=== PATIENT | male | born 1955 | race Hispanic/Latino ===

== ENCOUNTER → 2018-10-14 | Outpatient (CLI) | payer MEDICARE | END | disposition home or self-care (01) | LOC: RAH 14:38 | PROVIDERS: ATTEND Family Medicine | DX: I73.9 Peripheral vascular disease, unspecified (principal); R59.0 Localized enlarged lymph nodes; Q53.9 Undescended testicle, unspecified | CPT/HCPCS: 93970 ==

== ENCOUNTER 2019-02-01 17:46 | Inpatient (IN) | payer MEDICARE ==
[~2019-02-01] VITALS: Ht 172.7 cm; Wt 80.3 kg
[2019-02-01 18:45] LABS: BASOPHILS % (AUTO) 0.7 % (0.0-5.0); EOSINOPHILS % (AUTO) 2.2 % (0.0-8.0); HEMATOCRIT 43.1 % (42-54); LYMPHOCYTES % (AUTO) 12.4 % (21.0-51.0); MEAN CORPUSCULAR HEMOGLOBIN 28.4 pg (27.0-33.0); MEAN CORPUSCULAR HGB CONC 32.7 g/dL (32.0-36.0); MEAN CORPUSCULAR VOLUME 86.9 fL (79-99); MONOCYTES % (AUTO) 9.2 % (3.0-13.0); NEUTROPHILS % (AUTO) 75.5 % (40.0-77.0); PLATELET COUNT (AUTO) 393 K/uL (130-400); RED BLOOD CELL COUNT(AUTO) 4.96 MIL/uL (4.50-6.20); RED CELL DISTRIBUTION WIDTH 15.5 % (11.0-15.5); WHITE BLOOD COUNT (AUTO) 8.6 K/uL (4.8-10.8)
[2019-02-01 18:56] LABS: CREATININE 0.9 mg/dL (0.5-1.5); POTASSIUM 4.4 mmol/L (3.5-5.1)
[2019-02-01 19:05] LABS: B-TYPE NATRIURETIC PEPTIDE 30 pg/mL (0-100)
[2019-02-01 19:08] LABS: ALBUMIN 3.2 g/dL (3.5-5.0); BILIRUBIN,DIRECT 0.1 mg/dL (0.0-0.3); BILIRUBIN,TOTAL 0.5 mg/dL (0.2-1.0); THYROID STIMULATING HORMONE 0.6 uIU/mL (0.36-3.74); TOTAL PROTEIN, SERUM 7.4 g/dL (6.0-8.3)
[2019-02-01] MEDS ORDERED: FUROSEMIDE 10 MG/ML 4ML VIAL ONE (19:44)
[2019-02-01 20:43] LABS: APPEARANCE,URINE Clear (CLEAR); BILIRUBIN,URINE Negative (NEGATIVE); COLOR,URINE Yellow (YELLOW); GLUCOSE, URINE (UA) Negative (NEGATIVE); KETONES,URINE Negative (NEGATIVE); LEUKOCYTE ESTERASE ,URINE Negative (NEGATIVE); NITRATE,URINE Negative (NEGATIVE); OCCULT BLOOD,URINE Moderate (NEGATIVE); PROTEIN,URINE Negative (NEGATIVE); UROBILINOGEN,URINE 0.2 mg/dL (0.2-1.0)
[2019-02-01 20:58] LABS: BACTERIA,URINE None Seen /HPF (None Seen); RBC,URINE 0-1 /HPF (0-1); SQUAMOUS EPITHELIAL CELL,UR None Seen /HPF (0-2); WBC,URINE None Seen /HPF (0-1)
[2019-02-01] MEDS ORDERED: SODIUM CHLORIDE 0.9% 10 ML VIAL IVP PRN (21:00)
[2019-02-01] MEDS ORDERED: ENOXAPARIN SODIUM 30 MG/0.3 ML SQ ONE (21:01)
[2019-02-01] MEDS ORDERED: ALBUTEROL SULFATE 0.083% 2.5 MG/3 ML INH IH ONE (21:25)
--- NOTE | 2019-02-01 21:52 | NUR ---
PATIENT ADMITTED TO ROOM, ORIENTATED TO CALL DURON AND ROOM. PATIENT STATES IS NOT ON ANY HOME MEDS. PATIENT RIGHT LOWER LEG DARK RED IN COLOR WITH 3 PLUS EDEMA NOTED. SKIN DRY AND FLAKY ON BOTH LOWER LEGS. LEFT LEG WITH SLIGHT SKIN DISCOLORATION WITH APPROX 2 PLUS EDEMA AND COOLER TO TOUCH. PEDAL PULSES BY DOPPLER. PATIENT REFUSED BATH AT THIS TIME. DENIES ANY COMPLAINTS OF PAIN OR DISCOMFORT. CALL DURON WITHIN REACH.
[2019-02-01 22:13] VITALS: BP 145/72
[2019-02-01 23:44] VITALS: BP 104/56
[2019-02-02 03:24] VITALS: BP 96/58
[2019-02-02 04:32] LABS: HEMATOCRIT 39.3 % (42-54); MEAN CORPUSCULAR HEMOGLOBIN 29.3 pg (27.0-33.0); MEAN CORPUSCULAR HGB CONC 33.5 g/dL (32.0-36.0); MEAN CORPUSCULAR VOLUME 87.5 fL (79-99); PLATELET COUNT (AUTO) 346 K/uL (130-400); RED CELL DISTRIBUTION WIDTH 14.9 % (11.0-15.5); WHITE BLOOD COUNT (AUTO) 7.5 K/uL (4.8-10.8)
[2019-02-02 04:38] LABS: CREATININE 0.8 mg/dL (0.5-1.5); POTASSIUM 3.8 mmol/L (3.5-5.1)
[2019-02-02 04:41] VITALS: BP 106/65
[2019-02-02] MEDS ORDERED: IPRATROPIUM/ALBUTEROL SULFATE 3 ML SOLUTION IH SCH (06:00)
[2019-02-02] MEDS: FUROSEMIDE 10 MG/ML 4ML VIAL IVP SCH ×2 (07:50→20:56)
[2019-02-02 07:58] VITALS: BP 135/72
--- NOTE | 2019-02-02 08:30 | NUR ---
ASSESSMENT PT IS AAOX4 DENIES CP DENIES SOB DENIES SOB DENIES NV. NO COMPLAINTS SITTING UPRIGHT AT BEDSIDE. WHEEZES NOTED TO ALL LOBES BUT BREATHING PATTERN IS EVEN AND UNLABORED. DR NDIAYE ROUNDED, ORDERS RECEIVED. AM MEDS TAKEN, CALL LIGHT WITHIN REACH.
[2019-02-02] MEDS: METHYLPREDNISOLONE SOD SUCC 125MG/2ML VIAL IVP SCH ×2 (08:42→20:56)
[2019-02-02] MEDS ORDERED: ENOXAPARIN SODIUM 30 MG/0.3 ML SQ SCH (09:00)
[2019-02-02 11:30] VITALS: BP 97/55
[2019-02-02] MEDS: ACETYLCYSTEINE 20% 200MG/ML 4ML VIAL IH SCH ×3 (11:55→23:20)
[2019-02-02] MEDS: IPRATROPIUM/ALBUTEROL SULFATE 3 ML SOLUTION IH SCH ×3 (11:55→23:20)
--- NOTE | 2019-02-02 13:16 | NUR ---
DC PLAN VISITED WITH PATIENT. PATIENT LIVES ALONE. INDEPENDENT ABLE TO PERFORM ADL'S. PATIENT HAS A CANE NO OTHER DME OR SERVICES. FEELS SAFE TO RETURN HOME. DID REQUEST INFO ON PROVIDER EXPLAINED ABOUT GOING TO [facility] BUT DID LET DADS KNOW SAID THEY WILL VISIT. Addendum: 02/02/19 at 1319 by BEULAH NAVARRETE RN CM Amended: Links added.
[2019-02-02 15:34] VITALS: BP 109/65
[2019-02-02 19:41] VITALS: BP 103/56
[2019-02-02] MEDS: CEFTRIAXONE SODIUM 1 GM IVP SCH (20:55)
[2019-02-02] MEDS: ENOXAPARIN SODIUM 30 MG/0.3 ML SQ SCH (20:56)
[2019-02-03] VITALS (7 sets, daily range): BP systolic 94–113; BP diastolic 51–59
[2019-02-03 03:28] LABS: HEMATOCRIT 42.4 % (42-54); MEAN CORPUSCULAR HEMOGLOBIN 28.1 pg (27.0-33.0); MEAN CORPUSCULAR HGB CONC 32.3 g/dL (32.0-36.0); MEAN CORPUSCULAR VOLUME 87.1 fL (79-99); PLATELET COUNT (AUTO) 394 K/uL (130-400); RED BLOOD CELL COUNT(AUTO) 4.87 MIL/uL (4.50-6.20); WHITE BLOOD COUNT (AUTO) 9.5 K/uL (4.8-10.8)
--- NOTE | 2019-02-03 03:36 | NUR ---
PATIENT RESTING IN BED. DOES HAVE SOB WITH EXERTION. USING 2L OF 02 VIA NC. 02 SATS AT 98%. CRACKLES TO POSTERIOR LOBES AND WHEEZES ANTERIOR LOBES. DENIES CHEST PAIN. PATIENT HAD PITTING EDEMA TO BLE WITH DISCOLORATION AND FLAKING. PATIENT STATED OUR FOOD DOESN'T HAVE ENOUGH SALT BUT ATE IT ANYWAY. OUTSIDE FOOD WAS BROUGHT TO PATIENT BY FAMILY MEMBER. PATIENT HAD A WHATABURGER WITH FRIES. EDUCATED PATIENT ON SALT INTAKE AND WATER RETENTION IN EXTREMITIES.
[2019-02-03 03:40] LABS: POTASSIUM 4.2 mmol/L (3.5-5.1)
[2019-02-03] MEDS: IPRATROPIUM/ALBUTEROL SULFATE 3 ML SOLUTION IH SCH ×4 (07:05→23:05)
[2019-02-03] MEDS: ACETYLCYSTEINE 20% 200MG/ML 4ML VIAL IH SCH ×4 (07:05→23:05)
[2019-02-03] MEDS: FUROSEMIDE 10 MG/ML 4ML VIAL IVP SCH ×2 (07:38→20:19)
[2019-02-03] MEDS: ENOXAPARIN SODIUM 30 MG/0.3 ML SQ SCH (07:39)
[2019-02-03] MEDS: METHYLPREDNISOLONE SOD SUCC 125MG/2ML VIAL IVP SCH ×2 (07:39→20:18)
--- NOTE | 2019-02-03 08:00 | NUR ---
ASSESSMENT PT IS AAOX4 DENIES CP DENIES SOB AT THIS TIME, RESTING IN BED. DR NDIAYE ROUNDED, SAW PATIENT ORDERS RECEIVED. AM MEDS GIVEN. CALL LIGHT WITHIN REACH.
--- NOTE | 2019-02-03 12:10 | NUR ---
STATUS UP AT BEDSIDE. NO COMPLAINTS, EATING LUNCH. CALL LIGHT WITHIN REACH.
--- NOTE | 2019-02-03 17:28 | NUR ---
Status Patient awake and alert oriented 4 denies pain, ambulating in halls, back to room, tolerated dinner. Call light within reach.
--- NOTE | 2019-02-03 18:03 | NUR ---
DC PLAN MD ORDER FOR SNF. GOT PT EVAL. PATIENT AMBULATED 200 FT. WILL NOT LIKELY QUALIFY FOR SNF. LEFT ORANGE PAPER TO LET MD KNOW LET NURSE KNOW WELL.
[2019-02-03] MEDS: CEFTRIAXONE SODIUM 1 GM IVP SCH (20:18)
--- NOTE | 2019-02-04 03:15 | NUR ---
PATIENT RESTING IN BED. CURRENTLY USING 2L OF 02 VIA NC. O2 SATS >95%. DENIES CHEST PAIN OR SOB. BLE FLAKING SKIN WITH 2+ PITTING EDEMA. LUNGS WITH WHEEZING AND POSTERIOR CRACKLES. PATIENT. EDUCATED PATIENT ON WATER INTAKE AND NA+ INTAKE. TOLERATING IV ABX WELL. WILL CONTINUE TO MONITOR
[2019-02-04 04:35] LABS: HEMATOCRIT 40.8 % (42-54); MEAN CORPUSCULAR HEMOGLOBIN 29.1 pg (27.0-33.0); MEAN CORPUSCULAR HGB CONC 33.3 g/dL (32.0-36.0); MEAN CORPUSCULAR VOLUME 87.5 fL (79-99); PLATELET COUNT (AUTO) 398 K/uL (130-400); RED BLOOD CELL COUNT(AUTO) 4.66 MIL/uL (4.50-6.20); RED CELL DISTRIBUTION WIDTH 15.1 % (11.0-15.5); WHITE BLOOD COUNT (AUTO) 12.6 K/uL (4.8-10.8)
[2019-02-04 04:43] LABS: CREATININE 0.9 mg/dL (0.5-1.5); POTASSIUM 4.1 mmol/L (3.5-5.1)
[2019-02-04 05:05] VITALS: BP 112/61
[2019-02-04] MEDS: ACETYLCYSTEINE 20% 200MG/ML 4ML VIAL IH SCH ×3 (06:35→18:37)
[2019-02-04] MEDS: IPRATROPIUM/ALBUTEROL SULFATE 3 ML SOLUTION IH SCH ×3 (06:35→18:36)
[2019-02-04 07:00] VITALS: BP 94/54
[2019-02-04] MEDS: ENOXAPARIN SODIUM 30 MG/0.3 ML SQ SCH (09:00)
[2019-02-04] MEDS: FUROSEMIDE 10 MG/ML 4ML VIAL IVP SCH ×2 (10:17→21:01)
[2019-02-04] MEDS: METHYLPREDNISOLONE SOD SUCC 125MG/2ML VIAL IVP SCH ×2 (10:17→21:01)
[2019-02-04 11:00] VITALS: BP 119/91
[2019-02-04] MEDS ORDERED: REGADENOSON 0.4 MG/5 ML PF SYG IVP SCH (12:30)
[2019-02-04 16:00] VITALS: BP 105/59
[2019-02-04 19:17] VITALS: BP 100/59
[2019-02-04] MEDS: CEFTRIAXONE SODIUM 1 GM IVP SCH (21:00)
[2019-02-04 23:50] VITALS: BP 105/57
[2019-02-05] MEDS: IPRATROPIUM/ALBUTEROL SULFATE 3 ML SOLUTION IH SCH ×5 (00:58→23:43)
[2019-02-05] MEDS: ACETYLCYSTEINE 20% 200MG/ML 4ML VIAL IH SCH ×5 (00:59→23:43)
[2019-02-05 04:10] VITALS: BP 107/60
[2019-02-05 04:40] LABS: BASOPHILS % (AUTO) 0.1 % (0.0-5.0); HEMATOCRIT 46.2 % (42-54); LYMPHOCYTES % (AUTO) 7.2 % (21.0-51.0); MEAN CORPUSCULAR HEMOGLOBIN 27.8 pg (27.0-33.0); MEAN CORPUSCULAR HGB CONC 32.1 g/dL (32.0-36.0); MEAN CORPUSCULAR VOLUME 86.8 fL (79-99); MONOCYTES % (AUTO) 1.7 % (3.0-13.0); PLATELET COUNT (AUTO) 495 K/uL (130-400); RED BLOOD CELL COUNT(AUTO) 5.32 MIL/uL (4.50-6.20); RED CELL DISTRIBUTION WIDTH 15.2 % (11.0-15.5); WHITE BLOOD COUNT (AUTO) 12.3 K/uL (4.8-10.8)
[2019-02-05 04:57] LABS: CREATININE 0.9 mg/dL (0.5-1.5)
[2019-02-05 07:00] VITALS: BP 130/69
[2019-02-05] MEDS: METHYLPREDNISOLONE SOD SUCC 125MG/2ML VIAL IVP SCH ×2 (09:53→20:24)
[2019-02-05] MEDS: FUROSEMIDE 10 MG/ML 4ML VIAL IVP SCH ×2 (09:54→20:25)
[2019-02-05] MEDS: ENOXAPARIN SODIUM 30 MG/0.3 ML SQ SCH (09:54)
--- NOTE | 2019-02-05 10:51 | NUR ---
REPORTED TO DR. NDIAYE POSITIVE SPUTUM CULTURE: PSEUDOMONAS AERUGENOSA.
[2019-02-05 11:00] VITALS: BP 110/67
--- NOTE | 2019-02-05 11:26 | NUR ---
SPOKE WITH KITTY OCLLINS RN ABOUT 'S ORDER FOR REFERRAL TO [facility]. WILDLIFE FORENSIC GENETICIST SAID THAT SUPERVISOR CONTINUOUS WELD PIPE MILL WILL BE ABLE TO PROVIDE INFORMATION TO PATIENT ON THURSDAY.
--- NOTE | 2019-02-05 13:22 | NUR ---
DR. LOAIZA' OFFICE IS CLOSED DURING WEEKENDS. CONSULT WILL BE CALLED IN ON THURSDAY.
[2019-02-05] MEDS: LEVOFLOXACIN 500 MG/D5W 100 ML 100 ML IV SCH (13:57)
[2019-02-05] MEDS: ALPRAZOLAM 0.25 MG TABLET PO PRN ×2 (15:14→20:24)
[2019-02-05 16:00] VITALS: BP 117/67
[2019-02-05 19:10] VITALS: BP 133/78
[2019-02-05 23:27] VITALS: BP 135/72
[2019-02-06 03:52] VITALS: BP 138/78
[2019-02-06] MEDS: ALPRAZOLAM 0.25 MG TABLET PO PRN ×4 (04:11→20:37)
[2019-02-06 04:21] LABS: BASOPHILS % (AUTO) 0.3 % (0.0-5.0); HEMATOCRIT 50.1 % (42-54); LYMPHOCYTES % (AUTO) 8.9 % (21.0-51.0); MEAN CORPUSCULAR HEMOGLOBIN 28.9 pg (27.0-33.0); MEAN CORPUSCULAR HGB CONC 33.2 g/dL (32.0-36.0); MEAN CORPUSCULAR VOLUME 86.8 fL (79-99); MONOCYTES % (AUTO) 2.1 % (3.0-13.0); NEUTROPHILS % (AUTO) 88.7 % (40.0-77.0); PLATELET COUNT (AUTO) 481 K/uL (130-400); RED BLOOD CELL COUNT(AUTO) 5.76 MIL/uL (4.50-6.20); RED CELL DISTRIBUTION WIDTH 15.2 % (11.0-15.5); WHITE BLOOD COUNT (AUTO) 11.5 K/uL (4.8-10.8)
[2019-02-06 04:22] LABS: POTASSIUM 3.6 mmol/L (3.5-5.1)
[2019-02-06] MEDS: ACETYLCYSTEINE 20% 200MG/ML 4ML VIAL IH SCH ×4 (06:15→23:18)
[2019-02-06] MEDS: IPRATROPIUM/ALBUTEROL SULFATE 3 ML SOLUTION IH SCH ×4 (06:15→23:18)
[2019-02-06 07:00] VITALS: BP 128/73
[2019-02-06] MEDS: FUROSEMIDE 10 MG/ML 4ML VIAL IVP SCH ×2 (08:32→20:39)
[2019-02-06] MEDS: METHYLPREDNISOLONE SOD SUCC 125MG/2ML VIAL IVP SCH ×2 (08:32→20:39)
[2019-02-06] MEDS: ENOXAPARIN SODIUM 30 MG/0.3 ML SQ SCH (08:35)
[2019-02-06] MEDS: LEVOFLOXACIN 500 MG/D5W 100 ML 100 ML IV SCH (10:12)
[2019-02-06 11:00] VITALS: BP 117/74
[2019-02-06 16:00] VITALS: BP 140/71
[2019-02-06 19:28] VITALS: BP 123/69
[2019-02-06] MEDS ORDERED: [UNRECOGNIZED DRUG - CODE] TP (19:33)
--- NOTE | 2019-02-06 19:52 | NUR ---
CHE[facility] REPORT HANDED TO PATTY DARDEN. DR. LOAIZA WILL NEED TO BE CALLED TOMORROW. [place] MACHINE OPERATOR IS PENDING TO SPEAK TO PATIENT ABOUT [facility]DICTION [facility].
[2019-02-06 23:39] VITALS: BP 134/75
[2019-02-07 03:56] VITALS: BP 126/79
[2019-02-07 04:05] LABS: BASOPHILS % (AUTO) 0.4 % (0.0-5.0); EOSINOPHILS % (AUTO) 0.1 % (0.0-8.0); HEMATOCRIT 57.6 % (42-54); LYMPHOCYTES % (AUTO) 10.6 % (21.0-51.0); MEAN CORPUSCULAR HEMOGLOBIN 28.6 pg (27.0-33.0); MEAN CORPUSCULAR HGB CONC 33.1 g/dL (32.0-36.0); MEAN CORPUSCULAR VOLUME 86.3 fL (79-99); MONOCYTES % (AUTO) 1.8 % (3.0-13.0); NEUTROPHILS % (AUTO) 87.1 % (40.0-77.0); NUCLEATED RED BLOOD CELLS 0.1 % (0.0-0.19); PLATELET COUNT (AUTO) 440 K/uL (130-400); RED BLOOD CELL COUNT(AUTO) 6.67 MIL/uL (4.50-6.20); RED CELL DISTRIBUTION WIDTH 14.8 % (11.0-15.5); WHITE BLOOD COUNT (AUTO) 10.7 K/uL (4.8-10.8)
[2019-02-07 04:20] LABS: CREATININE 0.9 mg/dL (0.5-1.5); POTASSIUM 3.9 mmol/L (3.5-5.1)
[2019-02-07] MEDS: ALPRAZOLAM 0.25 MG TABLET PO PRN ×2 (04:56→10:32)
[2019-02-07] MEDS: IPRATROPIUM/ALBUTEROL SULFATE 3 ML SOLUTION IH SCH ×3 (06:41→18:16)
[2019-02-07] MEDS: ACETYLCYSTEINE 20% 200MG/ML 4ML VIAL IH SCH ×2 (06:41→12:00)
[2019-02-07 07:43] VITALS: BP 127/65
--- NOTE | 2019-02-07 07:45 | NUR ---
Pt. remained in bed,no s/s respiratory distress,pending to consult Dr. Pathak today and follow up pediatric social worker.Bedside report given to incoming NOD using SBAR all questions answered.
[2019-02-07] MEDS ORDERED: AMMONIUM LACTATE APPL TP SCH (09:00)
[2019-02-07] MEDS: ENOXAPARIN SODIUM 30 MG/0.3 ML SQ SCH (10:29)
[2019-02-07] MEDS: METHYLPREDNISOLONE SOD SUCC 125MG/2ML VIAL IVP SCH (10:29)
[2019-02-07] MEDS: FUROSEMIDE 10 MG/ML 4ML VIAL IVP SCH (10:29)
[2019-02-07 11:13] VITALS: BP 146/87
[2019-02-07] MEDS: LEVOFLOXACIN 500 MG/D5W 100 ML 100 ML IV SCH (11:32)
--- NOTE | 2019-02-07 13:09 | NUR ---
DC PLAN PATIENT HAS APPROVAL FOR 02 THROUGH [facility] BUT PATIENT WAS NOT DISCHARGED. NEW CONSULT FOR DR. JEFF FOR HEROINE. CONTRACT NEGOTIATION MANAGER NOTIFIED AND SPEAKING TO PATIENT. Addendum: 02/07/19 at 1310 by BEULAH NAVARRETE RN CM Amended: Links added.
[2019-02-07 15:35] VITALS: BP 130/82
--- NOTE | 2019-02-07 16:49 | NUR ---
[facility] Sw met with pt who states he has used heroin daily for at least 10years. Pt states he wants to quit, but does not want to go anywhere for help. Pt stated he feels he can do it on his own if he has Xanax for the anxiety. Agapito informed pt that I would seek resources in [facility]. Sw referred to [facility] in [place] [phone] [facility]. Agapito spoke to Tristian who states that pt can walk in any day from 6am to 2:30 to speak to a counselor. Pt would need to see the MD for meds. MD only there on from 6:30am-7am. Pt must be there by 6am to get in to see MD. Agapito informed CM of this and she will provide info to pt
--- NOTE | 2019-02-07 17:08 | NUR ---
DC PLAN SPOKE TO NURSE GAVE HIM INFO REGARDING [facility]. SPOKE TO PATIENT REGARDING INFO. GAVE HIM A COPY OF INFORMATION INCLUDING TIMES. HE HAS TO BE THERE TOMORROW AT 6 AM ITS THE ONLY TIME MD IS THERE IN ORDER TO BE PRESCRIBED MEDICATIONS. PATIENT AWARE. SPOKE TO FRIEND ON PHONE EXPLAINED ABOUT GOING TO CLINIC AND THAT HE WOULD NEED A RIDE. PATIENT VERBALIZED UNDERSTANDING ABOUT GETTING TO CLINIC. SAID HE WOULD ASK FOR RIDE. REMINDED HIM THAT FAMILY AND FRIENDS VERBALZIED WANT FOR HIM TO QUIT HE JUST NEEDS TO ASK FOR HELP. ASKED NURSE ABOUT OXYGEN SAYS PATIENT HAS NOT BEEN USING AND DOES NOT NEED. MD DID NOT RE ORDER OXYGEN OR LEAVE SCRIPT FOR IT. Addendum: 02/07/19 at 1711 by BEULAH NAVARRETE RN CM Amended: Links added.
[2019-02-07] MEDS ORDERED: LEVO500T2 PO (18:09)
== END 2019-02-07 18:53 | disposition home or self-care (01) | DRG 602 ==
LOC: EDH 17:46 → EDHIP 17:50 → OBSVTOIN 17:50 → 2AH 21:55
PROVIDERS: ADMIT Internal Medicine; ATTEND Internal Medicine
DX: L03.115 Cellulitis of right lower limb (principal); J96.90 Respiratory failure, unspecified, unspecified whether with hypoxia or hypercapnia; J44.1 Chronic obstructive pulmonary disease with (acute) exacerbation; L03.116 Cellulitis of left lower limb; E88.09 Other disorders of plasma-protein metabolism, not elsewhere classified; F11.10 Opioid abuse, uncomplicated; F60.7 Dependent personality disorder; I50.9 Heart failure, unspecified
CPT/HCPCS: 36415; 71046; 78452; 80048; 80053; 80076; 81001; 83880; 84443; 85025; 85027; 87071; 87077; 87186; 87205; 93005; 93017; 93306; 93970; 94640; 94664; 94760; 96374; A4218; A9500; G0378; J0696; J1650; J1940; J1956; J2785; J2930; J7608

== ENCOUNTER 2024-06-23 11:32 | Inpatient (IN) | payer MEDICARE ==
[~2024-06-23] VITALS: Ht 172.7 cm; Wt 69.9 kg
[2024-06-23] VITALS (19 sets, daily range): BP systolic 96–124; BP diastolic 48–85; PULSE 74–96; RESP 10–21; TEMP 98.9; O2SAT 94
[~2024-06-23 11:32] MED LIST: LEVO500T2 PO; [UNRECOGNIZED DRUG - CODE] TP
[2024-06-23] MEDS: 0.9%NACL 1000ML 1,000 ML IV ONE (12:00)
[2024-06-23 12:44] LABS: BASOPHILS # (AUTO) 0.07 K/uL (0.00-0.20); BASOPHILS % (AUTO) 0.2 % (0.0-5.0); EOSINOPHILS # (AUTO) 0.01 K/uL (0.00-0.70); HEMATOCRIT 43.2 % (42-54); IMMATURE GRANULOCYTE ABSOLUTE 0.15 K/uL (0-1); LYMPHOCYTES % (AUTO) 3.5 % (21.0-51.0); MEAN CORPUSCULAR HEMOGLOBIN 25.9 pg (27.0-33.0); MEAN CORPUSCULAR HGB CONC 32.9 g/dL (32.0-36.0); MEAN CORPUSCULAR VOLUME 78.8 fL (79-99); MONOCYTES # (AUTO) 1.4 K/uL (0.1-1.0); MONOCYTES % (AUTO) 4.9 % (3.0-13.0); NEUTROPHILS # (AUTO) 25.6 K/uL (1.8-7.7); NEUTROPHILS % (AUTO) 90.9 % (40.0-77.0); PLATELET COUNT (AUTO) 503 K/uL (130-400); RED BLOOD CELL COUNT(AUTO) 5.48 MIL/uL (4.50-6.20); RED CELL DISTRIBUTION WIDTH 18.7 % (11.0-15.5); WHITE BLOOD COUNT (AUTO) 28.2 K/uL (4.8-10.8)
[2024-06-23 12:57] LABS: CREATININE 1.1 mg/dL (0.5-1.3); POTASSIUM 3.4 mmol/L (3.5-5.1)
[2024-06-23 13:03] LABS: INR 1.09 (0.85-1.15); PROTHROMBIN TIME 11.7 SEC (9.6-11.6)
[2024-06-23 13:05] LABS: PARTIAL THROMBOPLASTIN TIME 26.7 SEC (26.3-35.5)
[2024-06-23] MEDS: PANTOPrazole 40 MG/VIAL IVP ONE (13:08)
[2024-06-23] MEDS: CEFTRIAXONE 2GM VIAL IVPB ONE (13:08)
[2024-06-23] MEDS: 0.9%NACL 1000ML 2,586 ML IV ONE (13:08)
[2024-06-23] MEDS: ondanSETRON 4MG INJ IVP ONE (13:08)
[2024-06-23 14:26] LABS: ABG BASE EXCESS 16.5 mmol/L (-2.0-3.0); ABG HCO3 45.1 mmol/L (21.0-28.0); ABG OXYGEN SATURATION 93.8 % (94.0-98.0); ABG PCO2 74 mmHg (35-48); CARBON MONOXIDE 4.5 % (0.5-1.5); DEVICE COMMENT RR JESSE; HHb 5.9; VENT MODE, BG 3LNC (ROOM AIR)
[2024-06-23] MEDS ORDERED: COMPOUND IV MISC 1 EACH IVSOLN MISC PRN (14:30)
[2024-06-23] MEDS ORDERED: IpraTROPium/alBUTERol SULFATE 3 ML SOLUTION IH SCH (14:30)
[2024-06-23] MEDS: PANTOPrazole 40MG INJ 80 MG in 0.9%NACL 100ML 100 ML IVP SCH (14:30)
[2024-06-23 14:43] LABS: HEMOGLOBIN A1C 5.9 % (4.0-6.0)
[2024-06-23 15:19] LABS: THYROID STIMULATING HORMONE 0.95 uIU/mL (0.36-3.74)
[2024-06-23 15:42] LABS: APPEARANCE,URINE CLEAR (CLEAR); BILIRUBIN,URINE NEGATIVE (NEGATIVE); COLOR,URINE YELLOW (YELLOW); GLUCOSE, URINE (UA) 30 mg/dL (NEGATIVE); KETONES,URINE NEGATIVE (NEGATIVE); LEUKOCYTE ESTERASE ,URINE NEGATIVE Leu/uL (NEGATIVE); NITRATE,URINE NEGATIVE (NEGATIVE); OCCULT BLOOD,URINE NEGATIVE (NEGATIVE); PH,URINE 5.5 (5.0-8.0); PROTEIN,URINE 10 mg/dL (NEGATIVE); UROBILINOGEN,URINE 0.2 mg/dL (0.2-1.0)
[2024-06-23 15:43] LABS: ADD UA MICROSCOPIC YES
[2024-06-23 15:44] LABS: MUCUS,URINE RARE LPF (None Seen); SQUAMOUS EPITHELIAL CELL,UR RARE /HPF (0-2); WBC,URINE 0-1 /HPF (0-1)
[2024-06-23 15:50] LABS: AMPHET/METH SCREEN,URINE NEGATIVE (NEGATIVE); BARBITURATE SCREEN, URINE NEGATIVE (NEGATIVE); BENZODIAZEPINES SCREEN,URINE NEGATIVE (NEGATIVE); CANNABINOID SCREEN,URINE NEGATIVE (NEGATIVE); COCAINE SCREEN,URINE POSITIVE (NEGATIVE); OPIATE SCREEN,URINE POSITIVE (NEGATIVE); PHENCYCLIDINE SCREEN,URINE NEGATIVE (NEGATIVE)
[2024-06-23] MEDS ORDERED: COMPOUND IV REFRIGERATED 1 EACH IVSOLN MISC PRN (16:00)
[2024-06-23] MEDS: octREOtide aceTATe 1,250 MCG in 0.9% NACL 250ML 250 ML IV SCH (17:09)
[2024-06-23] MEDS ORDERED: VANCOMYCIN PROTOCOL PER PHARMACY IV SCH (17:30)
[2024-06-23] MEDS: IpraTROPium/alBUTERol SULFATE 3 ML SOLUTION IH SCH (19:06)
[2024-06-23] MEDS: BUDESONIDE 0.5 MG/2 ML INH IH SCH (19:06)
[2024-06-23] MEDS: ceFEPime HCL 1 GM VIAL IVPB SCH (19:39)
[2024-06-23] MEDS: AZITHROMYCIN 500MG+NS 250ML 250 ML IVPB SCH (19:39)
[2024-06-23] MEDS: 0.9%NACL 1000ML 1,000 ML IV SCH (19:39)
[2024-06-23] MEDS: VANCOMYCIN 1G/250ML KIT 250 ML IV SCH (19:42)
[2024-06-23 20:43] LABS: HEMATOCRIT 36.3 % (42-54)
[2024-06-23] MEDS: NOREPINEPHRIN 4MG/NS 250ML 250 ML IV PRN (21:41)
[2024-06-23] MEDS: metRONIDazole 500MG/100ML BAG 100 ML IVPB SCH (23:24)
[2024-06-24] VITALS (178 sets, daily range): BP systolic 63–141; BP diastolic 27–76; PULSE 48–103; RESP 9–147; TEMP 97.8–98.9; O2SAT 89–93
[2024-06-24 02:14] LABS: BASOPHILS # (AUTO) 0.08 K/uL (0.00-0.20); BASOPHILS % (AUTO) 0.2 % (0.0-5.0); LYMPHOCYTES # (AUTO) 1.6 K/uL (1.0-4.8); LYMPHOCYTES % (AUTO) 4.9 % (21.0-51.0); MEAN CORPUSCULAR HEMOGLOBIN 25.8 pg (27.0-33.0); MEAN CORPUSCULAR HGB CONC 32.3 g/dL (32.0-36.0); MEAN CORPUSCULAR VOLUME 79.9 fL (79-99); MONOCYTES # (AUTO) 1.9 K/uL (0.1-1.0); MONOCYTES % (AUTO) 5.6 % (3.0-13.0); NEUTROPHILS # (AUTO) 29.8 K/uL (1.8-7.7); NEUTROPHILS % (AUTO) 88.7 % (40.0-77.0); PLATELET COUNT (AUTO) 463 K/uL (130-400); RED BLOOD CELL COUNT(AUTO) 4.38 MIL/uL (4.50-6.20); RED CELL DISTRIBUTION WIDTH 18.2 % (11.0-15.5)
[2024-06-24 02:20] LABS: CREATININE 0.7 mg/dL (0.5-1.3); MAGNESIUM 1.3 mg/dL (1.80-2.40)
[2024-06-24 02:21] LABS: WHITE BLOOD COUNT (AUTO) 33.6 K/uL (4.8-10.8)
[2024-06-24] MEDS: MAGNESIUM 2GM PREMIX 50ML 50 ML IV PRN (02:33)
[2024-06-24] MEDS: PoTASSium chloRIDE 20MEQ/100ML 100 ML IV PRN (02:33)
[2024-06-24 03:02] LABS: BAND NEUTROPHILS % (MANUAL) 6 % (0-2); LYMPHOCYTES % (MANUAL) 3 % (22-44); MAN.DIFF COMMENT-IMPRESSION MANUAL DIFFERENTIAL; MONOCYTES % (MANUAL) 6 % (2-9); PLATELET MORPHOLOGY COMMENT ADEQUATE; SEGMENTED NEUTROPHILS % 85 % (40-70); TOTAL CELLS COUNTED 100
[2024-06-24 06:57] LABS: SARS-CoV-2, RNA, NAAT NEGATIVE SARS CoV-2 (NEGATIVE)
[2024-06-24] MEDS: VANCOMYCIN 1G/250ML KIT 250 ML IV SCH (08:02)
[2024-06-24 08:30] LABS: MAGNESIUM 1.9 mg/dL (1.80-2.40); POTASSIUM 3.2 mmol/L (3.5-5.1)
[2024-06-24] MEDS: Solu-medROL 40MG VIAL IVP SCH (08:42)
[2024-06-24 08:49] LABS: HIV 1&2 ANTIBODY Non-Reactive (Negative); HIV-1 p24 Antigen Non-Reactive (Negative)
[2024-06-24] MEDS ORDERED: DILT-116 PO (10:11)
[2024-06-24] MEDS ORDERED: FURO80TA3 PO (10:12)
[2024-06-24] MEDS ORDERED: ASPI-1443 PO (10:12)
[2024-06-24] MEDS: LACTATED RINGERS 1000ML IV SCH (13:14)
[2024-06-24 14:30] LABS: HEPATITIS B SURFACE ANTIGEN Non-Reactive (Nonreactive); HEPATITIS C ANTIBODY Reactive (Nonreactive)
[2024-06-24] MEDS ORDERED: CEFTRIAXONE 2GM VIAL IVPB SCH (14:30)
[2024-06-24 14:31] LABS: HEPATITIS A IGM ANTIBODY Non-Reactive (Nonreactive); HEPATITIS B CORE IGM ANTIBODY Non-Reactive (Negative)
[2024-06-24] MEDS: NOREPINEPHRINE BITARTRATE 32 MG in 0.9% NACL 250ML 250 ML IV SCH (16:17)
[2024-06-24 16:28] LABS: CREATININE 0.6 mg/dL (0.5-1.3); POTASSIUM 3.8 mmol/L (3.5-5.1)
[2024-06-24 16:40] LABS: ALBUMIN 2.4 g/dL (3.5-5.0); BILIRUBIN,DIRECT 0.3 mg/dL (0.0-0.3); BILIRUBIN,TOTAL 0.6 mg/dL (0.2-1.0); TOTAL PROTEIN, SERUM 6.7 g/dL (6.0-8.3)
[2024-06-24] MEDS: BUDESONIDE 0.5 MG/2 ML INH IH SCH (18:25)
[2024-06-24] MEDS ORDERED: PHARMACY COMMUNICATION MISC SCH (23:00)
[2024-06-25] VITALS (117 sets, daily range): BP systolic 67–159; BP diastolic 34–108; PULSE 63–94; RESP 7–58; TEMP 97.5–98.8; O2SAT 92–97
[2024-06-25 04:09] LABS: BASOPHILS # (AUTO) 0.06 K/uL (0.00-0.20); BASOPHILS % (AUTO) 0.2 % (0.0-5.0); HEMATOCRIT 40.6 % (42-54); IMMATURE GRANULOCYTE ABSOLUTE 0.25 K/uL (0-1); LYMPHOCYTES # (AUTO) 0.9 K/uL (1.0-4.8); LYMPHOCYTES % (AUTO) 2.7 % (21.0-51.0); MEAN CORPUSCULAR HGB CONC 31.5 g/dL (32.0-36.0); MEAN CORPUSCULAR VOLUME 82.4 fL (79-99); MONOCYTES # (AUTO) 0.4 K/uL (0.1-1.0); MONOCYTES % (AUTO) 1.1 % (3.0-13.0); NEUTROPHILS # (AUTO) 30.2 K/uL (1.8-7.7); NEUTROPHILS % (AUTO) 95.2 % (40.0-77.0); PLATELET COUNT (AUTO) 467 K/uL (130-400); RED BLOOD CELL COUNT(AUTO) 4.93 MIL/uL (4.50-6.20); RED CELL DISTRIBUTION WIDTH 19.1 % (11.0-15.5)
[2024-06-25 04:21] LABS: INR 1.15 (0.85-1.15); PROTHROMBIN TIME 12.3 SEC (9.6-11.6)
[2024-06-25 04:23] LABS: PARTIAL THROMBOPLASTIN TIME 27.9 SEC (26.3-35.5)
[2024-06-25 04:26] LABS: WHITE BLOOD COUNT (AUTO) 31.7 K/uL (4.8-10.8)
[2024-06-25 04:30] LABS: ALANINE AMINOTRANSFERASE 14 U/L (12-78); ALBUMIN 1.9 g/dL (3.5-5.0); AMMONIA < 10 umol/L (11-32); ASPARTATE AMINOTRANSFERASE 14 U/L (10-37); BILIRUBIN,DIRECT 0.2 mg/dL (0.0-0.3); BILIRUBIN,TOTAL 0.6 mg/dL (0.2-1.0); CARBON DIOXIDE 37 mmol/L (21-32); CHLORIDE 93 mmol/L (101-111); CREATININE 0.7 mg/dL (0.5-1.3); GLOMERULAR FILTR. RATE CALC 99 mL/min (>90); GLUCOSE,RANDOM 151 mg/dL (70-105); POTASSIUM 3.9 mmol/L (3.5-5.1); SODIUM SERUM 136 mmol/L (136-145); TOTAL PROTEIN, SERUM 5.6 g/dL (6.0-8.3); UREA NITROGEN, BLOOD 11 mg/dL (7-18)
[2024-06-25 05:50] LABS: BAND NEUTROPHILS % (MANUAL) 2 % (0-2); LYMPHOCYTES % (MANUAL) 2 % (22-44); MAN.DIFF COMMENT-IMPRESSION MANUAL DIFFERENTIAL; PLATELET MORPHOLOGY COMMENT SLIGHT INCREASED; SEGMENTED NEUTROPHILS % 96 % (40-70); TOTAL CELLS COUNTED 100
[2024-06-25] MEDS: BisaCODYL 10 MG SUPP.RECT RC SCH (11:51)
[2024-06-25 14:47] LABS: CREATININE 0.4 mg/dL (0.5-1.3)
[2024-06-25 14:52] LABS: POTASSIUM 2.9 mmol/L (3.5-5.1)
[2024-06-25] MEDS: Solu-medROL 40MG VIAL IVP SCH (16:14)
[2024-06-25] MEDS: PANTOPrazole 40 MG/VIAL IVP SCH (19:34)
[2024-06-26] VITALS (31 sets, daily range): BP systolic 94–156; BP diastolic 43–83; PULSE 61–83; RESP 12–20; TEMP 97.5–98.8; O2SAT 93–97
[2024-06-26 04:47] LABS: BASOPHILS # (AUTO) 0.03 K/uL (0.00-0.20); BASOPHILS % (AUTO) 0.1 % (0.0-5.0); EOSINOPHILS # (AUTO) 0.01 K/uL (0.00-0.70); HEMATOCRIT 36.5 % (42-54); IMMATURE GRANULOCYTE ABSOLUTE 0.15 K/uL (0-1); LYMPHOCYTES % (AUTO) 4.7 % (21.0-51.0); MEAN CORPUSCULAR HGB CONC 31.5 g/dL (32.0-36.0); MEAN CORPUSCULAR VOLUME 82.6 fL (79-99); MONOCYTES # (AUTO) 0.4 K/uL (0.1-1.0); NEUTROPHILS # (AUTO) 18.9 K/uL (1.8-7.7); NEUTROPHILS % (AUTO) 92.5 % (40.0-77.0); PLATELET COUNT (AUTO) 354 K/uL (130-400); RED BLOOD CELL COUNT(AUTO) 4.42 MIL/uL (4.50-6.20); WHITE BLOOD COUNT (AUTO) 20.5 K/uL (4.8-10.8)
[2024-06-26 04:55] LABS: CREATININE 0.5 mg/dL (0.5-1.3); MAGNESIUM 1.9 mg/dL (1.80-2.40); POTASSIUM 3.5 mmol/L (3.5-5.1)
[2024-06-26] MEDS: fluCONazole 200 MG/NS 100 ML 100 ML IV SCH (08:23)
[2024-06-26] MEDS: Solu-medROL 40MG VIAL IVP SCH (19:54)
[2024-06-26] MEDS: hydrOXYzine 25 MG TABLET ONE (20:25)
[2024-06-26] MEDS: traMADol HCL 50 MG TABLET PO ONE (20:25)
[2024-06-26] MEDS: hydrOXYzine 10 MG TABLET PO ONE (20:30)
[2024-06-27] VITALS (13 sets, daily range): BP systolic 100–127; BP diastolic 44–74; PULSE 69–90; RESP 18–20; TEMP 97.7–99.2; O2SAT 93–98
[2024-06-27 07:26] LABS: BASOPHILS # (AUTO) 0.02 K/uL (0.00-0.20); BASOPHILS % (AUTO) 0.1 % (0.0-5.0); EOSINOPHILS # (AUTO) 0.01 K/uL (0.00-0.70); EOSINOPHILS % (AUTO) 0.1 % (0.0-8.0); HEMATOCRIT 35.7 % (42-54); LYMPHOCYTES # (AUTO) 1.5 K/uL (1.0-4.8); LYMPHOCYTES % (AUTO) 10.4 % (21.0-51.0); MEAN CORPUSCULAR HEMOGLOBIN 25.8 pg (27.0-33.0); MEAN CORPUSCULAR HGB CONC 32.5 g/dL (32.0-36.0); MEAN CORPUSCULAR VOLUME 79.5 fL (79-99); MONOCYTES # (AUTO) 0.7 K/uL (0.1-1.0); MONOCYTES % (AUTO) 4.6 % (3.0-13.0); NEUTROPHILS # (AUTO) 12.4 K/uL (1.8-7.7); NEUTROPHILS % (AUTO) 84.1 % (40.0-77.0); PLATELET COUNT (AUTO) 367 K/uL (130-400); RED BLOOD CELL COUNT(AUTO) 4.49 MIL/uL (4.50-6.20); RED CELL DISTRIBUTION WIDTH 18.7 % (11.0-15.5); WHITE BLOOD COUNT (AUTO) 14.7 K/uL (4.8-10.8)
[2024-06-27 07:38] LABS: CREATININE 0.5 mg/dL (0.5-1.3); POTASSIUM 3.3 mmol/L (3.5-5.1)
[2024-06-27] MEDS: hydrOXYzine 25 MG TABLET PO PRN (10:19)
[2024-06-27] MEDS: PoTASSium chloRIDE 20MEQ ER 20 MEQ ERTAB PO ONE (12:39)
[2024-06-28] VITALS (13 sets, daily range): BP systolic 97–138; BP diastolic 34–69; PULSE 75–90; RESP 18–20; TEMP 97.9–98.5; O2SAT 93–99
[2024-06-28 06:03] LABS: HEMATOCRIT 35.7 % (42-54); MEAN CORPUSCULAR HEMOGLOBIN 26.5 pg (27.0-33.0); MEAN CORPUSCULAR HGB CONC 31.7 g/dL (32.0-36.0); MEAN CORPUSCULAR VOLUME 83.8 fL (79-99); RED BLOOD CELL COUNT(AUTO) 4.26 MIL/uL (4.50-6.20); RED CELL DISTRIBUTION WIDTH 19.3 % (11.0-15.5); WHITE BLOOD COUNT (AUTO) 12.5 K/uL (4.8-10.8)
[2024-06-28 06:34] LABS: ALBUMIN 2.1 g/dL (3.5-5.0); BILIRUBIN,TOTAL 0.4 mg/dL (0.2-1.0); CREATININE 0.6 mg/dL (0.5-1.3); MAGNESIUM 2.1 mg/dL (1.80-2.40)
[2024-06-28] MEDS ORDERED: LACTULOSE 20 GM/30 ML UDCUP PO PRN (15:30)
[2024-06-29] VITALS (14 sets, daily range): BP systolic 81–119; BP diastolic 46–59; PULSE 87–110; RESP 17–20; TEMP 97.8–98.6; O2SAT 95–98
[2024-06-29] MEDS: predniSONE 20 MG TABLET PO SCH (08:08)
[2024-06-29] MEDS: PANTOPrazole 40 MG TAB DR PO SCH (08:08)
[2024-06-29] MEDS: LACTULOSE 20 GM/30 ML UDCUP PO ONE (08:09)
[2024-06-29] MEDS: VANCOMYCIN 1.25 GM/250 ML BAG 250 ML IV SCH (08:10)
[2024-06-29] MEDS: doCUSate SODIUM 100 MG CAP PO ONE (20:25)
[2024-06-30] VITALS: BP 109/49; PULSE 89; RESP 20; TEMP 98.3
[2024-06-30 05:19] LABS: HEMATOCRIT 40.2 % (42-54); MEAN CORPUSCULAR HEMOGLOBIN 26.1 pg (27.0-33.0); MEAN CORPUSCULAR HGB CONC 31.3 g/dL (32.0-36.0); MEAN CORPUSCULAR VOLUME 83.4 fL (79-99); RED BLOOD CELL COUNT(AUTO) 4.82 MIL/uL (4.50-6.20); WHITE BLOOD COUNT (AUTO) 15.5 K/uL (4.8-10.8)
[2024-06-30 05:44] LABS: BILIRUBIN,TOTAL 0.4 mg/dL (0.2-1.0); CREATININE 0.6 mg/dL (0.5-1.3); MAGNESIUM 1.7 mg/dL (1.80-2.40); POTASSIUM 3.6 mmol/L (3.5-5.1); TOTAL PROTEIN, SERUM 4.8 g/dL (6.0-8.3)
[2024-06-30 06:59] VITALS: PULSE 77; RESP 18
[2024-06-30 07:05] VITALS: PULSE 84; RESP 18; O2SAT 95
[2024-06-30 08:00] VITALS: O2SAT 92
[2024-06-30 11:27] VITALS: BP 89/52; PULSE 102; RESP 16; TEMP 98.4
[2024-06-30] MEDS ORDERED: CEPH500B PO (11:43)
[2024-06-30] MEDS ORDERED: MAGNESIUM 2GM PREMIX 50ML 50 ML IV SCH (12:00)
[2024-06-30 12:19] VITALS: BP 122/56; PULSE 115
== END 2024-06-30 14:25 | disposition home or self-care (01) | DRG 871 ==
LOC: EDH 11:32 → EDHIP 14:11 → 2CH 18:34 → 3CH 06-26 14:00
PROVIDERS: ADMIT Internal Medicine; ATTEND Internal Medicine
PROC: 02HV33Z Insertion of Infusion Device into Superior Vena Cava, Percutaneous Approach (ICD-10-PCS; principal; 2024-06-24)
PROC: B548ZZA Ultrasonography of Superior Vena Cava, Guidance (ICD-10-PCS; 2024-06-24)
DX: A41.9 Sepsis, unspecified organism (principal); J96.21 Acute and chronic respiratory failure with hypoxia; J96.22 Acute and chronic respiratory failure with hypercapnia; R65.21 Severe sepsis with septic shock; K92.0 Hematemesis; E87.1 Hypo-osmolality and hyponatremia; E87.4 Mixed disorder of acid-base balance; I13.0 Hypertensive heart and chronic kidney disease with heart failure and stage 1 through stage 4 chronic kidney disease, or unspecified chronic kidney disease; J44.1 Chronic obstructive pulmonary disease with (acute) exacerbation; Z59.01 Sheltered homelessness; K43.6 Other and unspecified ventral hernia with obstruction, without gangrene; L03.313 Cellulitis of chest wall; D62 Acute posthemorrhagic anemia; F11.20 Opioid dependence, uncomplicated; I50.32 Chronic diastolic (congestive) heart failure; Z20.822 Contact with and (suspected) exposure to COVID-19; E87.8 Other disorders of electrolyte and fluid balance, not elsewhere classified; N18.9 Chronic kidney disease, unspecified; J44.9 Chronic obstructive pulmonary disease, unspecified; K40.90 Unilateral inguinal hernia, without obstruction or gangrene, not specified as recurrent; K43.2 Incisional hernia without obstruction or gangrene; F14.10 Cocaine abuse, uncomplicated; R21 Rash and other nonspecific skin eruption; Z60.8 Other problems related to social environment; R73.9 Hyperglycemia, unspecified; F17.210 Nicotine dependence, cigarettes, uncomplicated; E87.6 Hypokalemia; D72.828 Other elevated white blood cell count; B18.2 Chronic viral hepatitis C; B96.5 Pseudomonas (aeruginosa) (mallei) (pseudomallei) as the cause of diseases classified elsewhere; E78.5 Hyperlipidemia, unspecified; T38.0X5A Adverse effect of glucocorticoids and synthetic analogues, initial encounter; Y92.89 Other specified places as the place of occurrence of the external cause; Z91.199 Patient's noncompliance with other medical treatment and regimen due to unspecified reason; Z99.81 Dependence on supplemental oxygen; Z79.82 Long term (current) use of aspirin
CPT/HCPCS: 36415; 36569; 71045; 74018; 74176; 80048; 80053; 80074; 80076; 80202; 80305; 81001; 82140; 82270; 82435; 82803; 82947; 83036; 83605; 83735; 83880; 84132; 84145; 84295; 84443; 84484; 85014; 85018; 85025; 85027; 85610; 85730; 86140; 86701; 86850; 86900; 86901; 87040; 87390; 87522; 87635; 87641; 93005; 93306; 93970; 94640; 94664; 96365; 96375; C1751; C1894; G0378; J0456; J0692; J0696; J1450; J2354; J2405; J2470; J2919; J3370; J3475; J3480; J3490; J7030; J7050; 3370

== ENCOUNTER 2024-07-28 13:19 | Inpatient (IN) | payer MEDICARE ==
[~2024-07-28] VITALS: Ht 172.7 cm; Wt 74.8 kg
[~2024-07-28 13:19] MED LIST changes: +ASPI-1443 PO; +CEPH500B PO; -LEVO500T2 PO
--- NOTE | 2024-07-28 13:28 | ERN ---
General Chief Complaint: Shortness of Breath Stated Complaint: SOB AND RIGHT FLANK PAIN Time Seen by MD: 13:24 History of Present Illness Initial Comments 69-year-old male brought in from EMS from home. According to EMS, patient was last known well earlier this morning. He was found down this afternoon. He was in the left lateral recumbent position. He had crackles at his bases, decreased respiration and was satting at 83% on room air. Placed on non-rebreather. Vital signs were 86/56, heart rate of 110. Only known medical history of CHF and COPD. Currently patient is asking questions but he is lethargic. He reports shortness of breath. Denies any fevers, chills, sore throat, vomiting or diarrhea. Allergies: Coded Allergies: No Known Allergies (Verified Allergy, Unknown, 02/01/19) Home Meds Active Scripts Cephalexin Monohydrate (Keflex) 500 Mg Cap, 1 CAP PO BID for 10 Days, #20 CAP 0 Refills Prov:HANS PRADO MD 06/30/24 Reported Medications Aspirin (Aspirin EC) 81 Mg Tablet.dr, 81 MG PO DAILY, TAB 06/24/24 Ammonium Lactate (Skin Treatment) 225 Gm Lotion, 1 APPL TP DAILY, APPL 02/06/19 Past Medical History Past Medical History: CAD Past Surgical History: Other Surgical History Other: PT HAS 3 HERNIAS ROS Dictation CONSTITUTIONAL: Weakness HEAD/FACE: No signs of trauma. EENT: No eye pain, no blurred vision, no tearing, no double vision, no ear pain, no ear discharge, no nose pain, no nasal congestion, no throat pain, no throat swelling, no mouth pain. RESPIRATORY: Dyspnea CARDIOVASCULAR: No chest pain, no edema, no palpitations, no syncope. GASTROINTESTINAL/ABDOMINAL: No abdominal pain, no constipation, no diarrhea, no nausea, no vomiting. GENITOURINARY: No abnormal discharge, no dysuria, no frequent urination, no hematuria. No complaints of pain in the genitals. MUSCULOSKELETAL: No back pain, no gout, no joint pain, no joint swelling, no muscle pain, no muscle stiffness, no neck pain. INTEGUMENTARY: No change in color, no change in hair/nails, no dryness, no lesion, no lumps, no rash. NEUROLOGICAL/PSYCH: No anxiety, not depressed, no emotional problem, no he adache, no numbness, no pre-existing deficit, no history of seizures, no tremors, no weakness. HEMATOLOGIC/LYMPHATIC: Not anemic, no history of blood clots, no apparent bleeding, no bruising, glands not swollen. All Systems Negative, Except as Noted. Physical Exam Physical Exam Dictation VITAL SIGNS: Reviewed. GENERAL APPEARANCE: Moderate distress HEAD AND FACE: Laceration to right forehead/eyebrow EYES: PERRL, pink conjunctivas, eyelid no trauma, anterior chamber clear. EARS: Pinnas intact and no signs of trauma or erythema. Ear canals clear and no discharge. TMs no erythema. NOSE: No discharge, no bleeding. OROPHARYNX: Dry NECK: Supple, non-tender, no thyromegaly, no masses, no JVD, no bruits. BREAST: Deferred. CHEST: No tenderness, no crepitus, no paradoxical movement, no retractions. LUNGS: Clear, well-ventilated, symmetric, no rales, no wheezing, no rhonchi, no stridor, good breath sounds bilaterally. HEART: Irregular rate and rhythm, mild pedal edema VASCULAR: No peripheral edema. ABDOMEN: Thin, nondistended RECTAL: Deferred. GENITAL: Deferred. NEUROLOGICAL: Slow to respond, but answering questions MUSCULOSKELETAL: Neck nontender, full range of motion, back nontender, full range of motion. EXTREMITIES: Nontender, full range of motion. SKIN: Color pink, dry, no turgor, no rash, no lacerations, no abrasions, no contusions. LYMPHATICS: Deferred. Results Laboratory and Microbiology Lab and Micro Result Laboratory Tests Test 07/28/24 13:39 07/28/24 13:40 White Blood Count 25.1 K/uL (4.8-10.8) H Red Blood Count 4.50 MIL/uL (4.50-6.20) Hemoglobin 12.4 g/dL (14.0-18.0) L Hematocrit 38.7 % (42-54) L Mean Corpuscular Volume 86.0 fL (79-99) Mean Corpuscular Hemoglobin 27.6 pg (27.0-33.0) Mean Corpuscular Hemoglobin Concent 32.0 g/dL (32.0-36.0) Red Cell Distribution Width 20.2 % (11.0-15.5) H Platelet Count 204 K/uL (130-400) Mean Platelet Volume 9.5 fL (7.5-10.5) Immature Granulocyte % (Auto) 0.5 % (0-1) Neutrophils (%) (Auto) 90.3 % (40.0-77.0) H Lymphocytes (%) (Auto) 3.2 % (21.0-51.0) L Monocytes (%) (Auto) 5.2 % (3.0-13.0) Eosinophils (%) (Auto) 0.6 % (0.0-8.0) Basophils (%) (Auto) 0.2 % (0.0-5.0) Neutrophils # (Auto) 22.7 K/uL (1.8-7.7) H Lymphocytes # (Auto) 0.8 K/uL (1.0-4.8) L Monocytes # (Auto) 1.3 K/uL (0.1-1.0) H Eosinophils # (Auto) 0.15 K/uL (0.00-0.70) Basophils # (Auto) 0.04 K/uL (0.00-0.20) Absolute Immature Granulocyte (auto 0.13 K/uL (0-1) Nucleated Red Blood Cells 0.1 % (0.0-0.19) White Cell Morphology Comment See comments Red Blood Cell Morphology ANISO 1+ Prothrombin Time 14.0 SEC (9.6-11.6) H Prothromb Time International Ratio 1.32 (0.85-1.15) H Activated Partial Thromboplast Time 31.3 SEC (26.3-35.5) Sodium Level 137 mmol/L (136-145) Potassium Level 2.3 mmol/L (3.5-5.1) *L Chloride Level 91 mmol/L (101-111) L Carbon Dioxide Level 37 mmol/L (21-32) H Blood Urea Nitrogen 39 mg/dL (7-18) H Creatinine 0.7 mg/dL (0.5-1.3) Glomerular Filtration Rate Calc 99 mL/min (>90) Random Glucose 111 mg/dL (70-105) H Lactic Acid Level 2.1 mmol/L (0.8-2.5) Total Calcium 8.2 mg/dL (8.5-10.1) L Total Creatine Kinase 1062 U/L (21-232) *H Troponin I High Sensitivity 564 ng/L (4-75) *H Blood Gas Specimen Type Arterial Arterial Blood pH 7.481 (7.350-7.450) Arterial Blood Partial Pressure CO2 48 mmHg (35-48) Arterial Blood Partial Pressure O2 56.1 mmHg (83.0-108.0) L Arterial Blood HCO3 34.8 mmol/L (21.0-28.0) H Arterial Blood Oxygen Saturation 90.9 % (94.0-98.0) L Arterial Blood Base Excess 9.8 mmol/L (-2.0-3.0) H Blood Gas Temperature 37.0 CELSIUS (35.5-37.0) Blood Gas Vent Mode RA (ROOM AIR) FiO2 21.0 % Blood Gas Specimen Comment RB DR PORTILLO [facility] CC: fall, weakness, dyspnea Historian: EMS provided mych of the history due to the patient's weakness & dyspnea Comorbidities: advanced age, deconditioning, CHF, COPD Differential: trauma, ACS, CHF, resp failure, COPD exacerbation, etc. EKG: Afib rate 141, normal axis, delayed RWP. No STEMI. Interpreted by me. On arrival, patient wheezing, on O2 NC @ 2L NC. Labs: CBC WBC 25k, L shift. No bands. Hg 12.4. Chemistry: hypokalemia 2.3. BUN 37, Cr 0.7, elevated ratio consistend with dehydration. CK 1062 consistent w/ Rhabdomyolisis. Troponin 564, likely type 2 NSTEMI. Will repeat. CXR: no cardiomegaly, R sided LL congestion, no focal infiltrates, no effusions. Independently interpreted by me. CT head w/o contrast: no bleed per my independent interpretation. CT cervical spine w/o contrast: no acute fractures per my independent interpre tation CT max/face w/o contrast: no acute fractures per my independent interpretation. Patient received. 10mg albuterol, 500mcg atrovent via neb w/ improvement. PO aspirin for elevated troponin. 2L NS, vancomycin, and zosyn. Started on hypokalemia protocol. ON sepsis focused re-evlauation after the fluids and antibiotics, patient has stable perfusion and improved vital signs. Consult: hospitalist for admission REASON: fall ORDERING PHYSICIAN: ELISHA PORTILLO DO PROCEDURE: C SPIN WO - CT CERVICAL SPINE W/O CONTRAST CT CERVICAL SPINE W/O CONTRAST HISTORY: Status post fall COMPARISON: None TECHNIQUE: Multiple sequential axial images of the cervical spine were obtained including post processing sagittal and coronal reconstruction images. Patient was not given contrast through intravenous route. FINDINGS: There are degenerative changes with cervical spine spondylosis. Disc space narrowing is seen at the C6-7 level. There is straightening of normal lordotic cervical curvature which may be related to muscle spasm or positioning. There is no loss of vertebral height. Evaluation for disc and cord pathology is limited with CT study. No evidence of fracture or dislocation is seen. IMPRESSION: 1. No fracture is seen. REASON: fall ORDERING PHYSICIAN: ELISHA PORTILLO DO PROCEDURE: MAXFACI WO - CT MAXILLOFACIAL W/O CONTRAST CT MAXILLOFACIAL W/O CONTRAST HISTORY: Status post fall COMPARISON: None TECHNIQUE: Multiple sequential high-resolution axial images of the paranasal sinuses were obtained. Postprocessing sagittal and coronal reconstruction images were also obtained. Patient was not given contrast through intravenous route. FINDINGS: Nasal septum is grossly midline. There is minimal mucoperiosteal thickening involving the bilateral maxillary sinuses. Poor dentition is noted. The infundibula are patent bilaterally. No acute displaced fracture is seen. There is no evidence of air-fluid level in the paranasal sinuses. Parapharyngeal fat planes are preserved bilaterally. IMPRESSION: 1. No acute displaced fracture is seen. Fluid in position. REASON: fall ORDERING PHYSICIAN: ELISHA PORTILLO DO PROCEDURE: HEAD WO - CT HEAD/BRAIN W/O CONTRAST CT HEAD/BRAIN W/O CONTRAST HISTORY: Status post fall COMPARISON: None TECHNIQUE: Multiple sequential axial images of the head were obtained from the base of the skull through vertex. Patient was not given contrast through intravenous route. FINDINGS: The ventricles and extraventricular CSF spaces are dilated consistent with cerebral atrophy. Nonspecific white matter changes seen. There is no midline shift, mass effect or herniation. No acute intracranial bleed is seen. Visualized portion of the paranasal sinuses are grossly within normal limits. IMPRESSION: 1. No acute intracranial bleed is seen. 2. Atrophy with white matter changes. ED Course Orders Procedure Category Date Status Time Arterial Blood Gas RT 07/28/24 Transmitted 13:24 Cbc With Differential LAB 07/28/24 In Process 13:24 B-Type Natriuretic LAB 07/28/24 In Process Peptide 13:24 Cardiac Panel LAB 11/7/24 Complete 13:24 Chest 1vw RAD 07/28/24 Taken 13:24 12 Lead Ekg Tracing- EKG 07/28/24 Complete Technical 13:24 Albuterol 0.083% PHA 07/28/24 Complete 2.5mg/3ml (Proventil 13:30 Ipratropium 0.5 PHA 07/28/24 Complete Mg/2.5 Ml Inh 13:30 Methylprednisolone PHA 07/28/24 Complete Succ 125mg (Solu-Medr 13:30 Aspirin 325mg Tab PHA 07/28/24 Complete (Aspirin 325mg Tab) 13:30 Basic Metabolic Panel LAB 07/28/24 Complete 13:24 Ct Head/Brain W/O CT 07/28/24 Resulted Contrast 13:24 Ct Maxillofacial W/O CT 07/28/24 Resulted Contrast 13:24 Ct Cervical Spine W/O CT 07/28/24 Resulted Contrast 13:24 Lactic Acid LAB 07/28/24 Complete 13:29 Blood Cult WALTER 07/28/24 In Process 13:29 Arterial Blood Gas LAB 07/28/24 Complete 13:40 12 Lead Ekg Tracing- EKG 07/28/24 Complete Technical 14:33 0.9%Nacl 1000ml (Ns PHA 07/28/24 Complete 1000ml) 15:00 Vancomycin 1g/250ml PHA 07/28/24 Complete Kit (Vancomycin 1g/2 15:00 Zosyn 3.375gm+Ns 50ml PHA 07/28/24 Complete (Zosyn 3.375gm+Ns 15:00 Chest 1vw RAD 07/28/24 Logged 14:53 Initiate Npo SHANE 07/28/24 In Process Hypokalemia Becky 15:05 Potassium Chloride PHA 07/28/24 Complete 20meq/100ml ([place] 15:30 Notify Physician If CPOE 07/28/24 Transmitted There Is 15:05 Notify Md On The Next CPOE 07/28/24 Transmitted 15:05 Notify Md On The CPOE 07/28/24 Transmitted Next(Cont.) 15:05 Place Picc Line CPOE 07/28/24 Transmitted 15:24 Place Midline Access CPOE 07/28/24 Transmitted 15:24 Pt And Ptt LAB 07/28/24 Complete 15:26 Potassium Bicarb/Cit PHA 07/28/24 In Process Ac 25meq (K-Lyte Ta 16:00 Potassium Bicarb/Cit PHA 07/28/24 Complete Ac 25meq (K-Lyte Ta 15:44 Current Medications Medications (Trade) Dose Ordered Sig/Suni Route PRN Reason Start Time Stop Time Status Last Admin Dose Admin Albuterol Sulfate (Proventil 0.083% 2.5mg/3ml) 10 mg ONCE ONCE IH 07/28/24 13:30 07/28/24 13:31 DC 07/28/24 13:43 Aspirin (Aspirin 325mg Tab) 325 mg ONCE ONCE PO 07/28/24 13:30 07/28/24 13:31 DC 07/28/24 14:54 Ipratropium [place] (AtrovENT UD) 0.5 mg ONCE ONCE IH 07/28/24 13:30 07/28/24 13:31 DC 07/28/24 13:42 Methylprednisolone Sodium Succinate (Solu-medROL 125MG) 125 mg ONCE ONCE IVP 07/28/24 13:30 07/28/24 13:31 DC 07/28/24 14:54 Piperacillin Sod/ Tazobactam Sod (Zosyn 3.375gm+NS 50ml) 3.375 gm ONCE ONCE IV 07/28/24 15:00 07/28/24 15:01 DC 07/28/24 15:16 Potassium Bicarbonate (K-Lyte Tablet Eff 25 Meq Tablet.eff) 25 meq ONCE ONCE PO 07/28/24 16:00 07/28/24 16:01 07/28/24 15:57 Potassium Bicarbonate (K-Lyte Tablet Eff 25 Meq Tablet.eff) 25 meq STK-MED ONCE .ROUTE 07/28/24 15:44 07/28/24 15:45 DC Potassium Chloride 100 ml @ 50 mls/hr AD PRN IV POTASSIUM PROTOCOL 07/28/24 15:30 07/28/24 15:44 DC Sodium Chloride 2,000 ml @ 0 mls/hr ONCE ONCE IV 07/28/24 15:00 07/28/24 15:01 DC 07/28/24 15:15 Vancomycin HCl (Vancomycin 1g/ 250ml Kit) 1 gm ONCE ONCE IV 07/28/24 15:00 07/28/24 15:01 DC Vital Signs Date Time Temp Pulse Resp B/P (MAP) Pulse Ox O2 Delivery O2 Flow Rate FiO2 07/28/24 14:36 98.8 140 28 110/60 97 Nasal Cannula* 4 36 07/28/24 13:49 121 22 07/28/24 13:23 98.8 106 21 83/49 100 Nonrebreathing Mask 10.0 DX & DISP Disposition: Inpatient Departure Impression: Primary Impression: Sepsis Additional Impressions: Hypokalemia, Dehydration, Rhabdomyolysis, Elevated troponin, COPD exacerbation Critical Time: 30 minutes (Critical Care Procedure NoteAuthorized and Performed by: meTotal critical care time: Approximately 36 minutesDue to a high probability of clinically significant, life threatening deterioration, the patient required my highest level of preparedness to intervene emergently and I personally spent this critical care time directly and personally managing the patient. This critical care time included obtaining a history; examining the patient; pulse oximetry; ordering and review of studies; arranging urgent treatment with development of a management plan; evaluation of patient's response to treatment; frequent reassessment; and, discussions with other providers.This critical care time was performed to assess and manage the high probability of imminent, life-threatening deterioration that could result in multi-organ failure. It was exclusive of separately billable procedures and treating other patients and teaching time.Please see MDM section and the rest of the note for further information on patient assessment and treatment.) Condition: Stable Referrals: SELF,REFERRAL (PCP) ELISHA PORTILLO DO Jul 28, 2024 13:28
--- NOTE | 2024-07-28 13:39 | EKG ---
[facility] Test Date: 2024-07-28 Test Time: 13:23:08 Pat Name: MARVIN NAILS Department: ED[facility] Room: ED Gender: M Compensation/Benefits Specialist: [id number] : 1955 Requested By: ELISHA PORTILLO Order Number: [id number] Reading MD: Damien Todd Measurements Intervals [place] Rate: 133 P: 81 CA: 143 QRS: -112 QRSD: 102 T: -74 QT: 262 QTc: 390 Interpretive Statements Supraventricular tachycardia Paired ventricular premature complexes Incomplete RBBB and LAFB Low voltage, extremity leads Probable right ventricular hypertrophy Nonspecific T abnormalities, lateral leads Electronically Signed On 07-28-2024 18:36:31 ELECTRONIC IMAGER by Damien Todd Please click the below link to view image of tracing.
[2024-07-28 13:42] LABS: ABG BASE EXCESS 9.8 mmol/L (-2.0-3.0); ABG HCO3 34.8 mmol/L (21.0-28.0); ABG OXYGEN SATURATION 90.9 % (94.0-98.0); ABG PCO2 48 mmHg (35-48); ABG PH 7.481 (7.350-7.450); PO2, ARTERIAL BG 56.1 mmHg (83.0-108.0); VENT MODE, BG RA (ROOM AIR)
[2024-07-28] MEDS: IpraTROPium 0.5 MG/2.5 ML INH IH ONE (13:42)
[2024-07-28] MEDS: ALBUTEROL 0.083% 2.5 MG/3 ML INH IH ONE (13:43)
[2024-07-28 13:49] VITALS: PULSE 121; RESP 22
[2024-07-28 13:59] LABS: BASOPHILS # (AUTO) 0.04 K/uL (0.00-0.20); BASOPHILS % (AUTO) 0.2 % (0.0-5.0); EOSINOPHILS # (AUTO) 0.15 K/uL (0.00-0.70); EOSINOPHILS % (AUTO) 0.6 % (0.0-8.0); HEMATOCRIT 38.7 % (42-54); IMMATURE GRANULOCYTE ABSOLUTE 0.13 K/uL (0-1); LYMPHOCYTES # (AUTO) 0.8 K/uL (1.0-4.8); LYMPHOCYTES % (AUTO) 3.2 % (21.0-51.0); MEAN CORPUSCULAR HEMOGLOBIN 27.6 pg (27.0-33.0); MONOCYTES # (AUTO) 1.3 K/uL (0.1-1.0); MONOCYTES % (AUTO) 5.2 % (3.0-13.0); NEUTROPHILS # (AUTO) 22.7 K/uL (1.8-7.7); NEUTROPHILS % (AUTO) 90.3 % (40.0-77.0); NUCLEATED RED BLOOD CELLS 0.1 % (0.0-0.19); PLATELET COUNT (AUTO) 204 K/uL (130-400); RED CELL DISTRIBUTION WIDTH 20.2 % (11.0-15.5); WHITE BLOOD COUNT (AUTO) 25.1 K/uL (4.8-10.8)
[2024-07-28 14:28] LABS: CREATININE 0.7 mg/dL (0.5-1.3)
[2024-07-28 14:33] LABS: POTASSIUM 2.3 mmol/L (3.5-5.1)
--- NOTE | 2024-07-28 14:42 | EKG ---
[facility] Test Date: 2024-07-28 Test Time: 13:44:05 Pat Name: MARVIN NAILS Department: EDH Room: ED Gender: M Senior Mechanical Development Engineer: [id number] : 1955 Requested By: ELISHA PORTILLO Order Number: [id number] Reading MD: Damien Todd Measurements Intervals [place] Rate: 131 P: 0 SC: 116 QRS: 243 QRSD: 104 T: -51 QT: 338 QTc: 500 Interpretive Statements Sinus tachycardia Multiform ventricular premature complexes LAD, consider left anterior fascicular block Low voltage, extremity leads Probable right ventricular hypertrophy Nonspecific T abnormalities, anterior leads Borderline ST elevation, lateral leads Electronically Signed On 07-28-2024 18:36:43 COLLECTION OFFICER by Damien Todd Please click the below link to view image of tracing.
--- NOTE | 2024-07-28 14:49 | HMCIMG ---
CT HEAD/BRAIN W/O CONTRAST HISTORY: Status post fall COMPARISON: None TECHNIQUE: Multiple sequential axial images of the head were obtained from the base of the skull through vertex. Patient was not given contrast through intravenous route. FINDINGS: The ventricles and extraventricular CSF spaces are dilated consistent with cerebral atrophy. Nonspecific white matter changes seen. There is no midline shift, mass effect or herniation. No acute intracranial bleed is seen. Visualized portion of the paranasal sinuses are grossly within normal limits. IMPRESSION: 1. No acute intracranial bleed is seen. 2. Atrophy with white matter changes. CT was performed with one or more following dose reduction techniques: automated exposure control, adjustment of the mA and kv according to patient's size, or use of a iterative reconstruction technique.
[2024-07-28] MEDS: ASPIRIN 325MG TAB PO ONE (14:54)
[2024-07-28] MEDS: Solu-medROL 125MG VIAL IVP ONE (14:54)
--- NOTE | 2024-07-28 14:54 | HMCIMG ---
CT CERVICAL SPINE W/O CONTRAST HISTORY: Status post fall COMPARISON: None TECHNIQUE: Multiple sequential axial images of the cervical spine were obtained including post processing sagittal and coronal reconstruction images. Patient was not given contrast through intravenous route. FINDINGS: There are degenerative changes with cervical spine spondylosis. Disc space narrowing is seen at the C6-7 level. There is straightening of normal lordotic cervical curvature which may be related to muscle spasm or positioning. There is no loss of vertebral height. Evaluation for disc and cord pathology is limited with CT study. No evidence of fracture or dislocation is seen. IMPRESSION: 1. No fracture is seen. CT was performed with one or more following dose reduction techniques: automated exposure control, adjustment of the mA and kv according to patient's size, or use of a iterative reconstruction technique.
--- NOTE | 2024-07-28 14:55 | HMCIMG ---
CT MAXILLOFACIAL W/O CONTRAST HISTORY: Status post fall COMPARISON: None TECHNIQUE: Multiple sequential high-resolution axial images of the paranasal sinuses were obtained. Postprocessing sagittal and coronal reconstruction images were also obtained. Patient was not given contrast through intravenous route. FINDINGS: Nasal septum is grossly midline. There is minimal mucoperiosteal thickening involving the bilateral maxillary sinuses. Poor dentition is noted. The infundibula are patent bilaterally. No acute displaced fracture is seen. There is no evidence of air-fluid level in the paranasal sinuses. Parapharyngeal fat planes are preserved bilaterally. IMPRESSION: 1. No acute displaced fracture is seen. Fluid in position. CT was performed with one or more following dose reduction techniques: automated exposure control, adjustment of the mA and kv according to patient's size, or use of a iterative reconstruction technique.
[2024-07-28] MEDS: 0.9%NACL 1000ML 2,000 ML IV ONE (15:15)
[2024-07-28] MEDS: ZOSYN 3.375GM +NS 50ML IV ONE (15:16)
[2024-07-28] MEDS ORDERED: PoTASSium chloRIDE 20MEQ/100ML 100 ML IV PRN ×2 (15:30→17:00)
[2024-07-28 15:38] LABS: INR 1.32 (0.85-1.15)
[2024-07-28 15:39] LABS: PARTIAL THROMBOPLASTIN TIME 31.3 SEC (26.3-35.5)
[2024-07-28] MEDS: PoTASSium BIcarbonate/CIT AC 25 MEQ TABLET.EFF ONE (15:57)
[2024-07-28] MEDS: PoTASSium BIcarbonate/CIT AC 25 MEQ TABLET.EFF PO ONE ×2 (15:57→16:55)
[2024-07-28 16:14] LABS: B-TYPE NATRIURETIC PEPTIDE 740 pg/mL (0-100)
--- NOTE | 2024-07-28 16:32 | HMCIMG ---
CHEST 1VW HISTORY: Dyspnea, shortness of breath COMPARISON: 06/24/2024 FINDINGS: A frontal projection of the chest was obtained. Mild bilateral pulmonary infiltrates are seen may be related to mild pulmonary vascular congestion with possible superimposed pneumonitis. The heart is borderline enlarged. Degenerative changes are seen. Aortic calcifications are seen. IMPRESSION: 1. Mild bilateral pulmonary infiltrates are seen may be related to mild pulmonary vascular congestion with possible superimposed pneumonitis.
[2024-07-28] MEDS: VANCOMYCIN KIT 1 GM/250 ML IV.KIT IV ONE (16:43)
[2024-07-28] MEDS ORDERED: acetaMINOPHEN 500 MG TABLET PO PRN (17:00)
[2024-07-28] MEDS ORDERED: VANCOMYCIN PROTOCOL PER PHARMACY IV SCH (17:00)
--- NOTE | 2024-07-28 17:02 | HP ---
[facility] HISTORY [facility] PHYSICAL Date of Service: Jul 28, 2024 Time of Service: 17:02 HISTORY OF PRESENT ILLNESS: DATE OF SERVICE: 07/28/2024 1-year-old male with past medical history of COPD who presented to the hospital secondary to shortness of breath, fall. Patient appears ill kempt and does not want to participate in history. History is fairly limited. Patient was brought by EMS from home after he was found on the floor around afternoon. He states he lives alone and does not have any families. He was noted to be very short of breath with associated wheezing. He was placed on non-rebreather. Patient does not want to participate in history taking at this time. He denies any chest pain, abdominal pain, nausea, vomiting. He does complain of shortness of breath with associated cough. He is unable to recall the medications he takes at home. He lives alone at home. Presentation to the ED patient's temperature was noted to be 98.8, heart rate was 106, blood pressure was 83/49, respiratory rate was 21, patient was noted to be on non-rebreather. Labs were notable for white count of 25.1, hemoglobin was 12.4, platelet count was 204 K, sodium was 137, potassium was 2.4, bicarb was 37, BUN was 39, total CK was 106 to, troponin was 564, lactic acid was 2.1, BNP was 740 REVIEW OF SYSTEMS CONSTITUTIONAL: Denies fevers, chills, or night sweats. No unintentional weight loss reported. NEUROLOGICAL: Denies headache, amaurosis fugax, motor weakness, sensory deficit, vertigo/spinning sensation, gait abnormalities, or tremors. ENT: No hearing loss, otalgia, otorrhea, rhinitis, rhinorrhea, hoarseness, or sore throat. CARDIOVASCULAR: Denies any exertional angina, dyspnea on exertion, orthopnea, paroxysmal nocturnal dyspnea, palpitations, life-threatening arrhythmias, claudication. PULMONARY: Positive for cough, shortness of breath, sputum production SLEEP: Denies morning headaches, daytime somnolence or napping. Denies difficulty falling asleep, staying asleep, waking from sleep. Denies knowledge of snoring. GASTROINTESTINAL: Denies any type of dysphagia to either liquids or solids. Denies nausea, vomiting, pyrosis, early satiety, abdominal pain, diarrhea, constipation, or changes in stool consistency or caliber. Denies coffee-ground emesis, hematemesis, hematochezia, or melanotic stools. GENITOURINARY: Denies frequency, urgency, nocturia, hematuria or incontinence (Storage/Irritative symptoms.) Low urinary stream, straining to void, urinary intermittency or hesitancy, splitting of the voiding stream, terminal dribbling. ENDOCRINOLOGIC: Denies polyuria, polydipsia, polyphagia or heat/cold intolerances. HEMATOLOGIC: Denies thrombophilia/previous clots, or coagulopathy/bleeding disorders. ONCOLOGIC: Denies personal history of malignancy. DERMATOLOGIC: Denies rashes or pruritus. PSYCHIATRIC: Denies any suicidal or homicidal ideation. Denies hallucinations. PAST MEDICAL HISTORY: History of COPD PAST SURGICAL HISTORY: Unable to obtain PAST SOCIAL HISTORY: Unable to obtain FAMILY HISTORY: Unable to obtain Coded Allergies: No Known Allergies (Verified Allergy, Unknown, 02/01/19) PHYSICAL EXAM GENERAL APPEARANCE: The patient is awake, alert, and oriented, in no acute cardiopulmonary distress. NEUROLOGICAL: Cranial nerves II-XII grossly intact. Motor is 5/5 in bilateral upper and lower extremities proximal to distal. No sensory deficits. HEENT: Face is symmetric. Pupils are equal and reactive. Extraocular movements are intact. NECK: Supple. No JVD. No thyromegaly. No submental, submandibular, pre- /postauricular, occipital or supraclavicular lymphadenopathy. CHEST: Normal chest expansion. No Telemetry. LUNGS: Patient has bilateral wheezing present CARDIOVASCULAR: Regular. S1 and S2 normal. No appreciable rubs, murmurs or gallops. ABDOMEN: Soft, he has a ventral hernia present, mild tenderness around the hernia site and nondistended. There is no rebound, voluntary guarding, or rigidity. : Deferred. No Mota. EXTREMITIES: Non-edematous and not cyanotic. No clubbing. Good capillary refill. SKIN: No skin breakdown. Vital Sign (Last 24 Hours) 07/28/24 14:36 Temp 98.8 Pulse 140 Resp 28 B/P (MAP) 110/60 Pulse Ox 97 O2 Delivery Nasal Cannula* O2 Flow Rate 4 FiO2 36 LABS: Laboratory: Test 07/28/24 13:40 07/28/24 13:39 Range/Units Blood Gas Specimen Type Arterial Arterial Blood pH 7.481 H 7.350-7.450 Arterial Blood Partial Pressure CO2 48 35-48 mmHg Arterial Blood Partial Pressure O2 56.1 L 83.0-108.0 mmHg Arterial Blood HCO3 34.8 H 21.0-28.0 mmol/L Arterial Blood Oxygen Saturation 90.9 L 94.0-98.0 % Arterial Blood Base Excess 9.8 H -2.0-3.0 mmol/L Blood Gas Temperature 37.0 35.5-37.0 CELSIUS Blood Gas Vent Mode RA ROOM AIR FiO2 21.0 % Blood Gas Specimen Comment RB DR PORTILLO White Blood Count 25.1 H 4.8-10.8 K/uL Red Blood Count 4.50 4.50-6.20 MIL/uL Hemoglobin 12.4 L 14.0-18.0 g/dL Hematocrit 38.7 L 42-54 % Mean Corpuscular Volume 86.0 79-99 fL Mean Corpuscular Hemoglobin 27.6 27.0-33.0 pg Mean Corpuscular Hemoglobin Concent 32.0 32.0-36.0 g/dL Red Cell Distribution Width 20.2 H 11.0-15.5 % Platelet Count 204 130-400 K/uL Mean Platelet Volume 9.5 7.5-10.5 fL Immature Granulocyte % (Auto) 0.5 0-1 % Neutrophils (%) (Auto) 90.3 H 40.0-77.0 % Lymphocytes (%) (Auto) 3.2 L 21.0-51.0 % Monocytes (%) (Auto) 5.2 3.0-13.0 % Eosinophils (%) (Auto) 0.6 0.0-8.0 % Basophils (%) (Auto) 0.2 0.0-5.0 % Neutrophils # (Auto) 22.7 H 1.8-7.7 K/uL Lymphocytes # (Auto) 0.8 L 1.0-4.8 K/uL Monocytes # (Auto) 1.3 H 0.1-1.0 K/uL Eosinophils # (Auto) 0.15 0.00-0.70 K/uL Basophils # (Auto) 0.04 0.00-0.20 K/uL Absolute Immature Granulocyte (auto 0.13 0-1 K/uL Nucleated Red Blood Cells 0.1 0.0-0.19 % White Cell Morphology Comment See comments Red Blood Cell Morphology ANISO 1+ Prothrombin Time 14.0 H 9.6-11.6 SEC Prothromb Time International Ratio 1.32 H 0.85-1.15 Activated Partial Thromboplast Time 31.3 26.3-35.5 SEC Sodium Level 137 136-145 mmol/L Potassium Level 2.3 *L 3.5-5.1 mmol/L Chloride Level 91 L 101-111 mmol/L Carbon Dioxide Level 37 H 21-32 mmol/L Blood Urea Nitrogen 39 H 7-18 mg/dL Creatinine 0.7 0.5-1.3 mg/dL Glomerular Filtration Rate Calc 99 >90 mL/min Random Glucose 111 H 70-105 mg/dL Lactic Acid Level 2.1 0.8-2.5 mmol/L Total Calcium 8.2 L 8.5-10.1 mg/dL Total Creatine Kinase 1062 *H 21-232 U/L Troponin I High Sensitivity 564 *H 4-75 ng/L B-Type Natriuretic Peptide 740 H 0-100 pg/mL Current Medications Medications (Trade) Dose Ordered Sig/Suni Route PRN Reason Start Time Stop Time Status Last Admin Dose Admin Acetaminophen (TYLenol 500MG TAB) 500 mg Q6H PRN PO MILD PAIN (1-3) 07/28/24 17:00 08/27/24 16:59 UNV Albuterol (DUOneb) 1 UDVIAL [id number] IH 07/28/24 18:00 08/27/24 17:59 UNV Cefepime HCl (MAXipime 1 GM vial) 1 gm Q8H IVPB 07/28/24 21:00 08/07/24 20:59 UNV Magnesium Sulfate 50 ml @ 0 mls/hr PROTOCOL PRN IV HYPOMAGNESEMIA 07/28/24 17:00 08/27/24 16:59 UNV Potassium Chloride 100 ml @ 50 mls/hr AD PRN IV POTASSIUM PROTOCOL 07/28/24 15:30 07/28/24 15:44 DC Potassium Chloride 100 ml @ 100 mls/hr AD PRN IV POTASSIUM PROTOCOL 07/28/24 17:00 08/27/24 16:59 UNV Potassium Chloride (K-Dur/Klor-Con 20meq) 20 meq AD PRN PO POTASSIUM PROTOCOL 07/28/24 17:00 08/27/24 16:59 UNV Potassium Chloride (KCl 10% Elixir 20meq/15ml) 20 meq AD PRN PO POTASSIUM PROTOCOL 07/28/24 17:00 08/27/24 16:59 UNV Sodium Chloride 1,000 ml @ 125 mls/hr Q8H IV 07/28/24 17:00 08/27/24 16:59 UNV Vancomycin HCl (Vancomycin Protocol) 1 each AD IV 07/28/24 17:00 08/11/24 16:59 UNV DIAGNOSTICS / RADIOLOGY: [ ] ASSESSMENT: Sepsis POA Acute on chronic COPD exacerbation Acute hypoxic respiratory failure secondary to COPD exacerbation and CAP Community acquired Pneumonia POA Fall Severe hypokalemia Rhabdomyolysis History of drug use History of noncompliance Poor venous access Anterior chest wall rash PLAN: - patient to be admitted to medical-surgical unit with telemetry - in reference to sepsis. Patient will be started on vancomycin and cefepime. The patient to be started on NS for gentle hydration. Follow up on blood cultures. Obtain a UA. -in reference to COPD exacerbation. Patient will be started on DuoNebs q.6 hours. We will also be given Solu-Medrol 40 mg q.8 hours. We will request consultation with pulmonology. Obtain an ABG -in reference to rhabdomyolysis. Patient to be started on gentle hydration. -obtain PT evaluation -check TSH, A1c, procalcitonin, CRP -further orders per hospitalization course: Advanced Care Planning Which of the following were discussed: Hospice care: Yes __ No _x_ Therapeutic options: Yes __ No __ Advance directives: Yes __ No __ Other discussions: Pt is full code Discussed with who?: patient (Patient, family or surrogates) Voluntary nature of this service was explained to the patient? Yes _x_ No __ Amount of time spent: 25 minutes BENJAMÍN Wu MD, MD Jul 28, 2024 17:02
[2024-07-28 17:33] LABS: ABG BASE EXCESS 8.8 mmol/L (-2.0-3.0); ABG HCO3 33.7 mmol/L (21.0-28.0); ABG OXYGEN SATURATION 93.8 % (94.0-98.0); ABG PCO2 48 mmHg (35-48); ABG PH 7.469 (7.350-7.450); CARBON MONOXIDE 1.4 % (0.5-1.5); HHb 6.1; PO2, ARTERIAL BG 72.9 mmHg (83.0-108.0); VENT MODE, BG 4L NC (ROOM AIR)
[2024-07-28 17:36] LABS: HEMOGLOBIN A1C 5.7 % (4.0-6.0)
[2024-07-28] MEDS: 0.9%NACL 1000ML 1,000 ML IV SCH (17:54)
[2024-07-28 17:57] LABS: THYROID STIMULATING HORMONE 0.65 uIU/mL (0.36-3.74)
[2024-07-28] MEDS: IpraTROPium/alBUTERol SULFATE 3 ML SOLUTION IH SCH (18:00)
[2024-07-28] MEDS: Solu-medROL 40MG VIAL IVP SCH (20:13)
[2024-07-28] MEDS: ceFEPime HCL 1 GM VIAL IVPB SCH (20:13)
--- NOTE | 2024-07-28 20:32 | CONS ---
[facility] CONSULTATION NOTE Date Patient Seen: Jul 28, 2024 Time of Visit: 20:29 Supervising Physician: Dr Sonny Jorgensen Reason for Consultation: COPD in acute exacerbation Consulting Physician: Dr Espitia Outpatient Specialists: [ ] Inpatient Consults: [ ] PROBLEM LIST: Acute Hypoxic respiratory failure, POA Community-acquired pneumonia, chest x-ray showed bilateral infiltrates POA COPD in acute exacerbation, POA Severe sepsis, POA NSTEMI, POA Rhabdomyolysis, POA Hypokalemia, POA Hypomagnesemia, POA PLAN: Admit per primary Continue O2 therapy Antibiotic management per primary Obtain COVID and flu swab Obtain sputum for culture Aspiration precaution DuoNeb q.6 hours Mucomyst b.i.d. Continue IV fluids Recommend 2D echo and CT of the chest Pulmonary toilet Encourage early mobilization PT/OT eval and treat Rest of plan care of primary HPI: 69-year-old with past medical history of COPD who presented to ED with complaint of shortness breaths via EMS and found to severe sepsis, community-acquired pneumonia, acute respiratory failure, possible COPD in acute exacerbation. Per report patient was brought by EMS from home after he was found on the floor this afternoon afternoon. Apparently patient lives alone and does not have any families. On initial evaluation by EMS patient was found to have shortness of breath and audible wheezing. Patient was then placed on non-rebreather and brought to ED for further medical evaluation. Patient underwent multiple imaging with no acute fracture found. However his CT of the abdomen showed right lower lobe infiltrates and his chest x-ray revealed bilateral pulmonary infiltrates concerning for possible pneumonia. His initial lab is significant for white count of 25.1, hemoglobin was 12.4, platelet count was 204 sodium was 137, potassium was 2.4, bicarb was 37, BUN was 39, total CK was 106 to, troponin was 564, lactic acid was 2.1, and BNP of 740. [facility] pulmonology was consulted for evaluation of possible COPD in acute exacerbation. Patient was seen and examined in ED with no relatives present at bedside. Unable to complete ROS due to current mental state. All information were obtained from prior medical record and ER staff report. PAST MEDICAL HX: see above PAST SURGICAL HX: noncontributory SOCIAL HISTORY: No tobacco, ETOH, or illicit drug use Coded Allergies: No Known Allergies (Verified Allergy, Unknown, 02/01/19) REVIEW OF SYSTEMS: Unable to obtain PHYSICAL EXAM: GENERAL: Sleepy, not in acute respiratory distress HEENT: EOMI, Sclera non icteric, moist mucosa NECK: Supple, no JVD, trachea midline LUNGS: Coarse Bilateral lung sounds HEART: Regular rate and rhythm. Normal S1 and S2, without murmurs ABD: Abdomen soft, nontender. Bowel sounds present EXT: No clubbing cyanosis; bilateral lower extremity edema NEURO: Limited response, uncooperative, no focal weakness noted Vital Signs (last 8hr) Date Time Temp Pulse Resp B/P (MAP) Pulse Ox O2 Delivery O2 Flow Rate FiO2 07/28/24 20:00 87 18 97 Nasal Cannula* 4 36 07/28/24 19:15 92 20 98/55 98 Nasal Cannula* 4 36 07/28/24 18:36 121 18 99/50 96 Nasal Cannula* 4 36 07/28/24 17:08 134 24 101/49 95 Nasal Cannula* 4 36 07/28/24 14:36 98.8 140 28 110/60 97 Nasal Cannula* 4 36 07/28/24 13:49 121 22 07/28/24 13:23 98.8 106 21 83/49 100 Nonrebreathing Mask 10.0 LABS: Hematology Labs: Test 07/28/24 13:39 Range/Units White Blood Count 25.1 H 4.8-10.8 K/uL Red Blood Count 4.50 4.50-6.20 MIL/uL Hemoglobin 12.4 L 14.0-18.0 g/dL Hematocrit 38.7 L 42-54 % Mean Corpuscular Volume 86.0 79-99 fL Mean Corpuscular Hemoglobin 27.6 27.0-33.0 pg Mean Corpuscular Hemoglobin Concent 32.0 32.0-36.0 g/dL Red Cell Distribution Width 20.2 H 11.0-15.5 % Platelet Count 204 130-400 K/uL Mean Platelet Volume 9.5 7.5-10.5 fL Immature Granulocyte % (Auto) 0.5 0-1 % Neutrophils (%) (Auto) 90.3 H 40.0-77.0 % Lymphocytes (%) (Auto) 3.2 L 21.0-51.0 % Monocytes (%) (Auto) 5.2 3.0-13.0 % Eosinophils (%) (Auto) 0.6 0.0-8.0 % Basophils (%) (Auto) 0.2 0.0-5.0 % Neutrophils # (Auto) 22.7 H 1.8-7.7 K/uL Lymphocytes # (Auto) 0.8 L 1.0-4.8 K/uL Monocytes # (Auto) 1.3 H 0.1-1.0 K/uL Eosinophils # (Auto) 0.15 0.00-0.70 K/uL Basophils # (Auto) 0.04 0.00-0.20 K/uL Absolute Immature Granulocyte (auto 0.13 0-1 K/uL Nucleated Red Blood Cells 0.1 0.0-0.19 % White Cell Morphology Comment See comments Red Blood Cell Morphology ANISO 1+ Chemistry Labs: Test 07/28/24 17:14 07/28/24 13:39 Range/Units Hemoglobin A1c 5.7 4.0-6.0 % Estimated Average Glucose (eAG) 117 70-126 mg/dL Lactic Acid Level 1.7 0.8-2.5 mmol/L Troponin I High Sensitivity 465 *H 4-75 ng/L C-Reactive Protein, Quantitative 160.90 H 0.5-3.0 mg/L Procalcitonin 0.16 0.05-0.5 ng/mL Thyroid Stimulating Hormone (TSH) 0.65 # 0.36-3.74 uIU/mL Sodium Level 137 136-145 mmol/L Potassium Level 2.3 *L 3.5-5.1 mmol/L Chloride Level 91 L 101-111 mmol/L Carbon Dioxide Level 37 H 21-32 mmol/L Blood Urea Nitrogen 39 H 7-18 mg/dL Creatinine 0.7 0.5-1.3 mg/dL Glomerular Filtration Rate Calc 99 >90 mL/min Random Glucose 111 H 70-105 mg/dL Total Calcium 8.2 L 8.5-10.1 mg/dL Total Creatine Kinase 1062 *H 21-232 U/L B-Type Natriuretic Peptide 740 H 0-100 pg/mL Coagulation Labs: Test 07/28/24 13:39 Range/Units Prothrombin Time 14.0 H 9.6-11.6 SEC Prothromb Time International Ratio 1.32 H 0.85-1.15 Activated Partial Thromboplast Time 31.3 26.3-35.5 SEC DIAGNOSTICS / RADIOLOGY RESULTS: CT HEAD/BRAIN W/O CONTRAST HISTORY: Status post fall COMPARISON: None TECHNIQUE: Multiple sequential axial images of the head were obtained from the base of the skull through vertex. Patient was not given contrast through intravenous route. FINDINGS: The ventricles and extraventricular CSF spaces are dilated consistent with cerebral atrophy. Nonspecific white matter changes seen. There is no midline shift, mass effect or herniation. No acute intracranial bleed is seen. Visualized portion of the paranasal sinuses are grossly within normal limits. IMPRESSION: 1. No acute intracranial bleed is seen. 2. Atrophy with white matter changes. CT MAXILLOFACIAL W/O CONTRAST HISTORY: Status post fall COMPARISON: None TECHNIQUE: Multiple sequential high-resolution axial images of the paranasal sinuses were obtained. Postprocessing sagittal and coronal reconstruction images were also obtained. Patient was not given contrast through intravenous route. FINDINGS: Nasal septum is grossly midline. There is minimal mucoperiosteal thickening involving the bilateral maxillary sinuses. Poor dentition is noted. The infundibula are patent bilaterally. No acute displaced fracture is seen. There is no evidence of air-fluid level in the paranasal sinuses. Parapharyngeal fat planes are preserved bilaterally. IMPRESSION: 1. No acute displaced fracture is seen. Fluid in position. CHEST 1VW HISTORY: Dyspnea, shortness of breath COMPARISON: 06/24/2024 FINDINGS: A frontal projection of the chest was obtained. Mild bilateral pulmonary infiltrates are seen may be related to mild pulmonary vascular congestion with possible superimposed pneumonitis. The heart is borderline enlarged. Degenerative changes are seen. Aortic calcifications are seen. IMPRESSION: 1. Mild bilateral pulmonary infiltrates are seen may be related to mild pulmonary vascular congestion with possible superimposed pneumonitis. CT CERVICAL SPINE W/O CONTRAST HISTORY: Status post fall COMPARISON: None TECHNIQUE: Multiple sequential axial images of the cervical spine were obtained including post processing sagittal and coronal reconstruction images. Patient was not given contrast through intravenous route. FINDINGS: There are degenerative changes with cervical spine spondylosis. Disc space narrowing is seen at the C6-7 level. There is straightening of normal lordotic cervical curvature which may be related to muscle spasm or positioning. There is no loss of vertebral height. Evaluation for disc and cord pathology is limited with CT study. No evidence of fracture or dislocation is seen. IMPRESSION: 1. No fracture is seen. CT ABDOMEN/PELVIS W/O CONTRAST HISTORY: Abdominal pain COMPARISON: 06/28/2024 TECHNIQUE: Multiple sequential axial images of the abdomen and pelvis were obtained from the dome of the diaphragm through symphysis pubis. Patient was not given contrast through intravenous route. Oral contrast was not given. FINDINGS: Tiny right pleural effusion is seen. Right lower lobe pulmonary infiltrates are seen There are bilateral interstitial fibrosis with bronchiectasis. Degenerative changes of the thoracolumbar spine are present. The heart is not enlarged. Gallbladder distention is seen. There are ventral hernias with bowel content near midline bilaterally. The liver, spleen, adrenal glands and pancreas are unremarkable. There is no evidence of hydronephrosis bilaterally. No evidence of renal stone is seen. Fecal material is seen in the colon. There are normal size retroperitoneal and mesenteric lymph nodes. No ascites is seen. Atherosclerotic changes are present. There is left inguinal hernia with bowel content. There is anasarca. Pelvic sidewalls are symmetric bilaterally. Bladder is well distended without wall thickening. IMPRESSION: 1. Left inguinal hernia with bowel content. Anasarca. Right lower lobe pulmonary infiltrates. Ventral hernias with bowel content near midline bilaterally. PLAN NEURO: Minimize central acting medications as possible. Maintain fall precautions, adequate lighting during the day PULMONARY: Supplemental 02 as needed. Maintain aspiration precautions at all times CARDIOVASCULAR: Follow hemodynamics. Vital signs per facility protocol GI & NUTRITION: Continue with nutritional support. Continue stool softeners and laxatives as needed. KIDNEYS & ELECTROLYTES: Strict monitoring of intake, output and overall fluid balance. Avoid nephrotoxic medications to the extent possible. Medications to be dosed according to renal function. Monitor electrolytes and replace as needed ENDOCRINE: Maintain blood glucose between 100-180 at all times. Hypoglycemia protocol in place INFECTIOUS DISEASE: Trend temperature, WBC and procalcitonin level Follow cultures, deescalate antibiotics as soon as possible. Panculture if new onset fever ONCOLOGY/HEMATOLOGY/COAGULATION: Monitor for s/s of bleeding Monitor hemoglobin, coagulation studies as needed SKIN: Pressure ulcer prevention per facility protocol Specialty mattress ORTHO/REHAB: Continue PT/OT Prophylaxis: Continue GI and DVT prophylaxis Code Status: Full Resuscitation Disposition: TBD Other: Total patient care time exceeds 35 minutes excluding all procedures. Supervising physician: JAN Deutsch AGACNP Jul 28, 2024 20:32
[2024-07-28] MEDS: VANCOMYCIN 750MG VIAL IVPB ONE (22:24)
[2024-07-28] MEDS: PANTOPrazole 40 MG/VIAL IVP SCH (22:29)
--- NOTE | 2024-07-28 22:32 | HMCIMG ---
CT ABDOMEN/PELVIS W/O CONTRAST HISTORY: Abdominal pain COMPARISON: 06/28/2024 TECHNIQUE: Multiple sequential axial images of the abdomen and pelvis were obtained from the dome of the diaphragm through symphysis pubis. Patient was not given contrast through intravenous route. Oral contrast was not given. FINDINGS: Tiny right pleural effusion is seen. Right lower lobe pulmonary infiltrates are seen There are bilateral interstitial fibrosis with bronchiectasis. Degenerative changes of the thoracolumbar spine are present. The heart is not enlarged. Gallbladder distention is seen. There are ventral hernias with bowel content near midline bilaterally. The liver, spleen, adrenal glands and pancreas are unremarkable. There is no evidence of hydronephrosis bilaterally. No evidence of renal stone is seen. Fecal material is seen in the colon. There are normal size retroperitoneal and mesenteric lymph nodes. No ascites is seen. Atherosclerotic changes are present. There is left inguinal hernia with bowel content. There is anasarca. Pelvic sidewalls are symmetric bilaterally. Bladder is well distended without wall thickening. IMPRESSION: 1. Left inguinal hernia with bowel content. Anasarca. Right lower lobe pulmonary infiltrates. Ventral hernias with bowel content near midline bilaterally. CT was performed with one or more following dose reduction techniques: automated exposure control, adjustment of the mA and kv according to patient's size, or use of a iterative reconstruction technique.
[2024-07-28] MEDS: BUDESONIDE 0.25 MG/2 ML INH IH SCH (22:59)
[2024-07-28 23:01] VITALS: PULSE 95; RESP 19
[2024-07-28 23:03] VITALS: PULSE 95; RESP 19; O2SAT 98
[2024-07-28 23:16] LABS: SARS-CoV-2, RNA, NAAT NEGATIVE SARS CoV-2 (NEGATIVE)
[2024-07-28 23:21] LABS: INFLUENZA TYPE A Negative For Type A (NEGATIVE); INFLUENZA TYPE B Negative For Type B (NEGATIVE)
--- NOTE | 2024-07-28 23:49 | CONS ---
CONSULT NOTE: CARDIOLOGY Reason for consult: Elevated troponin HPI/story at presentation: This is a pleasant 69-year-old male with past medical history as per present with complaints of altered mental status, fall, was found to have elevated troponins in the setting of possible rhabdomyolysis sepsis electrolyte abnormalities. Cardiology was consulted for further evaluation and management. Subjective: 07/28/2024 altered mental status Past medical history: See below Allergies, Meds See chart Review of systems Not obtained, altered mental status Vitals see chart PHYSICAL EXAMINATION GENERAL: The patient is alert and oriented*3 HEENT: Nonicteric sclerae, non traumatic HEART: Regular rate and rhythm with no murmurs LUNGS: Clear to auscultation bilaterally ABDOMEN: No acute issues, non tender GENITAL, RECTAL: deferred SKIN: No rash NEUROLOGIC: NFND EXTREMITIES: No edema ASSESSMENT ELEVATED TROPONIN Likely type II in setting of rhabdomyolysis, sepsis Setting of fall In the setting of substance use Trending down RHABDOMYOLYSIS RESPIRATORY FAILURE In the setting of community-acquired pneumonia, COPD MANDEEP ABNORMALITIES Hypokalemia hypomagnesemia at presentation OTHER MEDICAL PROBLEMS Previous history of left inguinal hernia PLAN 07/28/2024 troponin relation at this time is thought to be type II in setting of sepsis rhabdomyolysis etc. For now, will manage conservatively. Will get an echocardiogram to assess EF and if this is normal, no further cardiac evaluation is immediately warranted ATTESTATION I was involved substantially in the care of this patient Number and complexity of problems addressed: 1 acute illness with systemic features. Amount and or complexity of data Review of prior external note(s) from each unique source: 2+ Ordering of each unique test : 0 Review of the result(s) of each unique test: 2+ Assessment requiring an independent historian(s): No Independent interpretation of test performed by another MD/QHCP/appropriate source (not separately reported) : No Discussion of management or test interpretation with external MD/QHCP/appropriate source (not separately reported) : No Risk status (cardiac, billing related): HILARIA Donnelly MD Jul 28, 2024 23:49
[2024-07-29] VITALS (65 sets, daily range): BP systolic 97–125; BP diastolic 49–78; PULSE 71–110; RESP 16–29; TEMP 97.5–98.5; O2SAT 94–100
[2024-07-29] MEDS: miDODRine HCL 5 MG TABLET PO SCH (00:23)
[2024-07-29] MEDS: atorVAStatin 40 MG TABLET PO SCH (00:23)
[2024-07-29] MEDS: ALBUMIN HUMAN 25% 100 ML IV SCH (00:36)
[2024-07-29] MEDS ORDERED: VANCOMYCIN 750MG VIAL IVPB SCH ×2 (01:00→06:30)
[2024-07-29] MEDS: NOREPINEPHRIN 4MG/NS 250ML 250 ML IV PRN (02:39)
[2024-07-29 04:35] LABS: AMPHET/METH SCREEN,URINE NEGATIVE (NEGATIVE); BARBITURATE SCREEN, URINE NEGATIVE (NEGATIVE); BENZODIAZEPINES SCREEN,URINE NEGATIVE (NEGATIVE); CANNABINOID SCREEN,URINE NEGATIVE (NEGATIVE); COCAINE SCREEN,URINE POSITIVE (NEGATIVE); OPIATE SCREEN,URINE POSITIVE (NEGATIVE); PHENCYCLIDINE SCREEN,URINE NEGATIVE (NEGATIVE)
[2024-07-29 05:18] LABS: ABG BASE EXCESS 12.6 mmol/L (-2.0-3.0); ABG HCO3 37.8 mmol/L (21.0-28.0); ABG OXYGEN SATURATION 90.6 % (94.0-98.0); ABG PCO2 51 mmHg (35-48); ABG PH 7.488 (7.350-7.450); CARBON MONOXIDE 1.2 % (0.5-1.5); DEVICE COMMENT N.C 4; HHb 9.3; PO2, ARTERIAL BG 57.6 mmHg (83.0-108.0); VENT MODE, BG RN NORA (ROOM AIR)
[2024-07-29] MEDS: ALBUTEROL 0.083% 2.5 MG/3 ML INH IH SCH (06:48)
[2024-07-29] MEDS: BUDESONIDE 0.5 MG/2 ML INH IH SCH (06:49)
[2024-07-29] MEDS: PoTASSium chl 10% ELIXIR 20MEQ 20 MEQ/15 ML UDCUP PO PRN (06:56)
[2024-07-29 07:01] LABS: BASOPHILS # (AUTO) 0.04 K/uL (0.00-0.20); BASOPHILS % (AUTO) 0.2 % (0.0-5.0); HEMATOCRIT 36.1 % (42-54); IMMATURE GRANULOCYTE ABSOLUTE 0.22 K/uL (0-1); LYMPHOCYTES # (AUTO) 0.7 K/uL (1.0-4.8); LYMPHOCYTES % (AUTO) 2.7 % (21.0-51.0); MEAN CORPUSCULAR HEMOGLOBIN 26.9 pg (27.0-33.0); MEAN CORPUSCULAR HGB CONC 31.9 g/dL (32.0-36.0); MEAN CORPUSCULAR VOLUME 84.5 fL (79-99); MONOCYTES # (AUTO) 0.9 K/uL (0.1-1.0); MONOCYTES % (AUTO) 3.4 % (3.0-13.0); NEUTROPHILS # (AUTO) 23.7 K/uL (1.8-7.7); NEUTROPHILS % (AUTO) 92.8 % (40.0-77.0); NUCLEATED RED BLOOD CELLS 0.2 % (0.0-0.19); PLATELET COUNT (AUTO) 161 K/uL (130-400); RED BLOOD CELL COUNT(AUTO) 4.27 MIL/uL (4.50-6.20); RED CELL DISTRIBUTION WIDTH 20.5 % (11.0-15.5); WHITE BLOOD COUNT (AUTO) 25.6 K/uL (4.8-10.8)
[2024-07-29] MEDS ORDERED: FURO40TA5 PO (07:21)
[2024-07-29] MEDS ORDERED: PRED20TA3 PO (07:22)
[2024-07-29 07:26] LABS: ALBUMIN 1.8 g/dL (3.5-5.0); BILIRUBIN,TOTAL 1.3 mg/dL (0.2-1.0); CREATININE 0.5 mg/dL (0.5-1.3); POTASSIUM 3.1 mmol/L (3.5-5.1); TOTAL PROTEIN, SERUM 4.8 g/dL (6.0-8.3)
[2024-07-29 07:52] LABS: ABG BASE EXCESS 9.5 mmol/L (-2.0-3.0); ABG HCO3 33.9 mmol/L (21.0-28.0); ABG OXYGEN SATURATION 93.9 % (94.0-98.0); ABG PCO2 44 mmHg (35-48); ABG PH 7.502 (7.350-7.450); DEVICE COMMENT LR CARLA RN; PO2, ARTERIAL BG 63.4 mmHg (83.0-108.0); VENT MODE, BG BIPAP 14 6 (ROOM AIR)
[2024-07-29] MEDS: VANCOMYCIN 750MG VIAL IVPB SCH (08:08)
--- NOTE | 2024-07-29 10:15 | HMCIMG ---
CHEST 1VW HISTORY: Labored breathing COMPARISON: 07/28/2024 FINDINGS: A frontal projection of the chest was obtained. Mild right lung pulmonary infiltrates are seen slightly increased from previous study. The heart is borderline enlarged. Degenerative changes are seen. No evidence of aortic calcification is seen. IMPRESSION: 1. Mild right lung pulmonary infiltrates slightly increased from previous study.
--- NOTE | 2024-07-29 11:01 | PN ---
[facility] PROGRESS NOTE Date Patient Seen: Jul 29, 2024 Time of Visit: 11:01 Supervising Physician: Sonny Jorgensen MD Consulting Physician: Dr Espitia Outpatient Specialists: [ ] Inpatient Consults: Cardiology PROBLEM LIST: Acute Hypoxic respiratory failure, POA Suspected aspiration pneumonia right lower lobe POA COPD in acute exacerbation, POA Severe sepsis, POA NSTEMI, POA Rhabdomyolysis, POA improving Hypokalemia, POA Hypomagnesemia, POA Anasarca, POA left inguinal hernia Ventral hernia with bowel contents via midline bilaterally. LVEF 50-55% on 2D echo 07/29/24 Pericholecystic fluid seen on ultrasound 07/29/24 INTERVAL HISTORY: 07/29-patient is lethargic but easily arousable and oriented x3. He has been hemodynamically stable with a blood pressure 111/62 heart rate in the 80s respiratory rate of 19 saturating 98% with 60% FiO2 on BiPAP. He has been afebrile since admission. On laboratory WBCs are 25.6 H&H is 11.5/36.1 platelet count is 098627 with neutrophils 92.8. Sodium 140 potassium 3.1 chloride 95 carbon dioxide 39 BUN 23 creatinine of 0.5 with a GFR of 109 glucose of 120 mg/dL lactic acid 1.7 total calcium was 8.3 total bili 1.3 AST 796. Sensitive troponin 564, 465, 396. Trending down. CK is now 342 improved from previous which is 1062. On chest x-ray right lower lobe pneumonia suspicious for aspiration. Patient is pending speech eval and MBSS. REVIEW OF SYSTEMS: Unable to obtain PHYSICAL EXAM: GENERAL: Sleepy, not in acute respiratory distress HEENT: EOMI, Sclera non icteric, moist mucosa NECK: Supple, no JVD, trachea midline LUNGS: Coarse Bilateral lung sounds HEART: Regular rate and rhythm. Normal S1 and S2, without murmurs ABD: Abdomen soft, nontender. Bowel sounds present EXT: No clubbing cyanosis; bilateral lower extremity edema NEURO: Limited response, uncooperative, no focal weakness noted Vital Signs (last 8hr) Date Time Temp Pulse Resp B/P (MAP) Pulse Ox O2 Delivery O2 Flow Rate FiO2 07/29/24 10:30 86 18 60 07/29/24 10:27 88 18 07/29/24 07:15 82 19 109/55 93 BIPAP 60 07/29/24 07:00 98 20 113/67 94 BIPAP 60 07/29/24 06:56 79 20 60 07/29/24 06:52 97 25 07/29/24 06:45 79 19 111/61 93 BIPAP 60 07/29/24 06:30 83 18 113/56 94 BIPAP 60 07/29/24 06:15 82 19 105/55 90 Nasal Cannula 4.0 07/29/24 06:00 94 Bi-PAP+ 60 07/29/24 06:00 86 20 117/57 90 Nasal Cannula 4.0 07/29/24 05:47 84 20 125/65 90 Nasal Cannula 4.0 07/29/24 05:45 101 24 117/66 90 Nasal Cannula 4.0 07/29/24 05:33 97.5 90 25 118/63 90 Nasal Cannula 4.0 07/29/24 05:02 98.8 80 16 113/54 95 Nasal Cannula* 4 36 07/29/24 04:29 81 16 106/52 95 Nasal Cannula* 4 36 07/29/24 04:10 87 16 116/56 94 Nasal Cannula* 4 36 07/29/24 04:05 98 16 107/49 95 Nasal Cannula* 4 36 07/29/24 03:55 80 16 94/48 Nasal Cannula* 4 36 07/29/24 03:46 77 16 96/45 97 Nasal Cannula* 4 36 07/29/24 03:42 74 16 92/44 96 Nasal Cannula* 4 36 07/29/24 03:30 71 16 83/44 96 Nasal Cannula* 4 36 07/29/24 03:15 79 18 89/51 94 Nasal Cannula* 4 36 LABS: Hematology Labs: Test 07/29/24 06:46 07/28/24 13:39 Range/Units White Blood Count 25.6 H 4.8-10.8 K/uL Red Blood Count 4.27 L 4.50-6.20 MIL/uL Hemoglobin 11.5 L 14.0-18.0 g/dL Hematocrit 36.1 L 42-54 % Mean Corpuscular Volume 84.5 79-99 fL Mean Corpuscular Hemoglobin 26.9 L 27.0-33.0 pg Mean Corpuscular Hemoglobin Concent 31.9 L 32.0-36.0 g/dL Red Cell Distribution Width 20.5 H 11.0-15.5 % Platelet Count 161 130-400 K/uL Mean Platelet Volume 9.7 7.5-10.5 fL Immature Granulocyte % (Auto) 0.9 0-1 % Neutrophils (%) (Auto) 92.8 H 40.0-77.0 % Lymphocytes (%) (Auto) 2.7 L 21.0-51.0 % Monocytes (%) (Auto) 3.4 3.0-13.0 % Eosinophils (%) (Auto) 0.0 0.0-8.0 % Basophils (%) (Auto) 0.2 0.0-5.0 % Neutrophils # (Auto) 23.7 H 1.8-7.7 K/uL Lymphocytes # (Auto) 0.7 L 1.0-4.8 K/uL Monocytes # (Auto) 0.9 0.1-1.0 K/uL Eosinophils # (Auto) 0.00 0.00-0.70 K/uL Basophils # (Auto) 0.04 0.00-0.20 K/uL Absolute Immature Granulocyte (auto 0.22 0-1 K/uL Nucleated Red Blood Cells 0.2 H 0.0-0.19 % White Cell Morphology Comment See comments Red Blood Cell Morphology ANISO 1+ Chemistry Labs: Test 07/29/24 06:46 07/28/24 23:00 07/28/24 17:14 07/28/24 13:39 Range/Units Sodium Level 140 136-145 mmol/L Potassium Level 3.1 L 3.5-5.1 mmol/L Chloride Level 95 L 101-111 mmol/L Carbon Dioxide Level 39 H 21-32 mmol/L Blood Urea Nitrogen 23 H 7-18 mg/dL Creatinine 0.5 0.5-1.3 mg/dL Glomerular Filtration Rate Calc 109 >90 mL/min Random Glucose 120 H 70-105 mg/dL Total Calcium 8.3 L 8.5-10.1 mg/dL Total Bilirubin 1.3 H 0.2-1.0 mg/dL Aspartate Amino Transf (AST/SGOT) 457 H 10-37 U/L Alanine Aminotransferase (ALT/SGPT) 796 *H 12-78 U/L Alkaline Phosphatase 133 50-136 U/L Total Protein 4.8 L 6.0-8.3 g/dL Albumin 1.8 L 3.5-5.0 g/dL Procalcitonin 0.08 0.05-0.5 ng/mL Troponin I High Sensitivity 396 *H 4-75 ng/L Hemoglobin A1c 5.7 4.0-6.0 % Estimated Average Glucose (eAG) 117 70-126 mg/dL Lactic Acid Level 1.7 0.8-2.5 mmol/L C-Reactive Protein, Quantitative 160.90 H 0.5-3.0 mg/L Thyroid Stimulating Hormone (TSH) 0.65 # 0.36-3.74 uIU/mL Total Creatine Kinase 1062 *H 21-232 U/L B-Type Natriuretic Peptide 740 H 0-100 pg/mL Coagulation Labs: Test 07/28/24 13:39 Range/Units Prothrombin Time 14.0 H 9.6-11.6 SEC Prothromb Time International Ratio 1.32 H 0.85-1.15 Activated Partial Thromboplast Time 31.3 26.3-35.5 SEC DIAGNOSTICS / RADIOLOGY RESULTS: IMAGING REPORT Signed PATIENT: MARVIN NAILS MR#: [id number] : 1955 SEX: M AGE: 69 LOCATION: 2CV ORDER 1051 STATUS: ADM IN REPORT#: [id number] SERVICE 1051 REASON: Transaminitis ORDERING PHYSICIAN: OWEN GALICIA PROCEDURE: ABDRUQLTD - US ABDOMINAL RUQ\LTD US ABDOMINAL RUQ\E\LTD HISTORY: Elevated liver enzymes COMPARISON: None TECHNIQUE: Right upper quadrant abdominal ultrasound study was performed. FINDINGS: Liver measures 16 cm. Small amount of pericholecystic fluid is. Pancreas not well seen due to overlying bowel gas. Small amount of free fluid is seen. Liver is echogenic consistent with liver parenchymal disease. No gallstone is seen. Common duct measures 4 mm. No evidence of gallbladder wall thickening is seen. Right kidney measures 9.3 x 5.4 x 6.9 cm. No hydronephrosis is seen of the right kidney. IMPRESSION: 1. No gallstones or ductal dilatation is seen. Small amount of pericholecystic fluid is seen. 2. No hydronephrosis is seen. DICTATED BY: DARRIUS TORRES MD DATE: 07/29/24 134 ELECTRONICALLY SIGNED BY: DARRIUS TORRES MD DATE: 07/29/24 1345 IMAGING REPORT Signed PATIENT: MARVIN NAILS MR#: [id number] : 1955 SEX: M AGE: 69 LOCATION: 2CV ORDER 235 STATUS: ADM IN REPORT#: [id number] SERVICE [id number] REASON: troponin elevation ORDERING PHYSICIAN: HILARIA THOMAS MD PROCEDURE: ECHO CMP - ECHO 2-D COMPLETE APPROVED REPORT EXAM: Two-dimensional and M-mode echocardiogram with Doppler and color Doppler. INDICATION ICD: Elevated troponin 2D Dimensions RVDd 4.7 cm LVEF(%) 50.8 (>50%) LVED Vol(simp.) 66.5 mL IVSd 0.5 (0.7-1.1cm) FS(%) 26 % LVES Vol(simp.) 32.3 mL LVDd 5.0 (3.8-5.6cm) LA (2D) 3.4 (1.6-4.0cm) LVEF(%, simp.) 51 % PWd 0.8 (0.7-1.1cm) Ao Root(2D) 3.7 (2.0-3.7cm) LA ESV INDEX (4CH) 15.90 mL/m2 IVSs 0.6 cm LVDs 3.7 (2.5-4.0cm) PWs 1.0 cm M-Mode Dimensions EPSS 0.6 cm LA (MM) 4.3 (1.6-4.0cm) Ao Root(MM) 4.4 (2.0-3.7cm) Aortic Valve AoV VTI 0.3 m Ao Mean GR 3.0 mmHg LVOT VTI 0.17 m Mitral Valve MV E Vmax 50.9 cm/s DECEL Time 239 ms MV A Vmax 56.8 cm/s P 1/2 T 60 ms E/A ratio 0.9 MVA (PHT) 3.6 cm2 MR Max PG 55 mmHg TDI E/E' Medial 8.0 E/E' Lateral 4.8 Medial E' Peak V 6.40 cm/s Lateral E' Peak V 10.70 cm/s Pulmonary Valve PV Vmax 0.9 m/s PV Peak GR 3.1 mmHg Tricuspid Valve RAP (EST) 15 mmHg RVSP 15.0 mmHg Left Ventricle Left ventricular cavity size is normal. Septal wall motion abnormality Global thinning of the left ventricular camacho. LVEF is 50-55%. Right Ventricle The right ventricle is moderately to severely dilated. The right ventricular systolic function is normal. Atria The left atrium size is normal. The right atrium is moderately dilated. Aortic Valve Aortic valve is bicuspid and opens well. No aortic regurgitation is present. There is no aortic valvular stenosis. Mitral Valve Mitral valve leaflets appear normal. There is trace of mitral valve re gurgitation noted. There is no mitral valve stenosis. Tricuspid Valve The tricuspid valve is normal in structure and function. There is no tricuspid valve regurgitation noted. Pulmonic Valve Pulmonic valve is not well visualized. There is no pulmonic valvular regurgitation. Great Vessels The aortic root is normal in size. IVC is dilated and collapses <50% with inspiration. Pericardium No pericardial effusion. Other Information Quality : Technically difficult due to body habitus Conclusion LVEF is 50-55%. Global thinning of the left ventricular camacho. Left ventricular cavity size is normal. Septal wall motion abnormality The right ventricle is moderately to severely dilated. The right atrium is moderately dilated. IVC is dilated and collapses <50% with inspiration. DICTATED BY: HILARIA THOMAS MD DATE: 07/29/24719 ELECTRONICALLY SIGNED BY: HILARIA THOMAS MD DATE: 07/29/24 1252 PATIENT: MARVIN NAILS MR#: [id number] : 1955 SEX: M AGE: 69 LOCATION: 2CV ORDER 5 STATUS: ADM IN REPORT#: [id number] SERVICE 0705 REASON: labored breathing ORDERING PHYSICIAN: JAN JIMENES PROCEDURE: CXR1VW - CHEST 1VW CHEST 1VW HISTORY: Labored breathing COMPARISON: 07/28/2024 FINDINGS: A frontal projection of the chest was obtained. Mild right lung pulmonary infiltrates are seen slightly increased from previous study. The heart is borderline enlarged. Degenerative changes are seen. No evidence of aortic calcification is seen. IMPRESSION: 1. Mild right lung pulmonary infiltrates slightly increased from previous study. DICTATED BY: DARRIUS TORRES MD DATE: 07/29/24 1012 ELECTRONICALLY SIGNED BY: DARRIUS TORRES MD DATE: 07/29/24 1015 PLAN MBSS today Maintain O2 sats above 92% BiPAP p.r.n. IV meropenem Obtain COVID and flu swab-negative Follow sputum culture Aspiration precaution DuoNeb q.6 hours Pending 2D echo Pulmonary toilet Encourage early mobilization PT/OT eval and treat Rest of plan care of primary Tylenol level Hepatitis panel Solu-Medrol 40 mg q.8 hours IV push wean as tolerated Right upper quadrant ultrasound for transaminitis NEURO: Minimize central acting medications as possible. Fall Precautions. Well lighted room through the day and minimize interruptions through the night to prevent acute delirium. PULMONARY: Supplemental 02 as needed Titrate Fio2 to keep Spo2 > or = 90% DuoNebs and CPT as needed IS hourly while awake for pulmonary hygiene Out of bed to chair as tolerated VAP Bundle Vent/BIPAP Settings: 14/6 FiO2 60% respiratory rate of 18 CARDIOVASCULAR: Follow hemodynamics. Titrate vasopressor to keep MAP >65 or systolic blood pressure >95mmHg Telemetry monitoring Drips: None LINES: PIV GI & NUTRITION: Continue nutritional support Aspirations precautions Prokinetic agents and laxatives as needed KIDNEYS & ELECTROLYTES: Strict monitoring of intake and output Daily weights Avoid nephrotoxic agents Monitor electrolytes and replace as needed Goal urine output of 30mL/hr or 0.5mL/kg/hr Urine output: [ ] Fluid Balance: [ ] ENDOCRINE: Maintain blood glucose between 100-180 at all times. Insulin sliding scale for blood glucose management INFECTIOUS DISEASE: Trend temperature. Covarrubias-culture if febrile. Micro: [ ] Respiratory culture Blood culture Influenza and COVID negative Antibiotics: Meropenem HEMATOLOGY & COAGULATION: Monitor H&H. Keep Hgb > 7 Transfuse 1 unit of PRBC for Hgb < 7 Transfuse 1 pack of platelets of platelets < 20, 000 Watch for any signs and symptoms of bleeding SKIN: Pressure ulcer prevention per facility protocol Rehab: PT/OT Prophylaxis: GI: Protonix DVT: SCDs Code Status: Full Resuscitation Disposition: ICU Other: Total patient care time exceeds 45 minutes excluding all procedures. Case was discussed and seen with my supervising physician. The above plan was formulated and agreed upon. OWEN GALICIA Jul 29, 2024 11:01
[2024-07-29] MEDS: MEROPENEM 1 GM in 0.9%NACL 100ML 100 ML IVPB SCH (11:22)
[2024-07-29] MEDS ORDERED: COMPOUND IV MISC 1 EACH IVSOLN MISC PRN (11:30)
[2024-07-29] MEDS ORDERED: PHARMACY COMMUNICATION 1 EACH EACH MISC SCH (12:00)
--- NOTE | 2024-07-29 12:52 | HMCSR ---
APPROVED REPORT EXAM: Two-dimensional and M-mode echocardiogram with Doppler and color Doppler. INDICATION ICD: Elevated troponin 2D Dimensions RVDd4.7 cmLVEF(%)50.8 (>50%)LVED Vol(simp.)66.5 mL IVSd0.5 (0.7-1.1cm)FS(%)26 %LVES Vol(simp.)32.3 mL LVDd5.0 (3.8-5.6cm)LA (2D)3.4 (1.6-4.0cm)LVEF(%, simp.)51 % PWd0.8 (0.7-1.1cm)Ao Root(2D)3.7 (2.0-3.7cm)LA ESV INDEX (4CH)15.90 mL/m2 IVSs0.6 cm LVDs3.7 (2.5-4.0cm) PWs1.0 cm M-Mode Dimensions EPSS0.6 cm LA (MM)4.3 (1.6-4.0cm) Ao Root(MM)4.4 (2.0-3.7cm) Aortic Valve AoV VTI0.3 mAo Mean GR3.0 mmHgLVOT VTI0.17 m Mitral Valve MV E Vmax50.9 cm/sDECEL Hpzr067 ms MV A Vmax56.8 cm/sP 1/2 T60 ms E/A ratio0.9MVA (PHT)3.6 cm2 MR Max PG55 mmHg TDI E/E' Medial8.0E/E' Lateral4.8 Medial E' Peak V6.40 cm/sLateral E' Peak V10.70 cm/s Pulmonary Valve PV Vmax0.9 m/s PV Peak GR3.1 mmHg Tricuspid Valve RAP (EST) 15 [id number] mmHg Left Ventricle Left ventricular cavity size is normal. Septal wall motion abnormality Global thinning of the left ve ntricular camacho. LVEF is 50-55%. Right Ventricle The right ventricle is moderately to severely dilated. The right ventricular systolic function is nor mal. Atria The left atrium size is normal. The right atrium is moderately dilated. Aortic Valve Aortic valve is bicuspid and opens well. No aortic regurgitation is present. There is no aortic valvu lar stenosis. Mitral Valve Mitral valve leaflets appear normal. There is trace of mitral valve regurgitation noted. There is no mitral valve stenosis. Tricuspid Valve The tricuspid valve is normal in structure and function. There is no tricuspid valve regurgitation no jaime. Pulmonic Valve Pulmonic valve is not well visualized. There is no pulmonic valvular regurgitation. Great Vessels The aortic root is normal in size. IVC is dilated and collapses <50% with inspiration. Pericardium No pericardial effusion. Other Information Quality : Technically difficult due to body habitus Conclusion LVEF is 50-55%. Global thinning of the left ventricular camacho. Left ventricular cavity size is normal. Septal wall motion abnormality The right ventricle is moderately to severely dilated. The right atrium is moderately dilated. IVC is dilated and collapses <50% with inspiration.
--- NOTE | 2024-07-29 13:36 | PN ---
[facility] PROGRESS NOTE Date of Service: Jul 29, 2024 Time of Service: 13:28 SUBJECTIVE: The patient has been seen and examined during my rounding, on BiPAP, 04/03, FiO2 60%, saturating 96-98%. Getting IV antibiotics, off Levophed. No chest pain, no shortness a breath, no nausea, no vomiting, no abdominal pain, family members at bedside during my visit, updated, all questions answered. Chest x-ray today showing mild right lung pulmonary infiltrates slightly increased from previous study. REVIEW OF SYSTEMS CONSTITUTIONAL: Denies fevers, chills, or night sweats. No unintentional weight loss reported. NEUROLOGICAL: Denies headache, amaurosis fugax, motor weakness, sensory deficit, vertigo/spinning sensation, gait abnormalities, or tremors. ENT: No hearing loss, otalgia, otorrhea, rhinitis, rhinorrhea, hoarseness, or sore throat. CARDIOVASCULAR: Denies any exertional angina, dyspnea on exertion, orthopnea, paroxysmal nocturnal dyspnea, palpitations, life-threatening arrhythmias, claudication. PULMONARY: Positive for cough, shortness of breath, sputum production SLEEP: Denies morning headaches, daytime somnolence or napping. Denies difficulty falling asleep, staying asleep, waking from sleep. Denies knowledge of snoring. GASTROINTESTINAL: Denies any type of dysphagia to either liquids or solids. Denies nausea, vomiting, pyrosis, early satiety, abdominal pain, diarrhea, constipation, or changes in stool consistency or caliber. Denies coffee-ground emesis, hematemesis, hematochezia, or melanotic stools. GENITOURINARY: Denies frequency, urgency, nocturia, hematuria or incontinence (Storage/Irritative symptoms.) Low urinary stream, straining to void, urinary intermittency or hesitancy, splitting of the voiding stream, terminal dribbling. ENDOCRINOLOGIC: Denies polyuria, polydipsia, polyphagia or heat/cold intolerances. HEMATOLOGIC: Denies thrombophilia/previous clots, or coagulopathy/bleeding disorders. ONCOLOGIC: Denies personal history of malignancy. DERMATOLOGIC: Denies rashes or pruritus. PSYCHIATRIC: Denies any suicidal or homicidal ideation. Denies hallucinations. PHYSICAL EXAM GENERAL APPEARANCE: Patient looks chronically ill, debilitated, on BiPAP. NEUROLOGICAL: Cranial nerves II-XII grossly intact. Motor is 5/5 in bilateral upper and lower extremities proximal to distal. No sensory deficits. HEENT: Face is symmetric. Pupils are equal and reactive. Extraocular movements are intact. NECK: Supple. No JVD. No thyromegaly. No submental, submandibular, pre- /postauricular, occipital or supraclavicular lymphadenopathy. CHEST: Normal chest expansion. No Telemetry. LUNGS: Patient has bilateral wheezing present CARDIOVASCULAR: Regular. S1 and S2 normal. No appreciable rubs, murmurs or gallops. ABDOMEN: Soft, he has a ventral hernia present, mild tenderness around the hernia site and nondistended. There is no rebound, voluntary guarding, or rigidity. : Deferred. No Mota. EXTREMITIES: Non-edematous and not cyanotic. No clubbing. Good capillary refill. SKIN: No skin breakdown. Vital Signs (last 8hr) Date Time Temp Pulse Resp B/P (MAP) Pulse Ox O2 Delivery O2 Flow Rate FiO2 07/29/24 11:18 86 20 107/61 98 BIPAP 60 07/29/24 10:48 90 18 107/61 96 BIPAP 60 07/29/24 10:30 86 18 60 07/29/24 10:30 88 20 99 07/29/24 10:27 88 18 07/29/24 10:19 82 19 100/57 99 BIPAP 60 07/29/24 10:00 80 18 99 07/29/24 09:48 77 24 115/74 98 07/29/24 09:30 75 20 97 07/29/24 09:18 81 19 111/62 98 BIPAP 60 07/29/24 09:00 71 16 97 07/29/24 08:48 76 18 112/63 94 BIPAP 60 07/29/24 08:30 82 19 97 07/29/24 08:20 79 19 107/66 99 07/29/24 08:03 83 16 99/54 99 BIPAP 60 07/29/24 08:00 94 Bi-PAP+ 60 07/29/24 08:00 98.4 79 18 100 07/29/24 07:49 86 18 100/53 100 BIPAP 60 07/29/24 07:44 88 19 103/56 99 BIPAP 60 07/29/24 07:33 93 20 98/50 07/29/24 07:30 83 19 07/29/24 07:19 82 19 109/55 99 BIPAP 60 07/29/24 07:15 82 19 109/55 93 BIPAP 60 07/29/24 07:00 103 22 07/29/24 07:00 98 20 113/67 94 BIPAP 60 07/29/24 06:56 79 20 60 07/29/24 06:52 97 25 07/29/24 06:45 79 19 111/61 93 BIPAP 60 07/29/24 06:30 83 18 113/56 94 BIPAP 60 07/29/24 06:15 82 19 105/55 90 Nasal Cannula 4.0 07/29/24 06:00 94 Bi-PAP+ 60 07/29/24 06:00 86 20 117/57 90 Nasal Cannula 4.0 07/29/24 05:47 84 20 125/65 90 Nasal Cannula 4.0 07/29/24 05:45 101 24 117/66 90 Nasal Cannula 4.0 07/29/24 05:33 97.5 90 25 118/63 90 Nasal Cannula 4.0 LABS: Laboratory: Test 07/29/24 07:50 07/29/24 06:46 07/29/24 05:15 07/29/24 04:20 Range/Units Blood Gas Specimen Type Arterial Arterial Blood pH 7.502 H 7.350-7.450 Arterial Blood Partial Pressure CO2 44 35-48 mmHg Arterial Blood Partial Pressure O2 63.4 L 83.0-108.0 mmHg Arterial Blood HCO3 33.9 H 21.0-28.0 mmol/L Arterial Blood Oxygen Saturation 93.9 L 94.0-98.0 % Arterial Blood Base Excess 9.5 H -2.0-3.0 mmol/L Blood Gas Temperature 37.0 35.5-37.0 CELSIUS Blood Gas Respiration Rate 18.0 min. Blood Gas Vent Mode BIPAP 14 6 ROOM AIR FiO2 60.0 % Blood Gas PEEP 6 cm H2O Blood Gas Specimen Comment LR ALEXA RN White Blood Count 25.6 H 4.8-10.8 K/uL Red Blood Count 4.27 L 4.50-6.20 MIL/uL Hemoglobin 11.5 L 14.0-18.0 g/dL Hematocrit 36.1 L 42-54 % Mean Corpuscular Volume 84.5 79-99 fL Mean Corpuscular Hemoglobin 26.9 L 27.0-33.0 pg Mean Corpuscular Hemoglobin Concent 31.9 L 32.0-36.0 g/dL Red Cell Distribution Width 20.5 H 11.0-15.5 % Platelet Count 161 130-400 K/uL Mean Platelet Volume 9.7 7.5-10.5 fL Immature Granulocyte % (Auto) 0.9 0-1 % Neutrophils (%) (Auto) 92.8 H 40.0-77.0 % Lymphocytes (%) (Auto) 2.7 L 21.0-51.0 % Monocytes (%) (Auto) 3.4 3.0-13.0 % Eosinophils (%) (Auto) 0.0 0.0-8.0 % Basophils (%) (Auto) 0.2 0.0-5.0 % Neutrophils # (Auto) 23.7 H 1.8-7.7 K/uL Lymphocytes # (Auto) 0.7 L 1.0-4.8 K/uL Monocytes # (Auto) 0.9 0.1-1.0 K/uL Eosinophils # (Auto) 0.00 0.00-0.70 K/uL Basophils # (Auto) 0.04 0.00-0.20 K/uL Absolute Immature Granulocyte (auto 0.22 0-1 K/uL Nucleated Red Blood Cells 0.2 H 0.0-0.19 % Sodium Level 140 136-145 mmol/L Potassium Level 3.1 L 3.5-5.1 mmol/L Chloride Level 95 L 101-111 mmol/L Carbon Dioxide Level 39 H 21-32 mmol/L Blood Urea Nitrogen 23 H 7-18 mg/dL Creatinine 0.5 0.5-1.3 mg/dL Glomerular Filtration Rate Calc 109 >90 mL/min Random Glucose 120 H 70-105 mg/dL Total Calcium 8.3 L 8.5-10.1 mg/dL Total Bilirubin 1.3 H 0.2-1.0 mg/dL Aspartate Amino Transf (AST/SGOT) 457 H 10-37 U/L Alanine Aminotransferase (ALT/SGPT) 796 *H 12-78 U/L Alkaline Phosphatase 133 50-136 U/L Total Creatine Kinase 342 #H 21-232 U/L Total Protein 4.8 L 6.0-8.3 g/dL Albumin 1.8 L 3.5-5.0 g/dL Procalcitonin 0.08 0.05-0.5 ng/mL Hemoglobin (Blood Gas) 12.9 L 13.5-17.5 g/dL Sodium (Blood Gas) 135 L 136-145 MMOL/L Bedside Potassium (Blood Gas) 3.1 L 3.4-4.5 MMOL/L Bedside Chloride (Blood Gas) 91 L 98-107 MMOL/L Bedside Glucose (Blood Gas) 108 H 65-95 MG/DL Bedside Ionized Calcium (Blood Gas) 1.12 L 1.15-1.33 MMOL/L Bedside Lactic Acid (Blood Gas) 1.07 H 0.36-0.75 MMOL/L Blood Gas Flow-by 4.00 0.00-15.00 L/min Urine Opiates Screen POSITIVE H NEGATIVE Urine Barbiturates Screen NEGATIVE NEGATIVE Urine Phencyclidine Screen NEGATIVE NEGATIVE Urine Amphetamines Screen NEGATIVE NEGATIVE Urine Benzodiazepines Screen NEGATIVE NEGATIVE Urine Cocaine Screen POSITIVE H NEGATIVE Urine Marijuana (THC) Screen NEGATIVE NEGATIVE Test 07/28/24 23:00 07/28/24 22:23 07/28/24 17:14 07/28/24 13:39 Range/Units Troponin I High Sensitivity 396 *H 4-75 ng/L Influenza Type A Antigen Negative For Type A NEGATIVE Influenza Type B Antigen Negative For Type B NEGATIVE SARS-CoV-2, RNA, NAAT NEGATIVE SARS CoV-2 NEGATIVE Hemoglobin A1c 5.7 4.0-6.0 % Estimated Average Glucose (eAG) 117 70-126 mg/dL Lactic Acid Level 1.7 0.8-2.5 mmol/L C-Reactive Protein, Quantitative 160.90 H 0.5-3.0 mg/L Thyroid Stimulating Hormone (TSH) 0.65 # 0.36-3.74 uIU/mL White Cell Morphology Comment See comments Red Blood Cell Morphology ANISO 1+ Prothrombin Time 14.0 H 9.6-11.6 SEC Prothromb Time International Ratio 1.32 H 0.85-1.15 Activated Partial Thromboplast Time 31.3 26.3-35.5 SEC B-Type Natriuretic Peptide 740 H 0-100 pg/mL Current Medications Medications (Trade) Dose Ordered Sig/Suni Route PRN Reason Start Time Stop Time Status Last Admin Dose Admin Acetaminophen (TYLenol 500MG TAB) 500 mg Q6H PRN PO MILD PAIN (1-3) 07/28/24 17:00 08/27/24 16:59 Albumin Human 100 ml @ 0 mls/hr AD IV 07/29/24 00:00 08/28/24 00:00 07/29/24 00:36 100 MLS/HR Albuterol (DUOneb) 1 UDVIAL [id number] IH 07/28/24 18:00 07/29/24 06:56 DC 07/28/24 22:59 1 UDVIAL Albuterol Sulfate (Proventil 0.083% 2.5mg/3ml) 2.5MG [id number] IH 07/29/24 06:00 08/28/24 05:59 07/29/24 10:27 2.5 MG Atorvastatin Calcium (LIPItor 40MG) 40 mg HS PO 07/28/24 23:55 07/29/24 11:02 DC 07/29/24 00:23 40 MG Budesonide (Pulmicort 0.25mg/2ml) 0.25 mg BIDRESP IH 07/28/24 18:00 07/29/24 05:56 DC 07/28/24 22:59 0.25 MG Budesonide (Pulmicort 0.5 Mg/2ml) 0.5 mg BIDRESP IH 07/29/24 06:00 08/28/24 05:59 07/29/24 06:49 0.5 MG Cefepime HCl (MAXipime 1 GM vial) 1 gm Q8H IVPB 07/28/24 21:00 07/29/24 10:47 DC 07/29/24 06:45 1 GM Magnesium Sulfate 50 ml @ 0 mls/hr PROTOCOL PRN IV HYPOMAGNESEMIA 07/28/24 17:00 08/27/24 16:59 Meropenem 1 gm/ Sodium Chloride 100 ml @ 33.333 mls/ hr Q8H IVPB 07/29/24 11:00 08/08/24 10:59 07/29/24 11:22 33.333 MLS/HR Methylprednisolone Sodium Succinate (Solu-medROL 40MG) 40 mg Q8H IVP 07/28/24 21:00 08/27/24 20:59 07/29/24 13:20 40 MG Midodrine (PROAMatine 5 MG TABLET) 10 mg TID PO 07/28/24 23:50 127/24 23:49 07/29/24 13:20 10 MG Norepinephrine 250 ml @ 0 mls/hr AD PRN IV DIRECTED 07/29/24 02:30 08/28/24 02:29 07/29/24 02:39 24.67 MLS/HR Pantoprazole Sodium (PROTonix 40MG INJ) 40 mg BID IVP 07/28/24 21:00 08/27/24 20:59 07/29/24 08:08 40 MG Pharmacy Profile Note (Lace Assessment) 1 each AD MISC 07/29/24 12:00 08/05/24 11:59 Potassium Chloride 100 ml @ 50 mls/hr AD PRN IV POTASSIUM PROTOCOL 07/28/24 15:30 07/28/24 15:44 DC Potassium Chloride 100 ml @ 100 mls/hr AD PRN IV POTASSIUM PROTOCOL 07/28/24 17:00 08/27/24 16:59 Potassium Chloride (K-Dur/Klor-Con 20meq) 20 meq AD PRN PO POTASSIUM PROTOCOL 07/28/24 17:00 08/27/24 16:59 Potassium Chloride (KCl 10% Elixir 20meq/15ml) 20 meq AD PRN PO POTASSIUM PROTOCOL 07/28/24 17:00 08/27/24 16:59 07/29/24 06:56 20 MEQ Sodium Chloride 1,000 ml @ 50 mls/hr Q20H IV 07/28/24 17:00 08/27/24 16:59 07/29/24 08:08 125 MLS/HR Vancomycin HCl (Vancomycin 750mg) 750 mg Q8H IVPB 07/29/24 01:00 07/29/24 02:45 DC Vancomycin HCl (Vancomycin 750mg) 750 mg Q8H IVPB 07/29/24 06:30 07/29/24 06:44 DC Vancomycin HCl (Vancomycin 750mg) 750 mg Q8H IVPB 07/29/24 08:30 08/08/24 08:29 07/29/24 08:08 750 MG Vancomycin HCl (Vancomycin Protocol) 1 each AD IV 07/28/24 17:00 08/11/24 16:59 DIAGNOSTICS / RADIOLOGY: [ ] CHEST 1VW HISTORY: Labored breathing COMPARISON: 07/28/2024 FINDINGS: A frontal projection of the chest was obtained. Mild right lung pulmonary infiltrates are seen slightly increased from previous study. The heart is borderline enlarged. Degenerative changes are seen. No evidence of aortic calcification is seen. IMPRESSION: 1. Mild right lung pulmonary infiltrates slightly increased from previous study. ASSESSMENT: Sepsis POA Acute on chronic COPD exacerbation Acute hypoxic respiratory failure secondary to COPD exacerbation and CAP Community acquired Pneumonia POA Fall Severe hypokalemia Rhabdomyolysis History of drug use History of noncompliance Poor venous access Anterior chest wall rash PLAN: - patient to be admitted to medical-surgical unit with telemetry -continue the patient on broad-spectrum IV antibiotics, continue to follow results of septic workup, adjust antibiotics based on identification and sensitivity. -in reference to COPD exacerbation. Continue the patient on BiPAP, Pulmonary input noted and appreciated, continue DuoNeb, continue to follow chest x-ray as well as ABG. -in reference to rhabdomyolysis. Continue the patient on IV fluids, continue to follow CPK in a.m. -obtain PT evaluation -replace electrolytes IV per protocol -a.m. labs -GI and DVT prophylaxis Plan of action discussed, all questions answered, agreed and understood the information provided. Total ICU time spent greater than 30 minutes. HANS PRADO MD Jul 29, 2024 13:36
--- NOTE | 2024-07-29 13:45 | HMCIMG ---
US ABDOMINAL RUQ\E\LTD HISTORY: Elevated liver enzymes COMPARISON: None TECHNIQUE: Right upper quadrant abdominal ultrasound study was performed. FINDINGS: Liver measures 16 cm. Small amount of pericholecystic fluid is. Pancreas not well seen due to overlying bowel gas. Small amount of free fluid is seen. Liver is echogenic consistent with liver parenchymal disease. No gallstone is seen. Common duct measures 4 mm. No evidence of gallbladder wall thickening is seen. Right kidney measures 9.3 x 5.4 x 6.9 cm. No hydronephrosis is seen of the right kidney. IMPRESSION: 1. No gallstones or ductal dilatation is seen. Small amount of pericholecystic fluid is seen. 2. No hydronephrosis is seen.
[2024-07-29 15:58] LABS: VANCOMYCIN TROUGH 13.2 UG/ML (10.0-20.0)
--- NOTE | 2024-07-29 16:20 | HMCIMG ---
MODIFIED BARIUM SWALLOW W CINE REASON: Aspiration. COMPARISON: None TECHNIQUE: Modified barium swallow study was performed with referring speech therapist. FINDINGS: Fluoroscopy time is 3.0 minutes. Please see procedure report by referring physician. IMPRESSION: Modified barium swallow study.
--- NOTE | 2024-07-29 22:14 | PN ---
CARDIOLOGY Reason for consult: Elevated troponin HPI/story at presentation: This is a pleasant 69-year-old male with past medical history as per present with complaints of altered mental status, fall, was found to have elevated troponins in the setting of possible rhabdomyolysis sepsis electrolyte abnormalities. Cardiology was consulted for further evaluation and management. Subjective: 07/28/2024 altered mental status 07/29/2024 AMS Past medical history: See below Allergies, Meds See chart Review of systems Not obtained, altered mental status Vitals see chart PHYSICAL EXAMINATION GENERAL: The patient is alert and oriented*3 HEENT: Nonicteric sclerae, non traumatic HEART: Regular rate and rhythm with no murmurs LUNGS: Clear to auscultation bilaterally ABDOMEN: No acute issues, non tender GENITAL, RECTAL: deferred SKIN: No rash NEUROLOGIC: NFND EXTREMITIES: No edema ASSESSMENT ELEVATED TROPONIN Likely type II in setting of rhabdomyolysis, sepsis Setting of fall In the setting of substance use Trending down RHABDOMYOLYSIS RESPIRATORY FAILURE In the setting of community-acquired pneumonia, COPD ELECTROLYTE ABNORMALITIES Hypokalemia hypomagnesemia at presentation OTHER MEDICAL PROBLEMS Previous history of left inguinal hernia PLAN 07/28/2024 troponin relation at this time is thought to be type II in setting of sepsis rhabdomyolysis etc. For now, will manage conservatively. Will get an echocardiogram to assess EF and if this is normal, no further cardiac evaluation is immediately warranted 07/29/2024 Remains confused, remains in the ICU. Unable to get a history. Respiratory failure and aspiration pneumonia being addressed by ICU team. Troponins trended down yesterday as above. No plans for anticoagulation as above. On midodrine for blood pressure support along with steroids. Pressures are borderline in spite of midodrine. ATTESTATION I was involved substantially in the care of this patient Number and complexity of problems addressed: 1 acute illness with systemic features. Amount and or complexity of data Review of prior external note(s) from each unique source: 2+ Ordering of each unique test : 0 Review of the result(s) of each unique test: 2+ Assessment requiring an independent historian(s): No Independent interpretation of test performed by another MD/QHCP/appropriate source (not separately reported) : No Discussion of management or test interpretation with external MD/QHCP/appropriate source (not separately reported) : No Risk status (cardiac, billing related): Moderate Vitals/Labs Vital Signs Date Time Temp Pulse Resp B/P (MAP) Pulse Ox O2 Delivery O2 Flow Rate FiO2 07/29/24 20:00 98.2 89 20 104/55 100 BIPAP 60 07/29/24 17:48 3.0 Laboratory Tests 07/29/24 06:46 Medications Current Medications Albuterol Sulfate 10 mg ONCE ONCE IH Last administered on 07/28/24at 13:43; Start 07/28/24 at 13:30; Stop 07/28/24 at 13:31; Status DC Ipratropium [place] 0.5 mg ONCE ONCE IH Last administered on 07/28/24at 13:42; Start 07/28/24 at 13:30; Stop 07/28/24 at 13:31; Status DC Methylprednisolone Sodium Succinate 125 mg ONCE ONCE IVP Last administered on 07/28/24at 14:54; Start 07/28/24 at 13:30; Stop 07/28/24 at 13:31; Status DC Aspirin 325 mg ONCE ONCE PO Last administered on 07/28/24at 14:54; Start 07/28/24 at 13:30; Stop 07/28/24 at 13:31; Status DC Sodium Chloride 2,000 ml @ 0 mls/hr ONCE ONCE IV Last administered on 07/28/24at 15:15; Start 07/28/24 at 15:00; Stop 07/28/24 at 15:01; Status DC Vancomycin HCl 1 gm ONCE ONCE IV Last administered on 07/28/24at 16:43; Start 07/28/24 at 15:00; Stop 07/28/24 at 15:01; Status DC Piperacillin Sod/ Tazobactam Sod 3.375 gm ONCE ONCE IV Last administered on 07/28/24at 15:16; Start 07/28/24 at 15:00; Stop 07/28/24 at 15:01; Status DC Potassium Chloride 100 ml @ 50 mls/hr AD PRN IV; Start 07/28/24 at 15:30; Stop 07/28/24 at 15:44; Status DC Potassium Bicarbonate 25 meq ONCE ONCE PO Last administered on 07/28/24at 15:57; Start 07/28/24 at 16:00; Stop 07/28/24 at 16:01; Status DC Potassium Bicarbonate 25 meq STK-MED ONCE .ROUTE; Start 07/28/24 at 15:44; Stop 07/28/24 at 15:45; Status DC Potassium Bicarbonate 25 meq ONCE ONCE PO Last administered on 07/28/24at 16:55; Start 07/28/24 at 17:00; Stop 07/28/24 at 17:01; Status DC Potassium Chloride 100 ml @ 100 mls/hr AD PRN IV; Start 07/28/24 at 17:00; Stop 08/27/24 at 16:59 Potassium Chloride 20 meq AD PRN PO Last administered on 07/29/24at 15:03; Start 07/28/24 at 17:00; Stop 08/27/24 at 16:59 Potassium Chloride 20 meq AD PRN PO; Start 07/28/24 at 17:00; Stop 08/27/24 at 16:59 Magnesium Sulfate 50 ml @ 0 mls/hr PROTOCOL PRN IV; Start 07/28/24 at 17:00; Stop 08/27/24 at 16:59 Sodium Chloride 1,000 ml @ 50 mls/hr Q20H IV Last administered on 07/29/24at 08:08; Start 07/28/24 at 17:00; Stop 08/27/24 at 16:59 Albuterol 1 UDVIAL [id number] IH Last administered on 07/28/24at 22:59; Start 07/28/24 at 18:00; Stop 07/29/24 at 06:56; Status DC Acetaminophen 500 mg Q6H PRN PO; Start 07/28/24 at 17:00; Stop 08/27/24 at 16:59 Vancomycin HCl 1 each AD IV; Start 07/28/24 at 17:00; Stop 08/11/24 at 16:59 Cefepime HCl 1 gm Q8H IVPB Last administered on 07/29/24at 06:45; Start 07/28/24 at 21:00; Stop 07/29/24 at 10:47; Status DC Vancomycin HCl 750 mg ONCE ONCE IVPB Last administered on 07/28/24at 22:24; Start 07/28/24 at 17:30; Stop 07/28/24 at 17:31; Status DC Vancomycin HCl 750 mg Q8H IVPB; Start 07/29/24 at 01:00; Stop 07/29/24 at 02:45; Status DC Methylprednisolone Sodium Succinate 40 mg Q8H IVP Last administered on 07/29/24at 21:20; Start 07/28/24 at 21:00; Stop 08/27/24 at 20:59 Budesonide 0.25 mg BIDRESP IH Last administered on 07/28/24at 22:59; Start 07/28/24 at 18:00; Stop 07/29/24 at 05:56; Status DC Pantoprazole Sodium 40 mg BID IVP Last administered on 07/29/24at 21:19; Start 07/28/24 at 21:00; Stop 08/27/24 at 20:59 Midodrine 10 mg TID PO Last administered on 07/29/24at 21:20; Start 07/28/24 at 23:50; Stop 08/27/24 at 23:49 Atorvastatin Calcium 40 mg HS PO Last administered on 07/29/24at 00:23; Start 07/28/24 at 23:55; Stop 07/29/24 at 11:02; Status DC Albumin Human 100 ml @ 0 mls/hr AD IV Last administered on 07/29/24at 00:36; Start 07/29/24 at 00:00; Stop 08/28/24 at 00:00 Norepinephrine 250 ml @ 0 mls/hr AD PRN IV Last administered on 07/29/24at 02:39; Start 07/29/24 at 02:30; Stop 08/28/24 at 02:29 Vancomycin HCl 750 mg Q8H IVPB; Start 07/29/24 at 06:30; Stop 07/29/24 at 06:44; Status DC Albuterol Sulfate 2.5MG [id number] IH Last administered on 07/29/24at 19:51; Start 07/29/24 at 06:00; Stop 08/28/24 at 05:59 Budesonide 0.5 mg BIDRESP IH Last administered on 07/29/24at 19:51; Start 07/29/24 at 06:00; Stop 08/28/24 at 05:59 Vancomycin HCl 750 mg Q8H IVPB Last administered on 07/29/24at 16:06; Start 07/29/24 at 08:30; Stop 08/08/24 at 08:29 Meropenem 1 gm/ Sodium Chloride 100 ml @ 33.333 mls/ hr Q8H IVPB Last administered on 07/29/24at 19:15; Start 07/29/24 at 11:00; Stop 08/08/24 at 10:59 Pharmacy Profile Note 1 each AD MISC; Start 07/29/24 at 12:00; Stop 08/05/24 at 11:59 HILARIA THOMAS MD Jul 29, 2024 22:14
[2024-07-30] VITALS (35 sets, daily range): BP systolic 92–112; BP diastolic 48–62; PULSE 79–99; RESP 14–24; TEMP 97.1–98.7; O2SAT 92–99
--- NOTE | 2024-07-30 00:02 | CONS ---
INFECTIOUS DISEASE CONSULTATION DATE OF SERVICE: 07/29/2024 REQUESTING PHYSICIAN: Dr. Guilherme Espitia. REASON FOR CONSULTATION: Sepsis and antibiotic management. HISTORY OF PRESENT ILLNESS: A 69-year-old male with history of COPD, chronic tobacco use, cocaine abuse and skin popping who presented to the hospital with shortness of breath. The patient actually was found on the floor by a neighbor. In the ER, the patient was found positive septic shock and admitted to the ICU. WBC was 25,000. The patient also found with IV infiltration on the right upper extremity. The patient known to me from previous admission about a month ago. The patient denies chest pain. No palpitation or orthopnea. The patient has been started on vancomycin and meropenem. The patient has history of cocaine abuse with skin popping due to the lack of the vein to inject drug. The patient is also smoking and drinking. Troponin found to be elevated at 396. PAST MEDICAL HISTORY: * COPD. * Anemia. * Chronic tobacco use. * Cocaine abuse. * Heroin abuse. * Alcohol use. PAST SURGICAL HISTORY: Inguinal hernia repair. CURRENT MEDICATIONS: Reviewed. SOCIAL HISTORY: Lives alone. Smokes and drinks. Uses multiple drugs including cocaine and heroin. FAMILY HISTORY: Noncontributory. REVIEW OF SYSTEMS: CONSTITUTIONAL: Denies fever and chills. No weight loss or night sweats. EYES: No eye pain. No photophobia or diplopia. HENT: Denies sore throat, rhinorrhea or earache. NECK: No neck pain or neck swelling. RESPIRATORY: Positive for cough. No hemoptysis or pleuritic pain. CARDIOVASCULAR: No chest pain, no palpitation or orthopnea. GASTROINTESTINAL: Denied nausea, vomiting, or abdominal pain. GENITOURINARY: No dysuria or urinary frequency. CENTRAL NERVOUS SYSTEM: No headache, dyspnea, or slurred speech. PSYCHIATRY: No depression. No suicidal ideation. MUSCULOSKELETAL: No joint pain or joint swelling. SKIN: Positive for multiple skin nodules involving the chest wall. PHYSICAL EXAMINATION: GENERAL: An elderly male, awake. VITAL SIGNS: Temperature 98.5, pulse 83, respirations 17, blood pressure 99/49. EYES: No icterus. Pupils equal and reactive. HENT: No oral thrush seen. Moist oral mucosa. NECK: Supple, no JVD or thyromegaly. LUNGS: Few crackles. No rhonchi. CARDIOVASCULAR: S1, S2 regular. No murmur heard. ABDOMEN: Full, soft. Bowel sounds present. CENTRAL NERVOUS SYSTEM: Awake, alert, oriented x 3. No focal deficits. SKIN: The patient has nodules and pustules involving the anterior chest wall from skin popping from heroin injection. LYMPHATIC: No peripheral lymphadenopathy. BACK: No deformity, no pressure ulcer. MUSCULOSKELETAL: No joint swelling, erythema or tenderness. LABORATORY DATA: Alkaline phosphatase 133, AST 457, ALT 796. Troponin 396. Sodium 140, potassium 3.1, BUN 23, creatinine 0.5. WBC 25.7, hemoglobin 11.5, platelet 161. Influenza antigen negative. Urine toxicology positive for cocaine and opiates. RADIOLOGY: CT of the abdomen shows right lower lobe infiltrate. CT of the maxillofacial area negative. ASSESSMENT: A 69-year-old female brought to the Emergency Room with shortness of breath after being found on the floor. CURRENT PROBLEMS: Include: * Sepsis. * Pneumonia. * Hypoxic respiratory failure. * Chronic obstructive pulmonary disease exacerbation. * Elevated liver enzymes. * Leukocytosis. * Cocaine abuse. * Skin popping from heroin injection. PLAN: * Continue critical support. * Follow up cultures. * Continue meropenem. * Continue vancomycin. * Continue bronchodilator. * Monitor electrolytes. * Continue DVT prophylaxis. * The patient will be followed up closely. TID: [id number] RECEIPT: [id number]
[2024-07-30 07:27] LABS: MAGNESIUM 1.8 mg/dL (1.80-2.40); POTASSIUM 3.9 mmol/L (3.5-5.1)
[2024-07-30] MEDS: MAGNESIUM 2GM PREMIX 50ML 50 ML IV PRN (07:56)
[2024-07-30 08:48] LABS: MEAN CORPUSCULAR HEMOGLOBIN 27.8 pg (27.0-33.0); MEAN CORPUSCULAR HGB CONC 31.6 g/dL (32.0-36.0); MEAN CORPUSCULAR VOLUME 87.9 fL (79-99); NUCLEATED RED BLOOD CELLS 0.1 % (0.0-0.19); RED BLOOD CELL COUNT(AUTO) 4.21 MIL/uL (4.50-6.20); RED CELL DISTRIBUTION WIDTH 20.4 % (11.0-15.5); WHITE BLOOD COUNT (AUTO) 29.2 K/uL (4.8-10.8)
[2024-07-30 10:14] LABS: CREATININE 0.6 mg/dL (0.5-1.3); POTASSIUM 3.3 mmol/L (3.5-5.1)
[2024-07-30 10:24] LABS: ALBUMIN 1.8 g/dL (3.5-5.0); BILIRUBIN,TOTAL 1.1 mg/dL (0.2-1.0); MAGNESIUM 2.3 mg/dL (1.80-2.40); TOTAL PROTEIN, SERUM 4.6 g/dL (6.0-8.3)
--- NOTE | 2024-07-30 10:44 | PN ---
CARDIOLOGY Reason for consult: Elevated troponin HPI/story at presentation: This is a pleasant 69-year-old male with past medical history as per present with complaints of altered mental status, fall, was found to have elevated troponins in the setting of possible rhabdomyolysis sepsis electrolyte abnormalities. Cardiology was consulted for further evaluation and management. Subjective: 07/28/2024 altered mental status 07/29/2024 AMS 07/30/2024 AMS Past medical history: See below Allergies, Meds See chart Review of systems Not obtained, altered mental status Vitals see chart PHYSICAL EXAMINATION GENERAL: The patient is alert and oriented*3 HEENT: Nonicteric sclerae, non traumatic HEART: Regular rate and rhythm with no murmurs LUNGS: Clear to auscultation bilaterally ABDOMEN: No acute issues, non tender GENITAL, RECTAL: deferred SKIN: No rash NEUROLOGIC: NFND EXTREMITIES: No edema ASSESSMENT ELEVATED TROPONIN Likely type II in setting of rhabdomyolysis, sepsis Setting of fall In the setting of substance use Trending down RHABDOMYOLYSIS RESPIRATORY FAILURE In the setting of community-acquired pneumonia, COPD ELECTROLYTE ABNORMALITIES Hypokalemia hypomagnesemia at presentation OTHER MEDICAL PROBLEMS Previous history of left inguinal hernia PLAN 07/28/2024 troponin relation at this time is thought to be type II in setting of sepsis rhabdomyolysis etc. For now, will manage conservatively. Will get an echocardiogram to assess EF and if this is normal, no further cardiac evaluation is immediately warranted 07/29/2024 Remains confused, remains in the ICU. Unable to get a history. Respiratory failure and aspiration pneumonia being addressed by ICU team. Troponins trended down yesterday as above. No plans for anticoagulation as above. On midodrine for blood pressure support along with steroids. Pressures are borderline in spite of midodrine. 07/30/24 remains confused on bipap, lytes being replaced, echo with RV dilation and dysfunction, likely related to underlying pulmonary issues, will evaluate with CT, bilateral chronic skin induration of the lower extremities. liver function improving, renal function stable ATTESTATION I was involved substantially in the care of this patient Number and complexity of problems addressed: 1 acute illness with systemic features. Amount and or complexity of data Review of prior external note(s) from each unique source: 2+ Ordering of each unique test : 0 Review of the result(s) of each unique test: 2+ Assessment requiring an independent historian(s): No Independent interpretation of test performed by another MD/QHCP/appropriate source (not separately reported) : No Discussion of management or test interpretation with external MD/QHCP/appropriate source (not separately reported) : No Risk status (cardiac, billing related): Moderate Vitals/Labs Vital Signs Date Time Temp Pulse Resp B/P (MAP) Pulse Ox O2 Delivery O2 Flow Rate FiO2 07/30/24 10:13 89 18 N/Cannula Low lpm 3.0 32 07/30/24 08:30 96 07/30/24 08:00 97.2 07/30/24 07:48 92/62 Laboratory Tests 07/30/24 06:32 07/30/24 09:50 Medications Current Medications Albuterol Sulfate 10 mg ONCE ONCE IH Last administered on 07/28/24at 13:43; Start 07/28/24 at 13:30; Stop 07/28/24 at 13:31; Status DC Ipratropium [place] 0.5 mg ONCE ONCE IH Last administered on 07/28/24at 13:42; Start 07/28/24 at 13:30; Stop 07/28/24 at 13:31; Status DC Methylprednisolone Sodium Succinate 125 mg ONCE ONCE IVP Last administered on 07/28/24at 14:54; Start 07/28/24 at 13:30; Stop 07/28/24 at 13:31; Status DC Aspirin 325 mg ONCE ONCE PO Last administered on 07/28/24at 14:54; Start 07/28/24 at 13:30; Stop 07/28/24 at 13:31; Status DC Sodium Chloride 2,000 ml @ 0 mls/hr ONCE ONCE IV Last administered on 07/28/24at 15:15; Start 07/28/24 at 15:00; Stop 07/28/24 at 15:01; Status DC Vancomycin HCl 1 gm ONCE ONCE IV Last administered on 07/28/24at 16:43; Start 07/28/24 at 15:00; Stop 07/28/24 at 15:01; Status DC Piperacillin Sod/ Tazobactam Sod 3.375 gm ONCE ONCE IV Last administered on 07/28/24at 15:16; Start 07/28/24 at 15:00; Stop 07/28/24 at 15:01; Status DC Potassium Chloride 100 ml @ 50 mls/hr AD PRN IV; Start 07/28/24 at 15:30; Stop 07/28/24 at 15:44; Status DC Potassium Bicarbonate 25 meq ONCE ONCE PO Last administered on 07/28/24at 15:57; Start 07/28/24 at 16:00; Stop 07/28/24 at 16:01; Status DC Potassium Bicarbonate 25 meq STK-MED ONCE .ROUTE; Start 07/28/24 at 15:44; Stop 07/28/24 at 15:45; Status DC Potassium Bicarbonate 25 meq ONCE ONCE PO Last administered on 07/28/24at 16:55; Start 07/28/24 at 17:00; Stop 07/28/24 at 17:01; Status DC Potassium Chloride 100 ml @ 100 mls/hr AD PRN IV; Start 07/28/24 at 17:00; Stop 08/27/24 at 16:59 Potassium Chloride 20 meq AD PRN PO Last administered on 07/30/24at 07:42; Start 07/28/24 at 17:00; Stop 08/27/24 at 16:59 Potassium Chloride 20 meq AD PRN PO; Start 07/28/24 at 17:00; Stop 08/27/24 at 16:59 Magnesium Sulfate 50 ml @ 0 mls/hr PROTOCOL PRN IV Last administered on 07/30/24at 07:56; Start 07/28/24 at 17:00; Stop 08/27/24 at 16:59 Sodium Chloride 1,000 ml @ 50 mls/hr Q20H IV Last administered on 07/29/24at 08:08; Start 07/28/24 at 17:00; Stop 07/30/24 at 00:01; Status DC Albuterol 1 UDVIAL [id number] IH Last administered on 07/28/24at 22:59; Start 07/28/24 at 18:00; Stop 07/29/24 at 06:56; Status DC Acetaminophen 500 mg Q6H PRN PO; Start 07/28/24 at 17:00; Stop 08/27/24 at 16:59 Vancomycin HCl 1 each AD IV; Start 07/28/24 at 17:00; Stop 08/11/24 at 16:59 Cefepime HCl 1 gm Q8H IVPB Last administered on 07/29/24at 06:45; Start 07/28/24 at 21:00; Stop 07/29/24 at 10:47; Status DC Vancomycin HCl 750 mg ONCE ONCE IVPB Last administered on 07/28/24at 22:24; Start 07/28/24 at 17:30; Stop 07/28/24 at 17:31; Status DC Vancomycin HCl 750 mg Q8H IVPB; Start 07/29/24 at 01:00; Stop 07/29/24 at 02:45; Status DC Methylprednisolone Sodium Succinate 40 mg Q8H IVP Last administered on 07/30/24at 05:53; Start 07/28/24 at 21:00; Stop 08/27/24 at 20:59 Budesonide 0.25 mg BIDRESP IH Last administered on 07/28/24at 22:59; Start 07/28/24 at 18:00; Stop 07/29/24 at 05:56; Status DC Pantoprazole Sodium 40 mg BID IVP Last administered on 07/30/24at 07:43; Start 07/28/24 at 21:00; Stop 08/27/24 at 20:59 Midodrine 10 mg TID PO Last administered on 07/30/24at 07:43; Start 07/28/24 at 23:50; Stop 08/27/24 at 23:49 Atorvastatin Calcium 40 mg HS PO Last administered on 07/29/24at 00:23; Start 07/28/24 at 23:55; Stop 07/29/24 at 11:02; Status DC Albumin Human 100 ml @ 0 mls/hr AD IV Last administered on 07/29/24at 00:36; Start 07/29/24 at 00:00; Stop 08/28/24 at 00:00 Norepinephrine 250 ml @ 0 mls/hr AD PRN IV Last administered on 07/29/24at 02:39; Start 07/29/24 at 02:30; Stop 08/28/24 at 02:29 Vancomycin HCl 750 mg Q8H IVPB; Start 07/29/24 at 06:30; Stop 07/29/24 at 06:44; Status DC Albuterol Sulfate 2.5MG [id number] IH Last administered on 07/30/24at 10:08; Start 07/29/24 at 06:00; Stop 08/28/24 at 05:59 Budesonide 0.5 mg BIDRESP IH Last administered on 07/30/24at 06:45; Start 07/29/24 at 06:00; Stop 08/28/24 at 05:59 Vancomycin HCl 750 mg Q8H IVPB Last administered on 07/30/24at 07:45; Start 07/29/24 at 08:30; Stop 08/08/24 at 08:29 Meropenem 1 gm/ Sodium Chloride 100 ml @ 33.333 mls/ hr Q8H IVPB Last administered on 07/30/24at 03:59; Start 07/29/24 at 11:00; Stop 08/08/24 at 10:59 Pharmacy Profile Note 1 each AD MISC; Start 07/29/24 at 12:00; Stop 08/05/24 at 11:59 HILARIA THOMAS MD Jul 30, 2024 10:44
--- NOTE | 2024-07-30 11:34 | PN ---
[facility] PROGRESS NOTE Date of Service: Jul 30, 2024 Time of Service: 11:28 SUBJECTIVE: The patient has been seen and examined during my rounding, on BiPAP, 14/6, FiO2 60%, saturating 96-98%. Getting IV antibiotics, off Levophed. No chest pain, no shortness a breath, no nausea, no vomiting, no abdominal pain, family members at bedside during my visit, updated, all questions answered. Chest x-ray today showing mild right lung pulmonary infiltrates slightly increased from previous study. 07/30 the patient has been seen and examined during my rounding, comfortable, no acute events overnight, he is on BiPAP, 14/6 FiO2 60%, saturating 94-96%. He remains hemodynamically stable, following simple commands, still mildly confused, feels weak, denied chest pain, feels less short of breath, no nausea, no vomiting. He is off any drips, currently getting IV antibiotics during my visit. No family members at bedside. REVIEW OF SYSTEMS CONSTITUTIONAL: Denies fevers, chills, or night sweats. No unintentional weight loss reported. NEUROLOGICAL: Denies headache, amaurosis fugax, motor weakness, sensory deficit, vertigo/spinning sensation, gait abnormalities, or tremors. ENT: No hearing loss, otalgia, otorrhea, rhinitis, rhinorrhea, hoarseness, or sore throat. CARDIOVASCULAR: Denies any exertional angina, dyspnea on exertion, orthopnea, paroxysmal nocturnal dyspnea, palpitations, life-threatening arrhythmias, c laudication. PULMONARY: Positive for cough, shortness of breath, sputum production SLEEP: Denies morning headaches, daytime somnolence or napping. Denies difficulty falling asleep, staying asleep, waking from sleep. Denies knowledge of snoring. GASTROINTESTINAL: Denies any type of dysphagia to either liquids or solids. Denies nausea, vomiting, pyrosis, early satiety, abdominal pain, diarrhea, constipation, or changes in stool consistency or caliber. Denies coffee-ground emesis, hematemesis, hematochezia, or melanotic stools. GENITOURINARY: Denies frequency, urgency, nocturia, hematuria or incontinence (Storage/Irritative symptoms.) Low urinary stream, straining to void, urinary intermittency or hesitancy, splitting of the voiding stream, terminal dribbling. ENDOCRINOLOGIC: Denies polyuria, polydipsia, polyphagia or heat/cold intolerances. HEMATOLOGIC: Denies thrombophilia/previous clots, or coagulopathy/bleeding disorders. ONCOLOGIC: Denies personal history of malignancy. DERMATOLOGIC: Denies rashes or pruritus. PSYCHIATRIC: Denies any suicidal or homicidal ideation. Denies hallucinations. PHYSICAL EXAM GENERAL APPEARANCE: Patient looks chronically ill, debilitated, on BiPAP. Mildly confused. NEUROLOGICAL: Cranial nerves II-XII grossly intact. Motor is 5/5 in bilateral upper and lower extremities proximal to distal. No sensory deficits. HEENT: Face is symmetric. Pupils are equal and reactive. Extraocular movements are intact. NECK: Supple. No JVD. No thyromegaly. No submental, submandibular, pre-/posta uricular, occipital or supraclavicular lymphadenopathy. CHEST: Normal chest expansion. No Telemetry. LUNGS: Patient has bilateral wheezing present CARDIOVASCULAR: Regular. S1 and S2 normal. No appreciable rubs, murmurs or gallops. ABDOMEN: Soft, he has a ventral hernia present, mild tenderness around the hernia site and nondistended. There is no rebound, voluntary guarding, or rigidity. : Deferred. No Mota. EXTREMITIES: Non-edematous and not cyanotic. No clubbing. Good capillary refill. SKIN: No skin breakdown. Vital Signs (last 8hr) Date Time Temp Pulse Resp B/P (MAP) Pulse Ox O2 Delivery O2 Flow Rate FiO2 07/30/24 10:23 89 21 60 07/30/24 10:13 89 18 N/Cannula Low lpm 3.0 32 07/30/24 10:08 89 21 07/30/24 08:30 87 21 96 07/30/24 08:15 94 Nasal Cannula* 3 32 07/30/24 08:00 97.2 89 21 96 07/30/24 07:48 89 21 92/62 94 Nasal Cannula 3.0 07/30/24 07:30 85 22 94 07/30/24 07:00 84 21 96 Nasal Cannula 3.0 07/30/24 06:45 96 22 07/30/24 06:00 81 19 98/57 95 BIPAP 60 07/30/24 05:00 79 20 102/59 100 BIPAP 60 07/30/24 04:10 99 Bi-PAP+ 60 07/30/24 04:00 85 20 105/54 99 BIPAP 60 LABS: Laboratory: Test 07/30/24 09:50 07/30/24 06:32 07/29/24 15:15 07/29/24 07:50 Range/Units Sodium Level 132 L 136-145 mmol/L Potassium Level 3.3 L 3.5-5.1 mmol/L Chloride Level 92 L 101-111 mmol/L Carbon Dioxide Level 37 H 21-32 mmol/L Blood Urea Nitrogen 16 7-18 mg/dL Creatinine 0.6 0.5-1.3 mg/dL Glomerular Filtration Rate Calc 103 >90 mL/min Random Glucose 193 H 70-105 mg/dL Total Calcium 7.9 L 8.5-10.1 mg/dL Magnesium Level 2.30 1.80-2.40 mg/dL Total Bilirubin 1.1 H 0.2-1.0 mg/dL Aspartate Amino Transf (AST/SGOT) 284 H 10-37 U/L Alanine Aminotransferase (ALT/SGPT) 656 *H 12-78 U/L Alkaline Phosphatase 119 50-136 U/L Total Protein 4.6 L 6.0-8.3 g/dL Albumin 1.8 L 3.5-5.0 g/dL White Blood Count 29.2 H 4.8-10.8 K/uL Red Blood Count 4.21 L 4.50-6.20 MIL/uL Hemoglobin 11.7 L 14.0-18.0 g/dL Hematocrit 37.0 L 42-54 % Mean Corpuscular Volume 87.9 79-99 fL Mean Corpuscular Hemoglobin 27.8 27.0-33.0 pg Mean Corpuscular Hemoglobin Concent 31.6 L 32.0-36.0 g/dL Red Cell Distribution Width 20.4 H 11.0-15.5 % Platelet Count 121 L 130-400 K/uL Mean Platelet Volume 10.1 7.5-10.5 fL Nucleated Red Blood Cells 0.1 0.0-0.19 % Vancomycin Level Trough 13.2 10.0-20.0 UG/ML Acetaminophen Level 4 L 10-29 mcg/mL Blood Gas Specimen Type Arterial Arterial Blood pH 7.502 H 7.350-7.450 Arterial Blood Partial Pressure CO2 44 35-48 mmHg Arterial Blood Partial Pressure O2 63.4 L 83.0-108.0 mmHg Arterial Blood HCO3 33.9 H 21.0-28.0 mmol/L Arterial Blood Oxygen Saturation 93.9 L 94.0-98.0 % Arterial Blood Base Excess 9.5 H -2.0-3.0 mmol/L Blood Gas Temperature 37.0 35.5-37.0 CELSIUS Blood Gas Respiration Rate 18.0 min. Blood Gas Vent Mode BIPAP 14 6 ROOM AIR FiO2 60.0 % Blood Gas PEEP 6 cm H2O Blood Gas Specimen Comment LR ALEXA RN Test 07/29/24 06:46 07/29/24 05:15 07/29/24 04:20 07/28/24 23:00 Range/Units Immature Granulocyte % (Auto) 0.9 0-1 % Neutrophils (%) (Auto) 92.8 H 40.0-77.0 % Lymphocytes (%) (Auto) 2.7 L 21.0-51.0 % Monocytes (%) (Auto) 3.4 3.0-13.0 % Eosinophils (%) (Auto) 0.0 0.0-8.0 % Basophils (%) (Auto) 0.2 0.0-5.0 % Neutrophils # (Auto) 23.7 H 1.8-7.7 K/uL Lymphocytes # (Auto) 0.7 L 1.0-4.8 K/uL Monocytes # (Auto) 0.9 0.1-1.0 K/uL Eosinophils # (Auto) 0.00 0.00-0.70 K/uL Basophils # (Auto) 0.04 0.00-0.20 K/uL Absolute Immature Granulocyte (auto 0.22 0-1 K/uL Total Creatine Kinase 342 #H 21-232 U/L Procalcitonin 0.08 0.05-0.5 ng/mL Hemoglobin (Blood Gas) 12.9 L 13.5-17.5 g/dL Sodium (Blood Gas) 135 L 136-145 MMOL/L Bedside Potassium (Blood Gas) 3.1 L 3.4-4.5 MMOL/L Bedside Chloride (Blood Gas) 91 L 98-107 MMOL/L Bedside Glucose (Blood Gas) 108 H 65-95 MG/DL Bedside Ionized Calcium (Blood Gas) 1.12 L 1.15-1.33 MMOL/L Bedside Lactic Acid (Blood Gas) 1.07 H 0.36-0.75 MMOL/L Blood Gas Flow-by 4.00 0.00-15.00 L/min Urine Opiates Screen POSITIVE H NEGATIVE Urine Barbiturates Screen NEGATIVE NEGATIVE Urine Phencyclidine Screen NEGATIVE NEGATIVE Urine Amphetamines Screen NEGATIVE NEGATIVE Urine Benzodiazepines Screen NEGATIVE NEGATIVE Urine Cocaine Screen POSITIVE H NEGATIVE Urine Marijuana (THC) Screen NEGATIVE NEGATIVE Troponin I High Sensitivity 396 *H 4-75 ng/L Test 07/28/24 22:23 07/28/24 17:14 07/28/24 13:39 Range/Units Influenza Type A Antigen Negative For Type A NEGATIVE Influenza Type B Antigen Negative For Type B NEGATIVE SARS-CoV-2, RNA, NAAT NEGATIVE SARS CoV-2 NEGATIVE Hemoglobin A1c 5.7 4.0-6.0 % Estimated Average Glucose (eAG) 117 70-126 mg/dL Lactic Acid Level 1.7 0.8-2.5 mmol/L C-Reactive Protein, Quantitative 160.90 H 0.5-3.0 mg/L Thyroid Stimulating Hormone (TSH) 0.65 # 0.36-3.74 uIU/mL White Cell Morphology Comment See comments Red Blood Cell Morphology ANISO 1+ Prothrombin Time 14.0 H 9.6-11.6 SEC Prothromb Time International Ratio 1.32 H 0.85-1.15 Activated Partial Thromboplast Time 31.3 26.3-35.5 SEC B-Type Natriuretic Peptide 740 H 0-100 pg/mL Current Medications Medications (Trade) Dose Ordered Sig/Suni Route PRN Reason Start Time Stop Time Status Last Admin Dose Admin Acetaminophen (TYLenol 500MG TAB) 500 mg Q6H PRN PO MILD PAIN (1-3) 07/28/24 17:00 08/27/24 16:59 Albumin Human 100 ml @ 0 mls/hr AD IV 07/29/24 00:00 08/28/24 00:00 07/29/24 00:36 100 MLS/HR Albuterol (DUOneb) 1 UDVIAL [id number] 07/28/24 18:00 07/29/24 06:56 DC 07/28/24 22:59 1 UDVIAL Albuterol Sulfate (Proventil 0.083% 2.5mg/3ml) 2.5MG [id number] 07/29/24 06:00 08/28/24 05:59 07/30/24 10:08 2.5 MG Atorvastatin Calcium (LIPItor 40MG) 40 mg HS PO 07/28/24 23:55 07/29/24 11:02 DC 07/29/24 00:23 40 MG Budesonide (Pulmicort 0.25mg/2ml) 0.25 mg BIDRESP IH 07/28/24 18:00 07/29/24 05:56 DC 07/28/24 22:59 0.25 MG Budesonide (Pulmicort 0.5 Mg/2ml) 0.5 mg BIDRESP IH 07/29/24 06:00 08/28/24 05:59 07/30/24 06:45 0.5 MG Cefepime HCl (MAXipime 1 GM vial) 1 gm Q8H IVPB 07/28/24 21:00 07/29/24 10:47 DC 07/29/24 06:45 1 GM Magnesium Sulfate 50 ml @ 0 mls/hr PROTOCOL PRN IV HYPOMAGNESEMIA 07/28/24 17:00 08/27/24 16:59 07/30/24 07:56 25 MLS/HR Meropenem 1 gm/ Sodium Chloride 100 ml @ 33.333 mls/ hr Q8H IVPB 07/29/24 11:00 08/08/24 10:59 07/30/24 03:59 33.333 MLS/HR Methylprednisolone Sodium Succinate (Solu-medROL 40MG) 40 mg Q8H IVP 07/28/24 21:00 08/27/24 20:59 07/30/24 05:53 40 MG Midodrine (PROAMatine 5 MG TABLET) 10 mg TID PO 07/28/24 23:50 08/27/24 23:49 07/30/24 07:43 10 MG Norepinephrine 250 ml @ 0 mls/hr AD PRN IV DIRECTED 07/29/24 02:30 08/28/24 02:29 07/29/24 02:39 24.67 MLS/HR Pantoprazole Sodium (PROTonix 40MG INJ) 40 mg BID IVP 07/28/24 21:00 08/27/24 20:59 07/30/24 07:43 40 MG Pharmacy Profile Note (Lace Assessment) 1 each AD MISC 07/29/24 12:00 08/05/24 11:59 Potassium Chloride 100 ml @ 50 mls/hr AD PRN IV POTASSIUM PROTOCOL 07/28/24 15:30 07/28/24 15:44 DC Potassium Chloride 100 ml @ 100 mls/hr AD PRN IV POTASSIUM PROTOCOL 07/28/24 17:00 08/27/24 16:59 Potassium Chloride (K-Dur/Klor-Con 20meq) 20 meq AD PRN PO POTASSIUM PROTOCOL 07/28/24 17:00 08/27/24 16:59 Potassium Chloride (KCl 10% Elixir 20meq/15ml) 20 meq AD PRN PO POTASSIUM PROTOCOL 07/28/24 17:00 08/27/24 16:59 07/30/24 07:42 20 MEQ Sodium Chloride 1,000 ml @ 50 mls/hr Q20H IV 07/28/24 17:00 07/30/24 00:01 DC 07/29/24 08:08 125 MLS/HR Vancomycin HCl (Vancomycin 750mg) 750 mg Q8H IVPB 07/29/24 01:00 07/29/24 02:45 DC Vancomycin HCl (Vancomycin 750mg) 750 mg Q8H IVPB 07/29/24 06:30 07/29/24 06:44 DC Vancomycin HCl (Vancomycin 750mg) 750 mg Q8H IVPB 07/29/24 08:30 08/08/24 08:29 07/30/24 07:45 750 MG Vancomycin HCl (Vancomycin Protocol) 1 each AD IV 07/28/24 17:00 08/11/24 16:59 DIAGNOSTICS / RADIOLOGY: [ ] ASSESSMENT: Sepsis POA Acute on chronic COPD exacerbation Acute hypoxic respiratory failure secondary to COPD exacerbation and CAP Community acquired Pneumonia POA Fall Severe hypokalemia Rhabdomyolysis History of drug use History of noncompliance Poor venous access Anterior chest wall rash PLAN: - patient to be admitted downgraded to the progressive care unit -continue BiPAP alternating with supplemental oxygen via nasal cannula -echocardiogram reviewed, LVEF 50-55%, global thinning of the left ventricular camacho. -cardiology input noted and appreciated, elevated troponin likely type 2 in setting of rhabdomyolysis and sepsis. -follow CT chest PE protocol and Doppler of the lower extremities. -continue to monitor liver enzymes in a.m. -ultrasound of the abdomen no gallstones or ductal dilatation, small amount of pericholecystic fluid, liver is echogenic consistent with liver parenchymal disease -continue the patient on broad-spectrum IV antibiotics, blood culture so far negative -in reference to COPD exacerbation. Continue the patient on BiPAP, Pulmonary input noted and appreciated, continue DuoNeb, continue to follow chest x-ray as well as ABG. -in reference to rhabdomyolysis. Continue the patient on IV fluids, continue to follow CPK in a.m. -obtain PT evaluation -replace electrolytes IV per protocol -a.m. labs -GI and DVT prophylaxis Disposition: The patient to be downgraded to the PCU, continue BiPAP alternating with supplemental oxygen via nasal cannula. Pending CT PE protocol and Doppler of the lower extremities rule out DVT. Cardiology input and Pulmonary input noted and appreciated, continue to monitor liver enzymes in a.m.. Elevated liver enzymes in the setting of rhabdomyolysis, slowly improving. We will follow ammonia level. Plan of action discussed, all questions answered, agreed and understood the information provided. Total ICU time spent greater than 30 minutes. HANS PRADO MD Jul 30, 2024 11:34
--- NOTE | 2024-07-30 12:19 | PN ---
[facility] PROGRESS NOTE Date Patient Seen: Jul 30, 2024 Time of Visit: 12:18 Supervising Physician: Francis Bueno MD Consulting Physician: Dr Espitia Outpatient Specialists: [ ] Inpatient Consults: Cardiology PROBLEM LIST: Acute Hypoxic respiratory failure, POA Suspected aspiration pneumonia right lower lobe POA Bilateral small pleural effusions, POA no thoracentesis indicated at this time Elevated D-dimer, PE ruled out, venous Doppler pending COPD in acute exacerbation, POA Severe sepsis, POA NSTEMI, POA Rhabdomyolysis, POA improving Hypokalemia, POA Hypomagnesemia, POA Anasarca, POA left inguinal hernia Ventral hernia with bowel contents via midline bilaterally. LVEF 50-55% on 2D echo 07/29/24 Pericholecystic fluid seen on ultrasound 07/29/24 Liver parenchyma disease, POA INTERVAL HISTORY: 07/29-patient is lethargic but easily arousable and oriented x3. He has been hemodynamically stable with a blood pressure 111/62 heart rate in the 80s respiratory rate of 19 saturating 98% with 60% FiO2 on BiPAP. He has been afebrile since admission. On laboratory WBCs are 25.6 H&H is 11.5/36.1 platelet count is 632320 with neutrophils 92.8. Sodium 140 potassium 3.1 chloride 95 carbon dioxide 39 BUN 23 creatinine of 0.5 with a GFR of 109 glucose of 120 mg/dL lactic acid 1.7 total calcium was 8.3 total bili 1.3 AST 796. Sensitive troponin 564, 465, 396. Trending down. CK is now 342 improved from previous which is 1062. On chest x-ray right lower lobe pneumonia suspicious for aspiration. Patient is pending speech eval and MBSS. 07/30-patient was weaned off BiPAP saturating 95% with 3.5 L via nasal cannula hemodynamically stable off pressors afebrile. No major overnight events. Pt passed MBSS w/ recommendations: Recommend mechanical soft/ground solids, thin liquids and pills crushed with pureed. WBCs 29.2 likely increased from steroid H&H 11.7/37 platelet count a [id number]. Sodium 132 potassium three chloride 92 carbon dioxide 37 BUN 16 creatinine 0.6 with a GFR 103 glucose 183 mg/dL total calcium 7.9 80s 284 ALT 656 liver enzymes trending down total CK 342 total protein 4.6 albumin 1.8. Ultrasound Doppler ordered. CT evidence of pulmonary embolism seen. Small bilateral pleural effusions and mild bilateral pulmonary COPD with interstitial fibrosis. Pleural effusion with no indication for thoracentesis at this time. REVIEW OF SYSTEMS: General: No malaise or fever. Neurological: No fainting episodes or seizures. HEENT: No nasal congestion or nasal secretion. Respiratory: Yes for cough, shortness of breath. Cardiac: No chest pain or palpitations. Gastrointestinal: No vomiting or diarrhea. Genitourinary: No dysuria hematuria. Skin: No rashes or lesions. Hematological: No bruises or bleeding. Musculoskeletal: No joint pains or arthralgias. Psychiatric: No depression or panic attacks. PHYSICAL EXAM: GENERAL: Awake alert and oriented x3. HEENT: EOMI, Sclera non icteric, moist mucosa NECK: Supple, no JVD, trachea midline LUNGS: Coarse Bilateral lung sounds HEART: Regular rate and rhythm. Normal S1 and S2, without murmurs ABD: Abdomen soft, nontender. Bowel sounds present EXT: No clubbing cyanosis; bilateral lower extremity edema NEURO: Awake alert and oriented x3 no focal weakness. Vital Signs (last 8hr) Date Time Temp Pulse Resp B/P (MAP) Pulse Ox O2 Delivery O2 Flow Rate FiO2 07/30/24 10:23 89 21 60 07/30/24 10:13 89 18 N/Cannula Low lpm 3.0 32 07/30/24 10:08 89 21 07/30/24 08:30 87 21 96 07/30/24 08:15 94 Nasal Cannula* 3 32 07/30/24 08:00 97.2 89 21 96 07/30/24 07:48 89 21 92/62 94 Nasal Cannula 3.0 07/30/24 07:30 85 22 94 07/30/24 07:00 84 21 96 Nasal Cannula 3.0 07/30/24 06:45 96 22 07/30/24 06:00 81 19 98/57 95 BIPAP 60 07/30/24 05:00 79 20 102/59 100 BIPAP 60 LABS: Hematology Labs: Test 07/30/24 06:32 07/29/24 06:46 07/28/24 13:39 Range/Units White Blood Count 29.2 H 4.8-10.8 K/uL Red Blood Count 4.21 L 4.50-6.20 MIL/uL Hemoglobin 11.7 L 14.0-18.0 g/dL Hematocrit 37.0 L 42-54 % Mean Corpuscular Volume 87.9 79-99 fL Mean Corpuscular Hemoglobin 27.8 27.0-33.0 pg Mean Corpuscular Hemoglobin Concent 31.6 L 32.0-36.0 g/dL Red Cell Distribution Width 20.4 H 11.0-15.5 % Platelet Count 121 L 130-400 K/uL Mean Platelet Volume 10.1 7.5-10.5 fL Nucleated Red Blood Cells 0.1 0.0-0.19 % Immature Granulocyte % (Auto) 0.9 0-1 % Neutrophils (%) (Auto) 92.8 H 40.0-77.0 % Lymphocytes (%) (Auto) 2.7 L 21.0-51.0 % Monocytes (%) (Auto) 3.4 3.0-13.0 % Eosinophils (%) (Auto) 0.0 0.0-8.0 % Basophils (%) (Auto) 0.2 0.0-5.0 % Neutrophils # (Auto) 23.7 H 1.8-7.7 K/uL Lymphocytes # (Auto) 0.7 L 1.0-4.8 K/uL Monocytes # (Auto) 0.9 0.1-1.0 K/uL Eosinophils # (Auto) 0.00 0.00-0.70 K/uL Basophils # (Auto) 0.04 0.00-0.20 K/uL Absolute Immature Granulocyte (auto 0.22 0-1 K/uL White Cell Morphology Comment See comments Red Blood Cell Morphology ANISO 1+ Chemistry Labs: Test 07/30/24 09:50 07/29/24 06:46 07/28/24 23:00 07/28/24 17:14 Range/Units Sodium Level 132 L 136-145 mmol/L Potassium Level 3.3 L 3.5-5.1 mmol/L Chloride Level 92 L 101-111 mmol/L Carbon Dioxide Level 37 H 21-32 mmol/L Blood Urea Nitrogen 16 7-18 mg/dL Creatinine 0.6 0.5-1.3 mg/dL Glomerular Filtration Rate Calc 103 >90 mL/min Random Glucose 193 H 70-105 mg/dL Total Calcium 7.9 L 8.5-10.1 mg/dL Magnesium Level 2.30 1.80-2.40 mg/dL Total Bilirubin 1.1 H 0.2-1.0 mg/dL Aspartate Amino Transf (AST/SGOT) 284 H 10-37 U/L Alanine Aminotransferase (ALT/SGPT) 656 *H 12-78 U/L Alkaline Phosphatase 119 50-136 U/L Total Protein 4.6 L 6.0-8.3 g/dL Albumin 1.8 L 3.5-5.0 g/dL Total Creatine Kinase 342 #H 21-232 U/L Procalcitonin 0.08 0.05-0.5 ng/mL Troponin I High Sensitivity 396 *H 4-75 ng/L Hemoglobin A1c 5.7 4.0-6.0 % Estimated Average Glucose (eAG) 117 70-126 mg/dL Lactic Acid Level 1.7 0.8-2.5 mmol/L C-Reactive Protein, Quantitative 160.90 H 0.5-3.0 mg/L Thyroid Stimulating Hormone (TSH) 0.65 # 0.36-3.74 uIU/mL Test 07/28/24 13:39 Range/Units B-Type Natriuretic Peptide 740 H 0-100 pg/mL Coagulation Labs: Test 07/30/24 09:50 07/28/24 13:39 Range/Units D-Dimer Quantitative (PE/DVT) 4987 *H 0-500 ng/mL Prothrombin Time 14.0 H 9.6-11.6 SEC Prothromb Time International Ratio 1.32 H 0.85-1.15 Activated Partial Thromboplast Time 31.3 26.3-35.5 SEC DIAGNOSTICS / RADIOLOGY RESULTS: [ ]Signed PATIENT: MARVIN NAILS MR#: [id number] : 1955 SEX: M AGE: 69 LOCATION: COUNT INCLUDES THE [facility] ORDER 1046 STATUS: ADM IN REPORT#: [id number] SERVICE 1044 REASON: SOB, abnormal echo, resp failure ORDERING PHYSICIAN: HILARIA THOMAS MD PROCEDURE: CHES PE - CT CHEST PE PROTOCOL WWO CONT CT CHEST PE PROTOCOL WWO CONT HISTORY: Shortness of breath COMPARISON: None TECHNIQUE: CT angiography of the chest was performed. The study was performed using angiographic technique with maximum intensity projection reconstruction images. Patient was given 100 cc of Omnipaque through intravenous route. FINDINGS: No CT evidence of filling defect is seen to suggest pulmonary embolus. No CT evidence of aortic dissection is seen. There are bilateral pleural effusions with compressive atelectasis. Mild bilateral pulmonary infiltrates are seen. Small ascites is seen. There are contrast in the GI tract causing artifacts in the upper abdomen. The heart is enlarged. No evidence of adrenal mass is seen. Degenerative changes of the spine are noted. IMPRESSION: 1. No CT evidence of acute pulmonary embolus is seen. Small bilateral pleural effusion and mild bilateral pulmonary COPD with interstitial fibrosis. CT was performed with one or more following dose reduction techniques: automated exposure control, adjustment of the mA and kv according to patient's size, or use of a iterative reconstruction technique. DICTATED BY: DARRIUS TORRES MD DATE: 07/30/241244 ELECTRONICALLY SIGNED BY: DARRIUS TORRES MD DATE: 07/30/241247 PLAN MBSS today Maintain O2 sats above 92% BiPAP p.r.n. IV meropenem Obtain COVID and flu swab-negative Follow sputum culture Aspiration precaution DuoNeb q.6 hours Pending 2D echo -LVEF 50-50% Pulmonary toilet Encourage early mobilization PT/OT eval and treat Rest of plan care of primary Tylenol level Hepatitis panel Solu-Medrol 40 mg q12 hours IV push wean as tolerated Right upper quadrant ultrasound for transaminitis NEURO: Minimize central acting medications as possible. Fall Precautions. Well lighted room through the day and minimize interruptions through the night to prevent acute delirium. PULMONARY: Supplemental 02 as needed Titrate Fio2 to keep Spo2 > or = 90% DuoNebs and CPT as needed IS hourly while awake for pulmonary hygiene Out of bed to chair as tolerated VAP Bundle Vent/BIPAP Settings: 14/6 FiO2 60% respiratory rate of 18 CARDIOVASCULAR: Follow hemodynamics. Titrate vasopressor to keep MAP >65 or systolic blood pressure >95mmHg Telemetry monitoring Drips: None LINES: PIV GI & NUTRITION: Continue nutritional support Aspirations precautions Prokinetic agents and laxatives as needed KIDNEYS & ELECTROLYTES: Strict monitoring of intake and output Daily weights Avoid nephrotoxic agents Monitor electrolytes and replace as needed Goal urine output of 30mL/hr or 0.5mL/kg/hr Urine output: [ ] Fluid Balance: [ ] ENDOCRINE: Maintain blood glucose between 100-180 at all times. Insulin sliding scale for blood glucose management INFECTIOUS DISEASE: Trend temperature. Covarrubias-culture if febrile. Micro: [ ] Respiratory culture Blood culture Influenza and COVID negative Antibiotics: Meropenem HEMATOLOGY & COAGULATION: Monitor H&H. Keep Hgb > 7 Transfuse 1 unit of PRBC for Hgb < 7 Transfuse 1 pack of platelets of platelets < 20, 000 Watch for any signs and symptoms of bleeding SKIN: Pressure ulcer prevention per facility protocol Rehab: PT/OT Prophylaxis: GI: Protonix DVT: SCDs Code Status: Full Resuscitation Disposition: ICU Other: Total patient care time exceeds 45 minutes excluding all procedures. Case was discussed and seen with my supervising physician. The above plan was formulated and agreed upon. OWEN GALICIAP Jul 30, 2024 12:19
[2024-07-30] MEDS ORDERED: IOHEXOL 350 MG/ML 100ML INFUS..BTL IV ONE (12:21)
--- NOTE | 2024-07-30 12:48 | HMCIMG ---
CT CHEST PE PROTOCOL WWO CONT HISTORY: Shortness of breath COMPARISON: None TECHNIQUE: CT angiography of the chest was performed. The study was performed using angiographic technique with maximum intensity projection reconstruction images. Patient was given 100 cc of Omnipaque through intravenous route. FINDINGS: No CT evidence of filling defect is seen to suggest pulmonary embolus. No CT evidence of aortic dissection is seen. There are bilateral pleural effusions with compressive atelectasis. Mild bilateral pulmonary infiltrates are seen. Small ascites is seen. There are contrast in the GI tract causing artifacts in the upper abdomen. The heart is enlarged. No evidence of adrenal mass is seen. Degenerative changes of the spine are noted. IMPRESSION: 1. No CT evidence of acute pulmonary embolus is seen. Small bilateral pleural effusion and mild bilateral pulmonary COPD with interstitial fibrosis. CT was performed with one or more following dose reduction techniques: automated exposure control, adjustment of the mA and kv according to patient's size, or use of a iterative reconstruction technique.
--- NOTE | 2024-07-30 13:55 | PN ---
INFECTIOUS DISEASE PROGRESS NOTE Date of Service: Jul 30, 2024 SUBJECTIVE: This 69 year old male patient is being seen today at bedside. He remains in the ICU. He denies chest pain or shortness of breath. He's in no respiratory distress. He is calm laying in bed. No fever or chills. No episodes of emesis. He's currently eating breakfast. Continues on O2 vial nasal canula. WBC 25.6, patient is on steroids. CK trending down. Tolerating merrem and vancomycin well. No overnight events reported by nurse. PHYSICAL EXAM EYES: Anicteric. Pupils equal and reactive. HENT: No oral thrush seen, moist Oral mucosa NECK: Supple, no JVD or thyromegaly. LUNGS: Coarse, no wheezing on nasal canula o2 CARDIOVASCULAR: S1, S2 regular. No murmur heard. ABDOMEN: Soft, non tender, bowel sounds present, no organomegaly CENTRAL NERVOUS SYSTEM: awake, alert oriented x1. SKIN: No rashes, no swelling. LYMPHATICS: No peripheral lymphadenopathy MUSCULOSKELETAL: No joint swelling, erythema or tenderness. EXTREMITIES: No cyanosis or clubbing BACK: No deformity, no pressure ulcer. GENITOURINARY: No dysuria or hematuria Vital Sign (Last 12 Hours) 07/30/24 07/30/24 07/30/24 07/30/24 02:00 03:00 03:21 03:25 Temp 98.8 Pulse 94 83 84 Resp 19 21 14 19 B/P (MAP) 94/48 112/59 Pulse Ox 99 95 O2 Delivery BIPAP BIPAP FiO2 60 60 60 07/30/24 07/30/24 07/30/24 07/30/24 04:00 04:10 05:00 06:00 Pulse 85 79 81 Resp 20 20 19 B/P (MAP) 105/54 102/59 98/57 Pulse Ox 99 99 100 95 O2 Delivery BIPAP Bi-PAP+ BIPAP BIPAP FiO2 60 60 60 60 07/30/24 07/30/24 07/30/24 07/30/24 06:45 07:00 07:30 07:48 Pulse 96 84 85 89 Resp 22 21 22 21 B/P (MAP) 92/62 Pulse Ox 96 94 94 O2 Delivery Nasal Cannula Nasal Cannula O2 Flow Rate 3.0 3.0 07/30/24 07/30/24 07/30/24 07/30/24 08:00 08:15 08:30 10:08 Temp 97.2 Pulse 89 87 89 Resp 21 Pulse Ox 96 94 96 O2 Delivery Nasal Cannula* O2 Flow Rate 3 FiO2 32 07/30/24 07/30/24 07/30/24 07/30/24 10:13 10:23 11:00 11:15 Pulse 89 89 90 96 Resp 18 21 20 21 Pulse Ox 96 96 O2 Delivery N/Cannula Low lpm O2 Flow Rate 3.0 FiO2 32 60 07/30/24 07/30/24 07/30/24 07/30/24 11:30 11:45 11:48 12:11 Pulse 86 96 97 Resp 23 23 B/P (MAP) 96/60 Pulse Ox 96 98 95 94 O2 Delivery Nasal Cannula Nasal Cannula* O2 Flow Rate 3.0 3 FiO2 32 Intake & Output (last 24hrs) 07/29/24 07/29/24 07/30/24 15:00 23:00 07:00 Intake Total 949.9 ml 349.0 ml Output Total 500 ml 450 ml Balance 449.9 ml -101.0 ml LABS: Laboratory: Test 07/30/24 12:07 07/30/24 09:50 07/30/24 06:32 07/29/24 15:15 Range/Units Ammonia < 10 L 11-32 umol/L D-Dimer Quantitative (PE/DVT) 4987 *H 0-500 ng/mL Sodium Level 132 L 136-145 mmol/L Potassium Level 3.3 L 3.5-5.1 mmol/L Chloride Level 92 L 101-111 mmol/L Carbon Dioxide Level 37 H 21-32 mmol/L Blood Urea Nitrogen 16 7-18 mg/dL Creatinine 0.6 0.5-1.3 mg/dL Glomerular Filtration Rate Calc 103 >90 mL/min Random Glucose 193 H 70-105 mg/dL Total Calcium 7.9 L 8.5-10.1 mg/dL Magnesium Level 2.30 1.80-2.40 mg/dL Total Bilirubin 1.1 H 0.2-1.0 mg/dL Aspartate Amino Transf (AST/SGOT) 284 H 10-37 U/L Alanine Aminotransferase (ALT/SGPT) 656 *H 12-78 U/L Alkaline Phosphatase 119 50-136 U/L Total Protein 4.6 L 6.0-8.3 g/dL Albumin 1.8 L 3.5-5.0 g/dL White Blood Count 29.2 H 4.8-10.8 K/uL Red Blood Count 4.21 L 4.50-6.20 MIL/uL Hemoglobin 11.7 L 14.0-18.0 g/dL Hematocrit 37.0 L 42-54 % Mean Corpuscular Volume 87.9 79-99 fL Mean Corpuscular Hemoglobin 27.8 27.0-33.0 pg Mean Corpuscular Hemoglobin Concent 31.6 L 32.0-36.0 g/dL Red Cell Distribution Width 20.4 H 11.0-15.5 % Platelet Count 121 L 130-400 K/uL Mean Platelet Volume 10.1 7.5-10.5 fL Nucleated Red Blood Cells 0.1 0.0-0.19 % Vancomycin Level Trough 13.2 10.0-20.0 UG/ML Acetaminophen Level 4 L 10-29 mcg/mL Test 07/29/24 07:50 07/29/24 06:46 07/29/24 05:15 07/29/24 04:20 Range/Units Blood Gas Specimen Type Arterial Arterial Blood pH 7.502 H 7.350-7.450 Arterial Blood Partial Pressure CO2 44 35-48 mmHg Arterial Blood Partial Pressure O2 63.4 L 83.0-108.0 mmHg Arterial Blood HCO3 33.9 H 21.0-28.0 mmol/L Arterial Blood Oxygen Saturation 93.9 L 94.0-98.0 % Arterial Blood Base Excess 9.5 H -2.0-3.0 mmol/L Blood Gas Temperature 37.0 35.5-37.0 CELSIUS Blood Gas Respiration Rate 18.0 min. Blood Gas Vent Mode BIPAP 14 6 ROOM AIR FiO2 60.0 % Blood Gas PEEP 6 cm H2O Blood Gas Specimen Comment LR ALEXA RN Immature Granulocyte % (Auto) 0.9 0-1 % Neutrophils (%) (Auto) 92.8 H 40.0-77.0 % Lymphocytes (%) (Auto) 2.7 L 21.0-51.0 % Monocytes (%) (Auto) 3.4 3.0-13.0 % Eosinophils (%) (Auto) 0.0 0.0-8.0 % Basophils (%) (Auto) 0.2 0.0-5.0 % Neutrophils # (Auto) 23.7 H 1.8-7.7 K/uL Lymphocytes # (Auto) 0.7 L 1.0-4.8 K/uL Monocytes # (Auto) 0.9 0.1-1.0 K/uL Eosinophils # (Auto) 0.00 0.00-0.70 K/uL Basophils # (Auto) 0.04 0.00-0.20 K/uL Absolute Immature Granulocyte (auto 0.22 0-1 K/uL Total Creatine Kinase 342 #H 21-232 U/L Procalcitonin 0.08 0.05-0.5 ng/mL Hemoglobin (Blood Gas) 12.9 L 13.5-17.5 g/dL Sodium (Blood Gas) 135 L 136-145 MMOL/L Bedside Potassium (Blood Gas) 3.1 L 3.4-4.5 MMOL/L Bedside Chloride (Blood Gas) 91 L 98-107 MMOL/L Bedside Glucose (Blood Gas) 108 H 65-95 MG/DL Bedside Ionized Calcium (Blood Gas) 1.12 L 1.15-1.33 MMOL/L Bedside Lactic Acid (Blood Gas) 1.07 H 0.36-0.75 MMOL/L Blood Gas Flow-by 4.00 0.00-15.00 L/min Urine Opiates Screen POSITIVE H NEGATIVE Urine Barbiturates Screen NEGATIVE NEGATIVE Urine Phencyclidine Screen NEGATIVE NEGATIVE Urine Amphetamines Screen NEGATIVE NEGATIVE Urine Benzodiazepines Screen NEGATIVE NEGATIVE Urine Cocaine Screen POSITIVE H NEGATIVE Urine Marijuana (THC) Screen NEGATIVE NEGATIVE Test 07/28/24 23:00 07/28/24 22:23 07/28/24 17:14 Range/Units Troponin I High Sensitivity 396 *H 4-75 ng/L Influenza Type A Antigen Negative For Type A NEGATIVE Influenza Type B Antigen Negative For Type B NEGATIVE SARS-CoV-2, RNA, NAAT NEGATIVE SARS CoV-2 NEGATIVE Hemoglobin A1c 5.7 4.0-6.0 % Estimated Average Glucose (eAG) 117 70-126 mg/dL Lactic Acid Level 1.7 0.8-2.5 mmol/L C-Reactive Protein, Quantitative 160.90 H 0.5-3.0 mg/L Thyroid Stimulating Hormone (TSH) 0.65 # 0.36-3.74 uIU/mL DIAGNOSTICS / RADIOLOGY: CT CHEST PE PROTOCOL [facility] CONT HISTORY: Shortness of breath COMPARISON: None TECHNIQUE: CT angiography of the chest was performed. The study was performed using angiographic technique with maximum intensity projection reconstruction images. Patient was given 100 cc of Omnipaque through intravenous route. FINDINGS: No CT evidence of filling defect is seen to suggest pulmonary embolus. No CT evidence of aortic dissection is seen. There are bilateral pleural effusions with compressive atelectasis. Mild bilateral pulmonary infiltrates are seen. Small ascites is seen. There are contrast in the GI tract causing artifacts in the upper abdomen. The heart is enlarged. No evidence of adrenal mass is seen. Degenerative changes of the spine are noted. IMPRESSION: 1. No CT evidence of acute pulmonary embolus is seen. Small bilateral pleural effusion and mild bilateral pulmonary COPD with interstitial fibrosis. CT was performed with one or more following dose reduction techniques: automated exposure control, adjustment of the mA and kv according to patient's size, or use of a iterative reconstruction technique. ASSESSMENT: This is a 69 year old male patient with current problems which include: * Sepsis. * Pneumonia. * Hypoxic respiratory failure. * Chronic obstructive pulmonary disease exacerbation. * Elevated liver enzymes. * Leukocytosis, on steriods. * Cocaine abuse. PLAN: * Continue critical support. * Follow up cultures. * Continue meropenem. * Continue vancomycin. * Continue bronchodilator. * Monitor electrolytes. * Continue DVT prophylaxis. * continue oxygen * The patient will be followed up closely. This case has been discussed with my supervising physician Dr. Richard. the case has been discussed and agreed upon. PRISCA GARCIA [facility] Jul 30, 2024 13:55
[2024-07-30] MEDS: PoTASSium chloRIDE 20MEQ/100ML 100 ML IV ONE (14:28)
[2024-07-30] MEDS: Solu-medROL 40MG VIAL IVP SCH (17:49)
--- NOTE | 2024-07-30 19:21 | HMCIMG ---
US VENOUS DOPPLER BILATERAL INDICATION: Swelling. Swelling both legs TECHNIQUE: Real-time venous Doppler ultrasound was performed using B mode, color flow and spectral analysis. FINDINGS: Partially occlusive DVT seen in the proximal left superficial femoral veins. The remaining visualized veins of both lower extremities are normal. IMPRESSION: Partially occlusive DVT seen in the proximal left superficial femoral veins.
[2024-07-30] MEDS ORDERED: ENOXAPARIN SODIUM 80 MG/0.8 ML SQ SCH (22:00)
[2024-07-30] MEDS: MELATONIN 5 MG TABLET PO ONE (22:21)
[2024-07-31] VITALS (19 sets, daily range): BP systolic 95–119; BP diastolic 58–62; PULSE 80–102; RESP 16–27; TEMP 97.2–98.2; O2SAT 97–100
[2024-07-31 04:33] LABS: BASOPHILS # (AUTO) 0.06 K/uL (0.00-0.20); BASOPHILS % (AUTO) 0.2 % (0.0-5.0); EOSINOPHILS # (AUTO) 0.02 K/uL (0.00-0.70); EOSINOPHILS % (AUTO) 0.1 % (0.0-8.0); HEMATOCRIT 33.4 % (42-54); IMMATURE GRANULOCYTE ABSOLUTE 0.34 K/uL (0-1); LYMPHOCYTES # (AUTO) 0.6 K/uL (1.0-4.8); MEAN CORPUSCULAR HEMOGLOBIN 27.2 pg (27.0-33.0); MEAN CORPUSCULAR HGB CONC 32.6 g/dL (32.0-36.0); MEAN CORPUSCULAR VOLUME 83.3 fL (79-99); MONOCYTES # (AUTO) 1.2 K/uL (0.1-1.0); MONOCYTES % (AUTO) 4.2 % (3.0-13.0); NEUTROPHILS # (AUTO) 26.8 K/uL (1.8-7.7); NEUTROPHILS % (AUTO) 92.3 % (40.0-77.0); NUCLEATED RED BLOOD CELLS 0.1 % (0.0-0.19); PLATELET COUNT (AUTO) 115 K/uL (130-400); RED BLOOD CELL COUNT(AUTO) 4.01 MIL/uL (4.50-6.20); RED CELL DISTRIBUTION WIDTH 19.9 % (11.0-15.5)
[2024-07-31 04:53] LABS: B-TYPE NATRIURETIC PEPTIDE 265 pg/mL (0-100)
[2024-07-31 05:01] LABS: ALBUMIN 1.7 g/dL (3.5-5.0); BILIRUBIN,TOTAL 0.7 mg/dL (0.2-1.0); CREATININE 0.4 mg/dL (0.5-1.3); MAGNESIUM 1.9 mg/dL (1.80-2.40); TOTAL PROTEIN, SERUM 4.3 g/dL (6.0-8.3)
--- NOTE | 2024-07-31 07:56 | PN ---
CARDIOLOGY Reason for consult: Elevated troponin HPI/story at presentation: This is a pleasant 69-year-old male with past medical history as per present with complaints of altered mental status, fall, was found to have elevated troponins in the setting of possible rhabdomyolysis sepsis electrolyte abnormalities. Cardiology was consulted for further evaluation and management. Subjective: 07/28/2024 altered mental status 07/29/2024 AMS 07/30/2024 AMS 07/31/2024 on bipap Past medical history: See below Allergies, Meds See chart Review of systems Not obtained, altered mental status Vitals see chart PHYSICAL EXAMINATION GENERAL: The patient is alert and oriented*3 HEENT: Nonicteric sclerae, non traumatic HEART: Regular rate and rhythm with no murmurs LUNGS: Clear to auscultation bilaterally ABDOMEN: No acute issues, non tender GENITAL, RECTAL: deferred SKIN: No rash NEUROLOGIC: NFND EXTREMITIES: No edema ASSESSMENT ELEVATED TROPONIN Likely type II in setting of rhabdomyolysis, sepsis Setting of fall In the setting of substance use Trending down RHABDOMYOLYSIS RESPIRATORY FAILURE In the setting of community-acquired pneumonia, COPD ELECTROLYTE ABNORMALITIES Hypokalemia hypomagnesemia at presentation OTHER MEDICAL PROBLEMS Previous history of left inguinal hernia PLAN 07/28/2024 troponin relation at this time is thought to be type II in setting of sepsis rhabdomyolysis etc. For now, will manage conservatively. Will get an echocardiogram to assess EF and if this is normal, no further cardiac evaluation is immediately warranted 07/29/2024 Remains confused, remains in the ICU. Unable to get a history. Respiratory failure and aspiration pneumonia being addressed by ICU team. Troponins trended down yesterday as above. No plans for anticoagulation as above. On midodrine for blood pressure support along with steroids. Pressures are borderline in spite of midodrine. 07/30/24 remains confused on bipap, lytes being replaced, echo with RV dilation and dysfunction, likely related to underlying pulmonary issues, will evaluate with CT, bilateral chronic skin induration of the lower extremities. liver function improving, renal function stable 07/31/2024 Mental status is better compared to yesterday. CT scan from yesterday with evidence of interstitial scarring which likely is the source of RV dysfunction. Remains on BiPAP. Appreciate Infectious Disease managing antibiotics. Patient did have a partially occlusive DVT noted on lower extremity venous Doppler and is currently on Lovenox, however, this is currently daily and will likely need to be switched to b.i.d in the setting of normal renal function.. Was on steroids to help with pulmonary situation and midodrine for blood pressure support. Blood pressures remain borderline in spite of midodrine. 07/31/2024 ATTESTATION I was involved substantially in the care of this patient Number and complexity of problems addressed: 1 acute illness with systemic features. Amount and or complexity of data Review of prior external note(s) from each unique source: 2+ Ordering of each unique test : 0 Review of the result(s) of each unique test: 2+ Assessment requiring an independent historian(s): No Independent interpretation of test performed by another MD/QHCP/appropriate source (not separately reported) : No Discussion of management or test interpretation with external MD/QHCP/appropriate source (not separately reported) : No Risk status (cardiac, billing related): Moderate Vitals/Labs Vital Signs Date Time Temp Pulse Resp B/P (MAP) Pulse Ox O2 Delivery O2 Flow Rate FiO2 07/31/24 06:50 80 18 N/Cannula Low lpm 3.0 32 07/31/24 04:00 98.2 97/60 96 Laboratory Tests 07/30/24 09:50 07/31/24 04:05 Medications Current Medications Albuterol Sulfate 10 mg ONCE ONCE IH Last administered on 07/28/24at 13:43; Start 07/28/24 at 13:30; Stop 07/28/24 at 13:31; Status DC Ipratropium [place] 0.5 mg ONCE ONCE IH Last administered on 07/28/24at 13:42; Start 07/28/24 at 13:30; Stop 07/28/24 at 13:31; Status DC Methylprednisolone Sodium Succinate 125 mg ONCE ONCE IVP Last administered on 07/28/24at 14:54; Start 07/28/24 at 13:30; Stop 07/28/24 at 13:31; Status DC Aspirin 325 mg ONCE ONCE PO Last administered on 07/28/24at 14:54; Start 07/28/24 at 13:30; Stop 07/28/24 at 13:31; Status DC Sodium Chloride 2,000 ml @ 0 mls/hr ONCE ONCE IV Last administered on 07/28/24at 15:15; Start 07/28/24 at 15:00; Stop 07/28/24 at 15:01; Status DC Vancomycin HCl 1 gm ONCE ONCE IV Last administered on 07/28/24at 16:43; Start 07/28/24 at 15:00; Stop 07/28/24 at 15:01; Status DC Piperacillin Sod/ Tazobactam Sod 3.375 gm ONCE ONCE IV Last administered on 07/28/24at 15:16; Start 07/28/24 at 15:00; Stop 07/28/24 at 15:01; Status DC Potassium Chloride 100 ml @ 50 mls/hr AD PRN IV; Start 07/28/24 at 15:30; Stop 07/28/24 at 15:44; Status DC Potassium Bicarbonate 25 meq ONCE ONCE PO Last administered on 07/28/24at 15:57; Start 07/28/24 at 16:00; Stop 07/28/24 at 16:01; Status DC Potassium Bicarbonate 25 meq STK-MED ONCE .ROUTE; Start 07/28/24 at 15:44; Stop 07/28/24 at 15:45; Status DC Potassium Bicarbonate 25 meq ONCE ONCE PO Last administered on 07/28/24at 16:55; Start 07/28/24 at 17:00; Stop 07/28/24 at 17:01; Status DC Potassium Chloride 100 ml @ 100 mls/hr AD PRN IV; Start 07/28/24 at 17:00; Stop 08/27/24 at 16:59 Potassium Chloride 20 meq AD PRN PO Last administered on 07/30/24at 11:53; Start 07/28/24 at 17:00; Stop 08/27/24 at 16:59 Potassium Chloride 20 meq AD PRN PO; Start 07/28/24 at 17:00; Stop 08/27/24 at 16:59 Magnesium Sulfate 50 ml @ 0 mls/hr PROTOCOL PRN IV Last administered on 07/30/24at 07:56; Start 07/28/24 at 17:00; Stop 08/27/24 at 16:59 Sodium Chloride 1,000 ml @ 50 mls/hr Q20H IV Last administered on 07/29/24at 08:08; Start 07/28/24 at 17:00; Stop 07/30/24 at 00:01; Status DC Albuterol 1 UDVIAL [id number] IH Last administered on 07/28/24at 22:59; Start 07/28/24 at 18:00; Stop 07/29/24 at 06:56; Status DC Acetaminophen 500 mg Q6H PRN PO; Start 07/28/24 at 17:00; Stop 08/27/24 at 16:59 Vancomycin HCl 1 each AD IV; Start 07/28/24 at 17:00; Stop 08/11/24 at 16:59 Cefepime HCl 1 gm Q8H IVPB Last administered on 07/29/24at 06:45; Start 07/28/24 at 21:00; Stop 07/29/24 at 10:47; Status DC Vancomycin HCl 750 mg ONCE ONCE IVPB Last administered on 07/28/24at 22:24; Start 07/28/24 at 17:30; Stop 07/28/24 at 17:31; Status DC Vancomycin HCl 750 mg Q8H IVPB; Start 07/29/24 at 01:00; Stop 07/29/24 at 02:45; Status DC Methylprednisolone Sodium Succinate 40 mg Q8H IVP Last administered on 07/30/24at 05:53; Start 07/28/24 at 21:00; Stop 07/30/24 at 12:21; Status DC Budesonide 0.25 mg BIDRESP IH Last administered on 07/28/24at 22:59; Start 07/28/24 at 18:00; Stop 07/29/24 at 05:56; Status DC Pantoprazole Sodium 40 mg BID IVP Last administered on 07/30/24at 20:18; Start 07/28/24 at 21:00; Stop 08/27/24 at 20:59 Midodrine 10 mg TID PO Last administered on 07/30/24at 20:19; Start 07/28/24 at 23:50; Stop 08/27/24 at 23:49 Atorvastatin Calcium 40 mg HS PO Last administered on 07/29/24at 00:23; Start 07/28/24 at 23:55; Stop 07/29/24 at 11:02; Status DC Albumin Human 100 ml @ 0 mls/hr AD IV Last administered on 07/29/24at 00:36; Start 07/29/24 at 00:00; Stop 08/28/24 at 00:00 Norepinephrine 250 ml @ 0 mls/hr AD PRN IV Last administered on 07/29/24at 02:39; Start 07/29/24 at 02:30; Stop 07/30/24 at 12:21; Status DC Vancomycin HCl 750 mg Q8H IVPB; Start 07/29/24 at 06:30; Stop 07/29/24 at 06:44; Status DC Albuterol Sulfate 2.5MG [id number] IH Last administered on 07/31/24at 06:48; Start 07/29/24 at 06:00; Stop 08/28/24 at 05:59 Budesonide 0.5 mg BIDRESP IH Last administered on 07/31/24at 06:48; Start 07/29/24 at 06:00; Stop 08/28/24 at 05:59 Vancomycin HCl 750 mg Q8H IVPB Last administered on 07/30/24at 20:18; Start 07/29/24 at 08:30; Stop 08/08/24 at 08:29 Meropenem 1 gm/ Sodium Chloride 100 ml @ 33.333 mls/ hr Q8H IVPB Last administered on 07/30/24at 22:23; Start 07/29/24 at 11:00; Stop 08/08/24 at 10:59 Pharmacy Profile Note 1 each AD MISC; Start 07/29/24 at 12:00; Stop 08/05/24 at 11:59 Potassium Chloride 100 ml @ 50 mls/hr ONCE ONCE IV Last administered on 07/30/24at 14:28; Start 07/30/24 at 11:30; Stop 07/30/24 at 13:29; Status DC Aspirin 81 mg DAILY PO; Start 07/31/24 at 09:00; Stop 08/30/24 at 08:59 Furosemide 20 mg DAILY PO; Start 07/31/24 at 09:00; Stop 08/30/24 at 08:59 Methylprednisolone Sodium Succinate 40 mg Q12H IVP Last administered on 07/31/24at 06:20; Start 07/30/24 at 17:00; Stop 08/27/24 at 20:59 Iohexol 35,000 mg STK-MED ONCE IV; Start 07/30/24 at 12:21; Stop 07/30/24 at 12:21; Status DC Enoxaparin Sodium 1 unit DAILY SQ; Start 07/31/24 at 09:00; Stop 07/30/24 at 21:31; Status DC Enoxaparin Sodium 70 mg Q24H SQ; Start 07/30/24 at 22:00; Stop 07/30/24 at 21:34; Status DC Enoxaparin Sodium 70 mg Q24H SQ; Start 07/31/24 at 09:00; Stop 08/30/24 at 08:59 Melatonin 5 mg ONCE ONCE PO Last administered on 07/30/24at 22:21; Start 07/30/24 at 22:30; Stop 07/30/24 at 22:31; Status DC HILARIA THOMAS MD Jul 31, 2024 07:56
--- NOTE | 2024-07-31 07:57 | HMCIMG ---
CHEST 1VW HISTORY: Hypoxia COMPARISON: 07/30/2024 FINDINGS: A frontal projection of the chest was obtained. Bilateral pulmonary infiltrates are seen with right more than left with congestive changes with pneumonitis not excluded. The heart is borderline enlarged. Degenerative changes are seen. Aortic calcifications are seen. IMPRESSION: 1. Bilateral pulmonary infiltrates are seen with right more than left with congestive changes with pneumonitis not excluded.
[2024-07-31] MEDS: furoSEMIDE 20 MG TABLET PO SCH (08:41)
[2024-07-31] MEDS: ENOXAPARIN SODIUM 80 MG/0.8 ML SQ SCH (08:41)
[2024-07-31] MEDS: ASPIRIN 81 MG EC TAB PO SCH (08:41)
[2024-07-31] MEDS ORDERED: ENOXAPARIN SODIUM 80 MG/0.8 ML SQ SCH (09:00)
--- NOTE | 2024-07-31 09:15 | PN ---
[facility] PROGRESS NOTE Date of Service: Jul 31, 2024 Time of Service: 09:09 SUBJECTIVE: The patient has been seen and examined during my rounding, on BiPAP, 14/6, FiO2 60%, saturating 96-98%. Getting IV antibiotics, off Levophed. No chest pain, no shortness a breath, no nausea, no vomiting, no abdominal pain, family members at bedside during my visit, updated, all questions answered. Chest x-ray today showing mild right lung pulmonary infiltrates slightly increased from previous study. 07/30 the patient has been seen and examined during my rounding, comfortable, no acute events overnight, he is on BiPAP, 14/6 FiO2 60%, saturating 94-96%. He remains hemodynamically stable, following simple commands, still mildly confused, feels weak, denied chest pain, feels less short of breath, no nausea, no vomiting. He is off any drips, currently getting IV antibiotics during my visit. No family members at bedside. 07/31 the patient has been seen and examined during my rounding, comfortably in bed, tolerating BiPAP throughout the night, during my visit on supplemental oxygen via nasal cannula at 4 L, saturating no 100%. BP 112/62, afebrile, heart rate controlled and 91, he is alert, following commands, lives by himself, denied chest pain, no shortness on breath, minimal cough, no nausea, no vomiting, no abdominal pain, no family at bedside. REVIEW OF SYSTEMS CONSTITUTIONAL: Denies fevers, chills, or night sweats. No unintentional weight loss reported. NEUROLOGICAL: Denies headache, amaurosis fugax, motor weakness, sensory deficit, vertigo/spinning sensation, gait abnormalities, or tremors. ENT: No hearing loss, otalgia, otorrhea, rhinitis, rhinorrhea, hoarseness, or sore throat. CARDIOVASCULAR: Denies any exertional angina, dyspnea on exertion, orthopnea, paroxysmal nocturnal dyspnea, palpitations, life-threatening arrhythmias, claudication. PULMONARY: Positive for cough, shortness of breath, sputum production SLEEP: Denies morning headaches, daytime somnolence or napping. Denies difficulty falling asleep, staying asleep, waking from sleep. Denies knowledge of snoring. GASTROINTESTINAL: Denies any type of dysphagia to either liquids or solids. Denies nausea, vomiting, pyrosis, early satiety, abdominal pain, diarrhea, constipation, or changes in stool consistency or caliber. Denies coffee-ground emesis, hematemesis, hematochezia, or melanotic stools. GENITOURINARY: Denies frequency, urgency, nocturia, hematuria or incontinence (Storage/Irritative symptoms.) Low urinary stream, straining to void, urinary intermittency or hesitancy, splitting of the voiding stream, terminal dribbling. ENDOCRINOLOGIC: Denies polyuria, polydipsia, polyphagia or heat/cold intolerances. HEMATOLOGIC: Denies thrombophilia/previous clots, or coagulopathy/bleeding disorders. ONCOLOGIC: Denies personal history of malignancy. DERMATOLOGIC: Denies rashes or pruritus. PSYCHIATRIC: Denies any suicidal or homicidal ideation. Denies hallucinations. PHYSICAL EXAM GENERAL APPEARANCE: Patient looks chronically ill, debilitated, on BiPAP. Mildly confused. NEUROLOGICAL: Cranial nerves II-XII grossly intact. Motor is 5/5 in bilateral upper and lower extremities proximal to distal. No sensory deficits. HEENT: Face is symmetric. Pupils are equal and reactive. Extraocular movements are intact. NECK: Supple. No JVD. No thyromegaly. No submental, submandibular, pre- /postauricular, occipital or supraclavicular lymphadenopathy. CHEST: Normal chest expansion. No Telemetry. LUNGS: Patient has bilateral wheezing present CARDIOVASCULAR: Regular. S1 and S2 normal. No appreciable rubs, murmurs or gallops. ABDOMEN: Soft, he has a ventral hernia present, mild tenderness around the he rnia site and nondistended. There is no rebound, voluntary guarding, or rigidity. : Deferred. No [place]. EXTREMITIES: Non-edematous and not cyanotic. No clubbing. Good capillary refill. SKIN: No skin breakdown. Vital Signs (last 8hr) Date Time Temp Pulse Resp B/P (MAP) Pulse Ox O2 Delivery O2 Flow Rate FiO2 07/31/24 08:50 97.9 91 16 112/62 100 Nasal Cannula 4.0 07/31/24 08:00 100 Nasal Cannula* 4 36 07/31/24 06:50 80 18 N/Cannula Low lpm 3.0 32 07/31/24 06:48 80 20 07/31/24 04:00 98.2 92 20 97/60 96 Nasal Cannula 5.0 07/31/24 03:35 89 20 LABS: Laboratory: Test 07/31/24 04:05 07/30/24 17:06 07/30/24 16:13 07/30/24 12:07 Range/Units White Blood Count 29.0 H 4.8-10.8 K/uL Red Blood Count 4.01 L 4.50-6.20 MIL/uL Hemoglobin 10.9 L 14.0-18.0 g/dL Hematocrit 33.4 L 42-54 % Mean Corpuscular Volume 83.3 79-99 fL Mean Corpuscular Hemoglobin 27.2 27.0-33.0 pg Mean Corpuscular Hemoglobin Concent 32.6 32.0-36.0 g/dL Red Cell Distribution Width 19.9 H 11.0-15.5 % Platelet Count 115 L 130-400 K/uL Mean Platelet Volume 9.9 7.5-10.5 fL Immature Granulocyte % (Auto) 1.2 H 0-1 % Neutrophils (%) (Auto) 92.3 H 40.0-77.0 % Lymphocytes (%) (Auto) 2.0 L 21.0-51.0 % Monocytes (%) (Auto) 4.2 3.0-13.0 % Eosinophils (%) (Auto) 0.1 0.0-8.0 % Basophils (%) (Auto) 0.2 0.0-5.0 % Neutrophils # (Auto) 26.8 H 1.8-7.7 K/uL Lymphocytes # (Auto) 0.6 L 1.0-4.8 K/uL Monocytes # (Auto) 1.2 H 0.1-1.0 K/uL Eosinophils # (Auto) 0.02 0.00-0.70 K/uL Basophils # (Auto) 0.06 0.00-0.20 K/uL Absolute Immature Granulocyte (auto 0.34 0-1 K/uL Nucleated Red Blood Cells 0.1 0.0-0.19 % Sodium Level 130 L 136-145 mmol/L Potassium Level 4.0 3.5-5.1 mmol/L Chloride Level 93 L 101-111 mmol/L Carbon Dioxide Level 37 H 21-32 mmol/L Blood Urea Nitrogen 12 7-18 mg/dL Creatinine 0.4 L 0.5-1.3 mg/dL Glomerular Filtration Rate Calc 117 >90 mL/min Random Glucose 156 H 70-105 mg/dL Total Calcium 8.0 L 8.5-10.1 mg/dL Magnesium Level 1.90 1.80-2.40 mg/dL Total Bilirubin 0.7 # 0.2-1.0 mg/dL Aspartate Amino Transf (AST/SGOT) 176 H 10-37 U/L Alanine Aminotransferase (ALT/SGPT) 513 #H 12-78 U/L Alkaline Phosphatase 109 50-136 U/L Total Creatine Kinase 154 # 21-232 U/L B-Type Natriuretic Peptide 265 H 0-100 pg/mL Total Protein 4.3 L 6.0-8.3 g/dL Albumin 1.7 L 3.5-5.0 g/dL Whole Blood Glucose 201 H 70-110 MG/DL Vancomycin Level Trough 14.9 10.0-20.0 UG/ML Ammonia < 10 L 11-32 umol/L Test 07/30/24 09:50 07/29/24 15:15 Range/Units D-Dimer Quantitative (PE/DVT) 4987 *H 0-500 ng/mL Acetaminophen Level 4 L 10-29 mcg/mL Current Medications Medications (Trade) Dose Ordered Sig/Suni Route PRN Reason Start Time Stop Time Status Last Admin Dose Admin Acetaminophen (TYLenol 500MG TAB) 500 mg Q6H PRN PO MILD PAIN (1-3) 07/28/24 17:00 08/27/24 16:59 Albumin Human 100 ml @ 0 mls/hr AD IV 07/29/24 00:00 08/28/24 00:00 07/29/24 00:36 100 MLS/HR Albuterol (DUOneb) 1 UDVIAL [id number] 07/28/24 18:00 07/29/24 06:56 DC 07/28/24 22:59 1 UDVIAL Albuterol Sulfate (Proventil 0.083% 2.5mg/3ml) 2.5MG [id number] 07/29/24 06:00 08/28/24 05:59 07/31/24 06:48 2.5 MG Aspirin (Aspirin 81mg Ec Tab) 81 mg DAILY PO 07/31/24 09:00 08/30/24 08:59 07/31/24 08:41 81 MG Atorvastatin Calcium (LIPItor 40MG) 40 mg HS PO 07/28/24 23:55 07/29/24 11:02 DC 07/29/24 00:23 40 MG Budesonide (Pulmicort 0.25mg/2ml) 0.25 mg BIDRESP IH 07/28/24 18:00 07/29/24 05:56 DC 07/28/24 22:59 0.25 MG Budesonide (Pulmicort 0.5 Mg/2ml) 0.5 mg BIDRESP IH 07/29/24 06:00 08/28/24 05:59 07/31/24 06:48 0.5 MG Cefepime HCl (MAXipime 1 GM vial) 1 gm Q8H IVPB 07/28/24 21:00 07/29/24 10:47 DC 07/29/24 06:45 1 GM Enoxaparin Sodium (Lovenox (Pharmacy To Dose)) 1 unit DAILY SQ 07/31/24 09:00 07/30/24 21:31 DC Enoxaparin Sodium (Lovenox 80mg) 70 mg BID SQ 07/31/24 09:00 08/30/24 08:59 07/31/24 08:41 70 MG Enoxaparin Sodium (Lovenox 80mg) 70 mg Q24H SQ 07/31/24 09:00 07/31/24 07:57 DC Enoxaparin Sodium (Lovenox 80mg) 70 mg Q24H SQ 07/30/24 22:00 07/30/24 21:34 DC Furosemide (LASix 20MG TAB) 20 mg DAILY PO 07/31/24 09:00 08/30/24 08:59 07/31/24 08:41 20 MG Magnesium Sulfate 50 ml @ 0 mls/hr PROTOCOL PRN IV HYPOMAGNESEMIA 07/28/24 17:00 08/27/24 16:59 07/30/24 07:56 25 MLS/HR Meropenem 1 gm/ Sodium Chloride 100 ml @ 33.333 mls/ hr Q8H IVPB 07/29/24 11:00 08/08/24 10:59 07/30/24 22:23 33.333 MLS/HR Methylprednisolone Sodium Succinate (Solu-medROL 40MG) 40 mg Q12H IVP 07/30/24 17:00 08/27/24 20:59 07/31/24 06:20 40 MG Methylprednisolone Sodium Succinate (Solu-medROL 40MG) 40 mg Q8H IVP 07/28/24 21:00 07/30/24 12:21 DC 07/30/24 05:53 40 MG Midodrine (PROAMatine 5 MG TABLET) 10 mg TID PO 07/28/24 23:50 08/27/24 23:49 07/31/24 08:41 10 MG Norepinephrine 250 ml @ 0 mls/hr AD PRN IV DIRECTED 07/29/24 02:30 07/30/24 12:21 DC 07/29/24 02:39 24.67 MLS/HR Pantoprazole Sodium (PROTonix 40MG INJ) 40 mg BID IVP 07/28/24 21:00 08/27/24 20:59 07/31/24 08:40 40 MG Pharmacy Profile Note (Lace Assessment) 1 each AD MISC 07/29/24 12:00 08/05/24 11:59 Potassium Chloride 100 ml @ 50 mls/hr AD PRN IV POTASSIUM PROTOCOL 07/28/24 15:30 07/28/24 15:44 DC Potassium Chloride 100 ml @ 100 mls/hr AD PRN IV POTASSIUM PROTOCOL 07/28/24 17:00 08/27/24 16:59 Potassium Chloride (K-Dur/Klor-Con 20meq) 20 meq AD PRN PO POTASSIUM PROTOCOL 07/28/24 17:00 08/27/24 16:59 Potassium Chloride (KCl 10% Elixir 20meq/15ml) 20 meq AD PRN PO POTASSIUM PROTOCOL 07/28/24 17:00 08/27/24 16:59 07/30/24 11:53 20 MEQ Sodium Chloride 1,000 ml @ 50 mls/hr Q20H IV 07/28/24 17:00 07/30/24 00:01 DC 07/29/24 08:08 125 MLS/HR Vancomycin HCl (Vancomycin 750mg) 750 mg Q8H IVPB 07/29/24 01:00 07/29/24 02:45 DC Vancomycin HCl (Vancomycin 750mg) 750 mg Q8H IVPB 07/29/24 06:30 07/29/24 06:44 DC Vancomycin HCl (Vancomycin 750mg) 750 mg Q8H IVPB 07/29/24 08:30 08/08/24 08:29 07/31/24 08:35 750 MG Vancomycin HCl (Vancomycin Protocol) 1 each AD IV 07/28/24 17:00 08/11/24 16:59 DIAGNOSTICS / RADIOLOGY: [ ] CHEST 1VW HISTORY: Hypoxia COMPARISON: 07/30/2024 FINDINGS: A frontal projection of the chest was obtained. Bilateral pulmonary infiltrates are seen with right more than left with congestive changes with pneumonitis not excluded. The heart is borderline enlarged. Degenerative changes are seen. Aortic calcifications are seen. IMPRESSION: 1. Bilateral pulmonary infiltrates are seen with right more than left with congestive changes with pneumonitis not excluded. ASSESSMENT: Sepsis POA Acute on chronic COPD exacerbation Acute hypoxic respiratory failure secondary to COPD exacerbation and CAP Community acquired Pneumonia POA Fall Severe hypokalemia Rhabdomyolysis History of drug use History of noncompliance Poor venous access Anterior chest wall rash Partially occlusive DVT proximal left superficial femoral vein PLAN: - patient remains admitted to the PCU -continue BiPAP alternating with supplemental oxygen via nasal cannula -echocardiogram reviewed, LVEF 50-55%, global thinning of the left ventricular camacho. -cardiology input noted and appreciated, elevated troponin likely type 2 in setting of rhabdomyolysis and sepsis. -CT chest with and without contrast no evidence of filling defect to suggest pulmonary emboli. Small bilateral effusion mild bilateral pulmonary COPD with a interstitial fibrosis. -Doppler of the lower extremity shows partially occlusive DVT proximal left superficial femoral vein -continue to monitor liver enzymes in a.m. -ultrasound of the abdomen no gallstones or ductal dilatation, small amount of pericholecystic fluid, liver is echogenic consistent with liver parenchymal disease -continue the patient on broad-spectrum IV antibiotics, blood culture so far negative -in reference to COPD exacerbation. Continue the patient on BiPAP, Pulmonary input noted and appreciated, continue DuoNeb, continue to follow chest x-ray as well as ABG. -in reference to rhabdomyolysis. Continue the patient on IV fluids, continue to follow CPK in a.m. -obtain PT evaluation -replace electrolytes IV per protocol -a.m. labs -GI and DVT prophylaxis Disposition: The patient to be downgraded to medical floor, continue BiPAP alternating with supplemental oxygen via nasal cannula. CT chest no evidence of PE, Doppler of the lower extremities showing partially occlusive DVT proximal left superficial femoral vein. Continue the patient on Lovenox 70 mg subQ b.i.d., long discussion with the patient was done yesterday regarding risks versus benefits of anticoagulation, patient agreed and understood all the information provided. He agreed to proceed with full anticoagulation. Today hemoglobin at 10.9, we will continue to monitor CBC in the next 24 hours, if stable we will transition to oral anticoagulation. Continue to follow Cardiology and Pulmonary input and recommendation, monitor WBC in a.m., elevated count likely secondary to IV steroids. Continue to monitor liver enzymes and total CK in a.m.. Elevated liver enzymes likely secondary to rhabdomyolysis. Ultrasound of the abdomen no gallstones or ductal dilatation, small amount of pericholecystic fluid, liver is echogenic consistent with liver parenchymal disease Plan of action discussed, all questions answered, agreed and understood the information provided. Total ICU time spent greater than 30 minutes. HANS PRADO MD Jul 31, 2024 09:15
--- NOTE | 2024-07-31 12:32 | PN ---
[facility] PROGRESS NOTE Date Patient Seen: Jul 31, 2024 Time of Visit: 12:32 Supervising Physician: Francis Bueno MD Feeling myocardial Consulting Physician: Dr Espitia Outpatient Specialists: [ ] Inpatient Consults: Cardiology PROBLEM LIST: Acute Hypoxic respiratory failure, POA Suspected aspiration pneumonia right lower lobe POA Bilateral small pleural effusions, POA no thoracentesis indicated at this time Elevated D-dimer, PE ruled out, + DVT left femoral vein COPD in acute exacerbation, POA Severe sepsis, POA NSTEMI, POA Rhabdomyolysis, POA resolved Hypokalemia, POA Hypomagnesemia, POA Anasarca, POA left inguinal hernia Ventral hernia with bowel contents via midline bilaterally. LVEF 50-55% on 2D echo 07/29/24 Pericholecystic fluid seen on ultrasound 07/29/24 Liver parenchyma disease, POA INTERVAL HISTORY: 07/29-patient is lethargic but easily arousable and oriented x3. He has been h emodynamically stable with a blood pressure 111/62 heart rate in the 80s respiratory rate of 19 saturating 98% with 60% FiO2 on BiPAP. He has been afebrile since admission. On laboratory WBCs are 25.6 H&H is 11.5/36.1 platelet count is [id number] with neutrophils 92.8. Sodium 140 potassium 3.1 chloride 95 carbon dioxide 39 BUN 23 creatinine of 0.5 with a GFR of 109 glucose of 120 mg /dL lactic acid 1.7 total calcium was 8.3 total bili 1.3 AST 796. Sensitive troponin 564, 465, 396. Trending down. CK is now 342 improved from previous which is 1062. On chest x-ray right lower lobe pneumonia suspicious for aspiration. Patient is pending speech eval and MBSS. 07/30-patient was weaned off BiPAP saturating 95% with 3.5 L via nasal cannula hemodynamically stable off pressors afebrile. No major overnight events. Pt passed MBSS w/ recommendations: Recommend mechanical soft/ground solids, thin liquids and pills crushed with pureed. WBCs 29.2 likely increased from steroid H&H 11.7/37 platelet count a [id number]. Sodium 132 potassium three chloride 92 carbon dioxide 37 BUN 16 creatinine 0.6 with a GFR 103 glucose 183 mg/dL total calcium 7.9 80s 284 ALT 656 liver enzymes trending down total CK 342 total protein 4.6 albumin 1.8. Ultrasound Doppler ordered. NO CT evidence of pulmonary embolism seen. Small bilateral pleural effusions and mild bilateral pulmonary COPD with interstitial fibrosis. Pleural effusion with no indication for thoracentesis at this time. 08/10-patient is awake alert and oriented x3 in no apparent distress. However does report generalized body weakness and fatigue. O2 sat 97% with 4 L via nasal cannula hemodynamically stable heart rate in the 80s sinus rhythm. Afebrile in the last 24 hours. WBCs 29 . H&H is 10.9/33.4 with a platelet count of [id number]. Sodium is 130 chloride 93 carbon dioxide 37 with a BUN 12 creatinine 0.4 GFR over 117 glucose 156 mg/dL liver enzymes trending down total bili 0.7 AST 176 ALT 413 total protein 4.3 albumin 1.7. Blood cultures with no growth x3 days. Respiratory culture pending. REVIEW OF SYSTEMS: General: No malaise or fever. Neurological: No fainting episodes or seizures. HEENT: No nasal congestion or nasal secretion. Respiratory: Yes for cough, shortness of breath. Cardiac: No chest pain or palpitations. Gastrointestinal: No vomiting or diarrhea. Genitourinary: No dysuria hematuria. Skin: No rashes or lesions. Hematological: No bruises or bleeding. Musculoskeletal: No joint pains or arthralgias. Psychiatric: No depression or panic attacks. PHYSICAL EXAM: GENERAL: Awake alert and oriented x3. HEENT: EOMI, Sclera non icteric, moist mucosa NECK: Supple, no JVD, trachea midline LUNGS: Coarse rhonchi Bilateral lung sounds HEART: Regular rate and rhythm. Normal S1 and S2, without murmurs ABD: Abdomen soft, nontender. Bowel sounds present EXT: No clubbing cyanosis; bilateral lower extremity edema NEURO: Awake alert and oriented x3 no focal weakness. Vital Signs (last 8hr) Date Time Temp Pulse Resp B/P (MAP) Pulse Ox O2 Delivery O2 Flow Rate FiO2 07/31/24 10:51 101 27 50 07/31/24 10:49 102 22 07/31/24 08:50 97.9 91 16 112/62 100 Nasal Cannula 4.0 07/31/24 08:00 100 Nasal Cannula* 4 36 07/31/24 06:50 80 18 N/Cannula Low lpm 3.0 32 07/31/24 06:48 80 20 LABS: Hematology Labs: Test 07/31/24 04:05 Range/Units White Blood Count 29.0 H 4.8-10.8 K/uL Red Blood Count 4.01 L 4.50-6.20 MIL/uL Hemoglobin 10.9 L 14.0-18.0 g/dL Hematocrit 33.4 L 42-54 % Mean Corpuscular Volume 83.3 79-99 fL Mean Corpuscular Hemoglobin 27.2 27.0-33.0 pg Mean Corpuscular Hemoglobin Concent 32.6 32.0-36.0 g/dL Red Cell Distribution Width 19.9 H 11.0-15.5 % Platelet Count 115 L 130-400 K/uL Mean Platelet Volume 9.9 7.5-10.5 fL Immature Granulocyte % (Auto) 1.2 H 0-1 % Neutrophils (%) (Auto) 92.3 H 40.0-77.0 % Lymphocytes (%) (Auto) 2.0 L 21.0-51.0 % Monocytes (%) (Auto) 4.2 3.0-13.0 % Eosinophils (%) (Auto) 0.1 0.0-8.0 % Basophils (%) (Auto) 0.2 0.0-5.0 % Neutrophils # (Auto) 26.8 H 1.8-7.7 K/uL Lymphocytes # (Auto) 0.6 L 1.0-4.8 K/uL Monocytes # (Auto) 1.2 H 0.1-1.0 K/uL Eosinophils # (Auto) 0.02 0.00-0.70 K/uL Basophils # (Auto) 0.06 0.00-0.20 K/uL Absolute Immature Granulocyte (auto 0.34 0-1 K/uL Nucleated Red Blood Cells 0.1 0.0-0.19 % Chemistry Labs: Test 07/31/24 04:05 07/30/24 17:06 07/30/24 12:07 Range/Units Sodium Level 130 L 136-145 mmol/L Potassium Level 4.0 3.5-5.1 mmol/L Chloride Level 93 L 101-111 mmol/L Carbon Dioxide Level 37 H 21-32 mmol/L Blood Urea Nitrogen 12 7-18 mg/dL Creatinine 0.4 L 0.5-1.3 mg/dL Glomerular Filtration Rate Calc 117 >90 mL/min Random Glucose 156 H 70-105 mg/dL Total Calcium 8.0 L 8.5-10.1 mg/dL Magnesium Level 1.90 1.80-2.40 mg/dL Total Bilirubin 0.7 # 0.2-1.0 mg/dL Aspartate Amino Transf (AST/SGOT) 176 H 10-37 U/L Alanine Aminotransferase (ALT/SGPT) 513 #H 12-78 U/L Alkaline Phosphatase 109 50-136 U/L Total Creatine Kinase 154 # 21-232 U/L B-Type Natriuretic Peptide 265 H 0-100 pg/mL Total Protein 4.3 L 6.0-8.3 g/dL Albumin 1.7 L 3.5-5.0 g/dL Whole Blood Glucose 201 H 70-110 MG/DL Ammonia < 10 L 11-32 umol/L Coagulation Labs: Test 07/30/24 09:50 Range/Units D-Dimer Quantitative (PE/DVT) 4987 *H 0-500 ng/mL DIAGNOSTICS / RADIOLOGY RESULTS: Signed PATIENT: MARVIN NAILS MR#: [id number] : 1955 SEX: M AGE: 69 LOCATION: [facility] ORDER 2300 STATUS: ADM IN REPORT#: [id number] SERVICE 0600 REASON: hjpoxia ORDERING PHYSICIAN: OWEN GALICIA PROCEDURE: CXR1VW - CHEST 1VW CHEST 1VW HISTORY: Hypoxia COMPARISON: 07/30/2024 FINDINGS: A frontal projection of the chest was obtained. Bilateral pulmonary infiltrates are seen with right more than left with congestive changes with pneumonitis not excluded. The heart is borderline enlarged. Degenerative changes are seen. Aortic calcifications are seen. IMPRESSION: 1. Bilateral pulmonary infiltrates are seen with right more than left with congestive changes with pneumonitis not excluded. DICTATED BY: DARRIUS TORRES MD DATE: 07/31/24754 ELECTRONICALLY SIGNED BY: DARRIUS TORRES MD DATE: 07/31/24756 PLAN For DVT full-dose Lovenox 1 milligram/kilogram b.i.d. Monitor for bleeding If no bleeding change Lovenox to Eliquis Follow respiratory culture Wean steroids Deescalate antibiotics per culture Monitor liver enzymes Continue with nebulizer [place] Singulair 10 mg daily Wean O2 off as tolerated Extensively counseled of importance to stop using drugs. Patient verbalized understanding. NEURO: Minimize central acting medications as possible. Maintain fall precautions, adequate lighting during the day PULMONARY: Supplemental 02 as needed. Maintain aspiration precautions at all times CARDIOVASCULAR: Follow hemodynamics. Vital signs per facility protocol GI & NUTRITION: Continue with nutritional support. Continue stool softeners and laxatives as needed. KIDNEYS & ELECTROLYTES: Strict monitoring of intake, output and overall fluid balance. Avoid nephrotoxic medications to the extent possible. Medications to be dosed according to renal function. Monitor electrolytes and replace as needed ENDOCRINE: Maintain blood glucose between 100-180 at all times. Hypoglycemia protocol in place INFECTIOUS DISEASE: Trend temperature, WBC and procalcitonin level Follow cultures, deescalate antibiotics as soon as possible. Panculture if new onset fever ONCOLOGY/HEMATOLOGY/COAGULATION: Monitor for s/s of bleeding Monitor hemoglobin, coagulation studies as needed SKIN: Pressure ulcer prevention per facility protocol Specialty mattress ORTHO/REHAB: Continue PT/OT Prophylaxis: Continue GI and DVT prophylaxis Code Status: Full Resuscitation Disposition: TBD Other: Total patient care time exceeds 35 minutes excluding all procedures. WOEN GALICIA [facility] Jul 31, 2024 12:32
[2024-07-31] MEDS ORDERED: PHARMACY COMMUNICATION MISC PRN (17:00)
[2024-07-31] MEDS: chlordiazePOXIDE HCL 25 MG CAP PO PRN (17:26)
[2024-07-31 17:42] LABS: HEMATOCRIT 37.5 % (42-54)
[2024-08-01] VITALS (18 sets, daily range): BP systolic 102–136; BP diastolic 58–68; PULSE 61–102; RESP 16–22; TEMP 97.4–98; O2SAT 95–99
[2024-08-01 03:39] LABS: BASOPHILS # (AUTO) 0.05 K/uL (0.00-0.20); BASOPHILS % (AUTO) 0.2 % (0.0-5.0); EOSINOPHILS # (AUTO) 0.01 K/uL (0.00-0.70); HEMATOCRIT 34.8 % (42-54); IMMATURE GRANULOCYTE ABSOLUTE 0.26 K/uL (0-1); LYMPHOCYTES # (AUTO) 0.8 K/uL (1.0-4.8); LYMPHOCYTES % (AUTO) 3.1 % (21.0-51.0); MEAN CORPUSCULAR HEMOGLOBIN 27.5 pg (27.0-33.0); MEAN CORPUSCULAR HGB CONC 32.2 g/dL (32.0-36.0); MEAN CORPUSCULAR VOLUME 85.3 fL (79-99); MONOCYTES # (AUTO) 0.8 K/uL (0.1-1.0); MONOCYTES % (AUTO) 3.4 % (3.0-13.0); NEUTROPHILS % (AUTO) 92.3 % (40.0-77.0); PLATELET COUNT (AUTO) 136 K/uL (130-400); RED BLOOD CELL COUNT(AUTO) 4.08 MIL/uL (4.50-6.20); RED CELL DISTRIBUTION WIDTH 20.2 % (11.0-15.5)
[2024-08-01 04:05] LABS: ALBUMIN 1.8 g/dL (3.5-5.0); BILIRUBIN,TOTAL 0.6 mg/dL (0.2-1.0); CREATININE 0.4 mg/dL (0.5-1.3); TOTAL PROTEIN, SERUM 4.4 g/dL (6.0-8.3)
[2024-08-01 04:13] LABS: HEPATITIS A IGM ANTIBODY Non-Reactive (Nonreactive); HEPATITIS B CORE IGM ANTIBODY Non-Reactive (Negative); HEPATITIS B SURFACE ANTIGEN Non-Reactive (Nonreactive); HEPATITIS C ANTIBODY Reactive (Nonreactive)
[2024-08-01 05:02] LABS: B-TYPE NATRIURETIC PEPTIDE 194 pg/mL (0-100)
[2024-08-01] MEDS: Solu-medROL 40MG VIAL IVP SCH (05:40)
--- NOTE | 2024-08-01 09:39 | HMCIMG ---
CHEST 1VW REASON: hjpoxia COMPARISON: 07/31/2024 FINDINGS: Heart size is normal. There are extensive bilateral infiltrates, these have increased since prior exam, these could be vascular congestion or pneumonia. There is a small right pleural effusion, also new. Upper lungs appear clear. The Steinmann and bony thorax appear unremarkable. IMPRESSION: 1. Increasing bilateral infiltrates as well as interval development of a right pleural effusion, last congestion favored over pneumonia.
[2024-08-01] MEDS: monteLUKAST sodIUM 10 MG TAB PO SCH (10:13)
--- NOTE | 2024-08-01 11:08 | PN ---
CARDIOLOGY Reason for consult: Elevated troponin HPI/story at presentation: This is a pleasant 69-year-old male with past medical history as per present with complaints of altered mental status, fall, was found to have elevated troponins in the setting of possible rhabdomyolysis sepsis electrolyte abnormalities. Cardiology was consulted for further evaluation and management. Subjective: 07/28/2024 altered mental status 07/29/2024 AMS 07/30/2024 AMS 07/31/2024 on bipap 08/01/2024 AMS improved Past medical history: See below Allergies, Meds See chart Review of systems Not obtained, altered mental status Vitals see chart PHYSICAL EXAMINATION GENERAL: The patient is alert and oriented*3 HEENT: Nonicteric sclerae, non traumatic HEART: Regular rate and rhythm with no murmurs LUNGS: Clear to auscultation bilaterally ABDOMEN: No acute issues, non tender GENITAL, RECTAL: deferred SKIN: No rash NEUROLOGIC: NFND EXTREMITIES: No edema ASSESSMENT ELEVATED TROPONIN Likely type II in setting of rhabdomyolysis, sepsis Setting of fall In the setting of substance use Trending down CHF with pleural effusions and congestion 08/01/2024 RHABDOMYOLYSIS RESPIRATORY FAILURE In the setting of community-acquired pneumonia, COPD ELECTROLYTE ABNORMALITIES Hypokalemia hypomagnesemia at presentation OTHER MEDICAL PROBLEMS Previous history of left inguinal hernia PLAN 07/28/2024 troponin relation at this time is thought to be type II in setting of sepsis rhabdomyolysis etc. For now, will manage conservatively. Will get an echocardiogram to assess EF and if this is normal, no further cardiac evaluation is immediately warranted 07/29/2024 Remains confused, remains in the ICU. Unable to get a history. Respiratory failure and aspiration pneumonia being addressed by ICU team. Troponins trended down yesterday as above. No plans for anticoagulation as above. On midodrine for blood pressure support along with steroids. Pressures are borderline in spite of midodrine. 07/30/24 remains confused on bipap, lytes being replaced, echo with RV dilation and dysfunction, likely related to underlying pulmonary issues, will evaluate with CT, bilateral chronic skin induration of the lower extremities. liver function improving, renal function stable 07/31/2024 Mental status is better compared to yesterday. CT scan from yesterday with evidence of interstitial scarring which likely is the source of RV dysfunction. Remains on BiPAP. Appreciate Infectious Disease managing antibiotics. Patient did have a partially occlusive DVT noted on lower extremity venous Doppler and is currently on Lovenox, however, this is currently daily and will likely need to be switched to b.i.d in the setting of normal renal function.. Was on steroids to help with pulmonary situation and midodrine for blood pressure support. Blood pressures remain borderline in spite of midodrine. 08/01/2024 Resting comfortably, remains on facemask. Mental status is better. However, x-ray with worsening congestion, currently on full dose Lovenox, Lasix 20 daily, midodrine steroids. Ongoing hypochloremic alkalosis as well. will watch for need for acetazolamide. Will give a dose of IV Lasix today and increase oral to 40. ATTESTATION I was involved substantially in the care of this patient Number and complexity of problems addressed: 1 acute illness with systemic features. Amount and or complexity of data Review of prior external note(s) from each unique source: 2+ Ordering of each unique test : 0 Review of the result(s) of each unique test: 2+ Assessment requiring an independent historian(s): No Independent interpretation of test performed by another MD/QHCP/appropriate source (not separately reported) : No Discussion of management or test interpretation with external MD/QHCP/appropriate source (not separately reported) : No Risk status (cardiac, billing related): Moderate Vitals/Labs Vital Signs Date Time Temp Pulse Resp B/P (MAP) Pulse Ox O2 Delivery O2 Flow Rate FiO2 08/01/24 09:55 84 21 08/01/24 08:11 97.9 111/60 95 Nasal Cannula 4.0 07/31/24 21:00 36 Laboratory Tests 07/31/24 17:36 08/01/24 03:28 Medications Current Medications Albuterol Sulfate 10 mg ONCE ONCE IH Last administered on 07/28/24at 13:43; Start 07/28/24 at 13:30; Stop 07/28/24 at 13:31; Status DC Ipratropium [place] 0.5 mg ONCE ONCE IH Last administered on 07/28/24at 13:42; Start 07/28/24 at 13:30; Stop 07/28/24 at 13:31; Status DC Methylprednisolone Sodium Succinate 125 mg ONCE ONCE IVP Last administered on 07/28/24at 14:54; Start 07/28/24 at 13:30; Stop 07/28/24 at 13:31; Status DC Aspirin 325 mg ONCE ONCE PO Last administered on 07/28/24at 14:54; Start 07/28/24 at 13:30; Stop 07/28/24 at 13:31; Status DC Sodium Chloride 2,000 ml @ 0 mls/hr ONCE ONCE IV Last administered on 07/28/24at 15:15; Start 07/28/24 at 15:00; Stop 07/28/24 at 15:01; Status DC Vancomycin HCl 1 gm ONCE ONCE IV Last administered on 07/28/24at 16:43; Start 07/28/24 at 15:00; Stop 07/28/24 at 15:01; Status DC Piperacillin Sod/ Tazobactam Sod 3.375 gm ONCE ONCE IV Last administered on 07/28/24at 15:16; Start 07/28/24 at 15:00; Stop 07/28/24 at 15:01; Status DC Potassium Chloride 100 ml @ 50 mls/hr AD PRN IV; Start 07/28/24 at 15:30; Stop 07/28/24 at 15:44; Status DC Potassium Bicarbonate 25 meq ONCE ONCE PO Last administered on 07/28/24at 15:57; Start 07/28/24 at 16:00; Stop 07/28/24 at 16:01; Status DC Potassium Bicarbonate 25 meq STK-MED ONCE .ROUTE; Start 07/28/24 at 15:44; Stop 07/28/24 at 15:45; Status DC Potassium Bicarbonate 25 meq ONCE ONCE PO Last administered on 07/28/24at 16:55; Start 07/28/24 at 17:00; Stop 07/28/24 at 17:01; Status DC Potassium Chloride 100 ml @ 100 mls/hr AD PRN IV; Start 07/28/24 at 17:00; Stop 08/27/24 at 16:59 Potassium Chloride 20 meq AD PRN PO Last administered on 07/30/24at 11:53; Start 07/28/24 at 17:00; Stop 08/27/24 at 16:59 Potassium Chloride 20 meq AD PRN PO; Start 07/28/24 at 17:00; Stop 08/27/24 at 16:59 Magnesium Sulfate 50 ml @ 0 mls/hr PROTOCOL PRN IV Last administered on 07/30/24at 07:56; Start 07/28/24 at 17:00; Stop 08/27/24 at 16:59 Sodium Chloride 1,000 ml @ 50 mls/hr Q20H IV Last administered on 07/29/24at 08:08; Start 07/28/24 at 17:00; Stop 07/30/24 at 00:01; Status DC Albuterol 1 UDVIAL [id number] IH Last administered on 07/28/24at 22:59; Start 07/28/24 at 18:00; Stop 07/29/24 at 06:56; Status DC Acetaminophen 500 mg Q6H PRN PO; Start 07/28/24 at 17:00; Stop 08/27/24 at 16:59 Vancomycin HCl 1 each AD IV; Start 07/28/24 at 17:00; Stop 08/11/24 at 16:59 Cefepime HCl 1 gm Q8H IVPB Last administered on 07/29/24at 06:45; Start 07/28/24 at 21:00; Stop 07/29/24 at 10:47; Status DC Vancomycin HCl 750 mg ONCE ONCE IVPB Last administered on 07/28/24at 22:24; Start 07/28/24 at 17:30; Stop 07/28/24 at 17:31; Status DC Vancomycin HCl 750 mg Q8H IVPB; Start 07/29/24 at 01:00; Stop 07/29/24 at 02:45; Status DC Methylprednisolone Sodium Succinate 40 mg Q8H IVP Last administered on 07/30/24at 05:53; Start 07/28/24 at 21:00; Stop 07/30/24 at 12:21; Status DC Budesonide 0.25 mg BIDRESP IH Last administered on 07/28/24at 22:59; Start 07/28/24 at 18:00; Stop 07/29/24 at 05:56; Status DC Pantoprazole Sodium 40 mg BID IVP Last administered on 08/01/24at 10:14; Start 07/28/24 at 21:00; Stop 08/27/24 at 20:59 Midodrine 10 mg TID PO Last administered on 08/01/24at 10:20; Start 07/28/24 at 23:50; Stop 08/27/24 at 23:49 Atorvastatin Calcium 40 mg HS PO Last administered on 07/29/24at 00:23; Start 07/28/24 at 23:55; Stop 07/29/24 at 11:02; Status DC Albumin Human 100 ml @ 0 mls/hr AD IV Last administered on 07/29/24at 00:36; Start 07/29/24 at 00:00; Stop 08/01/24 at 08:05; Status DC Norepinephrine 250 ml @ 0 mls/hr AD PRN IV Last administered on 07/29/24at 02:39; Start 07/29/24 at 02:30; Stop 07/30/24 at 12:21; Status DC Vancomycin HCl 750 mg Q8H IVPB; Start 07/29/24 at 06:30; Stop 07/29/24 at 06:44; Status DC Albuterol Sulfate 2.5MG [id number] IH Last administered on 08/01/24at 09:54; Start 07/29/24 at 06:00; Stop 08/28/24 at 05:59 Budesonide 0.5 mg BIDRESP IH Last administered on 08/01/24at 06:19; Start 07/29/24 at 06:00; Stop 08/28/24 at 05:59 Vancomycin HCl 750 mg Q8H IVPB Last administered on 08/01/24at 10:13; Start 07/29/24 at 08:30; Stop 08/08/24 at 08:29 Meropenem 1 gm/ Sodium Chloride 100 ml @ 33.333 mls/ hr Q8H IVPB Last administered on 08/01/24at 03:05; Start 07/29/24 at 11:00; Stop 08/08/24 at 10:59 Pharmacy Profile Note 1 each AD MISC; Start 07/29/24 at 12:00; Stop 08/01/24 at 06:21; Status DC Potassium Chloride 100 ml @ 50 mls/hr ONCE ONCE IV Last administered on 07/30/24at 14:28; Start 07/30/24 at 11:30; Stop 07/30/24 at 13:29; Status DC Aspirin 81 mg DAILY PO Last administered on 08/01/24at 10:13; Start 07/31/24 at 09:00; Stop 08/30/24 at 08:59 Furosemide 20 mg DAILY PO Last administered on 08/01/24at 10:14; Start 07/31/24 at 09:00; Stop 08/30/24 at 08:59 Methylprednisolone Sodium Succinate 40 mg Q12H IVP Last administered on 07/31/24at 16:58; Start 07/30/24 at 17:00; Stop 07/31/24 at 23:45; Status DC Iohexol 35,000 mg STK-MED ONCE IV; Start 07/30/24 at 12:21; Stop 07/30/24 at 12:21; Status DC Enoxaparin Sodium 1 unit DAILY SQ; Start 07/31/24 at 09:00; Stop 07/30/24 at 21:31; Status DC Enoxaparin Sodium 70 mg Q24H SQ; Start 07/30/24 at 22:00; Stop 07/30/24 at 21:34; Status DC Enoxaparin Sodium 70 mg Q24H SQ; Start 07/31/24 at 09:00; Stop 07/31/24 at 07:57; Status DC Melatonin 5 mg ONCE ONCE PO Last administered on 07/30/24at 22:21; Start 07/30/24 at 22:30; Stop 07/30/24 at 22:31; Status DC Enoxaparin Sodium 70 mg BID SQ Last administered on 08/01/24at 10:15; Start 07/31/24 at 09:00; Stop 08/30/24 at 08:59 Chlordiazepoxide HCl 25 mg Q2H PRN PO Last administered on 07/31/24at 21:54; Start 07/31/24 at 17:00; Stop 08/07/24 at 16:59 Chlordiazepoxide HCl 50 mg Q1H PRN PO; Start 07/31/24 at 17:00; Stop 08/07/24 at 16:59 Pharmacy Profile Note 1 each PROTOCOL PRN MISC; Start 07/31/24 at 17:00; Stop 08/07/24 at 16:59 Methylprednisolone Sodium Succinate 20 mg Q12H IVP Last administered on 08/01/24at 05:40; Start 08/01/24 at 05:00; Stop 08/31/24 at 04:59 Montelukast Sodium 10 mg DAILY PO Last administered on 08/01/24at 10:13; Start 08/01/24 at 09:00; Stop 08/31/24 at 08:59 HILARIA THOMAS MD Aug 01, 2024 11:08
--- NOTE | 2024-08-01 12:08 | PN ---
INFECTIOUS DISEASE PROGRESS NOTE Date of Service: Aug 01, 2024 SUBJECTIVE: Patient was seen and examined at bedside in room 225. Patient is awake, alert and able to answer basic questions. Sitting up to the bedside chair and tolerating well. Currently is on oxygen via nasal cannula at 4 liters/minute. Continues with elevated WBC of 25.0 this morning. No reports of fever, temperature is 97.9. No growth reported on the blood cultures. Continues on Solu-Medrol IV q.12. Patient Continues on meropenem and vancomycin per pharmacy protocol. Liver enzymes continue to improve, AST 85, ALT 395 and alk phos of 103. No other issues reported by nursing. PHYSICAL EXAM EYES: Anicteric. Pupils equal and reactive. HENT: No oral thrush seen, moist Oral mucosa NECK: Supple, no JVD or thyromegaly. CHEST: Skin popping scars. LUNGS: Oxygen via nasal cannula at 4 liters/minute. CARDIOVASCULAR: S1, S2 regular. No murmur heard. ABDOMEN: Soft, non tender, bowel sounds present, no organomegaly. CENTRAL NERVOUS SYSTEM: awake, alert oriented x2. SKIN: No rashes, no swelling. LYMPHATICS: No peripheral lymphadenopathy. MUSCULOSKELETAL: No joint swelling, erythema or tenderness. EXTREMITIES: No cyanosis or clubbing. Skin popping scars on lower extremities. BACK: No deformity, no pressure ulcer. GENITOURINARY: No dysuria or hematuria. Vital Sign (Last 12 Hours) 08/01/24 08/01/24 08/01/24 08/01/24 00:30 03:30 06:19 06:22 Temp 97.9 97.3 Pulse 80 77 81 81 Resp 21 B/P (MAP) 133/68 124/60 Pulse Ox 99 96 O2 Delivery Nasal Cannula Nasal Cannula N/Cannula Low lpm O2 Flow Rate 4.0 4.0 5.0 08/01/24 08/01/24 08/01/24 08/01/24 06:23 08:11 09:55 11:53 Temp 97.9 97.9 Pulse 81 83 84 81 Resp 18 21 16 B/P (MAP) 111/60 102/59 Pulse Ox 95 98 O2 Delivery Nasal Cannula Nasal Cannula O2 Flow Rate 4.0 4.0 Intake & Output (last 24hrs) 07/31/24 07/31/24 08/01/24 15:00 23:00 07:00 Intake Total 480 ml 200.0 ml 350.0 ml Output Total 200 ml 750 ml 500 ml Balance 280 ml -550.0 ml -150.0 ml LABS: Laboratory: Test 08/01/24 07:57 08/01/24 03:28 07/31/24 04:05 07/30/24 17:06 Range/Units Vancomycin Level Trough 15.0 10.0-20.0 UG/ML White Blood Count 25.0 H 4.8-10.8 K/uL Red Blood Count 4.08 L 4.50-6.20 MIL/uL Hemoglobin 11.2 L 14.0-18.0 g/dL Hematocrit 34.8 L 42-54 % Mean Corpuscular Volume 85.3 79-99 fL Mean Corpuscular Hemoglobin 27.5 27.0-33.0 pg Mean Corpuscular Hemoglobin Concent 32.2 32.0-36.0 g/dL Red Cell Distribution Width 20.2 H 11.0-15.5 % Platelet Count 136 130-400 K/uL Mean Platelet Volume 10.1 7.5-10.5 fL Immature Granulocyte % (Auto) 1.0 0-1 % Neutrophils (%) (Auto) 92.3 H 40.0-77.0 % Lymphocytes (%) (Auto) 3.1 L 21.0-51.0 % Monocytes (%) (Auto) 3.4 3.0-13.0 % Eosinophils (%) (Auto) 0.0 0.0-8.0 % Basophils (%) (Auto) 0.2 0.0-5.0 % Neutrophils # (Auto) 23.0 H 1.8-7.7 K/uL Lymphocytes # (Auto) 0.8 L 1.0-4.8 K/uL Monocytes # (Auto) 0.8 0.1-1.0 K/uL Eosinophils # (Auto) 0.01 0.00-0.70 K/uL Basophils # (Auto) 0.05 0.00-0.20 K/uL Absolute Immature Granulocyte (auto 0.26 0-1 K/uL Nucleated Red Blood Cells 0.0 0.0-0.19 % Sodium Level 132 L 136-145 mmol/L Potassium Level 4.0 3.5-5.1 mmol/L Chloride Level 95 L 101-111 mmol/L Carbon Dioxide Level 39 H 21-32 mmol/L Blood Urea Nitrogen 8 7-18 mg/dL Creatinine 0.4 L 0.5-1.3 mg/dL Glomerular Filtration Rate Calc 117 >90 mL/min Random Glucose 136 H 70-105 mg/dL Total Calcium 7.8 L 8.5-10.1 mg/dL Total Bilirubin 0.6 0.2-1.0 mg/dL Aspartate Amino Transf (AST/SGOT) 85 H 10-37 U/L Alanine Aminotransferase (ALT/SGPT) 395 #H 12-78 U/L Alkaline Phosphatase 103 50-136 U/L B-Type Natriuretic Peptide 194 H 0-100 pg/mL Total Protein 4.4 L 6.0-8.3 g/dL Albumin 1.8 L 3.5-5.0 g/dL Magnesium Level 1.90 1.80-2.40 mg/dL Total Creatine Kinase 154 # 21-232 U/L Hepatitis A IgM Antibody Non-Reactive Nonreactive Hepatitis B Surface Antigen. Non-Reactive Nonreactive Hepatitis B Core IgM Antibody Non-Reactive Negative Hepatitis C Antibody Reactive H Nonreactive Whole Blood Glucose 201 H 70-110 MG/DL Test 07/30/24 12:07 Range/Units Ammonia < 10 L 11-32 umol/L ASSESSMENT: Hypoxic respiratory failure, requiring oxygen. Pneumonia. Sepsis. Chronic obstructive pulmonary disease exacerbation. Elevated liver enzymes. Rhabdomyolysis. Leukocytosis, on Steroids. Cocaine abuse. PLAN: Continue vancomycin per pharmacy protocol. Continue on meropenem. Continue GI prophylaxis. Will Follow up cultures. Continue bronchodilator. Continue oxygen support. Continue physical therapy. Will Monitor electrolytes. Case management to evaluate for SNF placement. Obtain Psychiatrist evaluation. This case was reviewed and discussed with my supervising physician and the above assessment and plan was formulated and agreed upon. ATTESTATION BY PHYSICIAN I have seen and examined the patient. I reviewed the documentation, medical deci ruiz making, and treatment plan as noted by the mid-level provider above. I agree with the findings and plan of care. ARMAND LOPEZ MD, [facility] Aug 01, 2024 12:08
--- NOTE | 2024-08-01 12:16 | PN ---
[facility] PROGRESS NOTE Date Patient Seen: Aug 01, 2024 Time of Visit: 12:16 Supervising Physician: Jonathan Powell MD Feeling myocardial Consulting Physician: Dr Espitia Outpatient Specialists: [ ] Inpatient Consults: Cardiology PROBLEM LIST: Acute Hypoxic respiratory failure, POA Suspected aspiration pneumonia right lower lobe POA Bilateral small pleural effusions, POA no thoracentesis indicated at this time Elevated D-dimer, PE ruled out, + DVT left femoral vein COPD in acute exacerbation, POA Severe sepsis, POA NSTEMI, POA Rhabdomyolysis, POA resolved Hypokalemia, POA Hypomagnesemia, POA Anasarca, POA left inguinal hernia Ventral hernia with bowel contents via midline bilaterally. LVEF 50-55% on 2D echo 07/29/24 Pericholecystic fluid seen on ultrasound 07/29/24 Liver parenchyma disease, POA INTERVAL HISTORY: 07/29-patient is lethargic but easily arousable and oriented x3. He has been hemodynamically stable with a blood pressure 111/62 heart rate in the 80s respiratory rate of 19 saturating 98% with 60% FiO2 on BiPAP. He has been afebrile since admission. On laboratory WBCs are 25.6 H&H is 11.5/36.1 platelet count is 590897 with neutrophils 92.8. Sodium 140 potassium 3.1 chloride 95 carbon dioxide 39 BUN 23 creatinine of 0.5 with a GFR of 109 glucose of 120 m g/dL lactic acid 1.7 total calcium was 8.3 total bili 1.3 AST 796. Sensitive troponin 564, 465, 396. Trending down. CK is now 342 improved from previous which is 1062. On chest x-ray right lower lobe pneumonia suspicious for aspiration. Patient is pending speech eval and MBSS. 07/30-patient was weaned off BiPAP saturating 95% with 3.5 L via nasal cannula hemodynamically stable off pressors afebrile. No major overnight events. Pt passed MBSS w/ recommendations: Recommend mechanical soft/ground solids, thin liquids and pills crushed with pureed. WBCs 29.2 likely increased from steroid H&H 11.7/37 platelet count a 959725. Sodium 132 potassium three chloride 92 carbon dioxide 37 BUN 16 creatinine 0.6 with a GFR 103 glucose 183 mg/dL total c alcium 7.9 80s 284 ALT 656 liver enzymes trending down total CK 342 total protein 4.6 albumin 1.8. Ultrasound Doppler ordered. NO CT evidence of pulmonary embolism seen. Small bilateral pleural effusions and mild bilateral pulmonary COPD with interstitial fibrosis. Pleural effusion with no indication for thoracentesis at this time. 07/31-patient is awake alert and oriented x3 in no apparent distress. However does report generalized body weakness and fatigue. O2 sat 97% with 4 L via nasal cannula hemodynamically stable heart rate in the 80s sinus rhythm. Afebrile in the last 24 hours. WBCs 29 . H&H is 10.9/33.4 with a platelet count of 075997. Sodium is 130 chloride 93 carbon dioxide 37 with a BUN 12 creatinine 0.4 GFR over 117 glucose 156 mg/dL liver enzymes trending down total bili 0.7 AST 176 ALT 413 total protein 4.3 albumin 1.7. Blood cultures with no growth x3 days. Respiratory culture pending. 08/01-patient is awake alert and oriented x3 saturating 94% on 3 L via nasal cannula weaning down hemodynamically stable afebrile. Patient for degree urine output. WBCs 25 trending down H&H 11.2 with 34.8 with a platelet count of 091480. Sodium 132 chloride 95 carbon dioxide 39 BUN eight creatinine 0.8 with a GFR of 117 glucose 136 mg/dL total calcium 7.8 liver enzymes continue trending down. BNP 194 improving. Albumin 1.8 blood cultures growing Gram-negative rods. Patient continues on meropenem and vanco. On chest x-ray patient with increased pulmonary vascular congestion. Furosemide 20 mg daily increased to 40 mg p.o. daily. REVIEW OF SYSTEMS: General: No malaise or fever. Neurological: No fainting episodes or seizures. HEENT: No nasal congestion or nasal secretion. Respiratory: Yes for cough, shortness of breath. Cardiac: No chest pain or palpitations. Gastrointestinal: No vomiting or diarrhea. Genitourinary: No dysuria hematuria. Skin: No rashes or lesions. Hematological: No bruises or bleeding. Musculoskeletal: No joint pains or arthralgias. Psychiatric: No depression or panic attacks. PHYSICAL EXAM: GENERAL: Awake alert and oriented x3. HEENT: EOMI, Sclera non icteric, moist mucosa NECK: Supple, no JVD, trachea midline LUNGS: Coarse rhonchi Bilateral lung sounds HEART: Regular rate and rhythm. Normal S1 and S2, without murmurs ABD: Abdomen soft, nontender. Bowel sounds present EXT: No clubbing cyanosis; bilateral lower extremity edema NEURO: Awake alert and oriented x3 no focal weakness. Vital Signs (last 8hr) Date Time Temp Pulse Resp B/P (MAP) Pulse Ox O2 Delivery O2 Flow Rate FiO2 08/01/24 11:53 97.9 81 16 102/59 98 Nasal Cannula 4.0 08/01/24 09:55 84 21 08/01/24 08:11 97.9 83 18 111/60 95 Nasal Cannula 4.0 08/01/24 06:23 81 21 08/01/24 06:22 81 21 N/Cannula Low lpm 5.0 08/01/24 06:19 81 21 LABS: Hematology Labs: Test 08/01/24 03:28 Range/Units White Blood Count 25.0 H 4.8-10.8 K/uL Red Blood Count 4.08 L 4.50-6.20 MIL/uL Hemoglobin 11.2 L 14.0-18.0 g/dL Hematocrit 34.8 L 42-54 % Mean Corpuscular Volume 85.3 79-99 fL Mean Corpuscular Hemoglobin 27.5 27.0-33.0 pg Mean Corpuscular Hemoglobin Concent 32.2 32.0-36.0 g/dL Red Cell Distribution Width 20.2 H 11.0-15.5 % Platelet Count 136 130-400 K/uL Mean Platelet Volume 10.1 7.5-10.5 fL Immature Granulocyte % (Auto) 1.0 0-1 % Neutrophils (%) (Auto) 92.3 H 40.0-77.0 % Lymphocytes (%) (Auto) 3.1 L 21.0-51.0 % Monocytes (%) (Auto) 3.4 3.0-13.0 % Eosinophils (%) (Auto) 0.0 0.0-8.0 % Basophils (%) (Auto) 0.2 0.0-5.0 % Neutrophils # (Auto) 23.0 H 1.8-7.7 K/uL Lymphocytes # (Auto) 0.8 L 1.0-4.8 K/uL Monocytes # (Auto) 0.8 0.1-1.0 K/uL Eosinophils # (Auto) 0.01 0.00-0.70 K/uL Basophils # (Auto) 0.05 0.00-0.20 K/uL Absolute Immature Granulocyte (auto 0.26 0-1 K/uL Nucleated Red Blood Cells 0.0 0.0-0.19 % Chemistry Labs: Test 08/01/24 03:28 07/31/24 04:05 07/30/24 17:06 Range/Units Sodium Level 132 L 136-145 mmol/L Potassium Level 4.0 3.5-5.1 mmol/L Chloride Level 95 L 101-111 mmol/L Carbon Dioxide Level 39 H 21-32 mmol/L Blood Urea Nitrogen 8 7-18 mg/dL Creatinine 0.4 L 0.5-1.3 mg/dL Glomerular Filtration Rate Calc 117 >90 mL/min Random Glucose 136 H 70-105 mg/dL Total Calcium 7.8 L 8.5-10.1 mg/dL Total Bilirubin 0.6 0.2-1.0 mg/dL Aspartate Amino Transf (AST/SGOT) 85 H 10-37 U/L Alanine Aminotransferase (ALT/SGPT) 395 #H 12-78 U/L Alkaline Phosphatase 103 50-136 U/L B-Type Natriuretic Peptide 194 H 0-100 pg/mL Total Protein 4.4 L 6.0-8.3 g/dL Albumin 1.8 L 3.5-5.0 g/dL Magnesium Level 1.90 1.80-2.40 mg/dL Total Creatine Kinase 154 # 21-232 U/L Whole Blood Glucose 201 H 70-110 MG/DL DIAGNOSTICS / RADIOLOGY RESULTS: IMAGING REPORT Signed PATIENT: MARVIN NAILS MR#: [id number] : 1955 SEX: M AGE: 69 LOCATION: 2DH ORDER 2300 STATUS: ADM IN REPORT#: [id number] SERVICE 0600 REASON: hjpoxia ORDERING PHYSICIAN: OWEN GALICIA PROCEDURE: CXR1VW - CHEST 1VW CHEST 1VW REASON: hjpoxia COMPARISON: 07/31/2024 FINDINGS: Heart size is normal. There are extensive bilateral infiltrates, these have increased since prior exam, these could be vascular congestion or pneumonia. There is a small right pleural effusion, also new. Upper lungs appear clear. The Steinmann and bony thorax appear unremarkable. IMPRESSION: 1. Increasing bilateral infiltrates as well as interval development of a right pleural effusion, last congestion favored over pneumonia. DICTATED BY: GERMÁN COTE MD DATE: 08/01/24935 ELECTRONICALLY SIGNED BY: GERMÁN COTE MD DATE: 08/01/24938 PLAN For DVT full-dose Lovenox 1 milligram/kilogram b.i.d. Monitor for bleeding If no bleeding change Lovenox to Eliquis Follow respiratory culture Wean steroids Deescalate antibiotics per culture Monitor liver enzymes Continue with nebulizer [place] Singulair 10 mg daily Wean O2 off as tolerated Continue with bullous made 40 mg p.o. daily as increased per Cardiology. Extensively counseled of importance to stop using drugs. Patient verbalized understanding. NEURO: Minimize central acting medications as possible. Maintain fall precautions, adequate lighting during the day PULMONARY: Supplemental 02 as needed. Maintain aspiration precautions at all times CARDIOVASCULAR: Follow hemodynamics. Vital signs per facility protocol GI & NUTRITION: Continue with nutritional support. Continue stool softeners and laxatives as needed. KIDNEYS & ELECTROLYTES: Strict monitoring of intake, output and overall fluid balance. Avoid nephrotoxic medications to the extent possible. Medications to be dosed according to renal function. Monitor electrolytes and replace as needed ENDOCRINE: Maintain blood glucose between 100-180 at all times. Hypoglycemia protocol in place INFECTIOUS DISEASE: Trend temperature, WBC and procalcitonin level Follow cultures, deescalate antibiotics as soon as possible. Panculture if new onset fever ONCOLOGY/HEMATOLOGY/COAGULATION: Monitor for s/s of bleeding Monitor hemoglobin, coagulation studies as needed SKIN: Pressure ulcer prevention per facility protocol Specialty mattress ORTHO/REHAB: Continue PT/OT Prophylaxis: Continue GI and DVT prophylaxis Code Status: Full Resuscitation Disposition: TBD Other: Total patient care time exceeds 35 minutes excluding all procedures. OWEN GALICIA DIRECTOR [employer] Aug 01, 2024 12:16
[2024-08-01] MEDS: furoSEMIDE 40MG VIAL IV ONE (13:24)
--- NOTE | 2024-08-01 15:14 | PN ---
[facility] PROGRESS NOTE Date of Service: Aug 01, 2024 Time of Service: 15:07 SUBJECTIVE: The patient has been seen and examined during my rounding, on BiPAP, 14/6, FiO2 60%, saturating 96-98%. Getting IV antibiotics, off Levophed. No chest pain, no shortness a breath, no nausea, no vomiting, no abdominal pain, family members at bedside during my visit, updated, all questions answered. Chest x-ray today showing mild right lung pulmonary infiltrates slightly increased from previous study. 07/30 the patient has been seen and examined during my rounding, comfortable, no acute events overnight, he is on BiPAP, 14/6 FiO2 60%, saturating 94-96%. He remains hemodynamically stable, following simple commands, still mildly confused, feels weak, denied chest pain, feels less short of breath, no nausea, no vomiting. He is off any drips, currently getting IV antibiotics during my visit. No family members at bedside. 07/31 the patient has been seen and examined during my rounding, comfortably in bed, tolerating BiPAP throughout the night, during my visit on supplemental oxygen via nasal cannula at 4 L, saturating no 100%. BP 112/62, afebrile, heart rate controlled and 91, he is alert, following commands, lives by himself, denied chest pain, no shortness on breath, minimal cough, no nausea, no vomiting, no abdominal pain, no family at bedside. 08/01 Pt seen at bedside, no acute events overnight. ID recommending SNF placement for fpc antibiotics. Pt with reported heroin use, no evidence of opiate withdrawal at this time, will continue to monitor. He is hemodynamically stable. WBC improved from 29 down to 25, platelets improved from 115 up to 136, sodium improved from 130 up to 132, LFT trending back to normal, remainder of his labs are relatively unremarkable. Cultures are no growth to date REVIEW OF SYSTEMS 12 point ROS negative unless noted in HPI PHYSICAL EXAM GENERAL APPEARANCE: Patient looks chronically ill, debilitated, on BiPAP. Mildly confused. NEUROLOGICAL: Cranial nerves II-XII grossly intact. Motor is 5/5 in bilateral upper and lower extremities proximal to distal. No sensory deficits. HEENT: Face is symmetric. Pupils are equal and reactive. Extraocular movements are intact. NECK: Supple. No JVD. No thyromegaly. No submental, submandibular, pre- /postauricular, occipital or supraclavicular lymphadenopathy. CHEST: Normal chest expansion. No Telemetry. LUNGS: Patient has bilateral wheezing present CARDIOVASCULAR: Regular. S1 and S2 normal. No appreciable rubs, murmurs or gallops. ABDOMEN: Soft, he has a ventral hernia present, mild tenderness around the hernia site and nondistended. There is no rebound, voluntary guarding, or rigidity. : Deferred. No Mota. EXTREMITIES: Non-edematous and not cyanotic. No clubbing. Good capillary refill. SKIN: No skin breakdown. Vital Signs (last 8hr) Date Time Temp Pulse Resp B/P (MAP) Pulse Ox O2 Delivery O2 Flow Rate FiO2 08/01/24 14:12 102 21 08/01/24 11:53 97.9 81 16 102/59 98 Nasal Cannula 4.0 08/01/24 09:55 84 21 08/01/24 08:11 97.9 83 18 111/60 95 Nasal Cannula 4.0 LABS: Laboratory: Test 08/01/24 07:57 08/01/24 03:28 07/31/24 04:05 07/30/24 17:06 Range/Units Vancomycin Level Trough 15.0 10.0-20.0 UG/ML White Blood Count 25.0 H 4.8-10.8 K/uL Red Blood Count 4.08 L 4.50-6.20 MIL/uL Hemoglobin 11.2 L 14.0-18.0 g/dL Hematocrit 34.8 L 42-54 % Mean Corpuscular Volume 85.3 79-99 fL Mean Corpuscular Hemoglobin 27.5 27.0-33.0 pg Mean Corpuscular Hemoglobin Concent 32.2 32.0-36.0 g/dL Red Cell Distribution Width 20.2 H 11.0-15.5 % Platelet Count 136 130-400 K/uL Mean Platelet Volume 10.1 7.5-10.5 fL Immature Granulocyte % (Auto) 1.0 0-1 % Neutrophils (%) (Auto) 92.3 H 40.0-77.0 % Lymphocytes (%) (Auto) 3.1 L 21.0-51.0 % Monocytes (%) (Auto) 3.4 3.0-13.0 % Eosinophils (%) (Auto) 0.0 0.0-8.0 % Basophils (%) (Auto) 0.2 0.0-5.0 % Neutrophils # (Auto) 23.0 H 1.8-7.7 K/uL Lymphocytes # (Auto) 0.8 L 1.0-4.8 K/uL Monocytes # (Auto) 0.8 0.1-1.0 K/uL Eosinophils # (Auto) 0.01 0.00-0.70 K/uL Basophils # (Auto) 0.05 0.00-0.20 K/uL Absolute Immature Granulocyte (auto 0.26 0-1 K/uL Nucleated Red Blood Cells 0.0 0.0-0.19 % Sodium Level 132 L 136-145 mmol/L Potassium Level 4.0 3.5-5.1 mmol/L Chloride Level 95 L 101-111 mmol/L Carbon Dioxide Level 39 H 21-32 mmol/L Blood Urea Nitrogen 8 7-18 mg/dL Creatinine 0.4 L 0.5-1.3 mg/dL Glomerular Filtration Rate Calc 117 >90 mL/min Random Glucose 136 H 70-105 mg/dL Total Calcium 7.8 L 8.5-10.1 mg/dL Total Bilirubin 0.6 0.2-1.0 mg/dL Aspartate Amino Transf (AST/SGOT) 85 H 10-37 U/L Alanine Aminotransferase (ALT/SGPT) 395 #H 12-78 U/L Alkaline Phosphatase 103 50-136 U/L B-Type Natriuretic Peptide 194 H 0-100 pg/mL Total Protein 4.4 L 6.0-8.3 g/dL Albumin 1.8 L 3.5-5.0 g/dL Magnesium Level 1.90 1.80-2.40 mg/dL Total Creatine Kinase 154 # 21-232 U/L Hepatitis A IgM Antibody Non-Reactive Nonreactive Hepatitis B Surface Antigen. Non-Reactive Nonreactive Hepatitis B Core IgM Antibody Non-Reactive Negative Hepatitis C Antibody Reactive H Nonreactive Whole Blood Glucose 201 H 70-110 MG/DL Current Medications Medications (Trade) Dose Ordered Sig/Suni Route PRN Reason Start Time Stop Time Status Last Admin Dose Admin Acetaminophen (TYLenol 500MG TAB) 500 mg Q6H PRN PO MILD PAIN (1-3) 07/28/24 17:00 08/27/24 16:59 Albumin Human 100 ml @ 0 mls/hr AD IV 07/29/24 00:00 08/01/24 08:05 DC 07/29/24 00:36 100 MLS/HR Albuterol (DUOneb) 1 UDVIAL [id number] 07/28/24 18:00 07/29/24 06:56 DC 07/28/24 22:59 1 UDVIAL Albuterol Sulfate (Proventil 0.083% 2.5mg/3ml) 2.5MG [id number] IH 07/29/24 06:00 08/28/24 05:59 08/01/24 14:11 2.5 MG Aspirin (Aspirin 81mg Ec Tab) 81 mg DAILY PO 07/31/24 09:00 08/30/24 08:59 08/01/24 10:13 81 MG Atorvastatin Calcium (LIPItor 40MG) 40 mg HS PO 07/28/24 23:55 07/29/24 11:02 DC 07/29/24 00:23 40 MG Budesonide (Pulmicort 0.25mg/2ml) 0.25 mg BIDRESP IH 07/28/24 18:00 07/29/24 05:56 DC 07/28/24 22:59 0.25 MG Budesonide (Pulmicort 0.5 Mg/2ml) 0.5 mg BIDRESP IH 07/29/24 06:00 08/28/24 05:59 08/01/24 06:19 0.5 MG Cefepime HCl (MAXipime 1 GM vial) 1 gm Q8H IVPB 07/28/24 21:00 07/29/24 10:47 DC 07/29/24 06:45 1 GM Chlordiazepoxide HCl (LIBrium 25 MG CAP) 25 mg Q2H PRN PO ALCOHOL WITHDRAWAL PROTOCOL 07/31/24 17:00 08/07/24 16:59 08/01/24 14:57 25 MG Chlordiazepoxide HCl (LIBrium 25 MG CAP) 50 mg Q1H PRN PO ALCOHOL WITHDRAWAL PROTOCOL 07/31/24 17:00 08/07/24 16:59 Enoxaparin Sodium (Lovenox (Pharmacy To Dose)) 1 unit DAILY SQ 07/31/24 09:00 07/30/24 21:31 DC Enoxaparin Sodium (Lovenox 80mg) 70 mg BID SQ 07/31/24 09:00 08/30/24 08:59 08/01/24 10:15 70 MG Enoxaparin Sodium (Lovenox 80mg) 70 mg Q24H SQ 07/31/24 09:00 07/31/24 07:57 DC Enoxaparin Sodium (Lovenox 80mg) 70 mg Q24H SQ 07/30/24 22:00 07/30/24 21:34 DC Furosemide (LASix 20MG TAB) 20 mg DAILY PO 07/31/24 09:00 08/01/24 11:06 DC 08/01/24 10:14 20 MG Furosemide (LASix 40MG TAB) 40 mg DAILY PO 08/02/24 09:00 09/01/24 08:59 Magnesium Sulfate 50 ml @ 0 mls/hr PROTOCOL PRN IV HYPOMAGNESEMIA 07/28/24 17:00 08/27/24 16:59 07/30/24 07:56 25 MLS/HR Meropenem 1 gm/ Sodium Chloride 100 ml @ 33.333 mls/ hr Q8H IVPB 07/29/24 11:00 08/08/24 10:59 08/01/24 13:24 33.333 MLS/HR Methylprednisolone Sodium Succinate (Solu-medROL 40MG) 20 mg Q12H IVP 08/01/24 05:00 08/01/24 12:24 DC 08/01/24 05:40 20 MG Methylprednisolone Sodium Succinate (Solu-medROL 40MG) 40 mg Q12H IVP 07/30/24 17:00 07/31/24 23:45 DC 07/31/24 16:58 40 MG Methylprednisolone Sodium Succinate (Solu-medROL 40MG) 40 mg Q8H IVP 07/28/24 21:00 07/30/24 12:21 DC 07/30/24 05:53 40 MG Midodrine (PROAMatine 5 MG TABLET) 10 mg TID PO 07/28/24 23:50 08/27/24 23:49 08/01/24 13:24 10 MG Montelukast Sodium (SinguLAIR) 10 mg DAILY PO 08/01/24 09:00 08/31/24 08:59 08/01/24 10:13 10 MG Norepinephrine 250 ml @ 0 mls/hr AD PRN IV DIRECTED 07/29/24 02:30 07/30/24 12:21 DC 07/29/24 02:39 24.67 MLS/HR Pantoprazole Sodium (PROTonix 40MG INJ) 40 mg BID IVP 07/28/24 21:00 08/27/24 20:59 08/01/24 10:14 40 MG Pharmacy Profile Note (Lace Assessment) 1 each AD MISC 07/29/24 12:00 08/01/24 06:21 DC Pharmacy Profile Note (Pharmacy Communication) 1 each PROTOCOL PRN MISC ETOH Withdrawal Score changes 07/31/24 17:00 08/07/24 16:59 Potassium Chloride 100 ml @ 50 mls/hr AD PRN IV POTASSIUM PROTOCOL 07/28/24 15:30 07/28/24 15:44 DC Potassium Chloride 100 ml @ 100 mls/hr AD PRN IV POTASSIUM PROTOCOL 07/28/24 17:00 08/27/24 16:59 Potassium Chloride (K-Dur/Klor-Con 20meq) 20 meq AD PRN PO POTASSIUM PROTOCOL 07/28/24 17:00 08/27/24 16:59 Potassium Chloride (KCl 10% Elixir 20meq/15ml) 20 meq AD PRN PO POTASSIUM PROTOCOL 07/28/24 17:00 08/27/24 16:59 07/30/24 11:53 20 MEQ Prednisone (deltaSONE/ oraSONE 20MG TAB) 20 mg BID PO 08/01/24 21:00 08/06/24 20:59 Sodium Chloride 1,000 ml @ 50 mls/hr Q20H IV 07/28/24 17:00 07/30/24 00:01 DC 07/29/24 08:08 125 MLS/HR Vancomycin HCl (Vancomycin 750mg) 750 mg Q8H IVPB 07/29/24 01:00 07/29/24 02:45 DC Vancomycin HCl (Vancomycin 750mg) 750 mg Q8H IVPB 07/29/24 06:30 07/29/24 06:44 DC Vancomycin HCl (Vancomycin 750mg) 750 mg Q8H IVPB 07/29/24 08:30 08/08/24 08:29 08/01/24 10:13 750 MG Vancomycin HCl (Vancomycin Protocol) 1 each AD IV 07/28/24 17:00 08/11/24 16:59 DIAGNOSTICS / RADIOLOGY: [ ] ASSESSMENT: Sepsis POA Acute on chronic COPD exacerbation Acute hypoxic respiratory failure secondary to COPD exacerbation and CAP Community acquired Pneumonia POA Fall Severe hypokalemia Rhabdomyolysis History of drug use History of noncompliance Poor venous access Anterior chest wall rash Partially occlusive DVT proximal left superficial femoral vein PLAN: -Continue PCCU -Continue BiPAP alternating with supplemental oxygen via nasal cannula as needed -cardiology input noted and appreciated, elevated troponin likely type 2 in setting of rhabdomyolysis and sepsis. -CT chest with and without contrast no evidence of filling defect to suggest pulmonary emboli. Small bilateral effusion mild bilateral pulmonary COPD with a interstitial fibrosis. -Doppler of the lower extremity shows partially occlusive DVT proximal left superficial femoral vein -continue the patient on broad-spectrum IV antibiotics, blood culture so far negative -in reference to COPD exacerbation. Continue the patient on BiPAP, Pulmonary input noted and appreciated, continue DuoNeb, continue to follow chest x-ray as well as ABG. -obtain PT evaluation -ID recommending placement for fpc antibiotics -replace electrolytes IV per protocol -a.m. labs -GI and DVT prophylaxis Disposition: Pending SNF placement, ID recommendations DENI AU MD Aug 01, 2024 15:14
[2024-08-01] MEDS: predniSONE 20 MG TABLET PO SCH (21:03)
[2024-08-02] VITALS (14 sets, daily range): BP systolic 102–137; BP diastolic 54–75; PULSE 70–120; RESP 16–21; TEMP 97.3–98.7; O2SAT 94–98
--- NOTE | 2024-08-02 03:31 | PN ---
DATE OF SERVICE: 07/31/2024 INFECTIOUS DISEASE FOLLOWUP NOTE SUBJECTIVE: The patient is seen and examined at bedside today. The patient has no fever, no chills. No nausea, vomiting. No sore throat or rhinorrhea. No bleeding tendencies. The patient has been transferred out of ICU. No depression. No suicidal ideation. No heat or cold intolerance. No dysuria or hematuria. PHYSICAL EXAMINATION: VITAL SIGNS: Temperature 97.7. EYES: No icterus. Pupils are equal and reactive. HENT: No oral thrush seen. Moist oral mucosa. NECK: Supple. No JVD or thyromegaly. LUNGS: Good air entry. No rales. No rhonchi. CARDIOVASCULAR: S1, S2 regular. No murmur heard. ABDOMEN: Full. Soft. Nontender. Bowel sounds are present. CENTRAL NERVOUS SYSTEM: Awake, alert, oriented x 3. No focal deficits. SKIN: No rashes. The patient has redness involving the chest wall. LYMPHATIC: No peripheral lymphadenopathy. BACK: No deformity. No pressure ulcer. HEMATOLOGIC: No bleeding or petechial lesions seen. ASSESSMENT: A 69-year-old male with multiple problems which include: * Septic shock. * Polysubstance abuse. * Pneumonia. * Renal failure. * Hypoxic respiratory failure. * Heroin abuse. PLAN: * Continue meropenem. * Continue vancomycin. * Follow up cultures. * Continue pain management. * Continue antidiabetic. * Monitor electrolytes. TID: [id number] RECEIPT: [id number]
[2024-08-02 05:52] LABS: BASOPHILS # (AUTO) 0.02 K/uL (0.00-0.20); BASOPHILS % (AUTO) 0.1 % (0.0-5.0); HEMATOCRIT 36.4 % (42-54); IMMATURE GRANULOCYTE ABSOLUTE 0.18 K/uL (0-1); LYMPHOCYTES # (AUTO) 0.8 K/uL (1.0-4.8); LYMPHOCYTES % (AUTO) 4.1 % (21.0-51.0); MEAN CORPUSCULAR HEMOGLOBIN 27.2 pg (27.0-33.0); MEAN CORPUSCULAR HGB CONC 31.9 g/dL (32.0-36.0); MEAN CORPUSCULAR VOLUME 85.4 fL (79-99); MONOCYTES # (AUTO) 0.5 K/uL (0.1-1.0); MONOCYTES % (AUTO) 2.7 % (3.0-13.0); NEUTROPHILS # (AUTO) 18.2 K/uL (1.8-7.7); NEUTROPHILS % (AUTO) 92.2 % (40.0-77.0); PLATELET COUNT (AUTO) 163 K/uL (130-400); RED BLOOD CELL COUNT(AUTO) 4.26 MIL/uL (4.50-6.20); RED CELL DISTRIBUTION WIDTH 20.1 % (11.0-15.5); WHITE BLOOD COUNT (AUTO) 19.7 K/uL (4.8-10.8)
[2024-08-02 06:14] LABS: ALBUMIN 1.8 g/dL (3.5-5.0); BILIRUBIN,TOTAL 0.5 mg/dL (0.2-1.0); CREATININE 0.4 mg/dL (0.5-1.3); POTASSIUM 3.6 mmol/L (3.5-5.1); TOTAL PROTEIN, SERUM 4.4 g/dL (6.0-8.3)
[2024-08-02 06:18] LABS: B-TYPE NATRIURETIC PEPTIDE 105 pg/mL (0-100)
[2024-08-02] MEDS: PoTASSium chloRIDE 20MEQ ER 20 MEQ ERTAB PO PRN (06:37)
[2024-08-02] MEDS: furoSEMIDE 40 MG TABLET PO SCH (08:46)
--- NOTE | 2024-08-02 09:53 | HMCIMG ---
CHEST 1VW REASON: hjpoxia COMPARISON: 08/01/2024 FINDINGS: There are bibasilar infiltrates which are unchanged to somewhat improved. Heart size is normal. Upper lungs are clear. Mediastinum and bony thorax appear unremarkable. IMPRESSION: 1. Bilateral lower lobe infiltrates stable to somewhat improved.
--- NOTE | 2024-08-02 10:46 | PN ---
[facility] PROGRESS NOTE Date Patient Seen: Aug 02, 2024 Time of Visit: 10:40 Supervising Physician: [Dr. Powell] Feeling myocardial Consulting Physician: Dr Espitia Outpatient Specialists: [ ] Inpatient Consults: Cardiology PROBLEM LIST: Acute Hypoxic respiratory failure, POA Suspected aspiration pneumonia right lower lobe POA Bilateral small pleural effusions, POA no thoracentesis indicated at this time Elevated D-dimer, PE ruled out, + DVT left femoral vein COPD in acute exacerbation, POA Severe sepsis, POA NSTEMI, POA Rhabdomyolysis, POA resolved Hypokalemia, POA Hypomagnesemia, POA Anasarca, POA left inguinal hernia Ventral hernia with bowel contents via midline bilaterally. LVEF 50-55% on 2D echo 07/29/24 Pericholecystic fluid seen on ultrasound 07/29/24 Liver parenchyma disease, POA INTERVAL HISTORY: 07/29-patient is lethargic but easily arousable and oriented x3. He has been hem odynamically stable with a blood pressure 111/62 heart rate in the 80s respiratory rate of 19 saturating 98% with 60% FiO2 on BiPAP. He has been afebrile since admission. On laboratory WBCs are 25.6 H&H is 11.5/36.1 platelet count is [id number] with neutrophils 92.8. Sodium 140 potassium 3.1 chloride 95 carbon dioxide 39 BUN 23 creatinine of 0.5 with a GFR of 109 glucose of 120 mg/d L lactic acid 1.7 total calcium was 8.3 total bili 1.3 AST 796. Sensitive troponin 564, 465, 396. Trending down. CK is now 342 improved from previous which is 1062. On chest x-ray right lower lobe pneumonia suspicious for aspiration. Patient is pending speech eval and MBSS. 07/30-patient was weaned off BiPAP saturating 95% with 3.5 L via nasal cannula hemodynamically stable off pressors afebrile. No major overnight events. Pt passed MBSS w/ recommendations: Recommend mechanical soft/ground solids, thin liquids and pills crushed with pureed. WBCs 29.2 likely increased from steroid H&H 11.7/37 platelet count a [id number]. Sodium 132 potassium three chloride 92 carbon dioxide 37 BUN 16 creatinine 0.6 with a GFR 103 glucose 183 mg/dL total calcium 7.9 80s 284 ALT 656 liver enzymes trending down total CK 342 total protein 4.6 albumin 1.8. Ultrasound Doppler ordered. NO CT evidence of pulmonary embolism seen. Small bilateral pleural effusions and mild bilateral pulmonary COPD with interstitial fibrosis. Pleural effusion with no indication for thoracentesis at this time. 07/31-patient is awake alert and oriented x3 in no apparent distress. However does report generalized body weakness and fatigue. O2 sat 97% with 4 L via nasal cannula hemodynamically stable heart rate in the 80s sinus rhythm. Afebrile in the last 24 hours. WBCs 29 . H&H is 10.9/33.4 with a platelet count of 846937. Sodium is 130 chloride 93 carbon dioxide 37 with a BUN 12 creatinine 0.4 GFR over 117 glucose 156 mg/dL liver enzymes trending down total bili 0.7 AST 176 ALT 413 total protein 4.3 albumin 1.7. Blood cultures with no growth x3 days. Respiratory culture pending. 08/01 blood pressure is 120/75 with a heart rate of 104, afebrile. Patient is hypoxic on 4 L supplemental oxygen. He continues on DuoNebs, Singulair, prednisone, Pulmicort and antibiotics. He has about 1550 mL of urine output overnight, continues diuretics per Cardiology. Lasix was increased to 40 mg p.o. daily. 08/02-patient is awake alert and oriented x3 saturating 94% on 3 L via nasal cannula weaning down hemodynamically stable afebrile. Patient for degree urine output. WBCs 25 trending down H&H 11.2 with 34.8 with a platelet count of [id number]. Sodium 132 chloride 95 carbon dioxide 39 BUN eight creatinine 0.8 with a GFR of 117 glucose 136 mg/dL total calcium 7.8 liver enzymes continue trending down. BNP 194 improving. Albumin 1.8 blood cultures growing Gram-negative rods. Patient continues on meropenem and vanco. On chest x-ray patient with in creased pulmonary vascular congestion. Furosemide 20 mg daily increased to 40 mg p.o. daily. His repeat CXR today shows interval improvement. He passed MBSS and is on recommended diet. Blood cultures are positive for Gram-negative rods 1/2. Pending urine and sputum cultures. Continues on vancomycin and meropenem per ID. Patient has positive hepatitis-C antibody, pending RNA quantitative value. His LFTs remain elevated but currently downtrending. Continues with productive cough. He is feeling weak and deconditioned. REVIEW OF SYSTEMS: General: No malaise or fever. Neurological: No fainting episodes or seizures. HEENT: No nasal congestion or nasal secretion. Respiratory: Yes for cough, shortness of breath. Cardiac: No chest pain or palpitations. Gastrointestinal: No vomiting or diarrhea. Genitourinary: No dysuria hematuria. Skin: No rashes or lesions. Hematological: No bruises or bleeding. Musculoskeletal: No joint pains or arthralgias. Psychiatric: No depression or panic attacks. PHYSICAL EXAM: GENERAL: Awake alert and oriented x3. HEENT: EOMI, Sclera non icteric, moist mucosa NECK: Supple, no JVD, trachea midline LUNGS: Coarse rhonchi Bilateral lung sounds HEART: Regular rate and rhythm. Normal S1 and S2, without murmurs ABD: Abdomen soft, nontender. Bowel sounds present EXT: No clubbing cyanosis; bilateral lower extremity edema NEURO: Awake alert and oriented x3 no focal weakness. Vital Signs (last 8hr) Date Time Temp Pulse Resp B/P (MAP) Pulse Ox O2 Delivery O2 Flow Rate FiO2 08/02/24 10:20 97 19 08/02/24 10:19 97 21 N/Cannula Low lpm 4.0 36 08/02/24 08:00 98.1 104 20 120/75 94 Room Air 21 08/02/24 07:17 90 21 N/Cannula Low lpm 4.0 36 08/02/24 07:17 90 19 08/02/24 04:00 98.6 80 16 109/54 96 Nasal Cannula 3.0 LABS: Hematology Labs: Test 08/02/24 05:37 Range/Units White Blood Count 19.7 H 4.8-10.8 K/uL Red Blood Count 4.26 L 4.50-6.20 MIL/uL Hemoglobin 11.6 L 14.0-18.0 g/dL Hematocrit 36.4 L 42-54 % Mean Corpuscular Volume 85.4 79-99 fL Mean Corpuscular Hemoglobin 27.2 27.0-33.0 pg Mean Corpuscular Hemoglobin Concent 31.9 L 32.0-36.0 g/dL Red Cell Distribution Width 20.1 H 11.0-15.5 % Platelet Count 163 130-400 K/uL Mean Platelet Volume 10.1 7.5-10.5 fL Immature Granulocyte % (Auto) 0.9 0-1 % Neutrophils (%) (Auto) 92.2 H 40.0-77.0 % Lymphocytes (%) (Auto) 4.1 L 21.0-51.0 % Monocytes (%) (Auto) 2.7 L 3.0-13.0 % Eosinophils (%) (Auto) 0.0 0.0-8.0 % Basophils (%) (Auto) 0.1 0.0-5.0 % Neutrophils # (Auto) 18.2 H 1.8-7.7 K/uL Lymphocytes # (Auto) 0.8 L 1.0-4.8 K/uL Monocytes # (Auto) 0.5 0.1-1.0 K/uL Eosinophils # (Auto) 0.00 0.00-0.70 K/uL Basophils # (Auto) 0.02 0.00-0.20 K/uL Absolute Immature Granulocyte (auto 0.18 0-1 K/uL Nucleated Red Blood Cells 0.0 0.0-0.19 % Chemistry Labs: Test 08/02/24 05:37 Range/Units Sodium Level 141 136-145 mmol/L Potassium Level 3.6 3.5-5.1 mmol/L Chloride Level 101 101-111 mmol/L Carbon Dioxide Level 37 H 21-32 mmol/L Blood Urea Nitrogen 6 L 7-18 mg/dL Creatinine 0.4 L 0.5-1.3 mg/dL Glomerular Filtration Rate Calc 117 >90 mL/min Random Glucose 127 H 70-105 mg/dL Total Calcium 7.8 L 8.5-10.1 mg/dL Total Bilirubin 0.5 0.2-1.0 mg/dL Aspartate Amino Transf (AST/SGOT) 51 H 10-37 U/L Alanine Aminotransferase (ALT/SGPT) 283 H 12-78 U/L Alkaline Phosphatase 101 50-136 U/L B-Type Natriuretic Peptide 105 H 0-100 pg/mL Total Protein 4.4 L 6.0-8.3 g/dL Albumin 1.8 L 3.5-5.0 g/dL DIAGNOSTICS / RADIOLOGY RESULTS: CHEST 1VW REASON: hjpoxia COMPARISON: 08/01/2024 FINDINGS: There are bibasilar infiltrates which are unchanged to somewhat improved. Heart size is normal. Upper lungs are clear. Mediastinum and bony thorax appear unremarkable. IMPRESSION: 1. Bilateral lower lobe infiltrates stable to somewhat improved. PLAN For DVT full-dose Lovenox 1 milligram/kilogram b.i.d. Monitor for bleeding If no bleeding change Lovenox to Eliquis Follow urine and respiratory culture Pending Hep-C RNA quantitative Wean steroids Deescalate antibiotics per culture Monitor liver enzymes Continue with nebulizer [place] Singulair 10 mg daily Wean O2 off as tolerated Continue with bullous made 40 mg p.o. daily as increased per Cardiology. Extensively counseled of importance to stop using drugs. Patient verbalized understanding. NEURO: Minimize central acting medications as possible. Maintain fall precautions, adequate lighting during the day PULMONARY: Supplemental 02 as needed. Maintain aspiration precautions at all times CARDIOVASCULAR: Follow hemodynamics. Vital signs per facility protocol GI & NUTRITION: Continue with nutritional support. Continue stool softeners and laxatives as needed. KIDNEYS & ELECTROLYTES: Strict monitoring of intake, output and overall fluid balance. Avoid nephrotoxic medications to the extent possible. Medications to be dosed according to renal function. Monitor electrolytes and replace as needed ENDOCRINE: Maintain blood glucose between 100-180 at all times. Hypoglycemia protocol in place INFECTIOUS DISEASE: Trend temperature, WBC and procalcitonin level Follow cultures, deescalate antibiotics as soon as possible. Panculture if new onset fever ONCOLOGY/HEMATOLOGY/COAGULATION: Monitor for s/s of bleeding Monitor hemoglobin, coagulation studies as needed SKIN: Pressure ulcer prevention per facility protocol Specialty mattress ORTHO/REHAB: Continue PT/OT Prophylaxis: Continue GI and DVT prophylaxis Code Status: Full Resuscitation Disposition: TBD Other: Total patient care time exceeds 35 minutes excluding all procedures. FAITH HERNÁNDEZ Aug 02, 2024 10:46
[2024-08-02 14:00] LABS: ADD UA MICROSCOPIC NO; APPEARANCE,URINE CLEAR (CLEAR); BILIRUBIN,URINE NEGATIVE (NEGATIVE); COLOR,URINE COLORLESS (YELLOW); GLUCOSE, URINE (UA) NEGATIVE (NEGATIVE); KETONES,URINE NEGATIVE (NEGATIVE); LEUKOCYTE ESTERASE ,URINE NEGATIVE Leu/uL (NEGATIVE); NITRATE,URINE NEGATIVE (NEGATIVE); OCCULT BLOOD,URINE NEGATIVE (NEGATIVE); PH,URINE 7.5 (5.0-8.0); PROTEIN,URINE NEGATIVE (NEGATIVE); UROBILINOGEN,URINE 0.2 mg/dL (0.2-1.0)
--- NOTE | 2024-08-02 15:22 | PN ---
INFECTIOUS DISEASE PROGRESS NOTE Date of Service: Aug 02, 2024 SUBJECTIVE: Patient was seen and examined at bedside in room 318. Patient is awake, alert and able to answer questions adequately. Patient is sitting up to the bedside chair. Continues on oxygen support via nasal cannula now at 3 liters/minute. No fever, temperature is 98.8 and a slight trending down of the WBC to 19.7. Continues on Solu-Medrol IV q.12. Will continues on meropenem and vancomycin IV. We will continue to monitor patient. PHYSICAL EXAM EYES: Anicteric. Pupils equal and reactive. HENT: No oral thrush seen, moist Oral mucosa NECK: Supple, no JVD or thyromegaly. CHEST: Skin popping scars. LUNGS: Oxygen via nasal cannula at 4 liters/minute. CARDIOVASCULAR: S1, S2 regular. No murmur heard. ABDOMEN: Soft, non tender, bowel sounds present, no organomegaly. CENTRAL NERVOUS SYSTEM: awake, alert oriented x2. SKIN: No rashes, no swelling. LYMPHATICS: No peripheral lymphadenopathy. MUSCULOSKELETAL: No joint swelling, erythema or tenderness. EXTREMITIES: No cyanosis or clubbing. Skin popping scars on lower extremities. BACK: No deformity, no pressure ulcer. GENITOURINARY: No dysuria or hematuria. Vital Sign (Last 12 Hours) 08/02/24 08/02/24 08/02/24 08/02/24 04:00 07:17 07:17 08:00 Temp 98.6 98.1 Pulse 80 90 90 104 Resp 16 19 21 20 B/P (MAP) 109/54 120/75 Pulse Ox 96 94 O2 Delivery Nasal Cannula N/Cannula Low lpm Room Air O2 Flow Rate 3.0 4.0 FiO2 36 21 08/02/24 08/02/24 08/02/24 08/02/24 10:19 10:20 12:00 14:14 Temp 98.8 Pulse 97 97 110 81 Resp 21 19 18 21 B/P (MAP) 102/69 Pulse Ox 96 O2 Delivery N/Cannula Low lpm Room Air N/Cannula Low lpm O2 Flow Rate 4.0 3.0 FiO2 36 21 32 08/02/24 14:15 Pulse 81 Resp 19 Intake & Output (last 24hrs) 08/01/24 08/01/24 08/02/24 15:00 23:00 07:00 Intake Total 700.0 ml 600.0 ml 350.0 ml Output Total 525 ml 625 ml 400 ml Balance 175.0 ml -25.0 ml -50.0 ml LABS: Laboratory: Test 08/02/24 12:48 08/02/24 05:37 08/01/24 07:57 Range/Units Urine Color COLORLESS YELLOW Urine Appearance CLEAR CLEAR Urine pH 7.5 5.0-8.0 Urine Specific [place] 1.004 1.001-1.031 Urine Protein NEGATIVE NEGATIVE mg/dL Urine Glucose (UA) NEGATIVE NEGATIVE mg/dL Urine Ketones NEGATIVE NEGATIVE mg/dL Urine Occult Blood NEGATIVE NEGATIVE Urine Nitrate NEGATIVE NEGATIVE Urine Bilirubin NEGATIVE NEGATIVE mg/dL Urine Urobilinogen 0.2 0.2-1.0 mg/dL Urine Leukocyte Esterase NEGATIVE NEGATIVE Tamir/uL White Blood Count 19.7 H 4.8-10.8 K/uL Red Blood Count 4.26 L 4.50-6.20 MIL/uL Hemoglobin 11.6 L 14.0-18.0 g/dL Hematocrit 36.4 L 42-54 % Mean Corpuscular Volume 85.4 79-99 fL Mean Corpuscular Hemoglobin 27.2 27.0-33.0 pg Mean Corpuscular Hemoglobin Concent 31.9 L 32.0-36.0 g/dL Red Cell Distribution Width 20.1 H 11.0-15.5 % Platelet Count 163 130-400 K/uL Mean Platelet Volume 10.1 7.5-10.5 fL Immature Granulocyte % (Auto) 0.9 0-1 % Neutrophils (%) (Auto) 92.2 H 40.0-77.0 % Lymphocytes (%) (Auto) 4.1 L 21.0-51.0 % Monocytes (%) (Auto) 2.7 L 3.0-13.0 % Eosinophils (%) (Auto) 0.0 0.0-8.0 % Basophils (%) (Auto) 0.1 0.0-5.0 % Neutrophils # (Auto) 18.2 H 1.8-7.7 K/uL Lymphocytes # (Auto) 0.8 L 1.0-4.8 K/uL Monocytes # (Auto) 0.5 0.1-1.0 K/uL Eosinophils # (Auto) 0.00 0.00-0.70 K/uL Basophils # (Auto) 0.02 0.00-0.20 K/uL Absolute Immature Granulocyte (auto 0.18 0-1 K/uL Nucleated Red Blood Cells 0.0 0.0-0.19 % Sodium Level 141 136-145 mmol/L Potassium Level 3.6 3.5-5.1 mmol/L Chloride Level 101 101-111 mmol/L Carbon Dioxide Level 37 H 21-32 mmol/L Blood Urea Nitrogen 6 L 7-18 mg/dL Creatinine 0.4 L 0.5-1.3 mg/dL Glomerular Filtration Rate Calc 117 >90 mL/min Random Glucose 127 H 70-105 mg/dL Total Calcium 7.8 L 8.5-10.1 mg/dL Total Bilirubin 0.5 0.2-1.0 mg/dL Aspartate Amino Transf (AST/SGOT) 51 H 10-37 U/L Alanine Aminotransferase (ALT/SGPT) 283 H 12-78 U/L Alkaline Phosphatase 101 50-136 U/L B-Type Natriuretic Peptide 105 H 0-100 pg/mL Total Protein 4.4 L 6.0-8.3 g/dL Albumin 1.8 L 3.5-5.0 g/dL Vancomycin Level Trough 15.0 10.0-20.0 UG/ML ASSESSMENT: Hypoxic respiratory failure, requiring oxygen. Pneumonia. Sepsis. Chronic obstructive pulmonary disease exacerbation. Elevated liver enzymes. Rhabdomyolysis. Leukocytosis, on Steroids. Cocaine abuse. PLAN: Continue vancomycin per pharmacy protocol. Continue on meropenem. Continue GI prophylaxis. Will Follow up cultures. Continue bronchodilator. Continue oxygen support. Continue physical therapy. Will Monitor electrolytes. Patient has been referred to [facility]. Pending Psychiatrist evaluation. This case was reviewed and discussed with my supervising physician and the above assessment and plan was formulated and agreed upon. ATTESTATION BY PHYSICIAN I have seen and examined the patient. I reviewed the documentation, medical decision making, and treatment plan as noted by the mid-level provider above. I agree with the findings and plan of care. ARMAND LOPEZ MD, [facility] Aug 02, 2024 15:22
--- NOTE | 2024-08-02 16:18 | PN ---
Reason for consult: Elevated troponin HPI/story at presentation: This is a pleasant 69-year-old male with past medical history as per present with complaints of altered mental status, fall, was found to have elevated troponins in the setting of possible rhabdomyolysis sepsis electrolyte abnormalities. Cardiology was consulted for further evaluation and management. Subjective: 07/28/2024 altered mental status 07/29/2024 AMS 07/30/2024 AMS 07/31/2024 on bipap 08/01/2024 AMS improved 08/02/2024 no compaints Past medical history: See below Allergies, Meds See chart Review of systems Not obtained, altered mental status Vitals see chart PHYSICAL EXAMINATION GENERAL: The patient is alert and oriented*3 HEENT: Nonicteric sclerae, non traumatic HEART: Regular rate and rhythm with no murmurs LUNGS: Clear to auscultation bilaterally ABDOMEN: No acute issues, non tender GENITAL, RECTAL: deferred SKIN: No rash NEUROLOGIC: NFND EXTREMITIES: No edema ASSESSMENT ELEVATED TROPONIN Likely type II in setting of rhabdomyolysis, sepsis Setting of fall In the setting of substance use Trending down BACTEREMIA gram negative, 07/2024 CHF with pleural effusions and congestion 08/01/2024 RHABDOMYOLYSIS RESPIRATORY FAILURE In the setting of community-acquired pneumonia, COPD ELECTROLYTE ABNORMALITIES Hypokalemia hypomagnesemia at presentation OTHER MEDICAL PROBLEMS Previous history of left inguinal hernia PLAN 07/28/2024 troponin relation at this time is thought to be type II in setting of sepsis rhabdomyolysis etc. For now, will manage conservatively. Will get an echocardiogram to assess EF and if this is normal, no further cardiac evaluation is immediately warranted 07/29/2024 Remains confused, remains in the ICU. Unable to get a history. Respiratory failure and aspiration pneumonia being addressed by ICU team. Troponins trended down yesterday as above. No plans for anticoagulation as above. On midodrine for blood pressure support along with steroids. Pressures are borderline in spite of midodrine. 07/30/24 remains confused on bipap, lytes being replaced, echo with RV dilation and dysfunction, likely related to underlying pulmonary issues, will evaluate with CT, bilateral chronic skin induration of the lower extremities. liver function improving, renal function stable 07/31/2024 Mental status is better compared to yesterday. CT scan from yesterday with evidence of interstitial scarring which likely is the source of RV dysfunction. Remains on BiPAP. Appreciate Infectious Disease managing antibiotics. Patient did have a partially occlusive DVT noted on lower extremity venous Doppler and is currently on Lovenox, however, this is currently daily and will likely need to be switched to b.i.d in the setting of normal renal function.. Was on steroids to help with pulmonary situation and midodrine for blood pressure support. Blood pressures remain borderline in spite of midodrine. 08/01/2024 Resting comfortably, remains on facemask. Mental status is better. However, x-ray with worsening congestion, currently on full dose Lovenox, Lasix 20 daily, midodrine steroids. Ongoing hypochloremic alkalosis as well. will watch for need for acetazolamide. Will give a dose of IV Lasix today and increase oral to 40. 08/02/2024 Doing well, no active cardiac complaints at this time. Volume status is better after diuresis yesterday. Breathing better. Appears to be more comfortable. Got higher dose of Lasix this morning that was ordered yesterday. Blood cultures are positive now for gram-negative rods. Further evaluation is ongoing. Count is elevated, likely in the setting of bacteremia. Currently on Lasix 40 full dose Lovenox aspirin midodrine 10 3 times daily ATTESTATION I was involved substantially in the care of this patient Number and complexity of problems addressed: 1 acute illness with systemic features. Amount and or complexity of data Review of prior external note(s) from each unique source: 2+ Ordering of each unique test : 0 Review of the result(s) of each unique test: 2+ Assessment requiring an independent historian(s): No Independent interpretation of test performed by another MD/QHCP/appropriate source (not separately reported) : No Discussion of management or test interpretation with external MD/QHCP/appropriate source (not separately reported) : No Risk status (cardiac, billing related): Moderate Vitals/Labs Vital Signs Date Time Temp Pulse Resp B/P (MAP) Pulse Ox O2 Delivery O2 Flow Rate FiO2 08/02/24 14:15 81 19 08/02/24 14:14 N/Cannula Low lpm 3.0 32 08/02/24 12:00 98.8 102/69 96 Laboratory Tests 08/02/24 05:37 Medications Current Medications Albuterol Sulfate 10 mg ONCE ONCE IH Last administered on 07/28/24at 13:43; Start 07/28/24 at 13:30; Stop 07/28/24 at 13:31; Status DC Ipratropium [place] 0.5 mg ONCE ONCE IH Last administered on 07/28/24at 13:42; Start 07/28/24 at 13:30; Stop 07/28/24 at 13:31; Status DC Methylprednisolone Sodium Succinate 125 mg ONCE ONCE IVP Last administered on 07/28/24at 14:54; Start 07/28/24 at 13:30; Stop 07/28/24 at 13:31; Status DC Aspirin 325 mg ONCE ONCE PO Last administered on 07/28/24at 14:54; Start 07/28/24 at 13:30; Stop 07/28/24 at 13:31; Status DC Sodium Chloride 2,000 ml @ 0 mls/hr ONCE ONCE IV Last administered on 07/28/24at 15:15; Start 07/28/24 at 15:00; Stop 07/28/24 at 15:01; Status DC Vancomycin HCl 1 gm ONCE ONCE IV Last administered on 07/28/24at 16:43; Start 07/28/24 at 15:00; Stop 07/28/24 at 15:01; Status DC Piperacillin Sod/ Tazobactam Sod 3.375 gm ONCE ONCE IV Last administered on 07/28/24at 15:16; Start 07/28/24 at 15:00; Stop 07/28/24 at 15:01; Status DC Potassium Chloride 100 ml @ 50 mls/hr AD PRN IV; Start 07/28/24 at 15:30; Stop 07/28/24 at 15:44; Status DC Potassium Bicarbonate 25 meq ONCE ONCE PO Last administered on 07/28/24at 15:57; Start 07/28/24 at 16:00; Stop 07/28/24 at 16:01; Status DC Potassium Bicarbonate 25 meq STK-MED ONCE .ROUTE; Start 07/28/24 at 15:44; Stop 07/28/24 at 15:45; Status DC Potassium Bicarbonate 25 meq ONCE ONCE PO Last administered on 07/28/24at 16:55; Start 07/28/24 at 17:00; Stop 07/28/24 at 17:01; Status DC Potassium Chloride 100 ml @ 100 mls/hr AD PRN IV; Start 07/28/24 at 17:00; Stop 08/27/24 at 16:59 Potassium Chloride 20 meq AD PRN PO Last administered on 07/30/24at 11:53; Start 07/28/24 at 17:00; Stop 08/27/24 at 16:59 Potassium Chloride 20 meq AD PRN PO Last administered on 08/02/24at 06:37; Start 07/28/24 at 17:00; Stop 08/27/24 at 16:59 Magnesium Sulfate 50 ml @ 0 mls/hr PROTOCOL PRN IV Last administered on 07/30/24at 07:56; Start 07/28/24 at 17:00; Stop 08/27/24 at 16:59 Sodium Chloride 1,000 ml @ 50 mls/hr Q20H IV Last administered on 07/29/24at 08:08; Start 07/28/24 at 17:00; Stop 07/30/24 at 00:01; Status DC Albuterol 1 UDVIAL [id number] IH Last administered on 07/28/24at 22:59; Start 07/28/24 at 18:00; Stop 07/29/24 at 06:56; Status DC Acetaminophen 500 mg Q6H PRN PO; Start 07/28/24 at 17:00; Stop 08/27/24 at 16:59 Vancomycin HCl 1 each AD IV; Start 07/28/24 at 17:00; Stop 08/11/24 at 16:59 Cefepime HCl 1 gm Q8H IVPB Last administered on 07/29/24at 06:45; Start 07/28/24 at 21:00; Stop 07/29/24 at 10:47; Status DC Vancomycin HCl 750 mg ONCE ONCE IVPB Last administered on 07/28/24at 22:24; Start 07/28/24 at 17:30; Stop 07/28/24 at 17:31; Status DC Vancomycin HCl 750 mg Q8H IVPB; Start 07/29/24 at 01:00; Stop 07/29/24 at 02:45; Status DC Methylprednisolone Sodium Succinate 40 mg Q8H IVP Last administered on 07/30/24at 05:53; Start 07/28/24 at 21:00; Stop 07/30/24 at 12:21; Status DC Budesonide 0.25 mg BIDRESP IH Last administered on 07/28/24at 22:59; Start 07/28/24 at 18:00; Stop 07/29/24 at 05:56; Status DC Pantoprazole Sodium 40 mg BID IVP Last administered on 08/02/24at 08:44; Start 07/28/24 at 21:00; Stop 08/27/24 at 20:59 Midodrine 10 mg TID PO Last administered on 08/02/24at 15:05; Start 07/28/24 at 23:50; Stop 08/27/24 at 23:49 Atorvastatin Calcium 40 mg HS PO Last administered on 07/29/24at 00:23; Start 07/28/24 at 23:55; Stop 07/29/24 at 11:02; Status DC Albumin Human 100 ml @ 0 mls/hr AD IV Last administered on 07/29/24at 00:36; Start 07/29/24 at 00:00; Stop 08/01/24 at 08:05; Status DC Norepinephrine 250 ml @ 0 mls/hr AD PRN IV Last administered on 07/29/24at 02:39; Start 07/29/24 at 02:30; Stop 07/30/24 at 12:21; Status DC Vancomycin HCl 750 mg Q8H IVPB; Start 07/29/24 at 06:30; Stop 07/29/24 at 06:44; Status DC Albuterol Sulfate 2.5MG [id number] IH Last administered on 08/02/24at 14:12; Start 07/29/24 at 06:00; Stop 08/28/24 at 05:59 Budesonide 0.5 mg BIDRESP IH Last administered on 08/02/24at 07:15; Start 07/29/24 at 06:00; Stop 08/28/24 at 05:59 Vancomycin HCl 750 mg Q8H IVPB Last administered on 08/02/24at 08:45; Start 07/29/24 at 08:30; Stop 08/08/24 at 08:29 Meropenem 1 gm/ Sodium Chloride 100 ml @ 33.333 mls/ hr Q8H IVPB Last administered on 08/02/24at 11:37; Start 07/29/24 at 11:00; Stop 08/08/24 at 10:59 Pharmacy Profile Note 1 each AD MISC; Start 07/29/24 at 12:00; Stop 08/01/24 at 06:21; Status DC Potassium Chloride 100 ml @ 50 mls/hr ONCE ONCE IV Last administered on 07/30/24at 14:28; Start 07/30/24 at 11:30; Stop 07/30/24 at 13:29; Status DC Aspirin 81 mg DAILY PO Last administered on 08/02/24at 08:45; Start 07/31/24 at 09:00; Stop 08/30/24 at 08:59 Furosemide 20 mg DAILY PO Last administered on 08/01/24at 10:14; Start 07/31/24 at 09:00; Stop 08/01/24 at 11:06; Status DC Methylprednisolone Sodium Succinate 40 mg Q12H IVP Last administered on 07/31/24at 16:58; Start 07/30/24 at 17:00; Stop 07/31/24 at 23:45; Status DC Iohexol 35,000 mg STK-MED ONCE IV; Start 07/30/24 at 12:21; Stop 07/30/24 at 12:21; Status DC Enoxaparin Sodium 1 unit DAILY SQ; Start 07/31/24 at 09:00; Stop 07/30/24 at 21:31; Status DC Enoxaparin Sodium 70 mg Q24H SQ; Start 07/30/24 at 22:00; Stop 07/30/24 at 21:34; Status DC Enoxaparin Sodium 70 mg Q24H SQ; Start 07/31/24 at 09:00; Stop 07/31/24 at 07:57; Status DC Melatonin 5 mg ONCE ONCE PO Last administered on 07/30/24at 22:21; Start 07/30/24 at 22:30; Stop 07/30/24 at 22:31; Status DC Enoxaparin Sodium 70 mg BID SQ Last administered on 08/02/24at 08:49; Start 07/31/24 at 09:00; Stop 08/30/24 at 08:59 Chlordiazepoxide HCl 25 mg Q2H PRN PO Last administered on 08/02/24at 11:37; Start 07/31/24 at 17:00; Stop 08/07/24 at 16:59 Chlordiazepoxide HCl 50 mg Q1H PRN PO; Start 07/31/24 at 17:00; Stop 08/07/24 at 16:59 Pharmacy Profile Note 1 each PROTOCOL PRN MISC; Start 07/31/24 at 17:00; Stop 08/07/24 at 16:59 Methylprednisolone Sodium Succinate 20 mg Q12H IVP Last administered on 08/01/24at 05:40; Start 08/01/24 at 05:00; Stop 08/01/24 at 12:24; Status DC Montelukast Sodium 10 mg DAILY PO Last administered on 08/02/24at 08:47; Start 08/01/24 at 09:00; Stop 08/31/24 at 08:59 Furosemide 40 mg DAILY PO Last administered on 08/02/24at 08:46; Start 08/02/24 at 09:00; Stop 09/01/24 at 08:59 Furosemide 40 mg ONCE ONCE IV Last administered on 08/01/24at 13:24; Start 08/01/24 at 11:30; Stop 08/01/24 at 11:31; Status DC Prednisone 20 mg BID PO Last administered on 08/02/24at 08:46; Start 08/01/24 at 21:00; Stop 08/06/24 at 20:59 HILARIA THOMAS MD Aug 02, 2024 16:18
--- NOTE | 2024-08-02 16:44 | PN ---
[facility] PROGRESS NOTE Date of Service: Aug 02, 2024 Time of Service: 16:32 SUBJECTIVE: The patient has been seen and examined during my rounding, on BiPAP, 14/6, FiO2 60%, saturating 96-98%. Getting IV antibiotics, off Levophed. No chest pain, no shortness a breath, no nausea, no vomiting, no abdominal pain, family members at bedside during my visit, updated, all questions answered. Chest x-ray today showing mild right lung pulmonary infiltrates slightly increased from previous study. 07/30 the patient has been seen and examined during my rounding, comfortable, no acute events overnight, he is on BiPAP, 14/6 FiO2 60%, saturating 94-96%. He remains hemodynamically stable, following simple commands, still mildly confused, feels weak, denied chest pain, feels less short of breath, no nausea, no vomiting. He is off any drips, currently getting IV antibiotics during my visit. No family members at bedside. 07/31 the patient has been seen and examined during my rounding, comfortably in bed, tolerating BiPAP throughout the night, during my visit on supplemental oxygen via nasal cannula at 4 L, saturating no 100%. BP 112/62, afebrile, heart rate controlled and 91, he is alert, following commands, lives by himself, denied chest pain, no shortness on breath, minimal cough, no nausea, no vomiting, no abdominal pain, no family at bedside. 08/01 Pt seen at bedside, no acute events overnight. ID recommending SNF placement for long-term antibiotics. Pt with reported heroin use, no evidence of opiate withdrawal at this time, will continue to monitor. He is hemodynamically stable. WBC improved from 29 down to 25, platelets improved from 115 up to 136, sodium improved from 130 up to 132, LFT trending back to normal, remainder of his labs are relatively unremarkable. Cultures are no growth to date 08/02 Pt seen at bedside, no acute events overnight. Pt consintues on CIWA protocol requiring regular doses of librium. Blood cultures positive 1/2 gram negative rods. Continue with Vancomycin and meropenem. Vitals and labs relatively unremarkable. REVIEW OF SYSTEMS 12 point ROS negative unless noted in HPI PHYSICAL EXAM GENERAL APPEARANCE: Patient looks chronically ill, debilitated, on BiPAP. Mildly confused. NEUROLOGICAL: Cranial nerves II-XII grossly intact. Motor is 5/5 in bilateral upper and lower extremities proximal to distal. No sensory deficits. HEENT: Face is symmetric. Pupils are equal and reactive. Extraocular movements are intact. NECK: Supple. No JVD. No thyromegaly. No submental, submandibular, pre- /postauricular, occipital or supraclavicular lymphadenopathy. CHEST: Normal chest expansion. No Telemetry. LUNGS: Patient has bilateral wheezing present CARDIOVASCULAR: Regular. S1 and S2 normal. No appreciable rubs, murmurs or gallops. ABDOMEN: Soft, he has a ventral hernia present, mild tenderness around the hernia site and nondistended. There is no rebound, voluntary guarding, or rigidity. : Deferred. No Mota. EXTREMITIES: Non-edematous and not cyanotic. No clubbing. Good capillary refill. SKIN: No skin breakdown. Vital Signs (last 8hr) Date Time Temp Pulse Resp B/P (MAP) Pulse Ox O2 Delivery O2 Flow Rate FiO2 08/02/24 14:15 81 19 08/02/24 14:14 81 21 N/Cannula Low lpm 3.0 32 08/02/24 12:00 98.8 110 18 102/69 96 Room Air 21 08/02/24 10:20 97 19 08/02/24 10:19 97 21 N/Cannula Low lpm 4.0 36 LABS: Laboratory: Test 08/02/24 12:48 08/02/24 05:37 08/01/24 07:57 Range/Units Urine Color COLORLESS YELLOW Urine Appearance CLEAR CLEAR Urine pH 7.5 5.0-8.0 Urine Specific [place] 1.004 1.001-1.031 Urine Protein NEGATIVE NEGATIVE mg/dL Urine Glucose (UA) NEGATIVE NEGATIVE mg/dL Urine Ketones NEGATIVE NEGATIVE mg/dL Urine Occult Blood NEGATIVE NEGATIVE Urine Nitrate NEGATIVE NEGATIVE Urine Bilirubin NEGATIVE NEGATIVE mg/dL Urine Urobilinogen 0.2 0.2-1.0 mg/dL Urine Leukocyte Esterase NEGATIVE NEGATIVE Tamir/uL White Blood Count 19.7 H 4.8-10.8 K/uL Red Blood Count 4.26 L 4.50-6.20 MIL/uL Hemoglobin 11.6 L 14.0-18.0 g/dL Hematocrit 36.4 L 42-54 % Mean Corpuscular Volume 85.4 79-99 fL Mean Corpuscular Hemoglobin 27.2 27.0-33.0 pg Mean Corpuscular Hemoglobin Concent 31.9 L 32.0-36.0 g/dL Red Cell Distribution Width 20.1 H 11.0-15.5 % Platelet Count 163 130-400 K/uL Mean Platelet Volume 10.1 7.5-10.5 fL Immature Granulocyte % (Auto) 0.9 0-1 % Neutrophils (%) (Auto) 92.2 H 40.0-77.0 % Lymphocytes (%) (Auto) 4.1 L 21.0-51.0 % Monocytes (%) (Auto) 2.7 L 3.0-13.0 % Eosinophils (%) (Auto) 0.0 0.0-8.0 % Basophils (%) (Auto) 0.1 0.0-5.0 % Neutrophils # (Auto) 18.2 H 1.8-7.7 K/uL Lymphocytes # (Auto) 0.8 L 1.0-4.8 K/uL Monocytes # (Auto) 0.5 0.1-1.0 K/uL Eosinophils # (Auto) 0.00 0.00-0.70 K/uL Basophils # (Auto) 0.02 0.00-0.20 K/uL Absolute Immature Granulocyte (auto 0.18 0-1 K/uL Nucleated Red Blood Cells 0.0 0.0-0.19 % Sodium Level 141 136-145 mmol/L Potassium Level 3.6 3.5-5.1 mmol/L Chloride Level 101 101-111 mmol/L Carbon Dioxide Level 37 H 21-32 mmol/L Blood Urea Nitrogen 6 L 7-18 mg/dL Creatinine 0.4 L 0.5-1.3 mg/dL Glomerular Filtration Rate Calc 117 >90 mL/min Random Glucose 127 H 70-105 mg/dL Total Calcium 7.8 L 8.5-10.1 mg/dL Total Bilirubin 0.5 0.2-1.0 mg/dL Aspartate Amino Transf (AST/SGOT) 51 H 10-37 U/L Alanine Aminotransferase (ALT/SGPT) 283 H 12-78 U/L Alkaline Phosphatase 101 50-136 U/L B-Type Natriuretic Peptide 105 H 0-100 pg/mL Total Protein 4.4 L 6.0-8.3 g/dL Albumin 1.8 L 3.5-5.0 g/dL Vancomycin Level Trough 15.0 10.0-20.0 UG/ML Current Medications Medications (Trade) Dose Ordered Sig/Suni Route PRN Reason Start Time Stop Time Status Last Admin Dose Admin Acetaminophen (TYLenol 500MG TAB) 500 mg Q6H PRN PO MILD PAIN (1-3) 07/28/24 17:00 08/27/24 16:59 Albumin Human 100 ml @ 0 mls/hr AD IV 07/29/24 00:00 08/01/24 08:05 DC 07/29/24 00:36 100 MLS/HR Albuterol (DUOneb) 1 UDVIAL [id number] IH 07/28/24 18:00 07/29/24 06:56 DC 07/28/24 22:59 1 UDVIAL Albuterol Sulfate (Proventil 0.083% 2.5mg/3ml) 2.5MG [id number] IH 07/29/24 06:00 08/28/24 05:59 08/02/24 14:12 2.5 MG Aspirin (Aspirin 81mg Ec Tab) 81 mg DAILY PO 07/31/24 09:00 08/30/24 08:59 08/02/24 08:45 81 MG Atorvastatin Calcium (LIPItor 40MG) 40 mg HS PO 07/28/24 23:55 07/29/24 11:02 DC 07/29/24 00:23 40 MG Budesonide (Pulmicort 0.25mg/2ml) 0.25 mg BIDRESP IH 07/28/24 18:00 07/29/24 05:56 DC 07/28/24 22:59 0.25 MG Budesonide (Pulmicort 0.5 Mg/2ml) 0.5 mg BIDRESP IH 07/29/24 06:00 08/28/24 05:59 08/02/24 07:15 0.5 MG Cefepime HCl (MAXipime 1 GM vial) 1 gm Q8H IVPB 07/28/24 21:00 07/29/24 10:47 DC 07/29/24 06:45 1 GM Chlordiazepoxide HCl (LIBrium 25 MG CAP) 25 mg Q2H PRN PO ALCOHOL WITHDRAWAL PROTOCOL 07/31/24 17:00 08/07/24 16:59 08/02/24 11:37 25 MG Chlordiazepoxide HCl (LIBrium 25 MG CAP) 50 mg Q1H PRN PO ALCOHOL WITHDRAWAL PROTOCOL 07/31/24 17:00 08/07/24 16:59 Enoxaparin Sodium (Lovenox (Pharmacy To Dose)) 1 unit DAILY SQ 07/31/24 09:00 07/30/24 21:31 DC Enoxaparin Sodium (Lovenox 80mg) 70 mg BID SQ 07/31/24 09:00 08/30/24 08:59 08/02/24 08:49 70 MG Enoxaparin Sodium (Lovenox 80mg) 70 mg Q24H SQ 07/31/24 09:00 07/31/24 07:57 DC Enoxaparin Sodium (Lovenox 80mg) 70 mg Q24H SQ 07/30/24 22:00 07/30/24 21:34 DC Furosemide (LASix 20MG TAB) 20 mg DAILY PO 07/31/24 09:00 08/01/24 11:06 DC 08/01/24 10:14 20 MG Furosemide (LASix 40MG TAB) 40 mg DAILY PO 08/02/24 09:00 09/01/24 08:59 08/02/24 08:46 40 MG Magnesium Sulfate 50 ml @ 0 mls/hr PROTOCOL PRN IV HYPOMAGNESEMIA 07/28/24 17:00 08/27/24 16:59 07/30/24 07:56 25 MLS/HR Meropenem 1 gm/ Sodium Chloride 100 ml @ 33.333 mls/ hr Q8H IVPB 07/29/24 11:00 08/08/24 10:59 08/02/24 11:37 33.333 MLS/HR Methylprednisolone Sodium Succinate (Solu-medROL 40MG) 20 mg Q12H IVP 08/01/24 05:00 08/01/24 12:24 DC 08/01/24 05:40 20 MG Methylprednisolone Sodium Succinate (Solu-medROL 40MG) 40 mg Q12H IVP 07/30/24 17:00 07/31/24 23:45 DC 07/31/24 16:58 40 MG Methylprednisolone Sodium Succinate (Solu-medROL 40MG) 40 mg Q8H IVP 07/28/24 21:00 07/30/24 12:21 DC 07/30/24 05:53 40 MG Midodrine (PROAMatine 5 MG TABLET) 10 mg TID PO 07/28/24 23:50 08/27/24 23:49 08/02/24 15:05 10 MG Montelukast Sodium (SinguLAIR) 10 mg DAILY PO 08/01/24 09:00 08/31/24 08:59 08/02/24 08:47 10 MG Norepinephrine 250 ml @ 0 mls/hr AD PRN IV DIRECTED 07/29/24 02:30 07/30/24 12:21 DC 07/29/24 02:39 24.67 MLS/HR Pantoprazole Sodium (PROTonix 40MG INJ) 40 mg BID IVP 07/28/24 21:00 08/27/24 20:59 08/02/24 08:44 40 MG Pharmacy Profile Note (Lace Assessment) 1 each AD MISC 07/29/24 12:00 08/01/24 06:21 DC Pharmacy Profile Note (Pharmacy Communication) 1 each PROTOCOL PRN MISC ETOH Withdrawal Score changes 07/31/24 17:00 08/07/24 16:59 Potassium Chloride 100 ml @ 50 mls/hr AD PRN IV POTASSIUM PROTOCOL 07/28/24 15:30 07/28/24 15:44 DC Potassium Chloride 100 ml @ 100 mls/hr AD PRN IV POTASSIUM PROTOCOL 07/28/24 17:00 08/27/24 16:59 Potassium Chloride (K-Dur/Klor-Con 20meq) 20 meq AD PRN PO POTASSIUM PROTOCOL 07/28/24 17:00 08/27/24 16:59 08/02/24 06:37 20 MEQ Potassium Chloride (KCl 10% Elixir 20meq/15ml) 20 meq AD PRN PO POTASSIUM PROTOCOL 07/28/24 17:00 08/27/24 16:59 07/30/24 11:53 20 MEQ Prednisone (deltaSONE/ oraSONE 20MG TAB) 20 mg BID PO 08/01/24 21:00 08/06/24 20:59 08/02/24 08:46 20 MG Sodium Chloride 1,000 ml @ 50 mls/hr Q20H IV 07/28/24 17:00 07/30/24 00:01 DC 07/29/24 08:08 125 MLS/HR Vancomycin HCl (Vancomycin 750mg) 750 mg Q8H IVPB 07/29/24 01:00 07/29/24 02:45 DC Vancomycin HCl (Vancomycin 750mg) 750 mg Q8H IVPB 07/29/24 06:30 07/29/24 06:44 DC Vancomycin HCl (Vancomycin 750mg) 750 mg Q8H IVPB 07/29/24 08:30 08/08/24 08:29 08/02/24 08:45 750 MG Vancomycin HCl (Vancomycin Protocol) 1 each AD IV 07/28/24 17:00 08/11/24 16:59 DIAGNOSTICS / RADIOLOGY: [ ] ASSESSMENT: Sepsis POA Acute on chronic COPD exacerbation Acute hypoxic respiratory failure secondary to COPD exacerbation and CAP Community acquired Pneumonia POA Fall Severe hypokalemia Rhabdomyolysis Cocaine and heroin abuse History of noncompliance Poor venous access Anterior chest wall rash Partially occlusive DVT proximal left superficial femoral vein PLAN: -Continue PCCU -Continue BiPAP alternating with supplemental oxygen via nasal cannula as needed -cardiology input noted and appreciated, elevated troponin likely type 2 in setting of rhabdomyolysis and sepsis. -CT chest with and without contrast no evidence of filling defect to suggest pulmonary emboli. Small bilateral effusion mild bilateral pulmonary COPD with a interstitial fibrosis. -Doppler of the lower extremity shows partially occlusive DVT proximal left superficial femoral vein -continue the patient on broad-spectrum IV antibiotics, blood culture so far negative -in reference to COPD exacerbation. Continue the patient on BiPAP, Pulmonary input noted and appreciated, continue DuoNeb, continue to follow chest x-ray as well as ABG. 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 labs -GI and DVT prophylaxis Disposition: Pending SNF placement, ID recommendations DENI AU MD Aug 02, 2024 16:44
[2024-08-02] MEDS: chlordiazePOXIDE HCL 25 MG CAP PO PRN (23:37)
[2024-08-03] VITALS (13 sets, daily range): BP systolic 109–135; BP diastolic 51–71; PULSE 100–116; RESP 18–42; TEMP 97.6–98.1; O2SAT 93–99
[2024-08-03 01:28] LABS: ABG BASE EXCESS 10.3 mmol/L (-2.0-3.0); ABG HCO3 37.3 mmol/L (21.0-28.0); ABG OXYGEN SATURATION 80.7 % (94.0-98.0); ABG PCO2 59 mmHg (35-48); ABG PH 7.417 (7.350-7.450); DEVICE COMMENT LVN; PO2, ARTERIAL BG 45.2 mmHg (83.0-108.0); VENT MODE, BG LR 6L NC (ROOM AIR)
--- NOTE | 2024-08-03 10:01 | PN ---
[facility] PROGRESS NOTE Date of Service: Aug 03, 2024 Time of Service: 09:57 SUBJECTIVE: The patient has been seen and examined during my rounding, on BiPAP, 14/6, FiO2 60%, saturating 96-98%. Getting IV antibiotics, off Levophed. No chest pain, no shortness a breath, no nausea, no vomiting, no abdominal pain, family members at bedside during my visit, updated, all questions answered. Chest x-ray today showing mild right lung pulmonary infiltrates slightly increased from previous study. 07/30 the patient has been seen and examined during my rounding, comfortable, no acute events overnight, he is on BiPAP, 14/6 FiO2 60%, saturating 94-96%. He remains hemodynamically stable, following simple commands, still mildly confused, feels weak, denied chest pain, feels less short of breath, no nausea, no vomiting. He is off any drips, currently getting IV antibiotics during my visit. No family members at bedside. 07/31 the patient has been seen and examined during my rounding, comfortably in bed, tolerating BiPAP throughout the night, during my visit on supplemental oxygen via nasal cannula at 4 L, saturating no 100%. BP 112/62, afebrile, heart rate controlled and 91, he is alert, following commands, lives by himself, denied chest pain, no shortness on breath, minimal cough, no nausea, no vomiting, no abdominal pain, no family at bedside. 08/01 Pt seen at bedside, no acute events overnight. ID recommending SNF placement for correction antibiotics. Pt with reported heroin use, no evidence of opiate withdrawal at this time, will continue to monitor. He is hemodynamically stable. WBC improved from 29 down to 25, platelets improved from 115 up to 136, sodium improved from 130 up to 132, LFT trending back to normal, remainder of his labs are relatively unremarkable. Cultures are no growth to date 08/02 Pt seen at bedside, no acute events overnight. Pt consintues on CIWA protocol requiring regular doses of librium. Blood cultures positive 1/2 gram negative rods. Continue with Vancomycin and meropenem. Vitals and labs relatively unremarkable. 08/03 07/31 the patient has been seen and examined during my rounding, comfortably in bed, tolerating BiPAP throughout the night, during my visit on supplemental oxygen via nasal cannula at 2 L, saturating 100%. HD stable, afebri le, heart rate controlled, he is alert, following commands, lives by himself, denied chest pain, no shortness on breath, minimal cough, no nausea, no vomiting, no abdominal pain, no family at bedside. REVIEW OF SYSTEMS 12 point ROS negative unless noted in HPI PHYSICAL EXAM GENERAL APPEARANCE: Patient looks chronically ill, debilitated, on BiPAP. Mildly confused. NEUROLOGICAL: Cranial nerves II-XII grossly intact. Motor is 5/5 in bilateral upper and lower extremities proximal to distal. No sensory deficits. HEENT: Face is symmetric. Pupils are equal and reactive. Extraocular movements are intact. NECK: Supple. No JVD. No thyromegaly. No submental, submandibular, pre- /postauricular, occipital or supraclavicular lymphadenopathy. CHEST: Normal chest expansion. No Telemetry. LUNGS: Patient has bilateral wheezing present CARDIOVASCULAR: Regular. S1 and S2 normal. No appreciable rubs, murmurs or gallops. ABDOMEN: Soft, he has a ventral hernia present, mild tenderness around the hernia site and nondistended. There is no rebound, voluntary guarding, or rigidity. : Deferred. No Mota. EXTREMITIES: Non-edematous and not cyanotic. No clubbing. Good capillary refill. SKIN: No skin breakdown. Vital Signs (last 8hr) Date Time Temp Pulse Resp B/P (MAP) Pulse Ox O2 Delivery O2 Flow Rate FiO2 08/03/24 07:26 103 20 08/03/24 07:25 104 20 N/Cannula Low lpm 3.0 32 08/03/24 07:00 97.5 107 18 109/54 93 Nasal Cannula 4.0 32 08/03/24 04:00 98.1 105 20 135/51 97 BIPAP LABS: Laboratory: Test 08/03/24 01:26 08/02/24 12:48 08/02/24 05:37 Range/Units Blood Gas Specimen Type Arterial Arterial Blood pH 7.417 7.350-7.450 Arterial Blood Partial Pressure CO2 59 H 35-48 mmHg Arterial Blood Partial Pressure O2 45.2 *L 83.0-108.0 mmHg Arterial Blood HCO3 37.3 H 21.0-28.0 mmol/L Arterial Blood Oxygen Saturation 80.7 L 94.0-98.0 % Arterial Blood Base Excess 10.3 H -2.0-3.0 mmol/L Blood Gas Temperature 37.0 35.5-37.0 CELSIUS Blood Gas Flow-by 6.00 0.00-15.00 L/min Blood Gas Vent Mode LR 6L NC ROOM AIR FiO2 44.0 % Blood Gas Specimen Comment [employer] Urine Color COLORLESS YELLOW Urine Appearance CLEAR CLEAR Urine pH 7.5 5.0-8.0 Urine Specific [place] 1.004 1.001-1.031 Urine Protein NEGATIVE NEGATIVE mg/dL Urine Glucose (UA) NEGATIVE NEGATIVE mg/dL Urine Ketones NEGATIVE NEGATIVE mg/dL Urine Occult Blood NEGATIVE NEGATIVE Urine Nitrate NEGATIVE NEGATIVE Urine Bilirubin NEGATIVE NEGATIVE mg/dL Urine Urobilinogen 0.2 0.2-1.0 mg/dL Urine Leukocyte Esterase NEGATIVE NEGATIVE Tamir/uL White Blood Count 19.7 H 4.8-10.8 K/uL Red Blood Count 4.26 L 4.50-6.20 MIL/uL Hemoglobin 11.6 L 14.0-18.0 g/dL Hematocrit 36.4 L 42-54 % Mean Corpuscular Volume 85.4 79-99 fL Mean Corpuscular Hemoglobin 27.2 27.0-33.0 pg Mean Corpuscular Hemoglobin Concent 31.9 L 32.0-36.0 g/dL Red Cell Distribution Width 20.1 H 11.0-15.5 % Platelet Count 163 130-400 K/uL Mean Platelet Volume 10.1 7.5-10.5 fL Immature Granulocyte % (Auto) 0.9 0-1 % Neutrophils (%) (Auto) 92.2 H 40.0-77.0 % Lymphocytes (%) (Auto) 4.1 L 21.0-51.0 % Monocytes (%) (Auto) 2.7 L 3.0-13.0 % Eosinophils (%) (Auto) 0.0 0.0-8.0 % Basophils (%) (Auto) 0.1 0.0-5.0 % Neutrophils # (Auto) 18.2 H 1.8-7.7 K/uL Lymphocytes # (Auto) 0.8 L 1.0-4.8 K/uL Monocytes # (Auto) 0.5 0.1-1.0 K/uL Eosinophils # (Auto) 0.00 0.00-0.70 K/uL Basophils # (Auto) 0.02 0.00-0.20 K/uL Absolute Immature Granulocyte (auto 0.18 0-1 K/uL Nucleated Red Blood Cells 0.0 0.0-0.19 % Sodium Level 141 136-145 mmol/L Potassium Level 3.6 3.5-5.1 mmol/L Chloride Level 101 101-111 mmol/L Carbon Dioxide Level 37 H 21-32 mmol/L Blood Urea Nitrogen 6 L 7-18 mg/dL Creatinine 0.4 L 0.5-1.3 mg/dL Glomerular Filtration Rate Calc 117 >90 mL/min Random Glucose 127 H 70-105 mg/dL Total Calcium 7.8 L 8.5-10.1 mg/dL Total Bilirubin 0.5 0.2-1.0 mg/dL Aspartate Amino Transf (AST/SGOT) 51 H 10-37 U/L Alanine Aminotransferase (ALT/SGPT) 283 H 12-78 U/L Alkaline Phosphatase 101 50-136 U/L B-Type Natriuretic Peptide 105 H 0-100 pg/mL Total Protein 4.4 L 6.0-8.3 g/dL Albumin 1.8 L 3.5-5.0 g/dL Current Medications Medications (Trade) Dose Ordered Sig/Suni Route PRN Reason Start Time Stop Time Status Last Admin Dose Admin Acetaminophen (TYLenol 500MG TAB) 500 mg Q6H PRN PO MILD PAIN (1-3) 07/28/24 17:00 08/27/24 16:59 Albumin Human 100 ml @ 0 mls/hr AD IV 07/29/24 00:00 08/01/24 08:05 DC 07/29/24 00:36 100 MLS/HR Albuterol (DUOneb) 1 UDVIAL [id number] 07/28/24 18:00 07/29/24 06:56 DC 07/28/24 22:59 1 UDVIAL Albuterol Sulfate (Proventil 0.083% 2.5mg/3ml) 2.5MG [id number] 07/29/24 06:00 08/28/24 05:59 08/03/24 07:26 2.5 MG Aspirin (Aspirin 81mg Ec Tab) 81 mg DAILY PO 07/31/24 09:00 08/30/24 08:59 08/03/24 09:15 81 MG Atorvastatin Calcium (LIPItor 40MG) 40 mg HS PO 07/28/24 23:55 07/29/24 11:02 DC 07/29/24 00:23 40 MG Budesonide (Pulmicort 0.25mg/2ml) 0.25 mg BIDRESP IH 07/28/24 18:00 07/29/24 05:56 DC 07/28/24 22:59 0.25 MG Budesonide (Pulmicort 0.5 Mg/2ml) 0.5 mg BIDRESP IH 07/29/24 06:00 08/28/24 05:59 08/03/24 07:26 0.5 MG Cefepime HCl (MAXipime 1 GM vial) 1 gm Q8H IVPB 07/28/24 21:00 07/29/24 10:47 DC 07/29/24 06:45 1 GM Chlordiazepoxide HCl (LIBrium 25 MG CAP) 25 mg Q2H PRN PO ALCOHOL WITHDRAWAL PROTOCOL 07/31/24 17:00 08/07/24 16:59 08/02/24 20:38 25 MG Chlordiazepoxide HCl (LIBrium 25 MG CAP) 50 mg Q1H PRN PO ALCOHOL WITHDRAWAL PROTOCOL 07/31/24 17:00 08/07/24 16:59 08/02/24 23:37 50 MG Enoxaparin Sodium (Lovenox (Pharmacy To Dose)) 1 unit DAILY SQ 07/31/24 09:00 07/30/24 21:31 DC Enoxaparin Sodium (Lovenox 80mg) 70 mg BID SQ 07/31/24 09:00 08/30/24 08:59 08/03/24 09:18 70 MG Enoxaparin Sodium (Lovenox 80mg) 70 mg Q24H SQ 07/31/24 09:00 07/31/24 07:57 DC Enoxaparin Sodium (Lovenox 80mg) 70 mg Q24H SQ 07/30/24 22:00 07/30/24 21:34 DC Furosemide (LASix 20MG TAB) 20 mg DAILY PO 07/31/24 09:00 08/01/24 11:06 DC 08/01/24 10:14 20 MG Furosemide (LASix 40MG TAB) 40 mg DAILY PO 08/02/24 09:00 09/01/24 08:59 08/03/24 09:14 40 MG Magnesium Sulfate 50 ml @ 0 mls/hr PROTOCOL PRN IV HYPOMAGNESEMIA 07/28/24 17:00 08/27/24 16:59 07/30/24 07:56 25 MLS/HR Meropenem 1 gm/ Sodium Chloride 100 ml @ 33.333 mls/ hr Q8H IVPB 07/29/24 11:00 08/08/24 10:59 08/03/24 02:34 33.333 MLS/HR Methylprednisolone Sodium Succinate (Solu-medROL 40MG) 20 mg Q12H IVP 08/01/24 05:00 08/01/24 12:24 DC 08/01/24 05:40 20 MG Methylprednisolone Sodium Succinate (Solu-medROL 40MG) 40 mg Q12H IVP 07/30/24 17:00 07/31/24 23:45 DC 07/31/24 16:58 40 MG Methylprednisolone Sodium Succinate (Solu-medROL 40MG) 40 mg Q8H IVP 07/28/24 21:00 07/30/24 12:21 DC 07/30/24 05:53 40 MG Midodrine (PROAMatine 5 MG TABLET) 10 mg TID PO 07/28/24 23:50 08/27/24 23:49 08/03/24 09:14 10 MG Montelukast Sodium (SinguLAIR) 10 mg DAILY PO 08/01/24 09:00 08/31/24 08:59 08/03/24 09:15 10 MG Norepinephrine 250 ml @ 0 mls/hr AD PRN IV DIRECTED 07/29/24 02:30 07/30/24 12:21 DC 07/29/24 02:39 24.67 MLS/HR Pantoprazole Sodium (PROTonix 40MG INJ) 40 mg BID IVP 07/28/24 21:00 08/27/24 20:59 08/03/24 09:14 40 MG Pharmacy Profile Note (Lace Assessment) 1 each AD MISC 07/29/24 12:00 08/01/24 06:21 DC Pharmacy Profile Note (Pharmacy Communication) 1 each PROTOCOL PRN MISC ETOH Withdrawal Score changes 07/31/24 17:00 08/07/24 16:59 Potassium Chloride 100 ml @ 50 mls/hr AD PRN IV POTASSIUM PROTOCOL 07/28/24 15:30 07/28/24 15:44 DC Potassium Chloride 100 ml @ 100 mls/hr AD PRN IV POTASSIUM PROTOCOL 07/28/24 17:00 08/27/24 16:59 Potassium Chloride (K-Dur/Klor-Con 20meq) 20 meq AD PRN PO POTASSIUM PROTOCOL 07/28/24 17:00 08/27/24 16:59 08/02/24 06:37 20 MEQ Potassium Chloride (KCl 10% Elixir 20meq/15ml) 20 meq AD PRN PO POTASSIUM PROTOCOL 07/28/24 17:00 08/27/24 16:59 07/30/24 11:53 20 MEQ Prednisone (deltaSONE/ oraSONE 20MG TAB) 20 mg BID PO 08/01/24 21:00 08/06/24 20:59 08/03/24 09:14 20 MG Sodium Chloride 1,000 ml @ 50 mls/hr Q20H IV 07/28/24 17:00 07/30/24 00:01 DC 07/29/24 08:08 125 MLS/HR Vancomycin HCl (Vancomycin 750mg) 750 mg Q8H IVPB 07/29/24 01:00 07/29/24 02:45 DC Vancomycin HCl (Vancomycin 750mg) 750 mg Q8H IVPB 07/29/24 06:30 07/29/24 06:44 DC Vancomycin HCl (Vancomycin 750mg) 750 mg Q8H IVPB 07/29/24 08:30 08/08/24 08:29 08/03/24 09:14 750 MG Vancomycin HCl (Vancomycin Protocol) 1 each AD IV 07/28/24 17:00 08/11/24 16:59 DIAGNOSTICS / RADIOLOGY: [ ] CHEST 1VW REASON: [email or web address] COMPARISON: 08/01/2024 FINDINGS: There are bibasilar infiltrates which are unchanged to somewhat improved. Heart size is normal. Upper lungs are clear. Mediastinum and bony thorax appear unremarkable. IMPRESSION: 1. Bilateral lower lobe infiltrates stable to somewhat improved. ASSESSMENT: Sepsis POA Acute on chronic COPD exacerbation Acute hypoxic respiratory failure secondary to COPD exacerbation and CAP Community acquired Pneumonia POA Fall Severe hypokalemia Rhabdomyolysis Cocaine and heroin abuse History of noncompliance Poor venous access Anterior chest wall rash Partially occlusive DVT proximal left superficial femoral vein PLAN: -Continue to the medical floor -Continue BiPAP alternating with supplemental oxygen via nasal cannula as needed -cardiology input noted and appreciated, elevated troponin likely type 2 in setting of rhabdomyolysis and sepsis. -CT chest with and without contrast no evidence of filling defect to suggest pulmonary emboli. Small bilateral effusion mild bilateral pulmonary COPD with a interstitial fibrosis. -Doppler of the lower extremity shows partially occlusive DVT proximal left superficial femoral vein -continue the patient on broad-spectrum IV antibiotics, blood culture so far negative -in reference to COPD exacerbation. Continue the patient on intermittent BiPAP, Pulmonary input noted and appreciated, continue DuoNeb, continue to follow chest x-ray as well as ABG. -obtain PT evaluation -ID recommending placement for correction antibiotics -replace electrolytes IV per protocol -a.m. labs -GI and DVT prophylaxis Disposition: The patient remains admitted to the medical floor. The patient required BiPAP last night asleep started complaining of mild shortness a breath, during my visit he is comfortable, denied chest pain, no shortness a breath, he is on supplemental oxygen via nasal cannula at 2 L. Repeat chest x-ray reviewed, bilateral lower lobe infiltrate stable to somewhat improved. Discussed with the patient. Continue the patient on broad-spectrum IV antibiotics. Follow a.m. labs. Pending insurance approval for the patient to be [facility]. Discussed with the patient, all questions answered, agreed and understood the information provided. Total time spent greater than 30 minutes. HANS PRADO MD Aug 03, 2024 10:01
--- NOTE | 2024-08-03 11:05 | PN ---
Reason for consult: Elevated troponin HPI/story at presentation: This is a pleasant 69-year-old male with past medical history as per present with complaints of altered mental status, fall, was found to have elevated troponins in the setting of possible rhabdomyolysis sepsis electrolyte abnormalities. Cardiology was consulted for further evaluation and management. Subjective: 07/28/2024 altered mental status 07/29/2024 AMS 07/30/2024 AMS 07/31/2024 on bipap 08/01/2024 AMS improved 08/02/2024 no compaints Past medical history: See below Allergies, Meds See chart Review of systems Not obtained, altered mental status Vitals see chart PHYSICAL EXAMINATION GENERAL: The patient is alert and oriented*3 HEENT: Nonicteric sclerae, non traumatic HEART: Regular rate and rhythm with no murmurs LUNGS: Clear to auscultation bilaterally ABDOMEN: No acute issues, non tender GENITAL, RECTAL: deferred SKIN: No rash NEUROLOGIC: NFND EXTREMITIES: No edema ASSESSMENT ELEVATED TROPONIN Likely type II in setting of rhabdomyolysis, sepsis normal ef echo 07/2024 Setting of fall In the setting of substance use Trending down BACTEREMIA gram negative, 07/2024 CHF with pleural effusions and congestion 08/01/2024 RHABDOMYOLYSIS RESPIRATORY FAILURE In the setting of community-acquired pneumonia, COPD ELECTROLYTE ABNORMALITIES Hypokalemia hypomagnesemia at presentation OTHER MEDICAL PROBLEMS Previous history of left inguinal hernia PLAN 07/28/2024 troponin relation at this time is thought to be type II in setting of sepsis rhabdomyolysis etc. For now, will manage conservatively. Will get an echocardiogram to assess EF and if this is normal, no further cardiac evaluation is immediately warranted 07/29/2024 Remains confused, remains in the ICU. Unable to get a history. R espiratory failure and aspiration pneumonia being addressed by ICU team. Troponins trended down yesterday as above. No plans for anticoagulation as above. On midodrine for blood pressure support along with steroids. Pressures are borderline in spite of midodrine. 07/30/24 remains confused on bipap, lytes being replaced, echo with RV dilation and dysfunction, likely related to underlying pulmonary issues, will evaluate with CT, bilateral chronic skin induration of the lower extremities. liver function improving, renal function stable 07/31/2024 Mental status is better compared to yesterday. CT scan from yesterday with evidence of interstitial scarring which likely is the source of RV dysfunction. Remains on BiPAP. Appreciate Infectious Disease managing antibiotics. Patient did have a partially occlusive DVT noted on lower extremity venous Doppler and is currently on Lovenox, however, this is currently daily and will likely need to be switched to b.i.d in the setting of normal renal function.. Was on steroids to help with pulmonary situation and midodrine for blood pressure support. Blood pressures remain borderline in spite of midodrine. 08/01/2024 Resting comfortably, remains on facemask. Mental status is better. However, x-ray with worsening congestion, currently on full dose Lovenox, Lasix 20 daily, midodrine steroids. Ongoing hypochloremic alkalosis as well. will watch for need for acetazolamide. Will give a dose of IV Lasix today and increase oral to 40. 08/02/2024 Doing well, no active cardiac complaints at this time. Volume status is better after diuresis yesterday. Breathing better. Appears to be more comfortable. Got higher dose of Lasix this morning that was ordered yesterday. Blood cultures are positive now for gram-negative rods. Further evaluation is ongoing. Count is elevated, likely in the setting of bacteremia. Currently on Lasix 40 full dose Lovenox aspirin midodrine 10 3 times daily 08/03/2024 Lethargic today, volume status however, is okay. Patient is on CIWA protocol, getting Librium and they are performing to be more sedated in the setting. Will continue diuretics in the current regimen. On midodrine for blood pressure support, 40 daily of Lasix and full dose Lovenox at this time. ATTESTATION I was involved substantially in the care of this patient Number and complexity of problems addressed: 1 acute illness with systemic features. Amount and or complexity of data Review of prior external note(s) from each unique source: 2+ Ordering of each unique test : 0 Review of the result(s) of each unique test: 2+ Assessment requiring an independent historian(s): No Independent interpretation of test performed by another MD/QHCP/appropriate source (not separately reported) : No Discussion of management or test interpretation with external MD/QHCP/appropriate source (not separately reported) : No Risk status (cardiac, billing related): Moderate Vitals/Labs Vital Signs Date Time Temp Pulse Resp B/P (MAP) Pulse Ox O2 Delivery O2 Flow Rate FiO2 08/03/24 10:47 113 26 08/03/24 10:43 50 08/03/24 07:25 N/Cannula Low lpm 3.0 08/03/24 07:00 97.5 109/54 93 Medications Current Medications Albuterol Sulfate 10 mg ONCE ONCE IH Last administered on 07/28/24at 13:43; Start 07/28/24 at 13:30; Stop 07/28/24 at 13:31; Status DC Ipratropium Benezett 0.5 mg ONCE ONCE IH Last administered on 07/28/24at 13:42; Start 07/28/24 at 13:30; Stop 07/28/24 at 13:31; Status DC Methylprednisolone Sodium Succinate 125 mg ONCE ONCE IVP Last administered on 07/28/24at 14:54; Start 07/28/24 at 13:30; Stop 07/28/24 at 13:31; Status DC Aspirin 325 mg ONCE ONCE PO Last administered on 07/28/24at 14:54; Start 07/28/24 at 13:30; Stop 07/28/24 at 13:31; Status DC Sodium Chloride 2,000 ml @ 0 mls/hr ONCE ONCE IV Last administered on 07/28/24at 15:15; Start 07/28/24 at 15:00; Stop 07/28/24 at 15:01; Status DC Vancomycin HCl 1 gm ONCE ONCE IV Last administered on 07/28/24at 16:43; Start 07/28/24 at 15:00; Stop 07/28/24 at 15:01; Status DC Piperacillin Sod/ Tazobactam Sod 3.375 gm ONCE ONCE IV Last administered on 07/28/24at 15:16; Start 07/28/24 at 15:00; Stop 07/28/24 at 15:01; Status DC Potassium Chloride 100 ml @ 50 mls/hr AD PRN IV; Start 07/28/24 at 15:30; Stop 07/28/24 at 15:44; Status DC Potassium Bicarbonate 25 meq ONCE ONCE PO Last administered on 07/28/24at 15:57; Start 07/28/24 at 16:00; Stop 07/28/24 at 16:01; Status DC Potassium Bicarbonate 25 meq STK-MED ONCE .ROUTE; Start 07/28/24 at 15:44; Stop 07/28/24 at 15:45; Status DC Potassium Bicarbonate 25 meq ONCE ONCE PO Last administered on 07/28/24at 16:55; Start 07/28/24 at 17:00; Stop 07/28/24 at 17:01; Status DC Potassium Chloride 100 ml @ 100 mls/hr AD PRN IV; Start 07/28/24 at 17:00; Stop 08/27/24 at 16:59 Potassium Chloride 20 meq AD PRN PO Last administered on 07/30/24at 11:53; Start 07/28/24 at 17:00; Stop 08/27/24 at 16:59 Potassium Chloride 20 meq AD PRN PO Last administered on 08/02/24at 06:37; Start 07/28/24 at 17:00; Stop 08/27/24 at 16:59 Magnesium Sulfate 50 ml @ 0 mls/hr PROTOCOL PRN IV Last administered on 07/30/24at 07:56; Start 07/28/24 at 17:00; Stop 08/27/24 at 16:59 Sodium Chloride 1,000 ml @ 50 mls/hr Q20H IV Last administered on 07/29/24at 08:08; Start 07/28/24 at 17:00; Stop 07/30/24 at 00:01; Status DC Albuterol 1 UDVIAL [id number] IH Last administered on 07/28/24at 22:59; Start 07/28/24 at 18:00; Stop 07/29/24 at 06:56; Status DC Acetaminophen 500 mg Q6H PRN PO; Start 07/28/24 at 17:00; Stop 08/27/24 at 16:59 Vancomycin HCl 1 each AD IV; Start 07/28/24 at 17:00; Stop 08/11/24 at 16:59 Cefepime HCl 1 gm Q8H IVPB Last administered on 07/29/24at 06:45; Start 07/28/24 at 21:00; Stop 07/29/24 at 10:47; Status DC Vancomycin HCl 750 mg ONCE ONCE IVPB Last administered on 07/28/24at 22:24; Start 07/28/24 at 17:30; Stop 07/28/24 at 17:31; Status DC Vancomycin HCl 750 mg Q8H IVPB; Start 07/29/24 at 01:00; Stop 07/29/24 at 02:45; Status DC Methylprednisolone Sodium Succinate 40 mg Q8H IVP Last administered on 07/30/24at 05:53; Start 07/28/24 at 21:00; Stop 07/30/24 at 12:21; Status DC Budesonide 0.25 mg BIDRESP IH Last administered on 07/28/24at 22:59; Start 07/28/24 at 18:00; Stop 07/29/24 at 05:56; Status DC Pantoprazole Sodium 40 mg BID IVP Last administered on 08/03/24at 09:14; Start 07/28/24 at 21:00; Stop 08/27/24 at 20:59 Midodrine 10 mg TID PO Last administered on 08/03/24at 09:14; Start 07/28/24 at 23:50; Stop 08/27/24 at 23:49 Atorvastatin Calcium 40 mg HS PO Last administered on 07/29/24at 00:23; Start 07/28/24 at 23:55; Stop 07/29/24 at 11:02; Status DC Albumin Human 100 ml @ 0 mls/hr AD IV Last administered on 07/29/24at 00:36; Start 07/29/24 at 00:00; Stop 08/01/24 at 08:05; Status DC Norepinephrine 250 ml @ 0 mls/hr AD PRN IV Last administered on 07/29/24at 02:39; Start 07/29/24 at 02:30; Stop 07/30/24 at 12:21; Status DC Vancomycin HCl 750 mg Q8H IVPB; Start 07/29/24 at 06:30; Stop 07/29/24 at 06:44; Status DC Albuterol Sulfate 2.5MG [id number] IH Last administered on 08/03/24at 10:47; Start 07/29/24 at 06:00; Stop 08/28/24 at 05:59 Budesonide 0.5 mg BIDRESP IH Last administered on 08/03/24at 07:26; Start 07/29/24 at 06:00; Stop 08/28/24 at 05:59 Vancomycin HCl 750 mg Q8H IVPB Last administered on 08/03/24at 09:14; Start 07/29/24 at 08:30; Stop 08/08/24 at 08:29 Meropenem 1 gm/ Sodium Chloride 100 ml @ 33.333 mls/ hr Q8H IVPB Last administered on 08/03/24at 02:34; Start 07/29/24 at 11:00; Stop 08/08/24 at 10:59 Pharmacy Profile Note 1 each AD [facility] [place]; Start 07/29/24 at 12:00; Stop 08/01/24 at 06:21; Status DC Potassium Chloride 100 ml @ 50 mls/hr ONCE ONCE IV Last administered on 07/30/24at 14:28; Start 07/30/24 at 11:30; Stop 07/30/24 at 13:29; Status DC Aspirin 81 mg DAILY PO Last administered on 08/03/24at 09:15; Start 07/31/24 at 09:00; Stop 08/30/24 at 08:59 Furosemide 20 mg DAILY PO Last administered on 08/01/24at 10:14; Start 07/31/24 at 09:00; Stop 08/01/24 at 11:06; Status DC Methylprednisolone Sodium Succinate 40 mg Q12H IVP Last administered on 07/31/24at 16:58; Start 07/30/24 at 17:00; Stop 07/31/24 at 23:45; Status DC Iohexol 35,000 mg STK-MED ONCE IV; Start 07/30/24 at 12:21; Stop 07/30/24 at 12:21; Status DC Enoxaparin Sodium 1 unit DAILY SQ; Start 07/31/24 at 09:00; Stop 07/30/24 at 21:31; Status DC Enoxaparin Sodium 70 mg Q24H SQ; Start 07/30/24 at 22:00; Stop 07/30/24 at 21:34; Status DC Enoxaparin Sodium 70 mg Q24H SQ; Start 07/31/24 at 09:00; Stop 07/31/24 at 07:57; Status DC Melatonin 5 mg ONCE ONCE PO Last administered on 07/30/24at 22:21; Start 07/30/24 at 22:30; Stop 07/30/24 at 22:31; Status DC Enoxaparin Sodium 70 mg BID SQ Last administered on 08/03/24at 09:18; Start 07/31/24 at 09:00; Stop 08/30/24 at 08:59 Chlordiazepoxide HCl 25 mg Q2H PRN PO Last administered on 08/02/24at 20:38; Start 07/31/24 at 17:00; Stop 08/07/24 at 16:59 Chlordiazepoxide HCl 50 mg Q1H PRN PO Last administered on 08/02/24at 23:37; Start 07/31/24 at 17:00; Stop 08/07/24 at 16:59 Pharmacy Profile Note 1 each PROTOCOL PRN MISC; Start 07/31/24 at 17:00; Stop 08/07/24 at 16:59 Methylprednisolone Sodium Succinate 20 mg Q12H IVP Last administered on 08/01/24at 05:40; Start 08/01/24 at 05:00; Stop 08/01/24 at 12:24; Status DC Montelukast Sodium 10 mg DAILY PO Last administered on 08/03/24at 09:15; Start 08/01/24 at 09:00; Stop 08/31/24 at 08:59 Furosemide 40 mg DAILY PO Last administered on 08/03/24at 09:14; Start 08/02/24 at 09:00; Stop 09/01/24 at 08:59 Furosemide 40 mg ONCE ONCE IV Last administered on 08/01/24at 13:24; Start 08/01/24 at 11:30; Stop 08/01/24 at 11:31; Status DC Prednisone 20 mg BID PO Last administered on 08/03/24at 09:14; Start 08/01/24 at 21:00; Stop 08/06/24 at 20:59 Potassium Chloride 40 meq ONCE ONCE PO; Start 08/03/24 at 10:00; Stop 08/03/24 at 10:01; Status DC HILARIA THOMAS MD Aug 03, 2024 11:04
--- NOTE | 2024-08-03 12:43 | PN ---
INFECTIOUS DISEASE PROGRESS NOTE Date of Service: Aug 03, 2024 SUBJECTIVE: Patient was seen and examined at bedside in room 318. Patient is awake, alert and able to answer questions. Per report patient had a desaturating episodes in the 80s requiring BiPAP support last night. Patient is on oxygen via nasal cannula at 4 liters/minute at this time. Sitting up on the bedside chair and tolerating well. No reports of fever, temperature is 97.5. No growth reported yet on the blood cultures and urine cultures. Continues on meropenem and vancomycin IV. Patient has been approved to [facility] and being discharged today. From Infectious Disease standpoint patient can continue on current IV antibiotics for 10 more days. PHYSICAL EXAM EYES: Anicteric. Pupils equal and reactive. HENT: No oral thrush seen, moist Oral mucosa NECK: Supple, no JVD or thyromegaly. CHEST: Skin popping scars. LUNGS: Oxygen via nasal cannula at 4 liters/minute. CARDIOVASCULAR: S1, S2 regular. No murmur heard. ABDOMEN: Soft, non tender, bowel sounds present, no organomegaly. CENTRAL NERVOUS SYSTEM: awake, alert oriented x2. SKIN: No rashes, no swelling. LYMPHATICS: No peripheral lymphadenopathy. MUSCULOSKELETAL: No joint swelling, erythema or tenderness. EXTREMITIES: No cyanosis or clubbing. Skin popping scars on lower extremities. BACK: No deformity, no pressure ulcer. GENITOURINARY: No dysuria or hematuria. Vital Sign (Last 12 Hours) 08/03/24 08/03/24 08/03/24 08/03/24 01:18 01:30 04:00 07:00 Temp 98.1 97.5 Pulse 108 103 105 107 Resp 42 28 20 18 B/P (MAP) 135/51 109/54 Pulse Ox 97 93 O2 Delivery BIPAP Nasal Cannula O2 Flow Rate 4.0 FiO2 50 32 08/03/24 08/03/24 08/03/24 08/03/24 07:25 07:26 08:00 10:43 Pulse 104 103 113 Resp 20 20 26 Pulse Ox 96 O2 Delivery N/Cannula Low lpm Nasal Cannula* O2 Flow Rate 3.0 4 FiO2 32 36 50 08/03/24 10:47 Pulse 113 Resp 26 Intake & Output (last 24hrs) 08/02/24 08/02/24 08/03/24 14:59 22:59 06:59 Output Total 600 ml Balance -600 ml LABS: Laboratory: Test 08/03/24 01:26 08/02/24 12:48 08/02/24 05:37 Range/Units Blood Gas Specimen Type Arterial Arterial Blood pH 7.417 7.350-7.450 Arterial Blood Partial Pressure CO2 59 H 35-48 mmHg Arterial Blood Partial Pressure O2 45.2 *L 83.0-108.0 mmHg Arterial Blood HCO3 37.3 H 21.0-28.0 mmol/L Arterial Blood Oxygen Saturation 80.7 L 94.0-98.0 % Arterial Blood Base Excess 10.3 H -2.0-3.0 mmol/L Blood Gas Temperature 37.0 35.5-37.0 CELSIUS Blood Gas Flow-by 6.00 0.00-15.00 L/min Blood Gas Vent Mode LR 6L NC ROOM AIR FiO2 44.0 % Blood Gas Specimen Comment [employer] Urine Color COLORLESS YELLOW Urine Appearance CLEAR CLEAR Urine pH 7.5 5.0-8.0 Urine Specific [place]ah 1.004 1.001-1.031 Urine Protein NEGATIVE NEGATIVE mg/dL Urine Glucose (UA) NEGATIVE NEGATIVE mg/dL Urine Ketones NEGATIVE NEGATIVE mg/dL Urine Occult Blood NEGATIVE NEGATIVE Urine Nitrate NEGATIVE NEGATIVE Urine Bilirubin NEGATIVE NEGATIVE mg/dL Urine Urobilinogen 0.2 0.2-1.0 mg/dL Urine Leukocyte Esterase NEGATIVE NEGATIVE Tamir/uL White Blood Count 19.7 H 4.8-10.8 K/uL Red Blood Count 4.26 L 4.50-6.20 MIL/uL Hemoglobin 11.6 L 14.0-18.0 g/dL Hematocrit 36.4 L 42-54 % Mean Corpuscular Volume 85.4 79-99 fL Mean Corpuscular Hemoglobin 27.2 27.0-33.0 pg Mean Corpuscular Hemoglobin Concent 31.9 L 32.0-36.0 g/dL Red Cell Distribution Width 20.1 H 11.0-15.5 % Platelet Count 163 130-400 K/uL Mean Platelet Volume 10.1 7.5-10.5 fL Immature Granulocyte % (Auto) 0.9 0-1 % Neutrophils (%) (Auto) 92.2 H 40.0-77.0 % Lymphocytes (%) (Auto) 4.1 L 21.0-51.0 % Monocytes (%) (Auto) 2.7 L 3.0-13.0 % Eosinophils (%) (Auto) 0.0 0.0-8.0 % Basophils (%) (Auto) 0.1 0.0-5.0 % Neutrophils # (Auto) 18.2 H 1.8-7.7 K/uL Lymphocytes # (Auto) 0.8 L 1.0-4.8 K/uL Monocytes # (Auto) 0.5 0.1-1.0 K/uL Eosinophils # (Auto) 0.00 0.00-0.70 K/uL Basophils # (Auto) 0.02 0.00-0.20 K/uL Absolute Immature Granulocyte (auto 0.18 0-1 K/uL Nucleated Red Blood Cells 0.0 0.0-0.19 % Sodium Level 141 136-145 mmol/L Potassium Level 3.6 3.5-5.1 mmol/L Chloride Level 101 101-111 mmol/L Carbon Dioxide Level 37 H 21-32 mmol/L Blood Urea Nitrogen 6 L 7-18 mg/dL Creatinine 0.4 L 0.5-1.3 mg/dL Glomerular Filtration Rate Calc 117 >90 mL/min Random Glucose 127 H 70-105 mg/dL Total Calcium 7.8 L 8.5-10.1 mg/dL Total Bilirubin 0.5 0.2-1.0 mg/dL Aspartate Amino Transf (AST/SGOT) 51 H 10-37 U/L Alanine Aminotransferase (ALT/SGPT) 283 H 12-78 U/L Alkaline Phosphatase 101 50-136 U/L B-Type Natriuretic Peptide 105 H 0-100 pg/mL Total Protein 4.4 L 6.0-8.3 g/dL Albumin 1.8 L 3.5-5.0 g/dL ASSESSMENT: Hypoxic respiratory failure, requiring oxygen. Pneumonia. Sepsis. Chronic obstructive pulmonary disease exacerbation. Elevated liver enzymes. Rhabdomyolysis. Leukocytosis, on Steroids. Cocaine abuse. PLAN: Patient has been approved to [facility] and being discharged today. From Infectious Disease standpoint patient can continue on current IV antibiotics x 10 more days. This case was reviewed and discussed with my supervising physician and the above assessment and plan was formulated and agreed upon. ATTESTATION BY PHYSICIAN I have seen and examined the patient. I reviewed the documentation, medical decision making, and treatment plan as noted by the mid-level provider above. I agree with the findings and plan of care. ARMAND LOPEZ MD, [facility] Aug 03, 2024 12:42
[2024-08-03] MEDS: PoTASSium chloRIDE 20MEQ ER 20 MEQ ERTAB PO ONE (13:21)
--- NOTE | 2024-08-03 13:26 | DS ---
Discharge Summary Hospital Course Summary: The patient initially admitted to the hospital July 28, 2024 with the following history of the present illness: 69-year-old male with past medical history of COPD who presented to the hospital secondary to shortness of breath, and fall. Patient appeared ill kempt and does not want to participate in history. History was fairly limited. Patient was brought by EMS from home after he was found on the floor around a fternoon. He stated he lives alone and does not have any families. He was noted to be very short of breath with associated wheezing. He was placed on non-rebreather. Presentation to the ED patient's temperature was noted to be 98.8, heart rate was 106, blood pressure was 83/49, respiratory rate was 21, patient was noted to be on non-rebreather. Labs were notable for white count of 25.1, hemoglobin was 12.4, platelet count was 204 K, sodium was 137, potassium was 2.4, bicarb was 37, BUN was 39, total C K was 106 to, troponin was 564, lactic acid was 2.1, BNP was 740 Duration of acute hypoxemic respiratory failure, as well as community-acquired pneumoniae. Patient also with COPD exacerbation, acute, as well as severe sepsis. The patient with positive troponin as well as rhabdomyolysis with elevated CK and electrolytes imbalance. Pulmonary consultation requested, the patient was placed on broad-spectrum IV antibiotics. Septic workup done. CT of the chest done no evidence of acute pulmonary embolus. Small bilateral pleural effusion and and mild bilateral pulmonary COPD with a interstitial fibrosis. Echocardiogram done, reported as follows: LVEF is 50-55%. Global thinning of the left ventricular camacho. Left ventricular cavity size is normal. Septal wall motion abnormality The right ventricle is moderately to severely dilated. The right atrium is moderately dilated. IVC is dilated and collapses <50% with inspiration. During the course of the hospitalization patient has responded satisfactorily to medical management, case management consulted, patient accepted to [facility] for continuation of medical care. Booth Cashier(s): Pulmonary and critical Care, Infectious Disease, Cardiology. Assessment/Plan: Final diagnosis Sepsis POA Acute on chronic COPD exacerbation Acute hypoxic respiratory failure secondary to COPD exacerbation and CAP Community acquired Pneumonia POA Fall Severe hypokalemia Rhabdomyolysis Cocaine and heroin abuse History of noncompliance Poor venous access Anterior chest wall rash Partially occlusive DVT proximal left superficial femoral vein Discharge Instructions: The patient to be discharged to [facility] for continuation of medical care. Patient to return to the hospital if condition changes. Home Medications: Reported Medications Prednisone (Prednisone) 20 Mg Tablet, 2 TAB PO DAILY for 5 Days, #5 TAB 0 Refills 07/29/24 Furosemide (Furosemide) 40 Mg Tablet, 1 TAB PO DAILY for 30 Days, #30 TAB 0 Refills 07/29/24 Aspirin (Aspirin EC) 81 Mg Tablet.dr, 81 MG PO DAILY, TAB 06/24/24 Ammonium Lactate (Skin Treatment) 225 Gm Lotion, 1 APPL TP DAILY, APPL 02/06/19 Discontinued Scripts Cephalexin Monohydrate (Keflex) 500 Mg Cap, 1 CAP PO BID for 10 Days, #20 CAP 0 Refills Prov:HANS PRADO MD 06/30/24 Time spent arranging discharge: 31-60 minutes HANS PRADO MD Aug 03, 2024 13:26
--- NOTE | 2024-08-03 15:54 | PN ---
[facility] PROGRESS NOTE Date Patient Seen: Aug 03, 2024 Time of Visit: 15:53 Supervising Physician: [Dr. Corral] Feeling myocardial Consulting Physician: Dr Espitia Outpatient Specialists: [ ] Inpatient Consults: Cardiology PROBLEM LIST: Acute Hypoxic respiratory failure, POA Suspected aspiration pneumonia right lower lobe POA Bilateral small pleural effusions, POA no thoracentesis indicated at this time Elevated D-dimer, PE ruled out, + DVT left femoral vein COPD in acute exacerbation, POA Severe sepsis, POA NSTEMI, POA Rhabdomyolysis, POA resolved Hypokalemia, POA Hypomagnesemia, POA Anasarca, POA left inguinal hernia Ventral hernia with bowel contents via midline bilaterally. LVEF 50-55% on 2D echo 07/29/24 Pericholecystic fluid seen on ultrasound 07/29/24 Liver parenchyma disease, POA INTERVAL HISTORY: 07/29-patient is lethargic but easily arousable and oriented x3. He has been hemodynamically stable with a blood pressure 111/62 heart rate in the 80s respiratory rate of 19 saturating 98% with 60% FiO2 on BiPAP. He has been afebrile since admission. On laboratory WBCs are 25.6 H&H is 11.5/36.1 platelet count is [id number] with neutrophils 92.8. Sodium 140 potassium 3.1 chloride 95 carbon dioxide 39 BUN 23 creatinine of 0.5 with a GFR of 109 glucose of 120 mg/dL lactic acid 1.7 total calcium was 8.3 total bili 1.3 AST 796. Sensitive troponin 564, 465, 396. Trending down. CK is now 342 improved from previous which is 1062. On chest x-ray right lower lobe pneumonia suspicious for aspiration. Patient is pending speech eval and MBSS. 07/30-patient was weaned off BiPAP saturating 95% with 3.5 L via nasal cannula hemodynamically stable off pressors afebrile. No major overnight events. Pt passed MBSS w/ recommendations: Recommend mechanical soft/ground solids, thin liquids and pills crushed with pureed. WBCs 29.2 likely increased from steroid H&H 11.7/37 platelet count a [id number]. Sodium 132 potassium three chloride 92 carbon dioxide 37 BUN 16 creatinine 0.6 with a GFR 103 glucose 183 mg/dL total calcium 7.9 80s 284 ALT 656 liver enzymes trending down total CK 342 total protein 4.6 albumin 1.8. Ultrasound Doppler ordered. NO CT evidence of pulmonary embolism seen. Small bilateral pleural effusions and mild bilateral pulmonary COPD with interstitial fibrosis. Pleural effusion with no indication for thoracentesis at this time. 07/31-patient is awake alert and oriented x3 in no apparent distress. However does report generalized body weakness and fatigue. O2 sat 97% with 4 L via nasal cannula hemodynamically stable heart rate in the 80s sinus rhythm. Afebrile in the last 24 hours. WBCs 29 . H&H is 10.9/33.4 with a platelet count of [id number]. Sodium is 130 chloride 93 carbon dioxide 37 with a BUN 12 creatinine 0.4 GFR over 117 glucose 156 mg/dL liver enzymes trending down total bili 0.7 AST 176 ALT 413 total protein 4.3 albumin 1.7. Blood cultures with no growth x3 days. Respiratory culture pending. 08/01 blood pressure is 120/75 with a heart rate of 104, afebrile. Patient is hypoxic on 4 L supplemental oxygen. He continues on DuoNebs, Singulair, prednisone, Pulmicort and antibiotics. He has about 1550 mL of urine output overnight, continues diuretics per Cardiology. Lasix was increased to 40 mg p.o. daily. 08/02-patient is awake alert and oriented x3 saturating 94% on 3 L via nasal cannula weaning down hemodynamically stable afebrile. Patient for degree urine output. WBCs 25 trending down H&H 11.2 with 34.8 with a platelet count of [id number]. Sodium 132 chloride 95 carbon dioxide 39 BUN eight creatinine 0.8 with a GFR of 117 glucose 136 mg/dL total calcium 7.8 liver enzymes continue trending down. BNP 194 improving. Albumin 1.8 blood cultures growing Gram-negative rods. Patient continues on meropenem and vanco. On chest x-ray patient with increased pulmonary vascular congestion. Furosemide 20 mg daily increased to 40 mg p.o. daily. His repeat CXR today shows interval improvement. He passed MBSS and is on recommended diet. Blood cultures are positive for Gram-negative rods 1/2. Pending urine and sputum cultures. Continues on vancomycin and meropenem per ID. Patient has positive hepatitis-C antibody, pending RNA quantitative value. His LFTs remain elevated but currently downtrending. Continues with productive cough. He is feeling weak and deconditioned. 08/03 Patient continues with weakness and deconditioning. He is upset d/t not having food given during lunch. Per bedside nurse, patient did have a meal along with snacks. He continues with bilateral rhonchi. Patient is likely aspirating per physical exam and CXR however he passed MBSS. Patient continues on 3LNC which he states is baseline. He is pending discharge to SNF. Continue abx per ID. REVIEW OF SYSTEMS: General: No malaise or fever. Neurological: No fainting episodes or seizures. HEENT: No nasal congestion or nasal secretion. Respiratory: Yes for cough, shortness of breath. Cardiac: No chest pain or palpitations. Gastrointestinal: No vomiting or diarrhea. Genitourinary: No dysuria hematuria. Skin: No rashes or lesions. Hematological: No bruises or bleeding. Musculoskeletal: No joint pains or arthralgias. Psychiatric: No depression or panic attacks. PHYSICAL EXAM: GENERAL: Awake alert and oriented x3. HEENT: EOMI, Sclera non icteric, moist mucosa NECK: Supple, no JVD, trachea midline LUNGS: Coarse rhonchi Bilateral lung sounds HEART: Regular rate and rhythm. Normal S1 and S2, without murmurs ABD: Abdomen soft, nontender. Bowel sounds present EXT: No clubbing cyanosis; bilateral lower extremity edema NEURO: Awake alert and oriented x3 no focal weakness. Vital Signs (last 8hr) Date Time Temp Pulse Resp B/P (MAP) Pulse Ox O2 Delivery O2 Flow Rate FiO2 08/03/24 14:12 116 22 08/03/24 14:09 116 20 N/Cannula Low lpm 3.0 32 08/03/24 11:45 97.9 100 21 134/71 94 BIPAP 08/03/24 10:47 113 26 08/03/24 10:43 113 26 50 08/03/24 08:00 96 Nasal Cannula* 4 36 LABS: Hematology Labs: Test 08/02/24 05:37 Range/Units White Blood Count 19.7 H 4.8-10.8 K/uL Red Blood Count 4.26 L 4.50-6.20 MIL/uL Hemoglobin 11.6 L 14.0-18.0 g/dL Hematocrit 36.4 L 42-54 % Mean Corpuscular Volume 85.4 79-99 fL Mean Corpuscular Hemoglobin 27.2 27.0-33.0 pg Mean Corpuscular Hemoglobin Concent 31.9 L 32.0-36.0 g/dL Red Cell Distribution Width 20.1 H 11.0-15.5 % Platelet Count 163 130-400 K/uL Mean Platelet Volume 10.1 7.5-10.5 fL Immature Granulocyte % (Auto) 0.9 0-1 % Neutrophils (%) (Auto) 92.2 H 40.0-77.0 % Lymphocytes (%) (Auto) 4.1 L 21.0-51.0 % Monocytes (%) (Auto) 2.7 L 3.0-13.0 % Eosinophils (%) (Auto) 0.0 0.0-8.0 % Basophils (%) (Auto) 0.1 0.0-5.0 % Neutrophils # (Auto) 18.2 H 1.8-7.7 K/uL Lymphocytes # (Auto) 0.8 L 1.0-4.8 K/uL Monocytes # (Auto) 0.5 0.1-1.0 K/uL Eosinophils # (Auto) 0.00 0.00-0.70 K/uL Basophils # (Auto) 0.02 0.00-0.20 K/uL Absolute Immature Granulocyte (auto 0.18 0-1 K/uL Nucleated Red Blood Cells 0.0 0.0-0.19 % Chemistry Labs: Test 08/02/24 05:37 Range/Units Sodium Level 141 136-145 mmol/L Potassium Level 3.6 3.5-5.1 mmol/L Chloride Level 101 101-111 mmol/L Carbon Dioxide Level 37 H 21-32 mmol/L Blood Urea Nitrogen 6 L 7-18 mg/dL Creatinine 0.4 L 0.5-1.3 mg/dL Glomerular Filtration Rate Calc 117 >90 mL/min Random Glucose 127 H 70-105 mg/dL Total Calcium 7.8 L 8.5-10.1 mg/dL Total Bilirubin 0.5 0.2-1.0 mg/dL Aspartate Amino Transf (AST/SGOT) 51 H 10-37 U/L Alanine Aminotransferase (ALT/SGPT) 283 H 12-78 U/L Alkaline Phosphatase 101 50-136 U/L B-Type Natriuretic Peptide 105 H 0-100 pg/mL Total Protein 4.4 L 6.0-8.3 g/dL Albumin 1.8 L 3.5-5.0 g/dL DIAGNOSTICS / RADIOLOGY RESULTS: [CHEST 1VW REASON: hjpoxia COMPARISON: 08/01/2024 FINDINGS: There are bibasilar infiltrates which are unchanged to somewhat improved. Heart size is normal. Upper lungs are clear. Mediastinum and bony thorax appear unremarkable. IMPRESSION: 1. Bilateral lower lobe infiltrates stable to somewhat improved.] PLAN Aspiration precautions Continue antibiotics as SNF NEURO: Minimize central acting medications as possible. Maintain fall precautions, adequate lighting during the day PULMONARY: Supplemental 02 as needed. Maintain aspiration precautions at all times CARDIOVASCULAR: Follow hemodynamics. Vital signs per facility protocol GI & NUTRITION: Continue with nutritional support. Continue stool softeners and laxatives as needed. KIDNEYS & ELECTROLYTES: Strict monitoring of intake, output and overall fluid balance. Avoid nephrotoxic medications to the extent possible. Medications to be dosed according to renal function. Monitor electrolytes and replace as needed ENDOCRINE: Maintain blood glucose between 100-180 at all times. Hypoglycemia protocol in place INFECTIOUS DISEASE: Trend temperature, WBC and procalcitonin level Follow cultures, deescalate antibiotics as soon as possible. Panculture if new onset fever ONCOLOGY/HEMATOLOGY/COAGULATION: Monitor for s/s of bleeding Monitor hemoglobin, coagulation studies as needed SKIN: Pressure ulcer prevention per facility protocol Specialty mattress ORTHO/REHAB: Continue PT/OT Prophylaxis: Continue GI and DVT prophylaxis Code Status: Full Resuscitation Disposition: TBD Other: Total patient care time exceeds 35 minutes excluding all procedures. FAITH HERNÁNDEZ Aug 03, 2024 15:54
[2024-08-04 11:49] LABS: HEPATITIS C RNA QNT HCV NOT DETECTED
== END 2024-08-03 16:05 | DRG 871 ==
LOC: EDH 13:19 → EDHIP 16:22 → 2CV 07-29 05:41 → 2DH 07-30 12:11 → 3CH 08-01 18:25
PROVIDERS: ADMIT Internal Medicine; ATTEND Internal Medicine
PROC: 05H933Z Insertion of Infusion Device into Right Brachial Vein, Percutaneous Approach (ICD-10-PCS; 2024-07-28)
PROC: B54MZZA Ultrasonography of Right Upper Extremity Veins, Guidance (ICD-10-PCS; 2024-07-28)
PROC: 5A09357 Assistance with Respiratory Ventilation, Less than 24 Consecutive Hours, Continuous Positive Airway Pressure (ICD-10-PCS; 2024-07-29)
PROC: 05H933Z Insertion of Infusion Device into Right Brachial Vein, Percutaneous Approach (ICD-10-PCS; principal; 2024-07-31)
PROC: B54MZZA Ultrasonography of Right Upper Extremity Veins, Guidance (ICD-10-PCS; 2024-07-31)
PROC: 5A09357 Assistance with Respiratory Ventilation, Less than 24 Consecutive Hours, Continuous Positive Airway Pressure (ICD-10-PCS; 2024-08-01)
DX: A41.9 Sepsis, unspecified organism (principal); I21.4 Non-ST elevation (NSTEMI) myocardial infarction; J18.9 Pneumonia, unspecified organism; J96.01 Acute respiratory failure with hypoxia; R65.21 Severe sepsis with septic shock; J44.0 Chronic obstructive pulmonary disease with (acute) lower respiratory infection; M62.82 Rhabdomyolysis; J44.1 Chronic obstructive pulmonary disease with (acute) exacerbation; E87.6 Hypokalemia; R21 Rash and other nonspecific skin eruption; F14.10 Cocaine abuse, uncomplicated; E83.42 Hypomagnesemia; I50.9 Heart failure, unspecified; D69.6 Thrombocytopenia, unspecified; K40.90 Unilateral inguinal hernia, without obstruction or gangrene, not specified as recurrent; K43.9 Ventral hernia without obstruction or gangrene; F11.10 Opioid abuse, uncomplicated; E86.0 Dehydration; I25.10 Atherosclerotic heart disease of native coronary artery without angina pectoris; Z79.899 Other long term (current) drug therapy; Z87.891 Personal history of nicotine dependence; Z91.199 Patient's noncompliance with other medical treatment and regimen due to unspecified reason
CPT/HCPCS: 36415; 36556; 36600; 70450; 70486; 71045; 71270; 72125; 74176; 74230; 76705; 80048; 80053; 80074; 80202; 80305; 81003; 82140; 82435; 82550; 82803; 82947; 82948; 83036; 83605; 83735; 83880; 84132; 84145; 84295; 84443; 84484; 85014; 85018; 85025; 85027; 85378; 85610; 85730; 86140; 87040; 87086; 87522; 87635; 87804; 87902; 92611; 93005; 93306; 93970; 94640; 94660; 96365; 96375; 99291; C1894; G0378; J0692; J1650; J1940; J2185; J2470; J2543; J2919; J3370; J3475; J3480; J3490; P9046; Q9967; C1750